=== PATIENT | female | born 1970 | race Caucasian/White ===

== ENCOUNTER 2023-01-15 10:07 | Day surgery (SDC) | payer OTHER, SELFPAY ==
--- NOTE | 2023-01-15 | COLBX_PTH ---
PATIENT: ISAIAH ACUÑA LOC: EN U#:[id number] AGE/SX: 52/F ROOM: RE01/15/[address]: Dr. Murtaza Kline DO : 1970 BED: DIS: 01/15/2023 SPEC #: [id number] RECD: 01/15/23 12:40 STATUS: PAULINO REBetzaida #: [id number] JOSE ENRIQUE: 01/15/23 00:[address]: Murtaza Kline DEPT: SURGICAL PATHOLOGY RECD BY: Yordy Arboleda ENTERED: 01/15/23 12:40 SP TYPE: COLON BX OTHR DR: ALEJANDRO BEATTY MD Tissues: A - COLON BIOPSY B - Transverse colon Procedures: Surgery Specimen Level IV HEADER OPERATION: Colonoscopy (MAC), biopsy PRE-OP DIAGNOSIS: Constipation/diarrhea, positive Cologuard test TISSUE SUBMITTED: A ? Hepatic flexure polyp biopsy, B ? Transverse polyp biopsy MICROSCOPIC DIAGNOSIS A. Colonic polyp at hepatic flexure, biopsy: Polypoid fragment of benign colonic mucosa. See comment. B. Transverse colon polyp, biopsy: Fragment of colonic mucosa with focal hyperplastic change. AM:ap 01/16/2023 COMMENT A. Neither hyperplastic nor adenomatous change is identified. Clinical correlation is suggested. MICROSCOPIC DESCRIPTION Slides are reviewed. GROSS DESCRIPTION A - Received in fixative is one container labeled with the patient's name and designated hepatic flexure polyp biopsy. The specimen consists of two irregular fragments of light barreto soft tissue that in aggregate measure 0.6 x 0.3 x 0.1 cm. The specimen is totally submitted in one cassette. B - Received in fixative is one container labeled with the patient's name and designated transverse polyp biopsy. The specimen consists of one irregular fragment of light barreto soft tissue that measures 0.4 x 0.3 x 0.1 cm. The specimen is totally submitted in one cassette. / SJ:ap 01/15/2023 TC:5 CPT: 36673 x2
[2023-01-15 10:35] VITALS: BP 96/71; PULSE 75; RESP 16; TEMP 36.8; O2SAT 98; BMI 23.6
[2023-01-15] MEDS: Lactated Ringers 1,000 ML 15 ML IV (10:54)
--- NOTE | 2023-01-15 11:06 | PCM.HP.BLA ---
History and Physical Date of Admission: 01/15/23 Chief Complaint: positive Cologuard Details: ISAIAH ACUÑA, is a 52 F who presents to the office today for positive Cologuard. She had a colonoscopy in her 30s, doesn't recall why. She has frequent bloating. She alternates constipation and diarrhea. Takes Gas-X frequently. Sometimes has tenesmus. Recently has had accidents because of urgent diarrhea. Other times she has hard stools, or soft stools. Takes OTC laxative prn. No relief with metamucil. No melena or hematochezia. No nausea, vomiting, dysphagia, heartburn. No abd pain but sometimes has cramps related to bowels. No unintentional weight loss. ROS Const Constitutional: Positive for fatigue and weight change ENT ENT: No difficulty swallowing Gastro GI: Positive for abdominal pain, bloating, change in bowel habits, constipation, diarrhea, heartburn, excessive flatus and nausea/dyspepsia; No belching, change in stool character, coffee ground emesis, cramping, difficulty swallowing, feeling full early, incontinent of stools, Vomiting blood/hematemesis, Blood in stool, loose stools, Black,tarry stools, pain with swallowing, vomiting or other Musc Musculoskeletal: Positive for joint pain, joint swelling and stiffness Skin Skin: No yellowing of the eye or itchy eyes Psych Psychiatric: Positive for anxiety, Positive for depression, Positive for Compulsive Behavior and Positive for obsessions/compulsions Endo Endocrine: Positive for fatigue and weight change Aller/Imm Allergy/Immunologic: No itchy eyes Sarabjit/Lymp Hematologic/Lymphatic: Positive for easy bruising; No easy bleeding Exam Const General: cooperative and comfortable Nutritional Appearance: average body habitus Orientation: alert, awake and oriented x3 Eyes Sclera: sclerae normal Resp Effort & Inspection: normal respiratory effort GI Inspection: normal to inspection Assessment and Plan Assessment and Plan (1) Alternating constipation and diarrhea: ?Status:?Chronic ?Plan: 52 yo female with positive cologuard test. Long hx alternating diarrhea and constipation. She declines eval/treatment for GI symptoms at this time, would like to proceed with colonoscopy. F/u 2 wks later in office. (2) Positive colorectal cancer screening using Cologuard test: ?Status:?Acute ?Plan: see above I have examined the patient and the H&P has been reviewed. There are no clinical changes since date of exam.
[2023-01-15 11:34] VITALS: BP 88/60; BP 96/71; PULSE 66; RESP 14; TEMP 36.5; O2SAT 100
--- NOTE | 2023-01-15 11:38 | OP.CCLET_ITS ---
01/15/2023 Elizabeth Lemos Md Re : Colonoscopy procedure for Cta Ayala Dear Aminta This procedure was performed on Sunday, January 15, 2023. My impressions and recommendations are as follows: Impressions : - Diverticulosis in the transverse colon and at the hepatic flexure. - Diverticulosis in the recto-sigmoid colon. Recommendations : - Discharge patient to home. - Resume previous diet. - Continue present medications. - Await pathology results. - Repeat colonoscopy in 5 years for surveillance. My findings are described in the full procedure note, which is enclosed. If I can be of further assistance, please feel free to contact me at . Sincerely, Murtaza Kline, 01/15/2023 11:37:49 AM This report has been signed electronically.
--- NOTE | 2023-01-15 11:38 | OP.COLON_ITS ---
Patient Name: Cat Ayala Procedure Date: 01/15/2023 11:06 AM Date of : 1970 Age: 52 Procedure: Colonoscopy Indications: Screening for colorectal malignant neoplasm Providers: Murtaza Kline DO Referring MD: Murtaza Kline DO Medicines: Monitored Anesthesia Care Patient Profile: This is a 52 year old female. Refer to note in patient chart for documentation of history and physical. Last Colonoscopy: more than 10 years ago. Complications: No immediate complications. Procedure: Pre-Anesthesia Assessment: - Prior to the procedure, a History and Physical was performed, and patient medications and allergies were reviewed. The patient is competent. The risks and benefits of the procedure and the sedation options and risks were discussed with the patient. All questions were answered and informed consent was obtained. Patient identification and proposed procedure were verified by the physician. Mental Status Examination: normal. Airway Examination: normal oropharyngeal airway and neck mobility. Respiratory Examination: clear to auscultation. CV Examination: normal. Prophylactic Antibiotics: The patient does not require prophylactic antibiotics. Prior Anticoagulants: The patient has taken no previous anticoagulant or antiplatelet agents. ASA Grade Assessment: II - A patient with mild systemic disease. After reviewing the risks and benefits, the patient was deemed in satisfactory condition to undergo the procedure. The anesthesia plan was to use monitored anesthesia care (MAC). Immediately prior to administration of medications, the patient was re-assessed for adequacy to receive sedatives. The heart rate, respiratory rate, oxygen saturations, blood pressure, adequacy of pulmonary ventilation, and response to care were monitored throughout the procedure. The physical status of the patient was re-assessed after the procedure. After I obtained informed consent, the scope was passed under direct vision. Throughout the procedure, the patient's blood pressure, pulse, and oxygen saturations were monitored continuously. The Colonoscope was introduced through the anus and advanced to the cecum, identified by appendiceal orifice and ileocecal valve. The colonoscopy was performed without difficulty. The patient tolerated the procedure well. The quality of the bowel preparation was adequate. Scope In: 11:15:03 AM Scope Withdrawal Time 0 hours 8 minutes 25 seconds Scope Out: 11:30:24 AM Total Procedure Duration Time 0 hours 15 minutes 21 seconds Findings: The perianal and digital rectal examinations were normal. Two small-mouthed diverticula were found in the transverse colon and hepatic flexure. The polyp was removed with a cold snare. Resection and retrieval were complete. Two small-mouthed diverticula were found in the recto-sigmoid colon. Impression: - Diverticulosis in the transverse colon and at the hepatic flexure. - Diverticulosis in the recto-sigmoid colon. Recommendation: - Discharge patient to home. - Resume previous diet. - Continue present medications. - Await pathology results. - Repeat colonoscopy in 5 years for surveillance. Procedure Code(s): --- Professional --- 08643, Colonoscopy, flexible; with removal of tumor(s), polyp(s), or other lesion(s) by snare technique CPT copyright 2017 [employer]. All rights reserved. The codes documented in this report are preliminary and upon brake operator heavy duty review may be revised to meet current compliance requirements. Murtaza Kline DO 01/15/2023 11:37:49 AM This report has been signed electronically. Number of Addenda: 0 Note Initiated On: 01/15/2023 11:06 AM
[2023-01-15 11:40] VITALS: BP 95/56; BP 96/71; PULSE 64; RESP 14; O2SAT 99
[2023-01-15 11:45] VITALS: BP 92/60; BP 96/71; PULSE 63; RESP 14; O2SAT 99
[2023-01-15 11:54] VITALS: BP 95/63; BP 96/71; PULSE 62; RESP 14; TEMP 36.1; O2SAT 100
[2023-01-15 12:08] VITALS: BP 96/71
== END 2023-01-15 12:29 | disposition home or self-care (01) ==
LOC: EN 10:08 → AC 10:10
PROVIDERS: PCP Family Medicine; Referring Provider Internal Medicine Gastroenterology; Visit Provider Internal Medicine Gastroenterology
PROC: 0DJD8ZZ Inspection of Lower Intestinal Tract, Via Natural or Artificial Opening Endoscopic (ICD-10-PCS; CPT 45378; principal; 2023-01-15 11:10)
DX: Z12.11 Encounter for screening for malignant neoplasm of colon (principal); K57.30 Diverticulosis of large intestine without perforation or abscess without bleeding; R14.0 Abdominal distension (gaseous); R19.7 Diarrhea, unspecified
CPT/HCPCS: 45385; 88305; 88342; J7120; J2405

== ENCOUNTER → 2024-02-25 | Outpatient (CLI) | payer BC, SELFPAY ==
--- NOTE | 2024-02-25 15:34 | NEURO ---
NCS and/or EMG Patient Report Ordering Doctor: Karine Muhammad DATE OF SERVICE: 02/25/24 Cat presents for electrodiagnostic testing of the lower limbs. She reports numbness and tingling primarily in the left leg. Electrodiagnostic findings: Left peroneal motor nerve demonstrates normal distal latency, amplitude and conduction velocity. Right peroneal motor nerve demonstrates normal distal latency, amplitude and conduction velocity. Tibial motor nerve demonstrates normal distal latency, amplitude and conduction velocity bilaterally. Normal tibial and peroneal F?waves. Sensory responses are within normal limits. Needle EMG testing was performed in the lower limbs. All muscles tested showed no evidence of denervation with normal motor unit action potentials. Electrodiagnostic impression: This is a normal electrodiagnostic study of the lower extremities. There is no electrodiagnostic evidence for peripheral neuropathy or lumbosacral radiculopathy. Multi Select Codes Neurology Neurology Interp Codes: 34117-21 Musc test done w/n test comp (interp) (2) and 22803-99 Nrv cndj test 11-12 studies (interp)
== END | disposition home or self-care (01) ==
LOC: PSN 11:48
PROVIDERS: PCP Family Medicine; Referring Provider Anesthesiology Pain Medicine; Visit Provider Anesthesiology Pain Medicine
DX: M54.16 Radiculopathy, lumbar region (principal)
CPT/HCPCS: 95886; 95912

== ENCOUNTER → 2024-05-06 | Outpatient (CLI) | payer BC, SELFPAY ==
[2024-05-06 18:29] LABS: Amphetamine Urine VISTA NEGATIVE (<1000 ng/mL); Barbiturate Urine VISTA NEGATIVE (< 200 ng/mL); Benzodiazepine Urine VISTA NEGATIVE (< 200 ng/mL); Cocaine Urine VISTA NEGATIVE (< 300 ng/mL); Ecstacy Urine VISTA NEGATIVE (< 500 ng/mL); Methadone Urine VISTA NEGATIVE (< 300 ng/mL); PCP Urine VISTA NEGATIVE (< 25 ng/mL); THC Urine VISTA NEGATIVE (< 50 ng/mL); Vista UDS pH Range 6
== END | disposition home or self-care (01) ==
PROVIDERS: PCP Family Medicine; Referring Provider Anesthesiology Pain Medicine; Visit Provider Anesthesiology Pain Medicine
DX: F11.20 Opioid dependence, uncomplicated (principal)
CPT/HCPCS: 80307

== ENCOUNTER → 2025-02-23 | Outpatient (CLI) | payer BC, SELFPAY ==
[2025-02-23 20:59] LABS: Barbiturate Urine NEGATIVE (< 200 ng/mL); Benzodiazepine Urine NEGATIVE (< 200 ng/mL); PCP Urine NEGATIVE (< 25 ng/mL); THC Urine NEGATIVE (< 50 ng/mL)
== END | disposition home or self-care (01) ==
LOC: LAB 17:09
PROVIDERS: PCP Family Medicine; Referring Provider Anesthesiology Pain Medicine; Visit Provider Anesthesiology Pain Medicine
DX: F11.20 Opioid dependence, uncomplicated (principal)
CPT/HCPCS: 80307

== ENCOUNTER → 2025-07-12 | Outpatient (CLI) | payer BC, SELFPAY ==
--- NOTE | 2025-07-12 14:10 | RAD_ITS ---
PROCEDURE: CERV SPINE 2 OR 3 VIEWS 07/12/2025 REASON FOR EXAM: SPONDYLOSIS. Pain. TECHNIQUE: Procedure Code: RADSPCL Modality: DX Procedure: CERV SPINE 2 OR 3 VIEWS COMPARISON: None. FINDINGS: BONES: No fracture or focal osseous lesion. Anatomic spinal alignment. DISC/DEGENERATIVE CHANGES: Mild narrowing of the C5-C6 and C6-C7 disc spaces. The remaining disc spaces are preserved. SOFT TISSUES: No acute abnormality seen. RAD/Cerv Spine 2 or 3 Views IMPRESSION: 1. No acute osseous abnormality. 2. Mild degenerative disc disease. Reading Location: [id number]
--- OUTSIDE RECORDS SUMMARY | 2025-07-12 18:25 | XMS RPT_ITS | CCD ---
Author Organization [facility] CliniSyil Care Team Providers Care Drug Safety Specialist Name Role Phone Tona Deal Unavailable Spring, Sandi Valencia Primary Care Provider Spring, Sandi M. Unavailable Spring, Sandi MKate Primary Care Provider Spring, Sandi MKate Unavailable Spring, Sandi MKate Unavailable Spring, Sandi M. Primary Care Provider Spring, Sandi Valencia Unavailable Spring, Sandi M. Primary Care Provider Spring, Sandi MKate Unavailable Spring BINDING PRINTER, Sandi MKate Primary Care Provider [place] BINDING PRINTER, Sandi MKate Unavailable [place] BINDING PRINTER, Sandi MKate Unavailable Alejandro Beatty MD Primary Care Pro vider Alejandro Beatty MD Primary Care Pro vider Alejandro Beatty MD Primary Care Pro vider Spring BINDING PRINTER, Sandi Valencia Primary Care Provider Spring YURI, Sandi M. Unavailable Tona Deal MD Unavailable [phone] Spring BINDING PRINTER, Sandi M. Unavailable SYSTEM, PROVIDER NOT IN Referring Unavaila ble JACI, ALEJANDRO ERICH MOUNIR Primary Care [place] vailable SYSTEM, PROVIDER NOT IN Attending Unavaila ble SYSTEM, PROVIDER NOT IN Referring Unavaila ble JACI, ALEJANDRO ERICH MOUNIR Primary Care [place] vailable SYSTEM, PROVIDER NOT IN Attending Unavaila ble SYSTEM, PROVIDER NOT IN Referring Unavaila ble JACI, ALEJANDRO ERICH MOUNIR Primary Care [place] vailable SYSTEM, PROVIDER NOT IN Attending Unavaila ble JACI, ALEJANDRO ERICH MOUNIR Primary Care [place] vailable JACI, ALEJANDRO ERICH MOUNIR Attending [place] vailable JACI, ALEJANDRO ERICH MOUNIR Referring [place] vailable Catherine FISH BONING MACHINE FEEDER, FISH BONING MACHINE FEEDER-C Nidhi Stovall Attending Provider MD ALEJANDRO BEATTY Primary Care Provider Friend, Dr. Hauser Attending Provider Friend, Dr. Hauser Referring Provider Friend, Dr. Hauser Other Provider Jaci STEWART, Alejandro Erich Mounir Unavailable JACI, ALEJANDRO ERICH MOUNIR Primary Care [place] vailable TONA HI Attending Unavailable GIORGI WRAY Attending Unavail able JACI, ALEJANDRO ERICH MOUNIR Primary Care [place] vailable Drake Spencer MD Unavailable Karine Muhammad MD Unavailable ALEJANDRO BEATTY MD Primary Care Provider ALEJANDRO BEATTY MD Referring Provider Janet Martines Attending Provider Brandie STEWART, Dr. Mari Attending Provider Dr. Karine Muhammad MD Attending Provider Dr. Karine Muhammad MD Referring Provider Karine Muhammad Attending Unavailable Karine Muhammad Referring Unavailable JACI, ALEJANDRO Primary Care Unavailable Karine Muhammad Attending Unavailable Karine Muhammad Referring Unavailable JACI, ALEJANDRO Primary Care Unavailable Janet Delatorre Attending Unavailable Janet Delatorre Referring Unavailable JACI, ALEJANDRO Primary Care Unavailable Janet Delatorre Attending Unavailable JACI, ALEJANDRO Primary Care Unavailable JACI, ALEJANDRO Referring Unavailable BrandieTan belll Attending Unavailable JACI, ALEJANDRO Primary Care Unavailable JACI, ALEJANDRO ERICH MOUNIR Referring [place] vailable JACI, ALEJANDRO ERICH MOUNIR Attending [place] vailable JACI, ALEJANDRO ERICH MOUNIR Primary Care [place] vailable JACI, ALEJANDRO ERICH MOUNIR Primary Care [place] vailable JACI, ALEJANDRO ERICH MOUNIR Attending [place] vailable JACI, ALEJANDRO ERICH MOUNIR Primary Care [place] vailable JACI, ALEJANDRO ERICH MOUNIR Attending [place] vailable JACI, ALEJANDRO ERICH MOUNIR Primary Care [place] vailable JACI, ALEJANDRO ERICH MOUNIR Attending [place] vailable JACI, ALEJANDRO ERICH MOUNIR Primary Care [place] vailable JACI, ALEJANDRO ERICH MOUNIR Attending [place] vailable JACI, ALEJANDRO ERICH MOUNIR Primary Care [place] vailable JACI, ALEJANDRO ERICH MOUNIR Attending [place] vailable JACI, ALEJANDRO ERICH MOUNIR Attending [place] vailable JACI, ALEJANDRO ERICH MOUNIR Primary Care [place] vailable Allergies Allergy Classification Reported Allergen(s) Allergy Type Date of Onset Reaction(s) Facility (20 sources) codeine; Translations: [CODEINE] Propensity to adverse reactions to drug 7 Hives, Shortness Of Breath [facility] Work Phone: (1 source) Codeine Drug Allergy 5 [facility] Repository Medications Current Medications Medication Drug Class(es) Dates Sig (Normalized) Sig (Original) alpha-tocopherol acetate 30 unt / ascorbic acid 100 mg / beta carotene 1000 unt / calcium carbonate 200 mg / calcium pantothenate 7 mg / cholecalciferol 400 unt / docusate sodium 25 mg / ferrous fumarate 29 mg / folic acid 1 mg / niacinamide 15 mg / pyridoxine hydrochloride 20 mg / riboflavin 3 mg / thiamine 3 mg / vitamin b12 0.012 mg / zinc oxide 20 mg oral tablet (1 source) Vitamin B12, Vitamin D, Vitamin C Start: 11-06-2022 Pnv 119-Iron Fum-Folic Acid 29 mg iron- 1 mg tablet Active 1 {tbl} PO DAILY November 06, 2022 12:00am aspirin 81 mg delayed release oral tablet (13 sources) Nonsteroidal Anti-inflammatory Drug Start: 11-06-2022 take 1 tablet by mouth once daily Aspirin 81 mg tablet,delayed release (DR/EC) Active 81 mg PO DAILY November 06, 2022 12:00am End: 10-22-2019 take 1 tablet by mouth once daily aspirin 81 MG EC tablet Take 81 mg by mouth daily. 0 10/22/2019 Discontinued (Stop Taking at Discharge) azithromycin 500 mg oral tablet (2 sources) Macrolide Antimicrobial Start: 05-20-2022 End: 05-23-2022 azithromycin (Zithromax) 500 MG tablet Take 1 (one) tablet (500 mg total) by mouth daily Take 1 tablet daily for 3 days. for 3 days . 3 tablet 0 05/20/2022 05/23/2022 Active 24 hr buPROPion hydrochloride 150 mg extended release oral tablet (11 sources) Aminoketone Start: 05-20-2025 End: 05-20-2026 take 1 tablet by mouth once daily buPROPion (Wellbutrin XL) 150 MG 24 hr tablet Indications: Moderate major depression (HCC) Take 1 (one) tablet (150 mg total) by mouth daily . 30 tablet 11 05/20/2025 05/20/2026 Active Start: 08-29-2023 End: 08-28-2024 take 1 tablet by mouth once daily buPROPion (Wellbutrin XL) 150 MG 24 hr tablet Indications: Mild major depression (HCC) Take 1 (one) tablet (150 mg total) by mouth daily . 30 tablet 2 08/29/2023 08/28/2024 Active busPIRone hydrochloride 5 mg oral tablet (4 sources) Start: 05-20-2025 End: 05-20-2026 take 1 tablet by mouth three times daily as needed busPIRone (BUSPAR) 5 MG tablet Indications: Anxiety Take 1 (one) tablet (5 mg total) by mouth 3 (three) times a day as needed . 90 tablet 11 05/20/2025 05/20/2026 Active CHANTIX CONTINUING MONTH BOX 1 mg tablet (1 source) Start: 03-31-2017 CHANTIX CONTIN UING MONTH BOX 1 mg tablet cholecalciferol 0.025 mg oral tablet (20 sources) Vitamin D Start: 12-26-2017 End: 12-26-2017 cholecalciferol, vitamin D3, 1,000 unit tablet Take 10 (ten) tablets (10,000 Units total) by mouth daily . 12/26/2017 Active Start: 12-26-2017 cholecalcifero l, vitamin D3, 1,000 unit tablet Take 10,000 Units by mouth daily . 0 12/26/2017 Active Start: 12-26-2017 take 3 tablets by mo ut once daily cholecalciferol, vitamin D3, 1,000 unit tablet Take 3 (three) tablets (3,000 Units total) by mouth daily. 12/26/2017 Active dicyclomine hydrochloride 20 mg oral tablet (1 source) Anticholinergic Start: 05-18-2024 take 1 tablet by mouth four times daily as needed for pain dicyclomine (BENTYL) 20 mg tablet Take 1 (one) tablet (20 mg total) by mouth 4 (four) times a day as needed (Abd pain) . 20 tablet 05/18/2024 Active diphenhydrAMINE hydrochloride 25 mg oral capsule (1 source) Histamine-1 Receptor Antagonist Start: 05-25-2020 End: 06-04-2020 take 2 capsules by mouth every six hours as needed diphenhydrAMINE (BENADRYL) 25 mg capsule Indications: Itching Take 2 (two) capsules (50 mg total) by mouth every 6 (six) hours as needed for itching . 30 capsule 0 05/25/2020 06/04/2020 Active doxycycline hyclate 100 mg oral tablet (1 source) Tetracycline-class Drug Start: 05-27-2023 End: 06-03-2023 take 1 tablet by mouth twice daily doxycycline hyclate (VIBRA-TABS) 100 MG tablet Indications: Conjunctivitis, unspecified conjunctivitis type, unspecified laterality Take 1 (one) tablet (100 mg total) by mouth 2 (two) times a day for 7 days . 14 tablet 0 05/27/2023 06/03/2023 Active DULoxetine 60 mg delayed release oral capsule (20 sources) Serotonin and Norepinephrine Reuptake Inhibitor Start: 11-06-2022 take 1 capsule by mouth twice daily Duloxetine (Cymbalta) 60 mg capsule,delayed release(DR/EC) Active 60 mg PO TWICE A DAY November 06, 2022 12:00am Start: 10-29-2022 End: 11-12-2024 take 2 capsules by mouth once daily DULoxetine (CYMBALTA) 60 MG capsule Indications: Mild major depression , Anxiety Take 2 (two) capsules (120 mg total) by mouth daily . 180 capsule 3 11/12/2024 Active Start: 05-18-2022 End: 05-20-2022 DULoxetine (CYMBALTA) DR nickolas nelson 90 mg Start: 04-28-2020 End: 12-21-2022 take 1 capsule by mouth once daily DULoxetine (CYMBALTA) 30 MG capsule Indications: 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 , Anxiety Take 1 (one) capsule (30 mg total) by mouth daily . 90 capsule 3 12/21/2021 10/29/2022 Discontinued Start: 12-16-2019 End: 10-29-2022 take 1 capsule by mouth once daily DULoxetine (CYMBALTA) 60 MG capsule Indications: 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 , Anxiety Take 1 (one) capsule (60 mg total) by mouth daily . 90 capsule 3 12/21/2021 10/29/2022 Discontinued (Reorder (Suppress CancelRx Message to Pharmacy)) Start: 12-26-2017 End: 06-13-2019 take 1 capsule by mouth once daily DULoxetine (CYMBALTA) 60 MG capsule Indications: Fatigue, unspecified type , Myalgia take 1 capsule by mouth once daily 30 capsule 5 06/14/2019 Active Start: 10-31-2017 End: 10-31-2018 take 1 capsule by mouth once daily DULoxetine (CYMBALTA) 30 MG capsule Indications: Fatigue, unspecified type , Myalgia Take 1 (one) capsule (30 mg total) by mouth daily. 30 capsule 11 10/31/2017 12/26/2017 Discontinued ferrous fumarate (20 sources) take 27 mg by mouth once daily F ERROUS FUMARATE (IRON ORAL) Take 27 mg by mouth daily. 0 take 27 mg by mouth once daily F ERROUS FUMARATE (IRON ORAL) Take 27 mg by mouth daily. 0 Active take 27 mg by mouth once daily F ERROUS FUMARATE (IRON ORAL) Take 27 mg by mouth daily. Active furosemide 20 mg oral tablet (15 sources) Loop Diuretic Start: 05-27-2024 End: 11-12-2025 take 1 tablet by mouth once daily furosemide (LASIX) 20 MG tablet Indications: Localized swelling of both lower legs Take 1 (one) tablet (20 mg total) by mouth daily . 30 tablet 11 11/12/2024 11/12/2025 Active gabapentin 300 mg oral capsule (7 sources) Anti-epileptic Agent Start: 11-07-2023 take 1 capsule by mouth three times daily gabapentin (NEURONTIN) 300 MG capsule Indications: Chronic radicular lumbar pain Take 1 (one) capsule (300 mg total) by mouth 3 (three) times a day . 90 capsule 2 11/07/2023 Active Start: 09-19-2023 End: 11-07-2023 take 1 capsule by mouth three times daily gabapentin (NEURONTIN) 100 MG capsule Indications: Cauda equina compression (HCC) , Chronic radicular lumbar pain Take 1 (one) capsule (100 mg total) by mouth 3 (three) times a day . 90 capsule 1 09/19/2023 11/07/2023 Discontinued hydrocortisone 10 mg/ml / neomycin 3.5 mg/ml / polymyxin b [id number] unt/ml otic solution (1 source) Aminoglycoside Antibacterial, Polymyxin-class Antibacterial, Corticosteroid Start: 06-15-2021 End: 06-22-2021 [id number] isone (CORTISPORIN) otic solution Indications: Acute swimmer's ear of right side Administer 3 (three) drops to the right ear 3 (three) times a day for 7 days . 10 mL 1 06/15/2021 06/22/2021 Active hydrOXYzine pamoate 25 mg oral capsule (20 sources) Antihistamine Start: 11-12-2024 End: 11-12-2025 take 1 capsule by mouth three times daily as needed for anxiety hydrOXYzine (VISTARIL) 25 MG capsule Indications: Anxiety Take 1 (one) capsule (25 mg total) by mouth 3 (three) times a day as needed for anxiety . 90 capsule 1 11/12/2024 11/12/2025 Active Start: 11-06-2022 take 1 tablet by liseth three times daily as needed for anxiety Hydroxyzine Hcl 25 mg tablet Active 25 mg PO THREE TIMES A DAY as needed for Anxiety November 06, 2022 12:00am Start: 10-29-2022 End: 10-06-2024 take 1 capsule by mouth three times daily as needed for anxiety hydrOXYzine (VISTARIL) 25 MG capsule Indications: Anxiety Take 1 (one) capsule (25 mg total) by mouth 3 (three) times a day as needed for anxiety . 90 capsule 10/07/2023 10/06/2024 Active ibuprofen 600 mg oral tablet (1 source) Nonsteroidal Anti-inflammatory Drug Start: 10-22-2019 End: 11-21-2019 take 1 tablet by mouth every six hours as needed ibuprofen (ADVIL,MOTRIN) 600 MG tablet Take 1 (one) tablet (600 mg total) by mouth every 6 (six) hours as needed for pain . 30 tablet 0 10/22/2019 11/21/2019 Active Vitamin With Calcium No.72-Iron 27 Mg-Folic Acid 1 Mg Tablet (3 sources) take 1 tablet by mouth once daily vitamin with Ca-Iron-FA 27-1 mg Tab Take 1 tablet by mouth daily. Active lidocaine 0.05 mg/mg medicated patch (2 sources) Antiarrhythmic, Amide Local Anesthetic Start: 09-03-2023 End: 10-03-2023 apply 1 dose transdermal route once daily, then apply 1 dose transdermal route every twelve hours lidocaine (LIDODERM) 5 % patch Place 1 (one) patch on the skin daily Remove & Discard patch within 12 hours or as directed by MD . 30 patch 0 09/03/2023 10/03/2023 Active magnesium (20 sources) magnesium 250 mg Tab Take by mouth daily as needed . Active magnesium 250 mg Tab Take by mouth daily as needed . 0 magnesium 250 mg Tab Take by mouth daily as needed . 0 Active magnesium 250 mg Tab Take by mouth daily . 0 Active magnesium 250 mg Tab Take by mouth. 0 Active magnesium 250 mg Tab Take by mouth. Active mecobalamin 1 mg chewable tablet (2 sources) Start: 11-06-2022 take 1 tablet by mouth once daily Mecobalamin (Vitamin B12) 1,000 mcg tablet,chewable Active 1000 ug PO DAILY November 06, 2022 12:00am meloxicam 15 mg oral tablet (7 sources) Nonsteroidal Anti-inflammatory Drug Start: 08-29-2023 End: 08-28-2024 take 1 tablet by mouth once daily meloxicam (MOBIC) 15 MG tablet Indications: Right-sided chest pain , Lipoma, unspecified site Take 1 (one) tablet (15 mg total) by mouth daily . 30 tablet 11 08/29/2023 08/28/2024 Active multivitamin with minerals tablet (20 sources) take 1 tablet by mouth once daily, then take 1 tablet by mouth once daily multivitamin with minerals tablet Take 1 (one) tablet by mouth daily One a day . Active take 1 tablet by liseth th once daily, then take 1 tablet by mouth once daily multivitamin with minerals tablet Take 1 (one) tablet by mouth daily One a day . 0 Active take 1 tablet by liseth th once daily, then take 1 tablet by mouth once daily multivitamin with minerals tablet Take 1 tablet by mouth daily One a day . 0 take 1 tablet by liseth th once daily, then take 1 tablet by mouth once daily multivitamin with minerals tablet Take 1 tablet by mouth daily One a day . 0 Active ondansetron 4 mg disintegrating oral tablet (2 sources) Serotonin-3 Receptor Antagonist Start: 05-18-2024 take 1 tablet by mouth every six hours as needed for nausea ondansetron (ZOFRAN-ODT) 4 MG disintegrating tablet Dissolve 1 (one) tablet (4 mg total) on top of tongue every 6 (six) hours as needed for nausea . 20 tablet 05/18/2024 Active Start: 05-18-2022 End: 05-20-2022 take 4 mg intravenously every six hours as needed for nausea and vomiting ondansetron (ZOFRAN) injection 4 mg Pnv 119-Iron Fum-Folic Acid (1 source) Start: 11-06-2022 take 1 tablet by mouth once daily Pnv 119-Iron Fum-Folic Acid Active 1 TABLET PO DAILY November 06, 2022 12:00am polymyxin b [id number] unt/ml / trimethoprim 1 mg/ml ophthalmic solution (1 source) Dihydrofolate Reductase Inhibitor Antibacterial, Polymyxin-class Antibacterial Start: 05-27-2023 End: 06-06-2023 take 1 drop(s) into the eye(s) every six hours trimethoprim-polymyx in b (POLYTRIM) 10,000 unit- 1 mg/mL Drop ophthalmic solution Indications: Conjunctivitis, unspecified conjunctivitis type, unspecified laterality Administer 1 (one) drop to both eyes every 6 (six) hours for 10 days . 10 mL 1 05/27/2023 06/06/2023 Active potassium gluconate 2.13 meq oral tablet (20 sources) take 1 tablet by mouth once daily potassium gluconate 500 mg (83 mg) Tab Take 1 tablet by mouth daily . Active End: 10-12-2019 take 1 tablet by mouth once daily potassium 99 mg Tab Take 99 mg by mouth daily. 0 10/12/2019 Discontinued (Discontinued by another clinician) predniSONE 20 mg oral tablet (1 source) Start: 09-19-2023 End: 09-24-2023 take 2 tablets by mouth once daily predniSONE (DELTASONE) 20 MG tablet Indications: Cauda equina compression (HCC) , Claudication of lower extremity (HCC) Take 2 (two) tablets (40 mg total) by mouth daily for 5 days . 10 tablet 0 09/19/2023 09/24/2023 Active pregabalin 50 mg oral capsule (10 sources) take 1 capsule by mouth twice daily pregabalin (LYRICA) 50 MG capsule Take 1 (one) capsule (50 mg total) by mouth 2 (two) times a day . Active vitamin with Ca-Iron-FA 27-1 mg Tab (19 sources) vitamin with Ca-Iron-FA 27-1 mg Tab Take by mouth . Active vitamin with Ca-Iron-FA 27-1 mg Tab Take by mouth . 0 Active End: 09-17-2019 take 1 tablet by mouth once daily vitamin with Ca-Iron-FA 27-1 mg Tab Take 1 tablet by mouth daily. 0 09/17/2019 Discontinued (Therapy completed) take 1 tablet by liseth th once daily vitamin with Ca-Iron-FA 27-1 mg Tab Take 1 tablet by mouth daily. 0 Active traZODone hydrochloride 50 mg oral tablet (20 sources) Serotonin Reuptake Inhibitor Start: 10-28-2024 End: 11-12-2024 take 1 tablet by mouth once daily as needed traZODone (DESYREL) 50 MG tablet Indications: Insomnia, unspecified type Take 1 (one) tablet (50 mg total) by mouth nightly as needed . 30 tablet 3 11/12/2024 Active Start: 09-28-2019 End: 12-21-2021 take 2 tablets by mouth once daily traZODone (DESYREL) 50 MG tablet Indications: Sleep disorder, shift work Take 2 (two) tablets (100 mg total) by mouth nightly . 180 tablet 3 10/12/2020 12/21/2021 Discontinued Start: 04-23-2018 End: 09-28-2019 traZODone (DESYREL) 50 MG ta blet Indications: Sleep disorder, shift work TAKE ONE TO TWO TABLETS ONE HOUR PRIOR TO SLEEP INTERVAL 180 tablet 1 03/21/2019 09/28/2019 Discontinued (Reorder (Suppress CancelRx Message to Pharmacy)) Start: 03-31-2017 traZODone (PAOLA YREL) 50 MG tablet Indications: Sleep disorder, shift work Take 1-2 1 hours prior to sleep interval. 180 tablet 3 03/31/2017 Active vitamin b12 1 mg oral tablet (20 sources) Vitamin B12 take 1 tablet by mouth once daily as needed cyanocobalamin (B-12) 1000 MCG tablet Take 1 (one) tablet (1,000 mcg total) by mouth daily as needed . Active Completed/Discontinued Medications Medication Drug Class(es) Dates Sig (Normalized) Sig (Original) 0.5 ml bordetella pertussis filamentous hemagglutinin vaccine, inactivated 0.01 mg/ml / bordetella pertussis fimbriae 2/3 vaccine, inactivated 0.01 mg/ml / bordetella pertussis pertactin vaccine, inactivated 0.006 mg/ml / bordetella pertussis toxoid vaccine, inactivated 0.005 mg/ml / diphtheria toxoid vaccine, inactivated 4 unt/ml / tetanus toxoid vaccine, inactivated 10 unt/ml injection (1 source) Inactivated Corynebacterium Diphtheriae Vaccine, Inactivated Clostridium Tetani Vaccine Start: 10-31-2017 End: 10-31-2017 diptheria, tetanus toxoid, acellular pertusssis (ADACEL) 2 Lf-(2.5-5-3-5 mcg)-5Lf/0.5 mL injection Indications: Need for Tdap vaccination Sign this order in conjunction with the immunization order to satisfy [place] Board of Pharmacy Positive ID requirements for immunization orders. 1 mL 0 10/31/2017 10/31/2017 azithromycin (ZITHROMAX) 500 mg in sodium chloride (NS) 0.9% 250 mL (vialmate) (1 source) Start: 05-18-2022 End: 05-20-2022 take 500 mg intravenously every twenty-four hours azithromycin (ZITHROMAX) 500 mg in sodium chloride (NS) 0.9% 250 mL (vialmate) calcium carbonate 1500 mg oral tablet (20 sources) End: 06-15-2021 take 1 tablet by mouth twice daily at mealtime calcium carbonate (OS-JOSE) 600 mg (1,500 mg) tablet Take 600 mg by mouth 2 (two) times a day with meals. 0 06/15/2021 Discontinued (Therapy completed) calcium chloride 0.0014 meq/ml / potassium chloride 0.004 meq/ml / sodium chloride 0.103 meq/ml / sodium lactate 0.028 meq/ml injectable solution (2 sources) Start: 05-17-2022 End: 05-19-2022 lactated Ringers infusion Start: 10-22-2019 End: 10-22-2019 lactated Ringers infusion estradiol 0.5 mg oral tablet (20 sources) Estrogen Start: 10-27-2020 End: 06-15-2021 take 1 tablet by mouth once daily estradioL (ESTRACE) 0.5 MG tablet Indications: 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 Take 1 (one) tablet (0.5 mg total) by mouth daily . 90 tablet 3 10/27/2020 06/15/2021 Discontinued (Therapy completed) Start: 04-28-2020 take 0.5 tablet by m outh once daily estradioL (ESTRACE) 2 MG tablet Indications: 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 Take 0.5 (one-half) tablet (1 mg total) by mouth daily . 90 tablet 3 04/28/2020 Active Start: 12-26-2016 End: 04-28-2020 take 1 tablet by mouth once daily estradiol (ESTRACE) 2 MG tablet Take 1 tablet (2 mg total) by mouth daily. 90 tablet 3 12/26/2016 04/28/2020 Discontinued (Reorder (Suppress CancelRx Message to Pharmacy)) famotidine 40 mg oral tablet (14 sources) Histamine-2 Receptor Antagonist Start: 12-04-2018 End: 04-28-2020 famotidine (PEPCID) 40 MG tablet Indications: Gastroesophageal reflux disease, esophagitis presence not specified take 1 tablet by mouth PRIOR TO SLEEP INTERVAL 90 tablet 3 12/04/2018 04/28/2020 Discontinued Start: 03-31-2017 famotidine (PE PCID) 40 MG tablet Indications: Gastroesophageal reflux disease, esophagitis presence not specified 1 tablet prior to sleep interval. 90 tablet 3 03/31/2017 Active fexofenadine hydrochloride 180 mg oral tablet (5 sources) Histamine-1 Receptor Antagonist Start: 05-25-2020 End: 06-15-2021 take 1 tablet by mouth once daily fexofenadine (LINA) 180 MG tablet Indications: Itching Take 1 (one) tablet (180 mg total) by mouth daily . 30 tablet 2 05/25/2020 06/15/2021 Discontinued (Therapy completed) gadoterate meglumine (DOTAREM) injection 10 mL (1 source) Start: 05-18-2022 End: 05-18-2022 gadoterate meglumine (DOTAREM) injection 10 mL 1 ml heparin sodium, porcine 5000 unt/ml injection (1 source) Unfractionated Heparin, Anti-coagulant Start: 05-17-2022 End: 05-20-2022 heparin (porcine) injection 5,000 Units hydrocortisone acetate 25 mg rectal suppository (4 sources) Corticosteroid Start: 02-12-2019 End: 04-09-2019 hydrocortisone (ANUSOL-HC) 25 mg suppository Indications: Hemorrhoids, unspecified hemorrhoid type Insert 1 (one) suppository (25 mg total) into the rectum 2 (two) times a day . 12 suppository 0 02/12/2019 04/09/2019 Start: 01-22-2019 End: 02-01-2019 hydrocortisone (ANUSOL-HC) 2 5 mg suppository Insert 1 (one) suppository (25 mg total) into the rectum 2 (two) times a day for 10 days . 20 suppository 0 01/22/2019 02/01/2019 Active linaclotide 0.145 mg oral capsule (20 sources) Guanylate Cyclase-C Agonist Start: 07-25-2023 End: 06-17-2025 take 1 capsule by mouth once daily before breakfast Linzess 145 mcg cap Indications: Constipation, unspecified constipation type Take 1 (one) capsule (145 mcg total) by mouth every morning before breakfast . 30 capsule 3 11/12/2024 06/17/2025 Discontinued 50 ml magnesium sulfate 40 mg/ml injection (1 source) Start: 05-18-2022 End: 05-18-2022 magnesium sulfate 2 g in sterile water (SW) 50 mL IVPB 1 ml morphine sulfate 2 mg/ml cartridge (1 source) Opioid Agonist Start: 05-17-2022 End: 05-20-2022 take 2 mg intravenously every four hours as needed morphine injection 2 mg naloxone (NARCAN) injection 0.1 mg (2 sources) Start: 05-17-2022 End: 05-20-2022 naloxone (NARCAN) injection 0.1 mg Start: 10-22-2019 End: 10-22-2019 naloxone (NARCAN) injection 0.1 mg 24 hr nicotine 0.875 mg/hr transdermal system (1 source) Cholinergic Nicotinic Agonist Start: 05-17-2022 End: 05-20-2022 nicotine (NICODERM CQ) 21 mg/24 hr 1 patch omeprazole 20 mg delayed release oral capsule (6 sources) Proton Pump Inhibitor Start: 07-27-2019 End: 04-28-2020 take 1 capsule by mouth once daily omeprazole (PRILOSEC) 20 MG capsule Indications: Gastroesophageal reflux disease, esophagitis presence not specified Take 1 (one) capsule (20 mg total) by mouth daily . 90 capsule 0 07/27/2019 04/28/2020 Discontinued plecanatide 3 mg oral tablet (5 sources) Start: 01-30-2023 End: 08-29-2023 take 1 tablet by mouth once daily Trulance 3 mg Tab Take 1 (one) tablet (3 mg total) by mouth daily . 0 02/03/2023 08/29/2023 Discontinued (Patient's Request) potassium 99 mg extended release oral tablet (9 sources) End: 10-12-2019 take 1 tablet by mouth once daily potassium 99 mg Tab Take 99 mg by mouth daily. 0 10/12/2019 Discontinued (Discontinued by another clinician) take 1 tablet by mouth once jean y potassium 99 mg Tab Take 99 mg by mouth daily. Active potassium phosphate 20 mmol in dextrose (D5W) 5% 250 mL IVPB (1 source) Start: 05-17-2022 End: 05-18-2022 potassium phosphate 20 mmol in dextrose (D5W) 5% 250 mL IVPB Sodium Chloride (1 source) Start: 05-17-2022 End: 05-20-2022 sodium chloride (PF) (NS) flush 5 mL sucralfate 1000 mg oral tablet (6 sources) Aluminum Complex Start: 10-31-2017 End: 02-05-2019 take 1 tablet by mouth four times daily before mealtime sucralfate (CARAFATE) 1 gram tablet Take 1 (one) tablet (1 g total) by mouth 4 (four) times a day before meals. 120 tablet 11 10/31/2017 02/05/2019 Discontinued (Therapy completed) Start: 07-18-2017 End: 10-31-2017 take 10 mL by mouth three times daily sucralfate (CARAFATE) 100 mg/mL suspension Take 10 mL (1 g total) by mouth 3 (three) times a day. 2700 mL 11 07/18/2017 10/31/2017 Discontinued Start: 03-31-2017 End: 03-31-2018 take 1 tablet by mouth three times daily sucralfate (CARAFATE) 1 gram tablet Indications: Gastroesophageal reflux disease, esophagitis presence not specified Take 1 (one) tablet (1 g total) by mouth 3 (three) times a day. 90 tablet 11 03/31/2017 03/31/2018 Active traMADol hydrochloride 50 mg oral tablet (8 sources) Opioid Agonist Start: 11-27-2023 End: 05-20-2025 take 1 tablet by mouth once daily as needed for pain traMADol (ULTRAM) 50 mg tablet Indications: Low back pain, unspecified back pain laterality, unspecified chronicity, unspecified whether sciatica present Take 1 (one) tablet (50 mg total) by mouth daily as needed for pain . 30 tablet 11/27/2023 05/20/2025 Discontinued varenicline 1 mg oral tablet (7 sources) Partial Cholinergic Nicotinic Agonist Start: 03-12-2019 End: 06-10-2019 take 1 tablet by mouth twice daily varenicline (CHANTIX CONTINUING MONTH BOX) 1 mg tablet Take 1 (one) tablet (1 mg total) by mouth 2 (two) times a day . 60 tablet 2 03/12/2019 06/10/2019 Start: 02-12-2019 End: 03-12-2019 take 1 tablet by mouth once daily, then take 1 tablet by mouth twice daily, then take 1 mg by mouth twice daily varenicline (CHANTIX STARTING MONTH BOX) 0.5 mg (11)- 1 mg (42) tablet Indications: Cigarette nicotine dependence with nicotine-induced disorder Take one 0.5mg tab by mouth once daily for 3 days, then increase to one 0.5mg tab twice daily for 4 days, then increase to 1mg twice daily. . 53 tablet 0 02/12/2019 03/12/2019 Discontinued Start: 02-12-2019 End: 05-13-2019 take 1 tablet by mouth once daily, then take 1 tablet by mouth twice daily, then take 1 mg by mouth twice daily varenicline (CHANTIX STARTING MONTH BOX) 0.5 mg (11)- 1 mg (42) tablet Indications: Cigarette nicotine dependence with nicotine-induced disorder Take one 0.5mg tab by mouth once daily for 3 days, then increase to one 0.5mg tab twice daily for 4 days, then increase to 1mg twice daily. . 53 tablet 0 02/12/2019 05/13/2019 Active Start: 06-13-2017 End: 10-31-2017 take 1 tablet by mouth twice daily CHANTIX CONTINUING MONTH BOX 1 mg tablet Indications: Cigarette nicotine dependence with nicotine-induced disorder Take 1 (one) tablet (1 mg total) by mouth 2 (two) times a day. 60 tablet 2 06/13/2017 10/31/2017 Discontinued Start: 03-31-2017 End: 11-07-2023 varenicline (Chantix Continu ing Month Box) 1 mg tablet CHANTIX CONTINUING MONTH BOX 1 mg tablet 0 03/31/2017 11/07/2023 Discontinued (Patient's Request) Problems Active Problems Problem Classification Problem Date Documented Da te Episodic/Chronic Anxiety disorders (20 sources) Anxiety; Translations: [Anxiety disorder, unspecified] Onset: 2 Chronic Complications of surgical procedures or medical care (20 sources) Postsurgical menopause; Translations: [Asymptomatic postprocedural ovarian failure] Onset: 0 04-28-2020 Chronic Diabetes mellitus without complication (3 sources) Hyperglycemia; Translations: [Hyperglycemia, unspecified] Onset: 5 05-20-2025 Episodic Esophageal disorders (20 sources) Gastroesophageal reflux disease; Translations: [Gastro-esophageal reflux disease without esophagitis] Onset: 7 10-01-2016 Chronic Fluid and electrolyte disorders (2 sources) Dehydration; Translations: [Dehydration] Onset: 4 Episodic Immunizations and screening for infectious disease (7 sources) Vaccination needed; Translations: [Encounter for immunization] Onset: 5 Episodic Mood disorders (20 sources) Mild major depression; Translations: [Major depressive disorder, single episode, mild] Onset: 2 Chronic Nonspecific chest pain (1 source) Right sided chest pain; Translations: [Chest pain, unspecified] 08-29-2023 Episodic Other acquired deformities (13 sources) Scoliosis deformity of spine; Translations: [Scoliosis, unspecified] Onset: 4 10-20-2023 Chronic Other aftercare (2 sources) Encounter for therapeutic drug level monitoring; Translations: [Encounter for therapeutic drug level monitoring] Onset: 5 Episodic Other and unspecified benign neoplasm (1 source) Lipoma (clinical); Translations: [Benign lipomatous neoplasm, unspecified] 08-29-2023 Episodic Other and unspecified benign neoplasm (11 sources) Lipoma of trunk; Translations: [Lipoma of torso] Onset: 0 10-12-2019 Other bone disease and musculoskeletal deformities (1 source) Adolescent idiopathic scoliosis; Translations: [Adolescent idiopathic scoliosis, site unspecified] 10-20-2023 Chronic Other ear and sense organ disorders (1 source) Acute otitis externa; Translations: [Swimmer's ear, right ear] Episodic Other gastrointestinal disorders (4 sources) Irritable bowel syndrome; Translations: [Irritable bowel syndrome without diarrhea] Onset: 5 06-17-2025 Chronic Other gastrointestinal disorders (2 sources) Irritable bowel syndrome without diarrhea; Translations: [Irritable bowel syndrome, unspecified] Onset: 5 Chronic Other gastrointestinal disorders (2 sources) Constipation alternates with diarrhea; Translations: [Other specified symptoms and signs involving the digestive system and abdomen] 11-06-2022 Episodic Other gastrointestinal disorders (2 sources) Stool DNA-based colorectal cancer screening positive; Translations: [Other fecal abnormalities] 11-06-2022 Episodic Other gastrointestinal disorders (1 source) Other fecal abnormalities; Translations: [Abnormal feces] 11-06-2022 Episodic Other gastrointestinal disorders (1 source) Other specified symptoms and signs involving the digestive system and abdomen; Translations: [Other symptoms involving digestive system] 11-06-2022 Episodic Other gastrointestinal disorders (4 sources) Constipation; Translations: [Constipation, unspecified] 11-12-2024 Episodic Other liver diseases (20 sources) Elevated liver enzymes level; Translations: [Abnormal levels of other serum enzymes] Onset: 2 Episodic Other liver diseases (4 sources) Abnormal levels of other serum enzymes; Translations: [Abnormal levels of other serum enzymes] Onset: 2 Episodic Other liver diseases (4 sources) Liver mass; Translations: [Hepatomegaly, not elsewhere classified] 06-17-2025 Episodic Other liver diseases (2 sources) Hepatomegaly, not elsewhere classified; Translations: [Hepatomegaly, not elsewhere classified] Onset: 5 Episodic Other lower respiratory disease (1 source) Snoring; Translations: [Snoring] Episodic Other nervous system disorders (5 sources) Tremor; Translations: [Tremor, unspecified] Onset: 5 05-20-2025 Episodic Other nervous system disorders (2 sources) Tremor, unspecified; Translations: [Tremor, unspecified] Onset: 5 Episodic Other screening for suspected conditions (not mental disorders or infectious disease) (10 sources) Patient encounter status; Translations: [Encounter for screening mammogram for malignant neoplasm of breast] Onset: 3 Episodic Other upper respiratory disease (4 sources) Bleeding from nose; Translations: [Epistaxis] Onset: 5 06-17-2025 Episodic Peripheral and visceral atherosclerosis (19 sources) Intermittent claudication; Translations: [Peripheral vascular disease, unspecified] Onset: 4 09-19-2023 Chronic Residual codes; unclassified (20 sources) Insomnia; Translations: [Insomnia, unspecified] Onset: 2 Episodic Residual codes; unclassified (2 sources) Insomnia, unspecified; Translations: [Insomnia, unspecified] Onset: 2 Episodic Residual codes; unclassified (14 sources) At risk of disease; Translations: [At risk for obstructive sleep apnea] Onset: 9 02-12-2019 Screening or history of mental health and substance abuse (20 sources) Nicotine dependence; Translations: [Nicotine dependence, unspecified, uncomplicated] Onset: 7 12-19-2016 Chronic Spondylosis; intervertebral disc disorders; other back problems (2 sources) Degeneration of lumbar intervertebral disc; Translations: [Degeneration of intervertebral disc of lumbar region] 11-19-2024 Chronic Substance-related disorders (8 sources) Tobacco dependence syndrome; Translations: [Nicotine dependence, cigarettes, with unspecified nicotine-induced disorders] Onset: 5 Chronic Unclassified (14 sources) History of bypass of stomach; Translations: [S/P gastric bypass] Onset: 7 10-01-2016 Unclassified (1 source) Screening status; Translations: [Screening for heart disease] Unclassified (14 sources) Patient encounter status; Translations: [Encounter for biometric screening] Onset: 9 Resolved: 9 02-21-2019 Unclassified (10 sources) Body mass index 20-24 - normal; Translations: [BMI 24.0-24.9, adult] Onset: 0 09-17-2019 Unclassified (2 sources) ERRONEOUS ENCOUNTER--DISREGARD Unclassified (1 source) Clinical history and observation findings; Translations: [Skin picking habit] Unclassified (1 source) Low back pain, unspecified; Translations: [Low back pain, unspecified] Onset: 5 Unclassified (2 sources) 06/01/25 CBC,CMP,TSH Onset: 5 Past or Other Problems Problem Classification Problem Date Documented Da te Episodic/Chronic Acquired foot deformities (17 sources) Left foot drop; Translations: [Foot drop, left foot] Onset: 09-19-2023 09-19-2023 Episodic Hemorrhoids (20 sources) Hemorrhoids; Translations: [External hemorrhoids] Onset: 01-22-2019 01-22-2019 Episodic Inflammation; infection of eye (except that caused by tuberculosis or sexually transmitteddisease) (19 sources) Conjunctivitis; Translations: [Unspecified conjunctivitis] Onset: 05-27-2023 05-27-2023 Episodic Malaise and fatigue (20 sources) Fatigue; Translations: [Other fatigue] Onset: 10-31-2017 Resolved: 04-28-2020 10-31-2017 Episodic Mood disorders (20 sources) Mood disorders Onset: 11-12-2024 Resolved: 05-20-2025 11-12-2024 Noninfectious gastroenteritis (20 sources) Enterocolitis; Translations: [Noninfective gastroenteritis and colitis, unspecified] Onset: 05-17-2022 Episodic Other and unspecified benign neoplasm (20 sources) Lipoma of trunk; Translations: [Benign lipomatous neoplasm of skin and subcutaneous tissue of trunk] Onset: 10-12-2019 10-12-2019 Episodic Other connective tissue disease (20 sources) Muscle pain; Translations: [Myalgia, unspecified site] Onset: 10-31-2017 Resolved: 04-28-2020 10-31-2017 Episodic Other connective tissue disease (20 sources) Pain in right hand; Translations: [Pain of bilateral hands] Onset: 07-01-2018 Resolved: 04-28-2020 07-01-2018 Episodic Other connective tissue disease (11 sources) Pain of bilateral hands; Translations: [Bilateral hand pain] Onset: 07-01-2018 Resolved: 04-28-2020 07-01-2018 Other gastrointestinal disorders (20 sources) History of bypass of stomach; Translations: [Bariatric surgery status] Onset: 10-01-2016 10-01-2016 Episodic Other gastrointestinal disorders (2 sources) Constipation, unspecified; Translations: [Constipation, unspecified] Onset: 11-15-2024 Episodic Other inflammatory condition of skin (20 sources) Itching ; Translations: [Pruritus, unspecified] Onset: 05-25-2020 05-25-2020 Episodic Other nervous system disorders (20 sources) Circadian rhythm sleep disorder, shift work type; 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] Onset: 10-01-2016 Resolved: 07-05-2022 10-01-2016 Chronic Other skin disorders (20 sources) Actinic keratosis; Translations: [Multiple actinic keratoses] Onset: 01-22-2019 01-22-2019 Episodic Other skin disorders (16 sources) Bilateral localized swelling of lower legs; Translations: [Localized swelling, mass and lump, lower limb, bilateral] Onset: 05-27-2024 05-27-2024 Episodic Other skin disorders (2 sources) Localized swelling, mass and lump, lower limb, bilateral; Translations: [Localized swelling, mass and lump, lower limb, bilateral] Onset: 05-27-2024 Episodic Paralysis (19 sources) Compression of cauda equina; Translations: [Cauda equina syndrome] Onset: 09-19-2023 Resolved: 10-20-2023 09-19-2023 Chronic Residual codes; unclassified (7 sources) At risk of disease; Translations: [Other specified personal risk factors, not elsewhere classified] Onset: 02-12-2019 02-12-2019 Episodic Residual codes; unclassified (20 sources) Body mass index 20-24 - normal; Translations: [Body mass index (BMI) 24.0-24.9, adult] Onset: 09-17-2019 09-17-2019 Episodic Residual codes; unclassified (20 sources) At risk of apnea; Translations: [Other specified personal risk factors, not elsewhere classified] Onset: 02-12-2019 02-12-2019 Episodic Spondylosis; intervertebral disc disorders; other back problems (20 sources) Radiculopathy, lumbar region; Translations: [Thoracic or lumbosacral neuritis or radiculitis, unspecified] Onset: 09-03-2023 09-19-2023 Episodic Unclassified (3 sources) Bariatric surgery status; Translations: [S/P gastric bypass] Onset: 10-01-2016 10-01-2016 Episodic Results Test Name Value Interpretation Reference Range Facility US ABDOMEN LIMITED STUDYon 1 US ABDOMEN LIMITED STUDY EXAMINATION: US ABDOMEN LIMITED STUDY HISTORY: ORDERING SYSTEM PROVIDED HISTORY: Elevated liver enzymes, TECHNOLOGIST PROVIDED HISTORY: Illness/Other Reason for exam: Elevated LFTs Cancer History: Unknown Surgery, Radiation History: Cholecystectomy Encounter Type: Initial Additional signs and symptoms: None ORDERING SYSTEM PROVIDED DIAGNOSIS CODES: R74.8 Elevated liver enzymes COMPARISON: CT abdomen 05/18/2024. TECHNIQUE: Right upper quadrant ultrasound. FINDINGS: The liver is enlarged at 20 cm. Liver is slightly hyperechoic. There is a vague heterogeneous area over the right lobe measuring 2.7 x 3.3 x 2.7 cm. This is nonspecific. A mass lesion needs to be excluded. MRI of the liver or CT would be helpful. Gallbladder has been removed. Common bile duct measures 12.6 mm. It was dilated on prior CT is well. Intrahepatic bile ducts appear somewhat prominent centrally as well, similar to prior CT. No ascites. 9.8 x 3.9 x 4.8 cm right kidney. Technologist felt the upper pole of the right kidney is somewhat prominent without definable mass. Attention at CT or MRI recommended to exclude an abnormality. IMPRESSION: Heterogeneous area in the right lobe of the liver. A mass lesion is a consideration. CT or MRI is recommended. Slightly enlarged echogenic liver, suggesting hepatic steatosis. Cholecystectomy with chronic dilatation of the biliary system. See comments regarding right upper kidney above. LodgeoW/vrs Workstation ID: [id number] Dictated by: CLINTON MARK on FriJun 10, 2025 7:15:43 PM EDT Transcribed by: DANYA CRAFT on FriJun 10, 2025 8:07:09 PM EDT Finalized by: CLINTON MARK on FriJun 10, 2025 8:08:28 PM EDT Normal [facility] Comment on above: Order Comment: Injur y/Trauma or Illness?:Illness/Other How long have you had these symptoms (acute/chronic)?:Acute Reason for exam?:elevated LFT's History of cancer?:unknown Surgeries, chemotherapy, or radiation?:cholecystectomy Type of Exam?:Initial Additional signs and symptoms?:none L3410.9992on 03-02-2025 [facility] Misc. COMMENT Normal . [facility] Comment on above: Order Comment: ADD O N- YESTERDAYS URINE-SWRIGHT [id number] [facility] Result Comment: Test Ordered: [id number] Amphetamines Screen, Urine Negative ng/mL UI Reference Range: Rvevqi=651 Amphetamine test includes Amphetamine and Methamphetamine. Barbiturates Negative ng/mL UI Reference Range: Ubehxu=579 Benzodiazepines Negative ng/mL UI Reference Range: Mzhram=348 Cocaine (Metab.), Urine Negative ng/mL UI Reference Range: Hsynrh=050 Opiates Negative ng/mL UI Reference Range: Vsomgq=019 Opiate test includes Codeine, Morphine, Hydromorphone, Hydrocodone. 6-Acetylmorphine, Urine Negative ng/mL UI Reference Range: Cutoff=10 Oxycodone/Oxymorphone, Urine Negative ng/mL UI Reference Range: Fvoxrf=744 Test includes Oxycodone and Oxymorphone PCP, Urine Negative ng/mL UI Reference Range: Cutoff=25 Methadone Screen, Urine Negative ng/mL UI Reference Range: Gszmqi=224 Propoxyphene, Urine Negative ng/mL UI Reference Range: Vsveyc=373 Fentanyl, Urine Negative ng/mL UI Reference Range: Cutoff=2.0 Test includes Fentanyl and Norfentanyl This test was developed and its performance characteristics determined by [facility]. It has not been cleared or approved by the Food and Drug Administration. Tramadol Note: ng/mL UI See Final Results Reference Range: Lzclnd=080 Tramadol Positive [A ] UI Reference Range: Iaviad=031 Tramadol Conf, MS, UR >[address]75 ng/mL UI Reference Range: Irtkqm=875 Buprenorphine, Urine Negative ng/mL UI Reference Range: Cutoff=10 Creatinine, Urine 64.2 mg/dL UI Reference Range: 20.0-300.0 pH, Urine 6.1 UI Reference Range: 4.5-8.9 Performed at: [facility] [address] [place], [place] [id number] Bindery Machine Setter/Set Up Operator: Shanon Taveras PhD, Phone: [phone] Performed at: [address] [id number] [employer]inder[employer] Machine Setter/Set Up Operator: Jeremiah Garcia PhD, Phone: [phone] Performed By: #### L 3410.9992, L505.5000 #### [facility] [address] [place], [address] Amphetamine detection with 1 000 ng/mL as cutoffOrdered By: Karine Muhammad on 02-23-2025 Amphetamines Screen method >1000 ng/mL Ql (U) Negative < 200 ng/mL [facility] No Panel InformationOrdered By: Karine Muhammad on 02-23-2025 Urine Buprenorphine Qualitative Negative < 200 ng/mL [facility] Urine Oxycodone Screen Negative < 100 ng/mL [facility] Quantitative urine opiates m easurementOrdered By: Karine Muhammad on 02-23-2025 Opiates Ql (U) Negative < 300 ng/mL [facility] Screening urine fentanyl joaquín surementOrdered By: Karine Muhammad on 02-23-2025 fentaNYL Screen Ql (U) Negative [facility] Urine Drug Screen (VISTA)on 02-23-2025 AMPHETAMINES Negative Normal <1000 ng/mL [facility] Comment on above: Order Comment: UNK Performed By: #### L 3410.9992, L505.5000 #### [facility] [address] [place], [address] BARBITIURATES Negative Normal < 200 ng/mL [facility] Comment on above: Order Comment: UNK Performed By: #### L 3410.9992, L505.5000 #### [facility] [address] [place], [address] BENZODIAZIPINE Negative Normal < 200 ng/mL [facility] Comment on above: Order Comment: UNK Performed By: #### L 3410.9992, L505.5000 #### [facility] [address] [place], [address] BUP Ur Drug Scr Negative Normal < 200 ng/mL [facility] Comment on above: Order Comment: UNK Performed By: #### L 3410.9992, L505.5000 #### [facility] [address] [place], [address] COCAINE Negative Normal < 300 ng/mL [facility] Comment on above: Order Comment: UNK Performed By: #### L 3410.9992, L505.5000 #### [facility] [address] [place], [address] Fentanyl Negative Normal [facility] Comment on above: Order Comment: UNK Performed By: #### L 3410.9992, L505.5000 #### [facility] [address] [place], [address] METHADONE Negative Normal < 300 ng/mL [facility] Comment on above: Order Comment: UNK Performed By: #### L 3410.9992, L505.5000 #### [facility] [address] [place], [address] OPIATES Negative Normal < 300 ng/mL [facility] Comment on above: Order Comment: UNK Performed By: #### L [id number], L505.5000 #### [facility] [address] [place], [address] OXYCODONE Negative Normal < 100 ng/mL [facility] Comment on above: Order Comment: UNK Performed By: #### L 3410.9992, L505.5000 #### [facility] [address] [place], [address] PCP Negative Normal < 25 ng/mL [facility] Comment on above: Order Comment: UNK Performed By: #### L 3410.9992, L505.5000 #### [facility] [address] [place], [address] THC Negative Normal < 50 ng/mL [facility] Comment on above: Order Comment: UNK Performed By: #### L [id number], L505.5000 #### [facility] [address] [place], [address] Urine benzodiazepine levelOr dered By: Karine Muhammad on 02-23-2025 Benzodiazepines Ql (U) Negative < 200 ng/mL [facility] Urine cocaine levelOrdered B y: Karine Muhammad on 02-23-2025 Cocaine Ql (U) Negative < 300 ng/mL [facility] Urine [id number]-[id number] abinol (THC) measurementOrdered By: Karine Muhammad on 02-23-2025 Cannabinoids Screen Ql (U) Negative < 50 ng/mL [facility] Urine phencyclidine (PCP) de tectionOrdered By: juan Muhammad on 02-23-2025 Phencyclidine Ql (U) Negative < 25 ng/mL [facility] L/S Spine Min 4 Viewson 04-0 L/S Spine Min 4 Views [facility] [address] [place] [address] L/S Spine Min 4 Views MR#: [id number] Acct: [id number] Name: CAT ACUÑA Rep #: [id number] : 1970 F 54 From: Ranulfo Sal i DO PCP: ALEJANDRO BEATTY MD Status: DEP AMB Study: L/S Spine Min 4 Views Date of Exam: 11/19/24 Exam# [id number] Ordering Dr: Janet Delatorre PROCEDURE: Lumbar spine radiographs, four views 11/19/2024 REASON FOR EXAM: CHRONIC BACK PAIN TECHNIQUE: Four views of the lumbar spine were obtained. COMPARISON: None available FINDINGS: The pelvis and proximal femurs are intact. A few scattered pelvic phleboliths are present. Surgical clips project over the right SI joint and mid medial right abdomen. Slight leftward curvature of the mid lumbar spine on the AP view. Lower lungs clear. No acute fracture or focal subluxation of the lumbar spine on the neutral lateral projection. Mild/moderate multilevel degenerative disc and facet disease in the lumbar spine. No evidence of instability on flexion and extension views. RAD/L/S Spine Min 4 Views IMPRESSION: No acute bony abnormality of the lumbar spine. Mild/moderate multilevel degenerative disc and facet disease in the lumbar spine. No evidence of instability on flexion and extension views. Reading Location: [facility] CC: CAL Vazquez; ALEJANDRO BEATTY MD [employer] Granite Polisher: Signed Normal [facility] Orthopedic Visit Reporton Orthopedic Visit Report [facility] [address] [place] [address] OFFICE VISIT Date of Service: 11/19/24 MR#: [id number] Acct: [id number] Name: CAT ACUÑA Rep #: [id number] : 1970 Provider: CAL Vazquez Age/Sex: 54/F Location: [facility] Status: Signed Intake Vital Signs 01/30/23 14:24 11/19/24 08:52 Height 5 ft 1 in 5 ft 1 in Weight: 120 lb 4 oz BMI 22.7 Intake Visit Reasons: LUMBAR SPINE Chief Complaint: Lumbar spine pain Accompanied by: Is patient in pain?: Yes Pain scale (1-10): 7 Allergies codeine Allergy (Intermediate, Verified 11/19/24 08:56) Nausea Medications ???Medication ???Instructions ???Recorded ???Confirmed ???Type aspirin 81 mg tablet,delayed 81 mg PO DAILY 11/06/22 11/19/24 H istory release duloxetine 60 mg capsule,delayed 60 mg PO BID 11/06/22 11/19/24 His tory release (Cymbalta) hydroxyzine HCl 25 mg tablet 25 mg PO TID PRN Anxiety 11/06/22 11/19/24 History mecobalamin (vitamin B12) 1,000 1,000 mcg PO DAILY 11/06/22 History mcg chewable tablet vitamins no.119-iron 1 tab PO DAILY 11/06/22 11/19/24 H istory fumarate 29 mg-folic acid 1 mg tablet linaclotide 145 mcg capsule 145 mcg PO DAILY #90 caps 08/27/23 11/19/24 Rx (Linzess) Have you fallen in the past year?: Yes PFSH Medical History Wears dentures Wears glasses Depression Anxiety Alcohol use Hypoglycemia Smoker History of stress test Positive colorectal cancer screening using Cologuard test Surgical History Hx of tubal ligation Hx of lumpectomy Hx of tonsillectomy Previous section H/O gastric bypass History of appendectomy History of cholecystectomy Family History Father Diverticulosis Mother Leukemia Social History Smoking Status: Current every day smoker tobacco type: cigarettes HPI LUMBAR SPINE Details: This documentation accurately reflects the service provided and the decisions made by me, CAL Vazquez 11/19/24 0852. Part of today???s visit was documented by Breann House MA, acting as scribe. CAT ACUÑA is a 54 year old F here today for lumbar spine pain. This has been going on for about 2 years now. As it has been worsening over the last 2 years. Patient states this is from arthritis, and degeneration. She came home one day and went to the ER, the pain was very bad. Patient was unable to walk because of the pain. The pain was in the lower hip. They did an xray in the ER. She got an MRI 2 months later, the MRI showed sclerosis and arthritis. Patient has been going to Dr. Muhammad for over a year now. She has gotten injections from him, but they don't last awhile. Says that initially the injections did give her about 3 months of relief however currently she is beatriz to get a month and a half. Even though she does get slight relief with the injections her pain is never fully resolved. Patient's last injection was 11/11/2024. Denies any back surgery. She states that she has been to PT, but that has not helped. The pain hurts worse when sitting too long, and going up and down the stairs. Patient states it depends on the day with her balance. She has tried ice, and heat, it relieves the pain a little bit for a short time period. She states that she does get numbness and tingling down the left side, that comes and goes. Pain is located in the back of the left leg down to the posterior calf. Occasionally will get numbness and tingling in her feet. Denies any right sided involvement. Back pain is the biggest concern compared to leg pain. Walking up an incline increases pain, but says walking on a flat surface does not seem to increase her pain too much. PT in the past did not work. Last PT was in 2022 she continues to do the stretching and exercises since then. Says that physical therapy did not give her any relief and only seem to exacerbate her pain. The patient reports that because of the pain she feels like she has been tripping more recently and that at times it is difficult for her to lift her legs which resulted in a fall a year ago. Does mention that she has had dexterity issues on a few occasions over the years but no consistent issues. No diabetes, no heart or lung issues, no blood thinners. She has a history of several abdominal surgeries which include 2 c sections, gastric bypass surgery, appendectomy. Ortho Exam General General: Yes no acute distress Neurologic: Yes alert and Yes oriented x3 Spine SPINE TESTING CERVICAL THORACIC LUMBAR Musculoske (more content not included)... Normal [facility] CRP [Mass/Vol]Ordered By: Joseluis Silveira on 05-27-2024 Interpretation and review of laboratory results Normal [facility] CRP, InflammationOrdered By: Brenda Silveira on 05-27-2024 CRP [Mass/Vol] mg/L 0.0 - 10.0 mg/L [facility] Comprehensive metabolic 2000 panelon 05-27-2024 Albumin [Mass/Vol] 3.6 g/dL 3.2 - 5.2 g/dL [facility] ALP [Catalytic activity/Vol] 96 U/L 40 - 150 U/L [facility] ALT [Catalytic activity/Vol] 69 U/L High 0-35 U/L [facility] Anion gap [Moles/Vol] 12 mmol/L 10 - 2 0 mmol/L [facility] AST [Catalytic activity/Vol] 40 U/L High 0-35 U/L [facility] Bilirubin [Mass/Vol] mg/dL 0.0 - 1 .3 mg/dL [facility] Calcium [Mass/Vol] 8.8 mg/dL 8.4 - 10. 2 mg/dL [facility] Chloride [Moles/Vol] 105 mmol/L 98 - 10 8 mmol/L [facility] Creatinine [Mass/Vol] 0.42 mg/dL 0.40 - 1.10 mg/dL [facility] GFR/1.73 sq M.predicted CKD-EPI (S/P/Bld) [Vol rate/Area] 118 - PINF [facility] Comment on above: Estimated GFR was ca lculated using the 2020 CKD-EPI creatinine equation. Glucose [Mass/Vol] 93 mg/dL 65 - 99 mg/dL [facility] HCO3 [Moles/Vol] 26 mmol/L 21 - 32 mmol/L [facility] Interpretation and review of laboratory results Abnormal [facility] Potassium [Moles/Vol] 4.7 mmol/L 3.5 - 5.1 mmol/L [facility] Protein [Mass/Vol] 5.5 g/dL Low 6.0 - 8.0 g/dL [facility] Sodium [Moles/Vol] 138 mmol/L 135 - 145 mmol/L [facility] Urea nitrogen [Mass/Vol] 13 mg/dL 8 - 25 mg/dL [facility] Urea nitrogen/Creatinine [Mass ratio] 31.0 mg/mg High 10.0 - 20.0 [facility] Services has implemented the eGFR calculation approach that does not have a coefficient for race that conforms to the NKF-ASN Task Force Recommendations. [facility] ESR Westergren method (Bld) [Velocity]on 05-27-2024 ESR (Bld) [Velocity] 3 mm/h [facility] [place] Interpretation and review of laboratory results Normal [facility] Outreach Urinalysis w/ Refle x CultureOrdered By: Janey Barrientos on 05-27-2024 Bacteria Auto Ql (U) None Seen None Se en /hpf [facility] Bilirubin Ql (U) Negative Negative [facility] Clarity Refractometry automated (U) Clear Clear [facility] Color (U) Yellow Colorless, Yellow [facility] Crystals.amorphous Computer assisted (U) [#/Area] Few Abnormal None Seen, Rare /hpf [facility] Epithelial cells.squamous Auto (Urine sed) [#/Area] [facility] Glucose Auto test strip (U) [Mass/Vol] Negative Negative mg/dL [facility] Hemoglobin Auto test strip Ql (U) Negative Negative [facility] Interpretation and review of laboratory results Abnormal [facility] Ketones (U) [Mass/Vol] Negative Negat trixie mg/dL [facility] Leukocyte esterase Auto test strip Ql (U) Negative Negative [facility] Mucus Auto (Urine sed) [#/Area] Rare None Seen, Rare /lpf [facility] Nitrite Auto test strip Ql (U) Negative Negative [facility] pH (U) 7.0 [pH] 5.0 - 7.0 [facility] Protein (U) [Mass/Vol] Negative Negat trixie mg/dL [facility] RBC Auto (Urine sed) [#/Area] [facility] Specific gravity (U) [Rel density] 1.015 1.005 - 1.025 [facility] Urobilinogen (U) [Mass/Vol] mg/dL NINF - 2.0 mg/dL [facility] WBC Auto (Urine sed) [#/Area] 1 [facility] Microscopic examinat ion is performed on all urinalysis samples and only positive findings are reported. The test for blood on the chemical analytic portion of urinalysis may also be positive due to hemoglobinuria and myoglobinuria and if red blood cells are present they are quantified by microscopic examination. [facility] CT ABDOMEN PELVIS WITH IV CO NTRAST ONLYon 05-18-2024 CT ABDOMEN PELVIS WITH IV CONTRAST ONLY EXAMINATION: ENHANCED CT SCAN OF THE ABDOMEN AND PELVIS: 05/18/2024. HISTORY: 07/05/22-40Min.Appt's w/Dr.Dalia Beatty Injury/Trauma or Illness?:Illness/Other abdominal pain, N/V/D, hx of lory en y gastric bypass COMPARISON FILMS: Enhanced CT scan of the abdomen and pelvis: 05/16/2022. TECHNIQUE: 3.75 mm axial images from lung bases through ischial tuberosities following administration of intravenous contrast were obtained. No oral contrast was utilized. Sagittal, coronal reconstructions were performed. Dose reduction techniques were achieved by using automated exposure control and/or adjustment of mA and/or kV according to patient size and/or use of iterative reconstruction technique. FINDINGS: The visualized lung bases seem normal. The heart size seems normal. CT ABDOMEN: There is mild dilatation of the intra-, extrahepatic bile ducts. There is significant dilatation of the common bile duct, common hepatic duct with the widest component measuring 1.5 cm. This has progressed since previous examination however, there are no definite radiopaque filling defects in these bile ducts. The patient is status post cholecystectomy as well as gastric bypass surgery. The liver, spleen, pancreas, adrenal glands, kidneys appear normal. The abdominal aorta has normal caliber. Most of the small bowel loops are of normal caliber however, there are some small bowel loops particularly in the pelvis which demonstrate some wall thickening, as well as there is mildly thickened wall of the cecum, ascending colon to the level of proximal transverse colon with some induration of surrounding fat. There is no pneumatosis. The appendix is not seen. CT PELVIS: The bladder seems normal. The uterus, ovaries are not seen. There is no pelvic adenopathy. There are no focal fluid collections. The visualized osseous structures are normal except for degenerative disc disease with vacuum phenomena at L4-5. IMPRESSION: 1. Findings concerning for enterocolitis involving the distal ileal loops as well as cecum, ascending colon and part of the transverse colon. There is similar finding noted part of the sigmoid colon as well. 2. Appendix is not seen but no secondary signs of acute appendicitis. 3. No nephro- or ureterolithiasis. 4. Dilated intra-, extrahepatic bile ducts, slightly progressed since previous examination however, no discrete radiopaque filling defects are seen in these bile ducts. Please correlate with liver enzymes. If these are abnormal, further evaluation with MRCP or ERCP might be of value. 5. Previous cholecystectomy, hysterectomy, gastric bypass surgery without associated complications. Interse/[employer] Workstation ID: [id number] Dictated by: KIRT STONE on FriMay 18, 2024 7:18:57 AM EDT Transcribed by: KASH ALVAREZ on FriMay 18, 2024 7:23:43 AM EDT Finalized by: KIRT STONE on FriMay 18, 2024 8:16:21 AM EDT [facility] Comment on above: Order Comment: Injur y/Trauma or Illness?:Illness/Other How long have you had these symptoms (acute/chronic)?:Acute Reason for exam?:vomiting and diarrhea with generalized discomfort Type of Exam?:Initial Additional signs and symptoms?:na ED Prov Noteon 05-18-2024 ED Prov Note PCP - Alejandro Beatty MD Chief Complaint Patient presents with Emesis Diarrhea HPI Cat is a 54-year-old female presenting here for evaluation of of nausea, vomiting, diarrhea, and diffuse abdominal cramping the same as prior episode of food poisoning. She notes symptoms came on yesterday morning and have persisted throughout the evening and overnight. She has subjective fever and chills. No bloody diarrhea or emesis. No recent antibiotic use, long-distance travel, sick contacts, or known bad food. No cough or cold, dyspnea, chest pain, urinary symptoms. She is status post remote Lory-en-Y gastric bypass, cholecystectomy, appendectomy, hysterectomy. She had tried [id number] Imodium and Tums without improvement in symptoms so she came in for evaluation. MDM/COURSE I did personally review Cat's past medical history, surgical history, social history, as well as family history (when relevant). In this case, I also oversaw the her drug management by reviewing her medication list, allergy list, as well as the medications that I prescribed during the ED course and/or recommended as an out-patient (including possible OTC medications such as acetaminophen, NSAIDs , etc). 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 04/28/2020 Itching 05/25/2020 Elevated liver enzymes 09/12/2021 Enterocolitis 05/17/2022 Mild major depression (HCC) 07/05/2022 Anxiety 07/05/2022 Insomnia 07/05/2022 Conjunctivitis 05/27/2023 Foot drop, left 09/19/2023 Claudication of lower extremity (HCC) 09/19/2023 Chronic radicular lumbar pain 09/19/2023 Scoliosis 10/20/2023 Lumbar foraminal stenosis 10/20/2023 Resolved Ambulatory Problems Diagnosis Date Noted Sleep disorder, shift work 10/01/2016 Fatigue 10/31/2017 Myalgia 10/31/2017 Bilateral hand pain 07/01/2018 Cauda equina compression (HCC) 09/19/2023 Past Medical History: Diagnosis Date History of palpitations 2015 Hormone replacement therapy (postmenopausal) Hypoglycemia ED MEDICATIONS GIVEN: Medications sodium chloride (PF) (NS) flush 5 mL (5 mL Intravenous Given 05/18/2457) And sodium chloride 0.9% (NS) (has no administration in time range) lactated ringers bolus 1,000 mL (1,000 mL Intravenous New Bag 05/18/24703) lactated ringers bolus 1,000 mL (0 mL Intravenous Stopped 05/18/24654) ondansetron (ZOFRAN) injection 4 mg (4 mg Intravenous Given 05/18/2455) morphine injection 2 mg (2 mg Intravenous Given 05/18/24621) dicyclomine (BENTYL) capsule 20 mg (20 mg Oral Given 05/18/24622) famotidine (PEPCID) Vial 20 mg (20 mg Intravenous Given 05/18/24704) sodium chloride (PF) (NS) 0.9 % contrast line flush 10 mL (10 mL Intravenous Given 05/18/24703) And sodium chloride (PF) (NS) 0.9 % contrast line flush 80 mL (80 mL Intravenous Given 05/18/24703) iopamidoL (ISOVUE-370) 370 mg iodine /mL (76 %) injection 75 mL (75 mL Intravenous Contrast Administered 05/18/24700) After reviewing the items above, I did look at previous medical documentation, such as recent hospitalizations, office visits, and/or recent consultations with PCP/specialist. SDOH: Another factor that I considered in Cat's care was her Social Determinants of Health (SDOH). During this ED encounter, she did NOT appear to have any significant issues identified. LAB TESTING: Labs were obtained during this encounter. Labs were compared to prior values patient has mild transaminitis. CBC and BMP are benign. RADIOLOGY: I did consider radiological studies for Cat's care today. Radiology testing was notable for no obstruction, free air or fluid on my review of CT abdomen pelvis. Radiologist review is notable for enterocolitis DIFFERENTIAL DIAGNOSES: Some general clinical impressions that I considered included food poisoning, viral illness, colitis, infection ED COURSE: Review of medical record shows the patient had history of Campylobacter back in 2021 when she had what she noted were similar symptoms. She does keep chickens and also has a dog in her home. She is feeling a little better after the Zofran and morphine. We will go ahead and try Pepcid and see if the Bentyl helps symptoms as well. With only limited symptom improvement I ordered CT of the abdomen and pelvis particularly given her history of gastric bypass. Patient's symptoms are much better on recheck after Bentyl and another liter of IV fluids. CT notable for enterocolitis. Patient is tolerating oral fluids in the emergency department. She had 1 tiny epis (more content not included)... Normal [facility] POC BASIC METABOLIC PANEL - Nelly 05-18-2024 Chloride [Moles/Vol] 107 mmol/L Normal 98-108 [facility] Comment on above: Order Comment: [facility] has implemented the eGFR calculation approach that does not have a coefficient for race that conforms to the NKF-ASN Task Force Recommendations. CO2 [Moles/Vol] 24 mmol/L Normal 21-32 [facility] Comment on above: Order Comment: [facility] has implemented the eGFR calculation approach that does not have a coefficient for race that conforms to the NKF-ASN Task Force Recommendations. Creatinine [Mass/Vol] 0.61 mg/dL Normal 0.40-1.10 [facility] Comment on above: Order Comment: [facility] has implemented the eGFR calculation approach that does not have a coefficient for race that conforms to the NKF-ASN Task Force Recommendations. Glucose [Mass/Vol] 131 mg/dL High 65-99 [facility] Comment on above: Order Comment: [facility] has implemented the eGFR calculation approach that does not have a coefficient for race that conforms to the NKF-ASN Task Force Recommendations. POC GFR 108 mL/min/1.73 m2 Normal >=60 [facility] Comment on above: Order Comment: [facility] has implemented the eGFR calculation approach that does not have a coefficient for race that conforms to the NKF-ASN Task Force Recommendations. Result Comment: Deonna mated GFR was calculated using the 2020 CKD-EPI creatinine equation. POC IONIZED CALCIUM 4.6 mg/dL Normal 4.5-5.3 [facility] Comment on above: Order Comment: [facility] has implemented the eGFR calculation approach that does not have a coefficient for race that conforms to the NKF-ASN Task Force Recommendations. Potassium [Moles/Vol] 4.0 mmol/L Normal 3.5-5.1 [facility] Comment on above: Order Comment: [facility] has implemented the eGFR calculation approach that does not have a coefficient for race that conforms to the NKF-ASN Task Force Recommendations. Sodium [Moles/Vol] 142 mmol/L Normal 135-145 [facility] Comment on above: Order Comment: [facility] has implemented the eGFR calculation approach that does not have a coefficient for race that conforms to the NKF-ASN Task Force Recommendations. Urea nitrogen [Mass/Vol] 16 mg/dL Normal 8-25 [facility] Comment on above: Order Comment: [facility] has implemented the eGFR calculation approach that does not have a coefficient for race that conforms to the NKF-ASN Task Force Recommendations. POC CBC AND DIFFERENTIALon 1 BASOPHILS ABSOLUTE COUNT 0.02 K/mcL Normal 0.00-0.30 [facility] Basophils/100 WBC (Bld) 0.3 % Normal [facility] Eosinophils (Bld) [#/Vol] 0.05 10*3/uL Normal 0.00-0.50 [facility] Eosinophils/100 WBC (Bld) 0.7 % Normal [facility] Erythrocyte distribution width (RBC) [Ratio] 13.2 % Normal 11.6-14.8 [facility] Hematocrit (Bld) [Volume fraction] 48.7 % High 36.0-46.0 [facility] Hemoglobin (Bld) [Mass/Vol] 16.0 g/dL Normal 12.0-16.0 [facility] IG ABSOLUTE 0.00 K/mcL Normal 0.00-0.30 [facility] IG PERCENT 0.00 % Normal [facility] Comment on above: Result Comment: The IG parameter is the percentage of metamyelocytes, myelocytes and promyelocytes. An immature granulocyte count (IG) of 1% or more suggests the possibility of infection, an IG count of 3% is very likely related to an infection. Lymphocytes (Bld) [#/Vol] 0.62 10*3/uL Low 0.90-4.00 [facility] Lymphocytes/100 WBC (Bld) 9.0 % Normal [facility] MCH (RBC) [Entitic mass] 32.2 pg Normal 26.0-34.0 [facility] MCV (RBC) [Entitic vol] 98.0 fL Normal 80.0-100.0 [facility] MEAN CORPUSCULAR HEMOGLOBIN CONC 32.9 g/dL Normal 31.0-37.0 [facility] Monocytes (Bld) [#/Vol] 0.81 10*3/uL Normal 0.30-0.90 [facility] Monocytes/100 WBC (Bld) 11.7 % Normal [facility] NEUTROPHILS ABSOLUTE COUNT 5.41 K/mcL Normal 1.70-7.00 [facility] Neutrophils/100 WBC (Bld) 78.3 % Normal [facility] Platelet mean volume (Bld) [Entitic vol] 9.8 fL Normal 9.4-12.4 [facility] Platelets (Bld) [#/Vol] 276 10*3/uL Normal 150-400 [facility] RBC (Bld) [#/Vol] 4.97 10*6/uL Normal 4.00-5.20 [facility] WBC (Bld) [#/Vol] 6.91 10*3/uL Normal 4.50-11.00 [facility] POC LIVER PANEL PLUS Nelly 05-18-2024 Albumin [Mass/Vol] 3.6 g/dL Normal 3.2-5.2 [facility] ALP [Catalytic activity/Vol] 101 U/L Normal 40-150 [facility] ALT [Catalytic activity/Vol] 95 U/L High 0-40 [facility] Amylase [Catalytic activity/Vol] 21 U/L Normal 7-33 [facility] AST [Catalytic activity/Vol] 57 U/L High 0-45 [facility] Bilirubin [Mass/Vol] 0.6 mg/dL Normal 0.0-1.3 [facility] POC AMYLASE < Low 25-115 [facility] Protein [Mass/Vol] 6.2 g/dL Normal 6.0-8.0 [facility] Miscellaneous Lab Procedureo n 05-13-2024 [facility] [place] LAB TEST Normal [facility] Comment on above: Order Comment: [id number] MEDTOX URINE Result Comment: [id number] 6+OXYCODONE-BUND (ng/mL) DRUG RESULT SCREEN CUTOFF ____ Amphetamines,Urine Negative ng/mL 1000 Amphetamine test includes Amphetamine and Methamphetamine. Barbiturates Negative ng/mL 200 Benzodiazepines Negative ng/mL 200 Cannabinoid Negative ng/mL 20 Cocaine (Metab) Negative ng/mL 300 Opiates Negative ng/mL 300 Opiates test includes Codeine, Morphine, Hydromorphone, Hydrocodone. Oxycodone/Oxymorphone,Urine Negative ng/mL 300 Test includes Oxycodone and Oxymorphone. TESTING PERFORMED AT [facility]. ORIGINAL REPORT ON FILE IN LAB CONTAINS ADDITIONAL TEST SITE INFORMATION. Performed By: #### L [id number], L801.1543, [id number] #### [facility] [address] [place], [address] Miscellaneous Lab Procedure 2on 05-13-2024 [facility] [place] LAB TEST 2 Normal [facility] Comment on above: Order Comment: [id number] TRAMADOL URINE Result Comment: TEST RESULTS LIMITS Tramadol, Urine Positive Gzyqub=[id number] Tramadol Conf, MS, UR 611 ng/mL [id number] Tramadol detected; this finding can be consistent with use of medications that include Ultram, Topalgic, Tradol, Zydol, or generic formulations. Drugs listed are real estate representative of common sources of the compound detected and are not intended to include all possible sources. TESTING PERFORMED AT [facility]. ORIGINAL REPORT ON FILE IN LAB CONTAINS ADDITIONAL TEST SITE INFORMATION. Performed By: #### L [id number], [id number], [id number] #### [facility] [address] [place], [address] Urine Drug Screen (VISTA)on 05-06-2024 AMPHETAMINES Negative Normal <1000 ng/mL [facility] Comment on above: Order Comment: UNK Performed By: #### L [id number], [id number], [id number] #### [facility] [address] [place], [address] BARBITIURATES Negative Normal < 200 ng/mL [facility] Comment on above: Order Comment: UNK Performed By: #### L [id number], [id number], [id number] #### [facility] [address] [place], [address] BENZODIAZIPINE Negative Normal < 200 ng/mL [facility] Comment on above: Order Comment: UNK Performed By: #### L [id number], [id number], [id number] #### [facility] [address] [place], [address] COCAINE Negative Normal < 300 ng/mL [facility] Comment on above: Order Comment: UNK Performed By: #### L [id number], [id number], [id number] #### [facility] [address] [place], [address] ECSTACY Negative Normal < 500 ng/mL [facility] Comment on above: Order Comment: UNK Performed By: #### L [id number], [id number], [id number] #### [facility] [address] [place], [address] METHADONE Negative Normal < 300 ng/mL [facility] Comment on above: Order Comment: UNK Performed By: #### L [id number], [id number], [id number] #### [facility] [address] [place], [address] OPIATES Negative Normal < 300 ng/mL [facility] Comment on above: Order Comment: UNK Performed By: #### L [id number], [id number], L505.5000 #### [facility] [address] [place], [address] PCP Negative Normal < 25 ng/mL [facility] Comment on above: Order Comment: UNK Performed By: #### L [id number], L801.1543, L505.5000 #### [facility] [address] [place], [address] THC Negative Normal < 50 ng/mL [facility] Comment on above: Order Comment: UNK Performed By: #### L [id number], [id number], L505.5000 #### [facility] [address] [place], [address] VISTA UDS PH 6 Normal [facility] Comment on above: Order Comment: UNK Performed By: #### L [id number], [id number], L505.5000 #### [facility] [place], [address] CT LUMBAR SPINE WITHOUT CONT Billie 09-03-2023 CT LUMBAR SPINE WITHOUT CONTRAST EXAMINATION: CT LUMBAR SPINE WITHOUT CONTRAST HISTORY: ORDERING SYSTEM PROVIDED HISTORY: sciatica, TECHNOLOGIST PROVIDED HISTORY: Illness/Other Reason for exam: sciatica Encounter Type: Initial Additional signs and symptoms: pain ORDERING SYSTEM PROVIDED DIAGNOSIS CODES: COMPARISON: 05/16/2022 TECHNIQUE: CT examination of the lumbar spine without IV contrast. Coronal and sagittal reformations were performed. Dose reduction techniques were achieved by using automated exposure control and/or adjustment of mA and/or kV according to patient size and/or use of iterative reconstruction technique. FINDINGS: No CT evidence of acute osseous abnormality. Scattered Schmorl's nodes again seen. Osteopenia. No prevertebral soft tissue swelling. No spondylolisthesis. Severe degenerative disc disease L4-L5 and milder degenerative disc disease at other levels. Spinal canal appears mildly narrowed from L3 through L5. Apparent narrowing of bilateral lateral recess at L4-L5 due to paracentral components of disc bulge. Left paracentral disc protrusion at L5-S1 narrowing the left lateral recess. Moderate-severe right foraminal narrowing L4-L5. Moderate-severe left foraminal narrowing L4-S1. No acute findings in the visualized lower chest, abdomen, pelvis. Prior cholecystectomy. Prior gastric bypass. IMPRESSION: Stable degenerative changes compared to prior from 05/16/2022 detailed above. No acute findings. Workstation ID: [id number] Dictated by: JULIAN HORNE on FriSep 03, 2023 7:16:34 PM EST Transcribed by: JULIAN HORNE on FriSep 03, 2023 7:16:34 PM EST Finalized by: JULIAN HORNE on FriSep 03, 2023 7:16:34 PM EST Normal [facility] Comment on above: Order Comment: Injur y/Trauma or Illness?:Illness/Other How long have you had these symptoms (acute/chronic)?:Acute Reason for exam?:sciatica Type of Exam?:Initial Additional signs and symptoms?:pain XR HIP LEFT 2-3 VIEWS (ROUTI NE)on 09-03-2023 XR HIP LEFT 2-3 VIEWS (ROUTINE) EXAMINATION: XR HIP LEFT 2-3 VIEWS (ROUTINE) ADDITIONAL CLINICAL INFORMATION: hip pain COMPARISON: None. FINDINGS: AP and frogleg lateral views of the left hip were obtained. There is no evidence of fracture or dislocation. The hip joint is preserved. IMPRESSION: Unremarkable left hip. Workstation ID: [id number] Dictated by: TC ROJAS on FriSep 03, 2023 6:48:46 PM EST Transcribed by: TC ROJAS on FriSep 03, 2023 6:48:46 PM EST Finalized by: TC ROJAS on FriSep 03, 2023 6:48:46 PM EST [facility] Comment on above: Order Comment: Injur y/Trauma or Illness?:Illness/Other How long have you had these symptoms (acute/chronic)?:Acute Reason for exam?:pain History of cancer?:unknown Surgeries, chemotherapy, or radiation?:cholecystectomy Type of Exam?:Initial Additional signs and symptoms?:no known injury MM SCREENING OREN BILATERALo n 11-08-2022 MM SCREENING OREN BILATERAL EXAMINATION: BILATERAL DIGITAL SCREENING MAMMOGRAM WITH TOMOSYNTHESIS INDICATION: Annual screening exam. COMPARISON: Mammograms 2020, 2018, 2017 TECHNIQUE: Standard mammographic views, 2D and 3D. Computer-aided detection was utilized in the interpretation of this exam. FINDINGS: The breast tissue is predominantly fatty. No suspicious masses, calcifications, or other findings. No significant interval change. IMPRESSION: No mammographic evidence of malignancy. BIRADS: BIRADS - CATEGORY 1 Negative, no evidence of malignancy. Normal interval follow-up is recommended in 12 months. OVERALL ASSESSMENT - NEGATIVE A letter of notification will be sent to the patient regarding the results. [facility], along with the National Comprehensive Cancer Network, the [employer], and [facility], recommend annual screening mammograms for women age 40 and older. Workstation ID: [id number] Dictated by: ULI GARCIA on FriNov 10, 2022 9:29:05 AM EDT Transcribed by: ULI GARCIA on FriNov 10, 2022 9:29:05 AM EDT Finalized by: ULI GARCIA on Cameron Nov 10, 2022 9:29:05 AM EDT Normal [facility] Comment on above: Order Comment: Pleas e arrange through [facility] Cologuardon 10-18-2022 Interpretation and review of laboratory results Abnormal [facility] Noninvasive colorectal cancer DNA and occult blood screening Ql (Stl) Positive Abnormal Negative [facility] Comment on above: POSITIVE TEST RESULT. A positive Cologuard result should be followed with a colonoscopy or visual examination of the colon. The normal value (reference range) for this assay is negative. TEST DESCRIPTION: Composite algorithmic analysis of stool DNA-biomarkers with hemoglobin immunoassay. Quantitative values of individual biomarkers are not reportable and are not associated with individual biomarker result reference ranges. Cologuard is intended for colorectal cancer screening of adults of either sex, 45 years or older, who are at average-risk for colorectal cancer (CRC). Cologuard has been approved for use by the U.S. FDA. The performance of Cologuard was established in a cross sectional study of average-risk adults aged 50-84. Cologuard performance in patients ages 45 to 49 years was estimated by sub-group analysis of near-age groups. Colonoscopies performed for a positive result may find as the most clinically significant lesion: colorectal cancer [4.0%], advanced adenoma (including sessile serrated polyps greater than or equal to 1cm diameter) [20%] or non- advanced adenoma [31%]; or no colorectal neoplasia [45%]. These estimates are derived from a prospective cross-sectional screening study of 10,000 individuals at average risk for colorectal cancer who were screened with both Cologuard and colonoscopy. (Trae Mccurdy al, N Engl J Med 2014;370(14):3053-8802.) Cologuard may produce a false negative or false positive result (no colorectal cancer or precancerous polyp present at colonoscopy follow up). A negative Cologuard test result does not guarantee the absence of CRC or advanced adenoma (pre-cancer). The current Cologuard screening interval is every 3 years. ([employer] and U.S. Multi-Society Task Force). Cologuard performance data in a 10,000 patient pivotal study using colonoscopy as the reference method can be accessed at the following location: www.[employer].com/results. Additional description of the Cologuard test process, warnings and precautions can be found at www.[email or web address].com. [facility] Magnesium Levelon 05-20-2022 Magnesium [Mass/Vol] 1.9 mg/dL 1.6 - 2 .4 mg/dL [facility] Magnesium [Mass/Vol]on 05-20 Interpretation and review of laboratory results Normal [facility] No Panel Informationon 05-20 [facility] Renal function 2000 panelon 05-20-2022 Albumin [Mass/Vol] 2.3 g/dL Low 3.2 - 5.2 g/dL [facility] Anion gap [Moles/Vol] 7 mmol/L Low 10 - 2 0 mmol/L [facility] Calcium [Mass/Vol] 8.1 mg/dL Low 8.4 - 10. 2 mg/dL [facility] Chloride [Moles/Vol] 110 mmol/L High 98 - 10 8 mmol/L [facility] Creatinine [Mass/Vol] 0.23 mg/dL Low 0.40 - 1.10 mg/dL [facility] GFR/1.73 sq M.predicted CKD-EPI (S/P/Bld) [Vol rate/Area] 138 - PINF [facility] Comment on above: Estimated GFR was ca lculated using the 2020 CKD-EPI creatinine equation. Glucose [Mass/Vol] 104 mg/dL High 65 - 99 mg/dL [facility] HCO3 [Moles/Vol] 29 mmol/L 21 - 32 mmol/L [facility] Interpretation and review of laboratory results Abnormal [facility] Phosphate [Mass/Vol] 3.5 mg/dL 2.7 - 4 .5 mg/dL [facility] Potassium [Moles/Vol] 3.9 mmol/L 3.5 - 5.1 mmol/L [facility] Sodium [Moles/Vol] 142 mmol/L 135 - 145 mmol/L [facility] Urea nitrogen [Mass/Vol] 7 mg/dL Low 8 - 25 mg/dL [facility] Urea nitrogen/Creatinine [Mass ratio] 30.4 mg/mg High 10 - 20 [facility] has implemented the eGFR calculation approach that does not have a coefficient for race that conforms to the NKF-ASN Task Force Recommendations. [facility] MR Liver With And Without Co ntraston 05-19-2022 1. Multiple hepatic nodules, as described above, compatible with cavernous hemangiomata. 2. Prior cholecystectomy, accounting for mild intrahepatic and extrahepatic biliary ectasia. No common duct stone. 3. No other acute findings. PRL/ads Workstation ID: [id number] [employer] EXAMINATION: MR LIVER WITH AND WITHOUT CONTRAST HISTORY: ORDERING SYSTEM PROVIDED HISTORY: incidental liver mass, TECHNOLOGIST PROVIDED HISTORY: Illness/Other Reason for exam: abdomen pain for 5 days: abnormal ct scan (1.8 cm hypodense mass in the medial segment of the left lobe which is indeterminate ). no hx of cancer: Encounter Type: Unknown Additional signs and symptoms: n ORDERING SYSTEM PROVIDED DIAGNOSIS CODES: COMPARISON: 05/16/2022. CONTRAST: GADOTERATE MEGLUMINE 0.5 MMOL/ML (376.9 MG/ML) INTRAVENOUS SOLUTION - 10 mL, FINDINGS: Peripheral segment 4A well-circumscribed mass measures 2.2 x 1.5 cm. There is a polylobulated, although well-circumscribed, mass in segment 4B, measuring 2.7 x 2.4 cm. Both masses are T2 hyperintense and display enhancement characteristics typical of cavernous hemangiomata. There is also a central segment 8 nodule displaying characteristics of a cavernous hemangioma, measuring 1.1 cm. A smaller nodule may also be present in segment 7, measuring up to 0.4 cm. No suspicious hepatic masses. Hepatic veins and portal venous system are patent. Abdominal aorta has normal caliber. No pancreatitis. No pancreatic ductal dilatation. There is intrahepatic and extrahepatic biliary ectasia, measures up to 8 mm. Prior cholecystectomy. No splenomegaly. No abnormal lymph nodes in the imaged volume. [facility] Cristi Yang MD - 05/19/2022 EXAMINATION: MR LIVER WITH AND WITHOUT CONTRAST HISTORY: ORDERING SYSTEM PROVIDED HISTORY: incidental liver mass, TECHNOLOGIST PROVIDED HISTORY: Illness/Other Reason for exam: abdomen pain for 5 days: abnormal ct scan (1.8 cm hypodense mass in the medial segment of the left lobe which is indeterminate ). no hx of cancer: Encounter Type: Unknown Additional signs and symptoms: n ORDERING SYSTEM PROVIDED DIAGNOSIS CODES: COMPARISON: 05/16/2022. CONTRAST: GADOTERATE MEGLUMINE 0.5 MMOL/ML (376.9 MG/ML) INTRAVENOUS SOLUTION - 10 mL, FINDINGS: Peripheral segment 4A well-circumscribed mass measures 2.2 x 1.5 cm. There is a polylobulated, although well-circumscribed, mass in segment 4B, measuring 2.7 x 2.4 cm. Both masses are T2 hyperintense and display enhancement characteristics typical of cavernous hemangiomata. There is also a central segment 8 nodule displaying characteristics of a cavernous hemangioma, measuring 1.1 cm. A smaller nodule may also be present in segment 7, measuring up to 0.4 cm. No suspicious hepatic masses. Hepatic veins and portal venous system are patent. Abdominal aorta has normal caliber. No pancreatitis. No pancreatic ductal dilatation. There is intrahepatic and extrahepatic biliary ectasia, measures up to 8 mm. Prior cholecystectomy. No splenomegaly. No abnormal lymph nodes in the imaged volume. IMPRESSION: 1. Multiple hepatic nodules, as described above, compatible with cavernous hemangiomata. 2. Prior cholecystectomy, accounting for mild intrahepatic and extrahepatic biliary ectasia. No common duct stone. 3. No other acute findings. PRL/ads Workstation ID: [id number] [facility] MR Liver With And Without Co ntrastOrdered By: Cristi Yang on 05-19-2022 [facility] Work Phone: Magnesium Levelon 05-19-2022 Magnesium [Mass/Vol] 1.9 mg/dL 1.6 - 2 .4 mg/dL [facility] Magnesium [Mass/Vol]on 05-19 Interpretation and review of laboratory results Normal [facility] Renal function 2000 panelon 05-19-2022 Albumin [Mass/Vol] 2.3 g/dL Low 3.2 - 5.2 g/dL [facility] Anion gap [Moles/Vol] 13 mmol/L 10 - 2 0 mmol/L [facility] Calcium [Mass/Vol] 7.6 mg/dL Low 8.4 - 10. 2 mg/dL [facility] Chloride [Moles/Vol] 110 mmol/L High 98 - 10 8 mmol/L [facility] Creatinine [Mass/Vol] 0.30 mg/dL Low 0.40 - 1.10 mg/dL [facility] GFR/1.73 sq M.predicted CKD-EPI (S/P/Bld) [Vol rate/Area] 129 - PINF [facility] Comment on above: Estimated GFR was ca lculated using the 2020 CKD-EPI creatinine equation. Glucose [Mass/Vol] 81 mg/dL 65 - 99 mg/dL [facility] HCO3 [Moles/Vol] 22 mmol/L 21 - 32 mmol/L [facility] Interpretation and review of laboratory results Abnormal [facility] Phosphate [Mass/Vol] 2.5 mg/dL Low 2.7 - 4 .5 mg/dL [facility] Potassium [Moles/Vol] 3.6 mmol/L 3.5 - 5.1 mmol/L [facility] Sodium [Moles/Vol] 141 mmol/L 135 - 145 mmol/L [facility] Urea nitrogen [Mass/Vol] 2 mg/dL Low 8 - 25 mg/dL [facility] Urea nitrogen/Creatinine [Mass ratio] 6.7 mg/mg Low 10 - 20 [facility] Comment on above: Unable to calculate; a result component is outside measurable limits. [facility] has implemented the eGFR calculation approach that does not have a coefficient for race that conforms to the NKF-ASN Task Force Recommendations. [facility] CBC Auto Differentialon 10-0 Basophils (Bld) [#/Vol] 0.04 10*3/uL [facility] Basophils/100 WBC (Bld) 0.7 % [facility] Eosinophils (Bld) [#/Vol] 0.15 10*3/uL [facility] Eosinophils/100 WBC (Bld) 2.8 % [facility] Erythrocyte distribution width (RBC) [Entitic vol] 13.2 % 11.6 - 14.8 % [facility] Hematocrit (Bld) [Volume fraction] 35.0 % Low 36 - 46 % [facility] Hemoglobin (Bld) [Mass/Vol] 11.3 g/dL Low 12 - 16 g/dL [facility] Immature granulocytes (Bld) [#/Vol] 0.11 10*3/uL [facility] Immature granulocytes/100 WBC (Bld) 2.00 % [facility] Comment on above: The IG parameter is the percentage of metamyelocytes, myelocytes and promyelocytes. An immature granulocyte count (IG) of 1% or more suggests the possibility of infection, an IG count of 3% is very likely related to an infection. Interpretation and review of laboratory results Abnormal [facility] Lymphocytes (Bld) [#/Vol] 1.53 10*3/uL [facility] Lymphocytes/100 WBC (Bld) 28.5 % [facility] MCH (RBC) [Entitic mass] 31.7 pg 26 - 34 pg [facility] MCHC (RBC) [Mass/Vol] 32.3 g/dL 31 - 3 7 g/dL [facility] MCV (RBC) [Entitic vol] 98.0 fL 80 - 100 fL [facility] Monocytes (Bld) [#/Vol] 0.94 10*3/uL High [facility] Monocytes/100 WBC (Bld) 17.5 % [facility] Neutrophils (Bld) [#/Vol] 2.60 10*3/uL [facility] Neutrophils/100 WBC (Bld) 48.5 % [facility] Nucleated RBC (Bld) [#/Vol] 0.00 10*3/uL [facility] Nucleated RBC/100 WBC (Bld) [Ratio] 0.0 % [facility] Platelet mean volume (Bld) [Entitic vol] 9.9 fL 9.4 - 12.4 fL [facility] Platelets (Bld) [#/Vol] 155 10*3/uL [facility] RBC (Bld) [#/Vol] 3.57 10*6/uL Low [facility] ealth WBC (Bld) [#/Vol] 5.37 10*3/uL [facility] pathogens D NA and RNA panel MILA+non-probe (Stl)Ordered By: Elodia Greene on 05-18-2022 Adenovirus 40+41 DNA MILA+non-probe Ql (Stl) Not detected Not Detected [facility] Astrovirus subtypes 1-8 RNA MILA+non-probe Ql (Stl) Not detected Not Detected [facility] C. cayetanensis DNA MILA+non-probe Ql (Stl) Not detected Not Detected [facility] C. coli+jejuni+upsaliensi s DNA MILA+non-probe Ql (Stl) Detected Abnormal Not Detected [facility] Comment on above: Campylobacter is a f ood-borne pathogen that has been associated with contaminated produce, water, poultry, and dairy products. It is a common cause of mild to severe bacterial enteritis which can lead to extraintestinal infection. Most patients recover without antimicrobial therapy. Antibiotics are recommended for severe illness. C. difficile toxin A+B tcdA+tcdB genes MILA+non-probe Ql (Stl) Not detected Not Detected [facility] Cryptosporidium sp DNA MILA+non-probe Ql (Stl) Not detected Not Detected [facility] E. coli enteroaggregative Sridevi plasmid aggR+aatA genes MILA+non-probe Ql (Stl) Not detected Not Detected [facility] E. coli enteropathogenic eae gene MILA+non-probe Ql (Stl) Not detected Not Detected [facility] E. coli enterotoxigenic ltA+st1a+st1b genes MILA+non-probe Ql (Stl) Not detected Not Detected [facility] E. coli stx1+stx2 genes MILA+non-probe Ql (Stl) Not detected Not Detected [facility] E. histolytica DNA MILA+non-probe Ql (Stl) Not detected Not Detected [facility] G. lamblia DNA MILA+non-probe Ql (Stl) Not detected Not Detected [facility] Interpretation and review of laboratory results Abnormal [facility] Norovirus genogroup I+II RNA MILA+non-probe Ql (Stl) Not detected Not Detected [facility] P. shigelloides DNA MILA+non-probe Ql (Stl) Not detected Not Detected [facility] Rotavirus A RNA MILA+non-probe Ql (Stl) Not detected Not Detected [facility] S. enterica+bongori DNA MILA+non-probe Ql (Stl) Not detected Not Detected [facility] Sapovirus genogroups I+II+IV+V RNA MILA+non-probe Ql (Stl) Not detected Not Detected [facility] Shigella species+EIEC invasion plasmid antigen H ipaH gene MILA+non-probe Ql (Stl) Not detected Not Detected [facility] V. cholerae DNA MILA+non-probe Ql (Stl) Not detected Not Detected [facility] V. cholerae+parahaemolyti cus+vulnificus DNA MILA+non-probe Ql (Stl) Not detected Not Detected [facility] Y. enterocolitica DNA MILA+non-probe Ql (Stl) Not detected Not Detected [facility] Results of PCR testi ng for stool pathogens must be taken into clinical context when making treatment decisions. Most gastrointestinal infections due to common bacterial and viral causes are self-limited in nature and do not require antimicrobial therapy. The use of antimicrobial therapy must be carefully weighed against unintended and potentially harmful consequences. The role of antimicrobial therapy depends on the implicated pathogen. In general, antimicrobial agents are only used to treat parasitic infections as well as select bacterial infections. [facility] MR Liver With And Without Co ntraston 05-18-2022 Radiology Study observation (narrative) [facility] Magnesium Levelon 05-18-2022 Magnesium [Mass/Vol] 1.6 mg/dL 1.6 - 2 .4 mg/dL [facility] Magnesium [Mass/Vol]on 05-18 Interpretation and review of laboratory results Normal [facility] No Panel Informationon 05-18 [facility] Renal function 2000 panelon 05-18-2022 Albumin [Mass/Vol] 2.3 g/dL Low 3.2 - 5.2 g/dL [facility] Anion gap [Moles/Vol] 14 mmol/L 10 - 2 0 mmol/L [facility] Calcium [Mass/Vol] 7.6 mg/dL Low 8.4 - 10. 2 mg/dL [facility] Chloride [Moles/Vol] 110 mmol/L High 98 - 10 8 mmol/L [facility] Creatinine [Mass/Vol] 0.37 mg/dL Low 0.40 - 1.10 mg/dL [facility] GFR/1.73 sq M.predicted CKD-EPI (S/P/Bld) [Vol rate/Area] 123 - PINF [facility] Comment on above: Estimated GFR was ca lculated using the 2020 CKD-EPI creatinine equation. Glucose [Mass/Vol] 69 mg/dL 65 - 99 mg/dL [facility] Comment on above: [id number] CALLED ATTENT ION RESULT ON 05/18/2022 @ 0621 TO AND READ BACK BY [id number] in MEDICAL [facility] HCO3 [Moles/Vol] 20 mmol/L Low 21 - 32 mmol/L [facility] Interpretation and review of laboratory results Abnormal [facility] Phosphate [Mass/Vol] 3.6 mg/dL 2.7 - 4 .5 mg/dL [facility] Potassium [Moles/Vol] 4.0 mmol/L 3.5 - 5.1 mmol/L [facility] Sodium [Moles/Vol] 140 mmol/L 135 - 145 mmol/L [facility] Urea nitrogen [Mass/Vol] 3 mg/dL Low 8 - 25 mg/dL [facility] Urea nitrogen/Creatinine [Mass ratio] 8.1 mg/mg Low 10 - 20 [facility] has implemented the eGFR calculation approach that does not have a coefficient for race that conforms to the NKF-ASN Task Force Recommendations. [facility] CBC Auto Differentialon 04-20 Basophils (Bld) [#/Vol] 0.05 10*3/uL [facility] Basophils/100 WBC (Bld) 0.7 % [facility] Eosinophils (Bld) [#/Vol] 0.13 10*3/uL [facility] Eosinophils/100 WBC (Bld) 1.9 % [facility] Erythrocyte distribution width (RBC) [Entitic vol] 13.2 % 11.6 - 14.8 % [facility] Hematocrit (Bld) [Volume fraction] 40.4 % 36 - 46 % [facility] Hemoglobin (Bld) [Mass/Vol] 12.9 g/dL 12 - 16 g/dL [facility] Immature granulocytes (Bld) [#/Vol] 0.07 10*3/uL [facility] Immature granulocytes/100 WBC (Bld) 1.00 % [facility] Comment on above: The IG parameter is the percentage of metamyelocytes, myelocytes and promyelocytes. An immature granulocyte count (IG) of 1% or more suggests the possibility of infection, an IG count of 3% is very likely related to an infection. Interpretation and review of laboratory results Abnormal [facility] Lymphocytes (Bld) [#/Vol] 1.35 10*3/uL [facility] Lymphocytes/100 WBC (Bld) 19.5 % [facility] MCH (RBC) [Entitic mass] 31.6 pg 26 - 34 pg [facility] MCHC (RBC) [Mass/Vol] 31.9 g/dL 31 - 3 7 g/dL [facility] MCV (RBC) [Entitic vol] 99.0 fL 80 - 100 fL [facility] Monocytes (Bld) [#/Vol] 1.13 10*3/uL High [facility] Monocytes/100 WBC (Bld) 16.4 % [facility] Neutrophils (Bld) [#/Vol] 4.18 10*3/uL [facility] Neutrophils/100 WBC (Bld) 60.5 % [facility] Nucleated RBC (Bld) [#/Vol] 0.00 10*3/uL [facility] Nucleated RBC/100 WBC (Bld) [Ratio] 0.0 % [facility] Platelet mean volume (Bld) [Entitic vol] 9.6 fL 9.4 - 12.4 fL [facility] Platelets (Bld) [#/Vol] 191 10*3/uL [facility] RBC (Bld) [#/Vol] 4.08 10*6/uL [facility] WBC (Bld) [#/Vol] 6.91 10*3/uL [facility] Hepatic function 2000 panelo n 05-17-2022 ALP [Catalytic activity/Vol] 72 U/L 40 - 150 U/L [facility] ALT [Catalytic activity/Vol] 40 U/L 14 - 65 U/L [facility] AST [Catalytic activity/Vol] 19 U/L 0 - 45 U/L [facility] [facility] Bilirubin [Mass/Vol] 0.3 mg/dL 0 - 1.3 mg/dL [facility] Bilirubin.conjugated [Mass/Vol] mg/dL 0 - 0.4 mg/dL [facility] Protein [Mass/Vol] 5.5 g/dL Low 6 - 8 g/dL [facility] alth Laboratory - Chemistry and C hemistry - challengeon 05-17-2022 Albumin [Mass/Vol] 2.7 g/dL Low 3.2 - 5.2 g/dL [facility] Lactate [Moles/Vol]on 2021 Interpretation and review of laboratory results Abnormal [facility] Lactic Acid, Plasmaon 2021 Lactate [Moles/Vol] 0.5 mmol/L Low 0.6 - 2 mmol/L [facility] Magnesium Levelon 05-17-2022 Magnesium [Mass/Vol] 1.8 mg/dL 1.6 - 2 .4 mg/dL [facility] Magnesium [Mass/Vol]on 05-17 Interpretation and review of laboratory results Normal [facility] No Panel Informationon 05-17 Interpretation and review of laboratory results Abnormal [facility] Renal function 2000 panelon 05-17-2022 Anion gap [Moles/Vol] 11 mmol/L 10 - 2 0 mmol/L [facility] Calcium [Mass/Vol] 8.5 mg/dL 8.4 - 10. 2 mg/dL [facility] Chloride [Moles/Vol] 108 mmol/L 98 - 10 8 mmol/L [facility] Creatinine [Mass/Vol] 0.41 mg/dL 0.40 - 1.10 mg/dL [facility] GFR/1.73 sq M.predicted CKD-EPI (S/P/Bld) [Vol rate/Area] 120 - PINF [facility] Comment on above: Estimated GFR was ca lculated using the 2020 CKD-EPI creatinine equation. Glucose [Mass/Vol] 66 mg/dL 65 - 99 mg/dL [facility] Comment on above: [id number] CALLED ATTENT ION RESULT ON 05/17/2022 @ 1936 TO AND READ BACK BY [id number] in MEDICAL OBS HCO3 [Moles/Vol] 23 mmol/L 21 - 32 mmol/L [facility] Phosphate [Mass/Vol] 2.1 mg/dL Low 2.7 - 4 .5 mg/dL [facility] Potassium [Moles/Vol] 3.7 mmol/L 3.5 - 5.1 mmol/L [facility] Sodium [Moles/Vol] 138 mmol/L 135 - 145 mmol/L [facility] Urea nitrogen [Mass/Vol] 6 mg/dL Low 8 - 25 mg/dL [facility] Urea nitrogen/Creatinine [Mass ratio] 14.6 mg/mg 10 - 20 [facility] Laborator y Services has implemented the eGFR calculation approach that does not have a coefficient for race that conforms to the NKF-ASN Task Force Recommendations. [facility] DIGITAL MAMM SCREENING W/ TO Velasquez 06-29-2021 DIGITAL MAMM SCREENING W/ OREN Patient Name: CAT ACUÑA STUDY: DIGITAL MAMM SCREENING W/ OREN; 06/29/2021 11:07 am ACCESSION NUMBER(S): [id number] ORDERING CLINICIAN: SANDI LONGO INDICATION: Screening. COMPARISON: 04/23/2019, 04/17/2018, 04/14/2017 FINDINGS: 2D and tomosynthesis images were reviewed at 1 mm slice thickness. The breast tissue is almost entirely fatty. No suspicious masses or calcifications are identified. CAD was utilized IMPRESSION: No mammographic evidence of malignancy. BI-RADS CATEGORY: Category: 1 - Negative. Recommendation: 1 Year Screening. For any future breast imaging appointments, please call [phone]). Electronically signed by: ABHAY GRUBBS MD [facility] CONTAINER WASHER - Office Visiton 03-19 CONTAINER WASHER - Office Visit Chief Complaint Patient is here for her yearly exam and pap test. Hysterectomy in 2004. Patient does not do regular self breast exams. Patient only c/o lack of sex drive. History of Present IllnessPresents for annual exam. She voices no complaints and is doing well. Denies any bowel or bladder problems. Denies any breast problems. She had previous hysterectomy and is currently on estrogen replacement therapy. She has noticed decreased sex drive. 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,Z90.710) Vaginal Papanicolaou smear (V76.47) (Z12.72) Women's annual routine gynecological examination (V72.31) (Z01.419) Past Medical History History of Delivery of by section (669.70) (O82) 1992 1993 History of mammogram (V15.89) (Z92.89) 04/23/2019 History of Menstruation Onset age 14 years History of Pap test, as part of routine gynecological examination (V76.2) (Z01.419) 02/26/2019: Negative Surgical History History of section 1992 1993 History of Cholecystectomy 1997 History of Dilation and curettage 1999 History of Gastric bypass surgery 12/2001 History of Hysterectomy total abdominal with removal of both ovaries 2005 History of Knee surgery 2008 History of Lipoma excision 10/2019: Left History of Tonsillectomy Family History Family history of leukemia (V16.6) (Z80.6) No pertinent family history Social History No illicit drug use Sexually active Tobacco use (305.1) (Z72.0) Allergies codeine Recorded By: Kady Francisco; 02/09/2020 9:57:14 AM Additional reactions - hives, difficulty breathing Current Meds Estradiol 2 MG Oral Tablet; TAKE 1 TABLET DAILY DIRECTED; Therapy: [id number] to (Evaluate:[id number]) Requested for: 07Feb2020; Last Rx:07Feb2020 Ordered Rx By: Bo Lofton; Dispense: 30 Days ; #:30 Tablet; Refill: 1;For: Post-hysterectomy menopause; MICHELLE = N; [facility]; Last Updated By: Pilo Choe; 04/14/2020 2:42:08 PM Vitals Vital Signs Recorded: 14Apr2020 02:39PM Nnqoiumchih96.3 F Jmzclair21 Vvjoialne61 Height5 ft 1 in Nywkpc71.7 kg BMI Djqbxmdlcd87.79 BSA Calculated1.52 LMPHyster Physical Exam PHYSICAL EXAMINATION: Well-developed, well nourished, in no acute distress, alert and oriented x three, is pleasant and cooperative. HEENT: Clear. Pupils equal, round and reactive to light and accommodation. Extraocular muscles are intact. Oral mucosa pink without exudate. NECK: No lymphadenopathy, no thyromegaly. BREASTS: Symmetric, no palpable masses. No nipple discharge or retraction. LUNGS: Clear bilaterally. HEART: Regular rate and rhythm without murmurs. ABDOMEN: Normoactive bowel sounds, soft and nontender, no guarding or rebound tenderness, no CVA tenderness. EXTREMITIES: No clubbing, cyanosis or edema. NEUROLOGIC: Cranial nerves II-XII grossly intact. : Normal external female genitalia. Normal vulva and vagina. Normal urethral meatus, urethra and bladder. Noted surgical absence of the cervix and uterus. Well-healed vaginal cuff. Pap smear performed today. Diagnoses/Problems Encounter for screening mammogram for breast cancer (V76.12) (Z12.31) Vaginal Papanicolaou smear (V76.47) (Z12.72) Women's annual routine gynecological examination (V72.31) (Z01.419) Orders Mamm - Screening Mammogram w/ Tomosynthesis; Status:Hold For - Scheduling,Retrospective Authorization; Requested for:14Apr2020; Perform:[facility] Imaging; Due:13Jul2020; Last Updated By:Kady Francisco; 04/14/2020 2:32:08 PM;Ordered; For:Encounter for screening mammogram for breast cancer; Ordered By:Zeeshan Rizo; Radiologist to Determine Optimal Study : Y What are the patient's signs and symptoms ? : Annual Screening Mammogram Changed: From Estradiol 2 MG Oral Tablet TAKE 1 TABLET DAILY DIRECTED To Estradiol 2 MG Oral Tablet TAKE 1 TABLET BY MOUTH EVERY DAY Rx By: Zeeshan Rzio; Dispense: 0 Days ; #:30 Tablet; Refill: 12;For: Post-hysterectomy menopause; MICHELLE = N; Sent To: ABILIO STARKS Giancarlo [facility]; Last Updated By: Kady Francisco; 04/14/2020 2:42:08 PM PAP UX ARCHITECT, Cytology; Status:In Progress - Specimen/Data Collected,Retrospective Authorization; Done: 14Apr2020 Perform:PAP UX ARCHITECT Cytology; Due:13Jul2020; Last Updated By:Kady Francisco; 04/14/2020 2:32:08 PM;Ordered; For:Vaginal Papanicolaou smear, Women's annual routine gynecological examination; Ordered By:Zeeshan Rizo; Last Menstrual Period (LMP): : Hyster PAP - Site : VAGINAL Cytology Order : ThinPrep PAP, Screening, HPV Reflex - Include Genotyping Provider Impressions 1. Annual exam 2. Screening mammogram Patient informed that at this time there is no specific treatment for decreased sex drive associated with menopause. Follow-up in 1 year or as needed. Signatures Electronically signed by : Zeeshan Rizo MD; Apr 14 2020 2:56PM EST (Author) Normal [employer] [facility] Cytologyon 04-14-2020 [facility] Cytology 38 Date of Procedure: 04/14/2020 Pathologist: [facility], Cytology Date Reported: 04/26/2020 Date Received: 04/15/2020 Submitting Physician: ZEESHAN RIZO MD FINAL CYTOLOGICAL INTERPRETATION A. THINPREP PAP VAGINAL: Specimen Adequacy: SATISFACTORY FOR EVALUATION. General Categorization: NEGATIVE FOR INTRAEPITHELIAL LESION OR MALIGNANCY. Ancillary Testing: Specimen does not meet the requisition-stated criteria for HPV testing. See Pap test interpretation above. Petroleum Production Engineer slide review performed at [facility], [address] [place] [address] Electronically Signed Out By [facility], Cytology//MJM By the signature on this report, the individual or group listed as making the Final Interpretation/Diagnosis certifies that they have reviewed this case. Educational Note: Cervical cytology is a screening procedure primarily for squamous cancers and precursors and has associated false-negative and false-positive results as evidenced by published data. Your patient?s test should be interpreted in this context, together with patient?s history and clinical findings. Regular sampling and follow-up of unexplained clinical signs and symptoms are recommended to minimize false negative results. Clinical History Date of Last Menstrual Period: Hyster Other Clinical Conditions: HPV Reflex for ASC-US only - Include HPV Genotype Annual Clinical Diagnosis History: Vaginal Papanicolaou smear - (Z12.72); Women's annual routine gynecological examination - (Z01.419) Z11.51 Source of Specimen A: THINPREP PAP VAGINAL Normal [facility] Comment on above: Performed By: #### C #### [facility] Cytology [id number] [facility] [address] [place] Mamm Screen w/CAD if perf ormed bilaton 04-26-2019 [place] Mamm Screen w/CAD if performed bilat Exam Date/Time: 04/23/2019 13:45 EDT Reason for Exam: SCREENING;Screening Report STUDY: Digital mammography screening; 04/23/2019 1:45 pm ACCESSION NUMBER(S): [id number] ORDERING CLINICIAN: Zeeshan Rizo INDICATION: Screening. COMPARISON: Comparison is made to prior digital mammograms dated 04/17/2018 and 04/14/2017 FINDINGS: CC and MLO 2D digital mammographic images of the bilateral breasts were obtained. There are areas of scattered fibroglandular tissue. No discrete mass or focal asymmetry is identified. No suspicious microcalcifications or foci of architectural distortion are seen. There has been no significant change. This study was interpreted with CAD. IMPRESSION: No mammographic evidence of malignancy. BI-RADS CATEGORY: Category: 1 - Negative. Recommendation: Normal Interval Follow-up, Over Age 40. Recall Interval: 12 Months. Breast Density: Scattered Fibroglandular Density. FINAL REPORT Dictated: 04/26/2019 9:48 am Daniel Macdonald MD Signed (Electronic Signature): 04/26/2019 9:48 am Signed by: Daniel Macdonald MD Technologist: AIDAN Assessment: BI-RADS Category 1-Negative Recommendation: Normal interval follow-up Normal [facility] IGP W/hpv Rfx [id number] 03-02 Diagnosis: See Ref Lab Report Normal [facility] Comment on above: Order Comment: Thin Prep. Hysterectomy Performed By: #### 1 [id number] #### [facility] Send Outs Subsection [address] [place] [id number] Pathology (EM)on 02-13-2018 Pathology ([facility]) FINAL GYNECOLOGIC CYTOLOGY [id number] ADEQUACYSatisfactory for EvaluationEndocervical component absent but acceptable due to patient age/historyGENERAL CATEGORIZATIONNegative for Intraepithelial Lesion or MalignancyCLINICAL HISTORYHysterectomySPECIM EN(A) SCREENING CERVICAL/ENDOCERVICAL THIN PREP VIALPerformed at [facility], [address] [place], [place] [address]Screened by: Signed Out by: NICOLE NICOLE Petroleum Production Engineer Reported: 02/17/[address] [facility] Healthcare Comment on above: Performed By: #### G YN ####[facility] [address] [place] [address] Vital Signs Date Time Vital Sign Value Performing Clinician Malik ramirez 06-17-2025 10:49-0400 Body height 154.9 cm Alejandro Beatty MD Work Phone: [facility] 06-17-2025 10:49-0400 Body mass index (BMI) [Ratio] 23.24 kg/m2 Alejandro Beatty MD Work Phone: [facility] 06-17-2025 10:49-0400 Body temperature 97.5 [degF] Alejandro Beatty MD Work Phone: [facility] 06-17-2025 10:49-0400 Body weight 55.79 kg Alejandro Beatty MD Work Phone: [facility] 06-17-2025 10:49-0400 Diastolic blood pressure 87 mm[Hg] Alejandro Beatty MD Work Phone: [facility] 06-17-2025 10:49-0400 Heart rate 73 /min Alejandro Beatty MD Work Phone: [facility] 06-17-2025 10:49-0400 Respiratory rate 16 /min Alejandro Beatty MD Work Phone: [facility] 06-17-2025 10:49-0400 SaO2% (BldA) [Mass fraction] 99 % Alejandro Beatty MD Work Phone: [facility] 06-17-2025 10:49-0400 Systolic blood pressure 128 mm[Hg] Alejandro Beatty MD Work Phone: [facility] 05-20-2025 09:51-0400 Body height 154.9 cm Alejandro Beatty MD Work Phone: [facility] 05-20-2025 09:51-0400 Body mass index (BMI) [Ratio] 22.67 kg/m2 Alejandro Beatty MD Work Phone: [facility] 05-20-2025 09:51-0400 Body temperature 97.9 [degF] Alejandro Beatty MD Work Phone: [facility] 05-20-2025 09:51-0400 Body weight 54.43 kg Alejandro Beatty MD Work Phone: [facility] 05-20-2025 09:51-0400 Diastolic blood pressure 77 mm[Hg] Alejandro Beatty MD Work Phone: [facility] 05-20-2025 09:51-0400 Heart rate 70 /min Alejandro Beatty MD Work Phone: [facility] 05-20-2025 09:51-0400 Respiratory rate 16 /min Alejandro Beatty MD Work Phone: [facility] 05-20-2025 09:51-0400 SaO2% (BldA) [Mass fraction] 99 % Alejandro Beatty MD Work Phone: [facility] 05-20-2025 09:51-0400 Systolic blood pressure 119 mm[Hg] Alejandro Beatty MD Work Phone: [facility] 11-19-2024 08:52-0400 Body height 154.94 cm ALEJANDRO BEATTY MD Work Phone: [facility] 11-19-2024 08:52-0400 Body mass index (BMI) [Ratio] 22.7 kg/m2 ALEJANDRO BEATTY MD Work Phone: [facility] 11-19-2024 08:52-0400 Body weight 54.54 kg ALEJANDRO BEATTY MD Work Phone: [facility] 11-12-2024 11:50-0400 Body height 154.9 cm Alejandro Beatty MD Work Phone: [facility] 11-12-2024 11:50-0400 Body mass index (BMI) [Ratio] 23.94 kg/m2 Alejandro Beatty MD Work Phone: [facility] 11-12-2024 11:50-0400 Body temperature 97 [degF] Alejandro Beatty MD Work Phone: [facility] 11-12-2024 11:50-0400 Body weight 57.47 kg Alejandro Beatty MD Work Phone: [facility] 11-12-2024 11:50-0400 Diastolic blood pressure 77 mm[Hg] Alejandro Beatty MD Work Phone: [facility] 11-12-2024 11:50-0400 Heart rate 56 /min Alejandro Beatty MD Work Phone: [facility] 11-12-2024 11:50-0400 Respiratory rate 16 /min Alejandro Beatty MD Work Phone: [facility] 11-12-2024 11:50-0400 SaO2% (BldA) [Mass fraction] 98 % Alejandro Beatty MD Work Phone: [facility] 11-12-2024 11:50-0400 Systolic blood pressure 117 mm[Hg] Alejandro Beatty MD Work Phone: [facility] 05-27-2024 12:49-0400 Body height 154.9 cm Alejandro Beatty MD Work Phone: [facility] 05-27-2024 12:49-0400 Body mass index (BMI) [Ratio] 23.05 kg/m2 Alejandro Beatty MD Work Phone: [facility] 05-27-2024 12:49-0400 Body temperature 98.91 [degF] Alejandro Beatty MD Work Phone: [facility] 05-27-2024 12:49-0400 Body weight 55.34 kg Alejandro Beatty MD Work Phone: [facility] 05-27-2024 12:49-0400 Diastolic blood pressure 77 mm[Hg] Alejandro Beatty MD Work Phone: [facility] 05-27-2024 12:49-0400 Heart rate 80 /min Alejandro Beatty MD Work Phone: [facility] 05-27-2024 12:49-0400 Respiratory rate 17 /min Alejandro Beatty MD Work Phone: [facility] 05-27-2024 12:49-0400 SaO2% (BldA) [Mass fraction] 93 % Alejandro Beatty MD Work Phone: [facility] 05-27-2024 12:49-0400 Systolic blood pressure 119 mm[Hg] Alejandro Beatty MD Work Phone: [facility] 11-07-2023 07:51-0400 Body height 154.9 cm Alejandro Beatty MD Work Phone: [facility] 11-07-2023 07:51-0400 Body mass index (BMI) [Ratio] 22.67 kg/m2 Alejandro Beatty MD Work Phone: [facility] 11-07-2023 07:51-0400 Body temperature 97.59 [degF] Alejandro Beatty MD Work Phone: [facility] 11-07-2023 07:51-0400 Body weight 54.43 kg Alejandro Beatty MD Work Phone: [facility] 11-07-2023 07:51-0400 Diastolic blood pressure 80 mm[Hg] Alejandro Beatty MD Work Phone: [facility] 11-07-2023 07:51-0400 Heart rate 80 /min Alejandro Beatty MD Work Phone: [facility] 11-07-2023 07:51-0400 Respiratory rate 16 /min Alejandro Beatty MD Work Phone: [facility] 11-07-2023 07:51-0400 SaO2% (BldA) [Mass fraction] 98 % Alejandro Beatty MD Work Phone: [facility] 11-07-2023 07:51-0400 Systolic blood pressure 122 mm[Hg] Alejandro Beatty MD Work Phone: [facility] 10-20-2023 13:38-0500 Body temperature 98.29 [degF] Jorge Casas MD Work Phone: [facility] 10-20-2023 13:38-0500 Diastolic blood pressure 60 mm[Hg] Jorge Casas MD Work Phone: [facility] 10-20-2023 13:38-0500 Heart rate 84 /min Jorge Casas MD Work Phone: [facility] 10-20-2023 13:38-0500 SaO2% (BldA) [Mass fraction] 97 % Jorge Casas MD Work Phone: [facility] 10-20-2023 13:38-0500 Systolic blood pressure 100 mm[Hg] Jorge Casas MD Work Phone: [facility] 09-29-2023 09:40-0500 Body temperature 98.2 [degF] Eran Henderson PA-C Work Phone: [facility] 09-29-2023 09:40-0500 Diastolic blood pressure 68 mm[Hg] Eran Henderson PA-C Work Phone: [facility] 09-29-2023 09:40-0500 Systolic blood pressure 102 mm[Hg] Eran Henderson PA-C Work Phone: [facility] 09-19-2023 13:49-0500 Body height 154.9 cm Alejandro Beatty MD Work Phone: [facility] 09-19-2023 13:49-0500 Body mass index (BMI) [Ratio] 23 kg/m2 Alejandro Beatty MD Work Phone: [facility] 09-19-2023 13:49-0500 Body temperature 97.59 [degF] Alejandro Beatty MD Work Phone: [facility] 09-19-2023 13:49-0500 Body weight 55.2 kg Alejandro Beatty MD Work Phone: [facility] 09-19-2023 13:49-0500 Diastolic blood pressure 68 mm[Hg] Alejandro Beatty MD Work Phone: [facility] 09-19-2023 13:49-0500 Heart rate 61 /min Alejandro Beatty MD Work Phone: [facility] 09-19-2023 13:49-0500 Respiratory rate 16 /min Alejandro Beatty MD Work Phone: [facility] 09-19-2023 13:49-0500 SaO2% (BldA) [Mass fraction] 94 % Alejandro Beatty MD Work Phone: [facility] 09-19-2023 13:49-0500 Systolic blood pressure 100 mm[Hg] Alejandro Beatty MD Work Phone: [facility] 08-29-2023 08:01-0500 Body height 154.9 cm Alejandro Beatty MD Work Phone: [facility] 08-29-2023 08:01-0500 Body mass index (BMI) [Ratio] 21.92 kg/m2 Alejandro Beatty MD Work Phone: [facility] 08-29-2023 08:01-0500 Body temperature 98.2 [degF] Alejandro Beatty MD Work Phone: [facility] 08-29-2023 08:01-0500 Body weight 52.62 kg Alejandro Beatty MD Work Phone: [facility] 08-29-2023 08:01-0500 Diastolic blood pressure 75 mm[Hg] Alejandro Beatty MD Work Phone: [facility] 08-29-2023 08:01-0500 Heart rate 88 /min Alejandro Beatty MD Work Phone: [facility] 08-29-2023 08:01-0500 Respiratory rate 16 /min Alejandro Beatty MD Work Phone: [facility] 08-29-2023 08:01-0500 SaO2% (BldA) [Mass fraction] 98 % Alejandro Beatty MD Work Phone: [facility] 08-29-2023 08:01-0500 Systolic blood pressure 104 mm[Hg] Alejadnro Beatty MD Work Phone: [facility] 05-27-2023 16:02-0400 Body height 154.9 cm Alejandro Beatty MD Work Phone: [facility] 05-27-2023 16:02-0400 Body mass index (BMI) [Ratio] 23.81 kg/m2 Alejandro Beatty MD Work Phone: [facility] 05-27-2023 16:02-0400 Body temperature 99.3 [degF] Alejandro Beatty MD Work Phone: [facility] 05-27-2023 16:02-0400 Body weight 57.15 kg Alejandro Beatty MD Work Phone: [facility] 05-27-2023 16:02-0400 Diastolic blood pressure 78 mm[Hg] Alejandro Beatty MD Work Phone: [facility] 05-27-2023 16:02-0400 Heart rate 86 /min Alejandro Beatty MD Work Phone: [facility] 05-27-2023 16:02-0400 Respiratory rate 16 /min Alejandro Beatty MD Work Phone: [facility] 05-27-2023 16:02-0400 SaO2% (BldA) [Mass fraction] 95 % Alejandro Beatty MD Work Phone: [facility] 05-27-2023 16:02-0400 Systolic blood pressure 119 mm[Hg] Alejandro Beatty MD Work Phone: [facility] 02-28-2023 08:04-0400 Body height 154.9 cm Alejandro Beatty MD Work Phone: [facility] 02-28-2023 08:04-0400 Body mass index (BMI) [Ratio] 23.62 kg/m2 Alejandro Beatty MD Work Phone: [facility] 02-28-2023 08:04-0400 Body temperature 98.2 [degF] Alejandro Beatty MD Work Phone: [facility] 02-28-2023 08:04-0400 Body weight 56.7 kg Alejandro Beatty MD Work Phone: [facility] 02-28-2023 08:04-0400 Diastolic blood pressure 83 mm[Hg] Alejandro Beatty MD Work Phone: [facility] 02-28-2023 08:04-0400 Heart rate 71 /min Alejandro Beatty MD Work Phone: [facility] 02-28-2023 08:04-0400 Respiratory rate 16 /min Alejandro Beatty MD Work Phone: [facility] 02-28-2023 08:04-0400 SaO2% (BldA) [Mass fraction] 97 % Alejandro Beatty MD Work Phone: [facility] 02-28-2023 08:04-0400 Systolic blood pressure 124 mm[Hg] Alejandro Beatty MD Work Phone: [facility] 01-15-2023 11:54-0400 Body temperature 97 [degF] MD ALEJANDRO BEATTY Work Phone: [facility] 01-15-2023 11:54-0400 Diastolic blood pressure 63 mm[Hg] MD ALEJANDRO BEATTY Work Phone: [facility] 01-15-2023 11:54-0400 Heart rate 62 /min MD ALEJANDRO BEATTY Work Phone: [facility] 01-15-2023 11:54-0400 Respiratory rate 14 /min MD ALEJANDRO BEATTY Work Phone: [facility] 01-15-2023 11:54-0400 SaO2% (BldA) [Mass fraction] 100 % MD ALEJANDRO BEATTY Work Phone: [facility] 01-15-2023 11:54-0400 Systolic blood pressure 95 mm[Hg] MD ALEJANDRO BEATTY Work Phone: [facility] 01-15-2023 10:35-0400 Body height 154.94 cm MD ALEJANDRO BEATTY Work Phone: [facility] 01-15-2023 10:35-0400 Body mass index (BMI) [Ratio] 23.6 kg/m2 MD ALEJANDRO BEATTY Work Phone: [facility] 01-15-2023 10:35-0400 Body weight 56.69 kg MD ALEJANDRO BEATTY Work Phone: [facility] 11-06-2022 14:51-0400 Body mass index (BMI) [Ratio] 23.4 kg/m2 MD ALEJANDRO BEATTY Work Phone: [facility] 11-06-2022 14:51-0400 Body weight 56.24 kg MD ALEJANDRO BEATTY Work Phone: [facility] 11-06-2022 14:51-0400 Diastolic blood pressure 78 mm[Hg] MD ALEJANDRO BEATTY Work Phone: [facility] 11-06-2022 14:51-0400 Heart rate 71 /min MD ALEJANDRO BEATTY Work Phone: [facility] 11-06-2022 14:51-0400 SaO2% (BldA) [Mass fraction] 95 % MD ALEJANDRO BEATTY Work Phone: [facility] 11-06-2022 14:51-0400 Systolic blood pressure 117 mm[Hg] MD ALEJANDRO BEATTY Work Phone: [facility] 07-05-2022 08:16-0500 Body height 154.9 cm Alejandro Beatty MD Work Phone: [facility] 07-05-2022 08:16-0500 Body mass index (BMI) [Ratio] 22.67 kg/m2 Alejandro Beatty MD Work Phone: [facility] 07-05-2022 08:16-0500 Body temperature 98.01 [degF] Alejandro Beatty MD Work Phone: [facility] 07-05-2022 08:16-0500 Body weight 54.43 kg Alejandro Beatty MD Work Phone: [facility] 07-05-2022 08:16-0500 Diastolic blood pressure 69 mm[Hg] Alejandro Beatty MD Work Phone: [facility] 07-05-2022 08:16-0500 Heart rate 80 /min Alejandro Beatty MD Work Phone: [facility] 07-05-2022 08:16-0500 Respiratory rate 16 /min Alejandro Beatty MD Work Phone: [facility] 07-05-2022 08:16-0500 SaO2% (BldA) [Mass fraction] 98 % Alejandro Beatty MD Work Phone: [facility] 07-05-2022 08:16-0500 Systolic blood pressure 106 mm[Hg] Alejandro Beatty MD Work Phone: [facility] 05-20-2022 10:29-0400 Respiratory rate 14 /min [facility] Work Phone: [facility] 05-20-2022 07:29-0400 Body temperature 97.81 [degF] [facility] Work Phone: [facility] 05-20-2022 07:29-0400 Diastolic blood pressure 71 mm[Hg] [facility] Work Phone: [facility] 05-20-2022 07:29-0400 Heart rate 59 /min [facility] Work Phone: [facility] 05-20-2022 07:29-0400 SaO2% (BldA) [Mass fraction] 95 % [facility] Work Phone: [facility] 05-20-2022 07:29-0400 Systolic blood pressure 108 mm[Hg] Generic [facility] Work Phone: [facility] 05-17-2022 17:29-0400 Body height 154.9 cm Generic [facility] Work Phone: [facility] 05-17-2022 17:29-0400 Body mass index (BMI) [Ratio] 22.67 kg/m2 [facility] Work Phone: [facility] 05-17-2022 17:29-0400 Body weight 54.43 kg Generic [facility] Work Phone: [facility] 12-21-2021 10:58-0400 Body height 154.9 cm Sandi [employer] Work Phone: [facility] 12-21-2021 10:58-0400 Body mass index (BMI) [Ratio] 21.35 kg/m2 Sandi [employer] Work Phone: [facility] 12-21-2021 10:58-0400 Body temperature 98.1 [degF] [employer]i [employer] Work Phone: [facility] 12-21-2021 10:58-0400 Body weight 51.26 kg Sandi [employer] Work Phone: [facility] 12-21-2021 10:58-0400 Diastolic blood pressure 72 mm[Hg] [place] [employer] Work Phone: [facility] 12-21-2021 10:58-0400 Heart rate 82 /min Sandi [employer] Work Phone: [facility] 12-21-2021 10:58-0400 Respiratory rate 16 /min [employer]i [employer] Work Phone: [facility] 12-21-2021 10:58-0400 SaO2% (BldA) [Mass fraction] 96 % [place] [employer] Work Phone: [facility] 12-21-2021 10:58-0400 Systolic blood pressure 109 mm[Hg] [employer]i [employer] Work Phone: [facility] 06-15-2021 10:41-0400 Body height 154.9 cm Sandi [place] [employer] Work Phone: [facility] 06-15-2021 10:41-0400 Body mass index (BMI) [Ratio] 21.09 kg/m2 [facility] [employer] Work Phone: [facility] 06-15-2021 10:41-0400 Body temperature 98.49 [degF] [facility] [employer] Work Phone: [facility] 06-15-2021 10:41-0400 Body weight 50.62 kg [facility] [employer] Work Phone: [facility] 06-15-2021 10:41-0400 Diastolic blood pressure 72 mm[Hg] [facility] [employer] Work Phone: [facility] 06-15-2021 10:41-0400 Heart rate 69 /min [facility] [employer] Work Phone: [facility] 06-15-2021 10:41-0400 Respiratory rate 16 /min [facility] [employer] Work Phone: [facility] 06-15-2021 10:41-0400 SaO2% (BldA) [Mass fraction] 96 % [facility] [employer] Work Phone: [facility] 06-15-2021 10:41-0400 Systolic blood pressure 108 mm[Hg] [facility] Work Phone: [facility] 05-25-2020 12:56-0400 BMI (Body Mass Index) 23.05 kg/m2 [facility] 05-25-2020 12:56-0400 Body Temperature 99.1 [degF] Alejandro [facility] 05-25-2020 12:56-0400 Body weight 55.[address] [facility] 05-25-2020 12:56-0400 BP Diastolic 70 mm[Hg] [facility] 05-25-2020 12:56-0400 BP Systolic 121 mm[Hg] [facility] 05-25-2020 12:56-[address] [facility] 05-25-2020 12:56-0400 Pulse (Heart Rate) 78 /min [facility] 12:56-0400 Pulse Oximetry 96 % [facility] 05-25-2020 12:56-0400 Respiratory Rate 12 /min [facility] 04-28-2020 10:33-0400 BMI (Body Mass Index) 22.54 kg/m2 [facility] 04-28-2020 10:33-0400 Body Temperature 99.1 [degF] [facility] 04-28-2020 10:33-0400 Body weight 54.11 kg [facility] 04-28-2020 10:33-0400 BP Diastolic 69 mm[Hg] [facility] 04-28-2020 10:33-0400 BP Systolic 102 mm[Hg] [facility] 04-28-2020 10:33-0400 Height 154.9 cm [facility] 04-28-2020 10:33-0400 Pulse (Heart Rate) 70 /min [facility] 04-28-2020 10:33-0400 Pulse Oximetry 98 % [facility] 04-28-2020 10:33-0400 Respiratory Rate 16 /min [facility] 10-22-2019 12:21-0500 Body Temperature 97.59 [degF] [facility] 10-22-2019 12:21-0500 BP Diastolic 67 mm[Hg] [facility] 10-22-2019 12:21-0500 BP Systolic 103 mm[Hg] [facility] 10-22-2019 12:21-0500 Pulse (Heart Rate) 58 /min [facility] 10-22-2019 12:21-0500 Respiratory Rate 16 /min [facility] 10-22-2019 12:01-0500 Pulse Oximetry 98 % [facility] 10-22-2019 10:06-0500 BMI (Body Mass Index) 23.23 kg/m2 [facility] 10-22-2019 10:06-0500 Body weight 57.61 kg [facility] 10-22-2019 10:06-0500 Height 157.5 cm [facility] 10-12-2019 10:28-0500 BMI (Body Mass Index) 23.4 kg/m2 [facility] 10-12-2019 10:28-0500 Body Temperature 97.9 [degF] [facility] 10-12-2019 10:28-0500 Body weight 58.97 kg [facility] 10-12-2019 10:28-0500 BP Diastolic 74 mm[Hg] [facility] 10-12-2019 10:28-0500 BP Systolic 118 mm[Hg] [facility] 10-12-2019 10:28-0500 Height 158.8 cm [facility] 10-12-2019 10:28-0500 Pulse (Heart Rate) 80 /min [facility] 10-12-2019 10:28-0500 Respiratory Rate 14 /min [facility] 09-17-2019 12:33-0500 BMI (Body Mass Index) 24.37 kg/m2 [facility] 09-17-2019 12:33-0500 Body Temperature 97.9 [degF] [facility] 09-17-2019 12:33-0500 Body weight 58.51 kg [facility] 09-17-2019 12:33-0500 BP Diastolic 74 mm[Hg] [facility] 09-17-2019 12:33-0500 BP Systolic 107 mm[Hg] [facility] 09-17-2019 12:33-0500 Height 154.9 cm [facility] 09-17-2019 12:33-0500 Pulse (Heart Rate) 78 /min [facility] 09-17-2019 12:33-0500 Pulse Oximetry 97 % [facility] 09-17-2019 12:33-0500 Respiratory Rate 18 /min [facility] 03-12-2019 13:41-0400 BMI (Body Mass Index) 25.32 kg/m2 [facility] 03-12-2019 13:41-0400 Body Temperature 98.4 [degF] [facility] 03-12-2019 13:41-0400 Body weight 60.78 kg [facility] 03-12-2019 13:41-0400 BP Diastolic 66 mm[Hg] [facility] 03-12-2019 13:41-0400 BP Systolic 99 mm[Hg] [facility] 03-12-2019 13:41-0400 Height 154.9 cm [facility] 03-12-2019 13:41-0400 Pulse (Heart Rate) 70 /min [facility] 03-12-2019 13:41-0400 Pulse Oximetry 98 % [facility] 03-12-2019 13:41-0400 Respiratory Rate 18 /min [facility] 02-12-2019 14:14-0400 BMI (Body Mass Index) 25.13 kg/m2 [facility] 02-12-2019 14:14-0400 Body Temperature 98.4 [degF] [facility] 02-12-2019 14:14-0400 Body weight 60.33 kg [facility] 02-12-2019 14:14-0400 BP Diastolic 69 mm[Hg] [facility] 02-12-2019 14:14-0400 BP Systolic 103 mm[Hg] [facility] 02-12-2019 14:14-0400 Height 154.9 cm [facility] 02-12-2019 14:14-0400 Pulse (Heart Rate) 82 /min [facility] 02-12-2019 14:14-0400 Pulse Oximetry 98 % [facility] 02-12-2019 14:14-0400 Respiratory Rate 18 /min [facility] 02-05-2019 13:17-0400 BMI (Body Mass Index) 25.19 kg/m2 [facility] 02-05-2019 13:17-0400 Body Temperature 97.81 [degF] [facility] 02-05-2019 13:17-0400 Height 154.9 cm [facility] 02-05-2019 13:17-0400 Pulse (Heart Rate) 69 /min [facility] 02-05-2019 13:17-0400 Pulse Oximetry 97 % [facility] 02-05-2019 13:17-0400 Weight 60.46 kg [facility] 01-22-2019 13:41-0400 BMI (Body Mass Index) 25.51 kg/m2 [facility] 01-22-2019 13:41-0400 Body Temperature 98.01 [degF] [facility] 01-22-2019 13:41-0400 BP Diastolic 71 mm[Hg] [facility] 01-22-2019 13:41-0400 BP Systolic 112 mm[Hg] [facility] 01-22-2019 13:41-0400 Height 154.9 cm [facility] 01-22-2019 13:41-0400 Pulse (Heart Rate) 79 /min [facility] 01-22-2019 13:41-0400 Pulse Oximetry 95 % [facility] 01-22-2019 13:41-0400 Respiratory Rate 16 /min [facility] 01-22-2019 13:41-0400 Weight 61.24 kg [facility] 12-26-2017 16:49-0400 BMI (Body Mass Index) 26.07 kg/m2 [facility] 12-26-2017 16:49-0400 Body Temperature 97.81 [degF] [facility] 12-26-2017 16:49-0400 BP Diastolic 70 mm[Hg] [facility] 12-26-2017 16:49-0400 BP Systolic 104 mm[Hg] [facility] 12-26-2017 16:49-0400 Height 154.9 cm [facility] 12-26-2017 16:49-0400 Pulse (Heart Rate) 70 /min [facility] 12-26-2017 16:49-0400 Pulse Oximetry 98 % [facility] 12-26-2017 16:49-0400 Respiratory Rate 16 /min [facility] 12-26-2017 16:49-0400 Weight 62.6 kg [facility] 10-31-2017 14:01-0400 BMI (Body Mass Index) 26.74 kg/m2 [facility] 10-31-2017 14:01-0400 Body Temperature 97.5 [degF] [facility] 10-31-2017 14:01-0400 BP Diastolic 65 mm[Hg] [facility] 10-31-2017 14:01-0400 BP Systolic 101 mm[Hg] Tona Deal [facility] 10-31-2017 14:01-0400 Height 154.9 cm Tona Deal [facility] 10-31-2017 14:01-0400 Pulse (Heart Rate) 70 /min Tona Deal [facility] 10-31-2017 14:01-0400 Pulse Oximetry 98 % Tona Deal [facility] 10-31-2017 14:01-0400 Respiratory Rate 16 /min Tona Deal [facility] 10-31-2017 14:01-0400 Weight 64.18 kg Tona Deal [facility] 05-02-2017 07:58-0400 BMI (Body Mass Index) 24.56 kg/m2 Tona Deal [facility] Work Phone: 05-02-2017 07:58-0400 Body Temperature 98.2 [degF] Tona Deal [facility] Work Phone: 05-02-2017 07:58-0400 BP Diastolic 71 mm[Hg] Tona Deal [facility] Work Phone: 05-02-2017 07:58-0400 BP Systolic 104 mm[Hg] Tona Deal [facility] Work Phone: 05-02-2017 07:58-0400 Height 154.9 cm Tona Deal [facility] Work Phone: 05-02-2017 07:58-0400 Pulse (Heart Rate) 66 /min Tona Deal [facility] Work Phone: 05-02-2017 07:58-0400 Pulse Oximetry 98 % Tona Deal [facility] Work Phone: 05-02-2017 07:58-0400 Respiratory Rate 16 /min Tona Deal [facility] Work Phone: 05-02-2017 07:58-0400 Weight 58.97 kg Tona Deal [facility] Work Phone: Encounters Encounter Date Encounter Type Care Provider Facility Start: 06-17-2025 End: 06-17-2025 Office outpatient visit 25 minutes Alejandro Beatty MD Work Phone: [facility] Comment on above: Encounter for immuni zation (Primary Dx); Liver mass; Elevated liver enzymes; Mild major depression; Insomnia, unspecified type; Irritable bowel syndrome, unspecified type; Epistaxis Start: 06-17-2025 End: 06-17-2025 ambulatory ALEJANDRO WADE [facility] Start: 06-13-2025 End: 06-15-2025 Follow-up encounter Alejandro Beatty MD Work Phone: [facility] Comment on above: US Abdomen Limited S tudy Start: 06-10-2025 End: 06-10-2025 ambulatory ALEJANDRO LOREDO [facility] Start: 06-01-2025 ambulatory ALEJANDRO TORRE [facility] Start: 06-01-2025 Encounter for genera l adult medical examination without abnormal findings [facility]DRO [facility] Start: 05-20-2025 End: 05-20-2025 Office outpatient visit 40 minutes Alejandro Beatty MD Work Phone: [facility] Comment on above: Mild major depressio n (Primary Dx); Tremors of nervous system; Anxiety; Elevated liver enzymes; Healthcare maintenance; Hyperglycemia; Admission for therapeutic drug monitoring; Moderate major depression (HCC) Start: 05-20-2025 End: 05-20-2025 Patient encounter status Alejandro Beatty MD Work Phone: [facility] Start: 05-20-2025 End: 05-20-2025 ambulatory ALEJANDRO WADE [facility] Start: 04-15-2025 End: 04-15-2025 Orders Only Alejandro Beatty MD Work Phone: [facility] Comment on above: Breast cancer screen ing by mammogram Start: 02-25-2025 ambulatory ALEJANDRO TORRE [facility] Start: 02-23-2025 End: 02-23-2025 ambulatory ALEJANDRO BEATTY MD Work Phone: -Laboratory Start: 02-23-2025 End: 02-23-[address] Karine Muhammad MD -Laboratory Work Phone: Start: 02-23-2025 End: 02-23-2025 ambulatory Karine Muhammad Facility:[facility] Start: 01-11-2025 ambulatory Janet Delatorre Facility:[facility] Start: 11-19-2024 End: 11-19-2024 Patient encounter procedure Janet MCCALL [facility] Work Phone: Start: 11-19-2024 End: 11-19-2024 ambulatory Janet Juan Ramon Facility:[facility] Start: 11-15-2024 End: 01-15-2025 Follow-up encounter Alejandro Beatty MD Work Phone: [facility] Comment on above: CBC and Differential , Comprehensive Metabolic Panel, Lipid Panel, TSH with Reflex Free T4 Start: 11-15-2024 ambulatory ALEJANDRO TORRE [facility] Start: 11-12-2024 End: 11-12-2024 Office outpatient visit 25 minutes Alejandro Beatty MD Work Phone: [facility] Comment on above: Constipation, unspec ified constipation type (Primary Dx); Localized swelling of both lower legs; Mild major depression; Anxiety; Insomnia, unspecified type; Elevated liver enzymes; Healthcare maintenance Start: 11-12-2024 End: 11-12-2024 Patient encounter status Alejandro Beatty MD Work Phone: [facility] Start: 11-12-2024 End: 11-12-[facility] Start: 05-27-2024 End: 05-27-2024 Office outpatient visit 25 minutes Alejandro Beatty MD Work Phone: [facility] Comment on above: Localized swelling o f both lower legs (Primary Dx); Costovertebral angle pain Start: 05-18-2024 End: 05-18-2024 Emergency department patient visit GIORGI WRAY [facility] Start: 05-06-2024 End: 05-06-2024 ambulatory [facility] Facility:[facility] Start: 11-07-2023 End: 11-07-2023 Office outpatient visit 25 minutes Alejandro Beatty MD Work Phone: [facility] Comment on above: Mild major depressio n (HCC) (Primary Dx); Cauda equina compression (HCC); Chronic radicular lumbar pain; Claudication of lower extremity (HCC); Lumbar foraminal stenosis; Cigarette nicotine dependence with nicotine-induced disorder Start: 10-20-2023 End: 10-20-2023 Office outpatient visit 15 minutes Jorge Casas MD Work Phone: [facility] Comment on above: Lumbar foraminal elbert nosis (Primary Dx); Adolescent idiopathic scoliosis, unspecified spinal region Start: 10-07-2023 Refill Alejandro Beatty MD Work Phone: [facility] Comment on above: Anxiety Start: 09-29-2023 End: 09-29-2023 Office outpatient new 30 minutes Alejandro Beatty MD Work Phone: [facility] Comment on above: Cauda equina nas kandace (HCC); Claudication of lower extremity (HCC) Start: 09-19-2023 End: 09-19-2023 Office outpatient visit 25 minutes Alejandro Beatty MD Work Phone: [facility] Comment on above: Cauda equina nas kandace (HCC) (Primary Dx); Foot drop, left; Claudication of lower extremity (HCC); Chronic radicular lumbar pain Start: 09-03-2023 End: 09-03-2023 Emergency department patient visit ALEJANDRO BEATTY [facility] Start: 08-29-2023 End: 08-29-2023 Office outpatient visit 25 minutes Alejandro Beatty MD Work Phone: [facility] Comment on above: Mild major depressio n (HCC) (Primary Dx); Anxiety; Right-sided chest pain; Lipoma, unspecified site; Lipoma of torso; Cigarette nicotine dependence with nicotine-induced disorder Start: 05-27-2023 End: 05-27-2023 Office outpatient visit 15 minutes Alejandro Beatty MD Work Phone: [facility] Comment on above: Conjunctivitis, unsp ecified conjunctivitis type, unspecified laterality Start: 02-28-2023 Encounter for genera l adult medical examination without abnormal findings ALEJANDRO BEATTY [facility] Start: 02-28-2023 End: 02-28-2023 Patient encounter status Alejandro Beatty MD Work Phone: [facility] Start: 02-28-2023 End: 02-28-2023 Periodic preventive med est patient 40-64yrs Alejandro Beatty MD Work Phone: [facility] Comment on above: Pap smear for cervic al cancer screening (Primary Dx); Anxiety; Encounter for immunization; Mild major depression (HCC); Healthcare maintenance Start: 01-15-2023 Non-patient / Non-visit MD DAI Work Phone: [facility] Start: 01-15-2023 End: 01-15-2023 Admission to same day surgery center MD ALEJANDRO BEATTY Work Phone: [facility] Start: 01-15-2023 End: 01-15-2023 ambulatory MD ALEJANDRO BEATTY Work Phone: [facility] Work Phone: Start: 11-08-2022 End: 11-09-2022 ambulatory ALEJANDRO BEATTY [facility] Start: 11-06-2022 End: 11-06-2022 Patient encounter procedure MD ALEJANDRO BEATTY Work Phone: [facility] Start: 11-01-2022 End: 11-02-2022 ambulatory PROVIDER NOT IN SYSTEM [facility] Start: 10-29-2022 End: 10-29-2022 Phys/qhp telephone evaluation 11-20 min Alejandro Beatty MD Work Phone: [facility] Comment on above: Mild major depressio n (HCC) (Primary Dx); Anxiety Start: 10-03-2022 Orders Only Alejandro Beatty MD Work Phone: [facility] Comment on above: Colon cancer screeni ng Start: 07-05-2022 End: 07-05-2022 Periodic preventive med est patient 40-64yrs Alejandro Beatty MD Work Phone: [facility] Comment on above: Encounter for screen ing for malignant neoplasm of breast, unspecified screening modality (Primary Dx); Cigarette nicotine dependence with nicotine-induced disorder; Colon cancer screening; Encounter for immunization; Elevated liver enzymes; Healthcare maintenance; Mild major depression (HCC); Anxiety; Insomnia, unspecified type Start: 05-17-2022 End: 05-20-2022 Evaluation and management of inpatient Generic [facility] Work Phone: [facility] Start: 12-21-2021 End: 12-21-2021 Office outpatient visit 25 minutes Sandi Longo CNP Work Phone: [facility] Comment on above: Premature surgical m enopause on HRT; Anxiety; Elevated liver enzymes; Cigarette nicotine dependence with nicotine-induced disorder Start: 09-12-2021 Orders Only Sandi andres CNP Work Phone: [facility] Comment on above: Elevated liver enzym es (Primary Dx) Start: 09-12-2021 End: 09-12-2021 Phys/qhp telephone evaluation 5-10 min Sandi Longo CNP Work Phone: [facility] Comment on above: Elevated liver enzym es (Primary Dx) Start: 08-23-2021 Orders Only Sandi andres [employer] Work Phone: [facility] Comment on above: Elevated liver enzym es (Primary Dx) Start: 08-16-2021 End: 08-16-2021 Phys/qhp telephone evaluation 5-10 min Sandi Longo CNP Work Phone: [facility] Comment on above: Elevated liver enzym es (Primary Dx) Start: 06-15-2021 End: 06-15-2021 Office outpatient visit 25 minutes Sandi Longo CNP Work Phone: [facility] Comment on above: Acute swimmer's ear of right side (Primary Dx); Encounter for screening mammogram for malignant neoplasm of breast; Need for vaccination; Wellness examination; Encounter for biometric screening; 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; Sleep disorder, shift work Start: 06-15-2021 End: 06-15-2021 Patient encounter status Sandi Longo CNP Work Phone: [facility] Start: 04-12-2021 Orders Only Zoila Del Cid MD Work Phone: [facility] Comment on above: Premature surgical m enopause on HRT; Anxiety; Skin picking habit Start: 11-06-2020 End: 11-06-2020 Orders Only Tata Garcia [facility] Start: 10-11-2020 End: 10-11-2020 Refill Kristina Carcamo [facility] Comment on above: Sleep disorder, shif t work Start: 05-25-2020 End: 05-25-2020 Office outpatient visit 15 minutes Alejandro Beatty Work Phone: [facility] Comment on above: Itching (Primary Dx) Start: 04-28-2020 End: 04-28-2020 Office outpatient visit 25 minutes Sandi Longo Work Phone: [facility] Comment on above: Anxiety (Primary Dx) ; 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; Skin picking habit Start: 04-07-2020 End: 04-07-2020 Erroneous Encounter Sandi Longo Work Phone: [facility] Comment on above: ERRONEOUS ENCOUNTER- -DISREGARD (Primary Dx) Start: 03-17-2020 End: 03-17-2020 Erroneous Encounter Sandi [employer] Phone: [facility] Comment on above: ERRONEOUS ENCOUNTER- -DISREGARD (Primary Dx) Start: 10-22-2019 End: 10-22-2019 Subsequent hospital visit by physician Danny Manning Work Phone: [facility] Comment on above: Lipoma of torso; Lipoma of torso Start: 10-12-2019 End: 10-12-2019 Office outpatient new 30 minutes [employer] Phone: [facility] Comment on above: Lipoma of torso (Carolyn jake Dx) Start: 09-17-2019 End: 09-17-2019 Office outpatient visit 25 minutes [employer] Phone: [facility] Comment on above: Lipoma of torso (Carolyn jake Dx); BMI 24.0-24.9, adult; At risk for obstructive sleep apnea; Cigarette nicotine dependence with nicotine-induced disorder; Encounter for biometric screening Start: 03-20-2019 Refill Tona bhatti MD Work Phone: [facility] Comment on above: Sleep disorder, shif t work Start: 03-12-2019 End: 03-12-2019 Office outpatient visit 15 minutes [employer] Phone: [facility] Comment on above: Fatigue, unspecified type (Primary Dx); Snoring; At risk for obstructive sleep apnea; Cigarette nicotine dependence with nicotine-induced disorder Start: 02-21-2019 End: 03-12-2019 Patient encounter status Zoila Del Cid MD Work Phone: [facility] Start: 02-12-2019 End: 02-21-2019 Periodic preventive med est patient 40-64yrs Sandi [place] [employer] Work Phone: [facility] Comment on above: Encounter for biomet michelle screening (Primary Dx); Cigarette nicotine dependence with nicotine-induced disorder; Hemorrhoids, unspecified hemorrhoid type; At risk for obstructive sleep apnea Start: 02-05-2019 End: 02-05-2019 Office outpatient new 45 minutes Sandi [employer] Work Phone: [facility] Comment on above: External hemorrhoid (Primary Dx); Hemorrhoids, unspecified hemorrhoid type Start: 01-22-2019 End: 01-22-2019 Office outpatient visit 25 minutes Sandi [employer] Work Phone: [facility] Comment on above: Hemorrhoids, unspeci fied hemorrhoid type (Primary Dx); Actinic keratoses; S/P gastric bypass; Screening for heart disease Start: 12-26-2017 End: 12-26-2017 Office/outpatient visit, est, level 4 Tona Deal Work Phone: [facility] Start: 10-31-2017 End: 10-31-2017 Office/outpatient visit, est, level 4 Tona Deal Work Phone: [facility] Start: 05-02-2017 Office/outpatient visit, est, level 3 Tona Deal Work Phone: [facility] Procedures Date Procedure Procedure Detail Performing Clinician Start: 02-23-2025 Methadone measuremen t, urine ALEJANDRO BEATTY MD Work Phone: Start: 11-19-2024 X-ray of lumbosacral spine ALEJANDRO BEATTY MD Work Phone: Start: 02-28-2023 Microscopic observat ion [Identifier] in Cervix by Cyto stain Alejandro Beatty MD Work Phone: Start: 01-15-2023 End: 01-15-2023 Colonoscopy MD ALEJANDRO BEATTY Work Phone: Start: 11-08-2022 Mammography Alejandro carrillo MD Work Phone: Start: 10-11-2022 COLOGUARD Alejandro Beatty MD Work Phone: Start: 05-20-2022 Renal function panel Jasmina Juan MD Work Phone: Start: 05-19-2022 Renal function panel Jasmina Juan MD Work Phone: Start: 05-18-2022 Mri abdomen w/o & w/contrast material Abigail Juan MD Work Phone: Start: 05-18-2022 Renal function panel Jasmina Juan MD Work Phone: Start: 05-17-2022 Assay of lactate Jennifer Vera [employer] Work Phone: Start: 05-17-2022 Iadna-dna/rna gi pth gn multiplex probe tq 6-11 Abigail Juan MD Work Phone: Start: 05-17-2022 Comprehensive metabo lic panel Abigail Juan MD Work Phone: Start: 05-17-2022 Hepatic function panel Abigail Juan MD Work Phone: Start: 06-29-2021 Mammography [facility] [employer] Work Phone: Start: 04-14-2020 Microscopic observat ion [Identifier] in Cervix by Cyto stain Kristina Dona Start: 10-22-2019 End: 10-22-2019 EXCISION MASS TRUNK Danny Riveroer Work Phone: Start: 09-17-2019 Adult depression scr eening assessment [facility] Start: 04-17-2018 Mammography Alejandro Yous sef Start: 02-13-2018 Microscopic observat ion [Identifier] in Cervix by Cyto stain Alejandro Jaci Start: 02-17-2017 Microscopic observat ion [Identifier] in Cervix by Cyto stain [facility] Plan of Treatment Date Care Activity Detail Author Start: 01-30-2047 RSV Vaccines (1 - 1-dose 75+ series) RSV Vaccines (1 - 1-dose 75+ series) [facility] Start: 02-29-2028 Screening for malignant neoplasm of cervix [facility] Start: 01-16-2028 Screening for malignant neoplasm of colon [facility] Start: 11-01-2027 Tetanus vaccination [facility] Start: 11-01-2027 Vaccination for diphtheria, pertussis, and tetanus Tetanus/Diphtheria/Pertus sis (2 - Td or Tdap) [facility] Start: 06-17-2026 Review Statin Not Indicated Exemption Review Statin Not Indicated Exemption [facility] Start: 02-28-2026 Screening for malignant neoplasm of cervix Pap Smear [facility] Start: 11-12-2025 History and physical examination, annual for health maintenance Wellness Visit [facility] Start: 11-12-2025 Screening for malignant neoplasm of breast Mammogram [facility] Comment on above: Postponed from 11/09/2023 (Patient Refus ed) Start: 11-12-2025 Screening for malignant neoplasm of lung Low-dose CT Lung Cancer Screen [facility] Comment on above: Postponed from 1972 (Patient Refus ed) Start: 10-11-2025 Screening for malignant neoplasm of colon [facility] Start: 09-23-2025 End: 09-23-2025 Patient encounter procedure 09/23/2025 11:20 AM EST Office Visit [facility] [address] [place] [address] [place] [address] [place] [id number] [facility] Start: 09-14-2025 Depression Remission Assessment (PHQ9) Depression Remission Assessment (PHQ9) [facility] Start: 06-17-2025 End: 06-17-2025 Patient encounter procedure 06/17/2025 11:20 AM EDT Office Visit [facility] [address] [place] [address] [place] [address] [place] [address] [facility] Start: 05-13-2025 End: 05-13-2025 Patient encounter procedure 05/13/2025 7:40 AM EDT Office Visit [facility] [address] [place] [address] Alejandro Beatty MD [address] [place] [address] [facility] Start: 04-18-2025 COVID-19 Vaccine ( season) COVID-19 Vaccine ( season) [facility] Start: 04-18-2025 Influenza vaccination Influenza Vaccine (#1) [facility] Start: 02-23-2025 Procedure [facility] Start: 07-16-2024 End: 07-16-2024 Patient encounter procedure 07/16/2024 8:20 AM EST Office Visit [facility] [address] [place] [address] Alejandro Beatty MD [address] [address] [facility] Start: 06-29-2024 Depression Remission Assessment (PHQ9) Depression Remission Assessment (PHQ9) [facility] Start: 06-10-2024 End: 06-10-2024 Patient encounter procedure 06/10/2024 4:[address] [facility] Emergency Department CT Scan [address] [place] [address] [facility] Emergency Department CT Scan Start: 04-18-2024 COVID-19 Vaccine ( season) COVID-19 Vaccine ( season) [facility] Start: 04-18-2024 COVID-19 Vaccine ( season) COVID-19 Vaccine ( season) [facility] Start: 04-18-2024 Influenza vaccination Influenza Vaccine (#1) [facility] Start: 03-05-2024 End: 03-05-2024 Patient encounter procedure 03/05/2024 7:00 AM EDT Office Visit [facility] [address] [place] [address] Alejandro Beatty MD [address] [address] [facility] Start: 02-29-2024 History and physical examination, annual for health maintenance Wellness Visit [facility] Start: 12-29-2023 End: 12-29-2023 Patient encounter procedure 12/29/2023 9:15 AM EDT Office Visit [facility] [address] [place] [address] He Harrington DO [address] [place] [address] [facility] Start: 11-09-2023 Screening for malignant neoplasm of breast Mammogram [facility] Start: 11-07-2023 End: 11-07-2023 Patient encounter procedure 11/07/2023 8:00 AM EDT Office Visit [facility] [address] [place] [phone] Alejandro Beatty MD [address] [place] [address] [facility] Start: 10-20-2023 End: 10-20-2023 Patient encounter procedure 10/20/2023 11:00 AM EST Office Visit [facility] [address] [facility] [place] [address] Jorge Casas MD [address] [place] [address] [facility] Start: 10-17-2023 End: 10-17-2023 Patient encounter procedure 10/17/2023 7:00 AM EST Appointment [facility] MRI [address] [place] [address] Alejandro Beatty MD [address] [place] [address] [facility] Start: 09-12-2023 End: 09-12-2023 Patient encounter procedure 09/12/2023 8:00 AM EST Appointment [facility] [address] [place] [phone] [facility] Start: 08-29-2023 End: 08-29-2023 Patient encounter procedure 08/29/2023 8:00 AM EST Office Visit [facility] [address] [place] [address] Alejandro Beatty MD [address] [address] [facility] Start: 07-05-2023 History and physical examination, annual for health maintenance Wellness Visit [facility] Start: 04-18-2023 COVID-19 Vaccine ( season) COVID-19 Vaccine () [facility] Start: 04-18-2023 Influenza vaccination Sequential Influenza Vaccine (#1) [facility] Start: 04-14-2023 Screening for malignant neoplasm of cervix Pap Smear [facility] Start: 01-15-2023 Patient discharge [facility] Start: 01-03-2023 End: 01-03-2023 Patient encounter procedure 01/03/2023 Office Visit Primary Care Alejandro Beatty MD [address] [address] [facility] Start: 12-20-2022 End: 12-20-2022 Patient encounter procedure 12/20/2022 Office Visit Primary Care Alejandro Beatty MD [address] [address] [facility] Start: 11-08-2022 End: 11-08-2022 Patient encounter procedure 11/08/2022 Appointment Radiology Alejandro Beatty MD [address] [address] [facility] Start: 08-30-2022 Administration of herpes zoster vaccine Zoster Vaccines (2 of 2) [facility] Start: 07-05-2022 End: 07-05-2022 Patient encounter procedure 07/05/2022 Office Visit Primary Care Alejandro Beatty MD [address] [address] [facility] Start: 06-29-2022 Screening for malignant neoplasm of breast Mammogram [facility] Start: 06-21-2022 End: 06-21-2022 Patient encounter procedure 06/21/2022 Office Visit Primary Care Alejandro Beatty MD [address] [address] [facility] Start: 06-15-2022 Pneumococcal Vaccine: Ped or At-Risk (2 - PPSV23 if available, else PCV20) Pneumococcal Vaccine: Ped or At-Risk (2 - PPSV23 if available, else PCV20) [facility] Start: 06-15-2022 Pneumococcal Vaccine: Ped or At-Risk (2 - PPSV23 or PCV20) Pneumococcal Vaccine: Ped or At-Risk (2 - PPSV23 or PCV20) [facility] Start: 01-30-2022 Screening for malignant neoplasm of colon Flexible sigmoidoscopy [facility] Start: 12-14-2021 End: 12-14-2021 Patient encounter procedure 12/14/2021 Office Visit Primary Care Sandi Longo CNP [address] [address] [facility] Start: 10-25-2021 COVID-19 Vaccine (4 - Booster for Moderna series) COVID-19 Vaccine (4 - Booster for Moderna series) [facility] Start: 10-25-2021 COVID-19 Vaccine (4 - Moderna series) COVID-19 Vaccine (4 - Moderna series) [facility] Start: 08-10-2021 Pneumococcal Vaccine: Ped or At-Risk (1 of 2 - PPSV23) Pneumococcal Vaccine: Ped or At-Risk (1 of 2 - PPSV23) [facility] Start: 06-15-2021 End: 06-15-2021 Patient encounter procedure 06/15/2021 Office Visit Primary Care Sandi Longo CNP [address] [address] [facility] Start: 05-04-2021 End: 05-04-2021 Office Visit 05/04/2021 Office Visit Primary Care Sandi Longo CNP [address] [address] [phone] [facility] Start: 04-18-2021 Influenza vaccination Sequential Influenza Vaccine (#1) [facility] Start: 04-14-2021 History and physical examination, annual for health maintenance Wellness Visit [facility] Start: 03-20-2021 COVID-19 Vaccine (3 - Booster for Moderna series) COVID-19 Vaccine (3 - Booster for Moderna series) [facility] Start: 02-13-2021 Screening for malignant neoplasm of cervix Pap Smear [facility] Start: 10-27-2020 End: 10-27-2020 Office Visit [facility] Start: 09-17-2020 Adolescent depression screening assessment Depression Screening (PHQ9) [facility] Start: 09-17-2020 Depression screening using PHQ-9 (Patient Health Questionnaire 9) score [facility] Start: 05-05-2020 End: 05-05-2020 Office Visit 05/05/2020 Office Visit Primary Care Alejandro Beatty MD [address] [place] [address] [phone] [facility] Start: 04-18-2020 Influenza vaccination given Sequential Influenza Vaccine (#1) [facility] Start: 04-06-2020 End: 04-06-2020 Office Visit 04/06/2020 Office Visit Primary Care Sandi Longo CNP [address] [place] [address] [phone] [facility] Start: 03-17-2020 End: 03-17-2020 Office Visit 03/17/2020 Office Visit Primary Care Sandi Longo [employer] [address] [place] [address] [phone] [facility] Start: 02-18-2020 Screening for malignant neoplasm of cervix PAP SMEAR [facility] Start: 02-14-2020 End: 09-17-2020 Complete blood count with white cell differential, manual CBC and Differential Lab Routine Encounter for biometric screening Expected: 02/14/2020 (Approximate), Expires: 09/17/2020 [facility] Comment on above: Expected: 02/14/2020 (Approximate), Expi res: 09/17/2020 Start: 02-14-2020 End: 09-17-2020 Comprehensive metabolic 2000 panel Comprehensive Metabolic Panel Lab Routine Encounter for biometric screening Expected: 02/14/2020 (Approximate), Expires: 09/17/2020 [facility] Comment on above: Expected: 02/14/2020 (Approximate), Expi res: 09/17/2020 Start: 02-14-2020 End: 09-17-2020 Lipid 1996 panel Lipid Panel Lab Routine Encounter for biometric screening Expected: 02/14/2020 (Approximate), Expires: 09/17/2020 [facility] Comment on above: Expected: 02/14/2020 (Approximate), Expi res: 09/17/2020 Start: 02-14-2020 End: 09-17-2020 TSH Qn TSH with Reflex Free T4 Lab Routine Encounter for biometric screening Expected: 02/14/2020 (Approximate), Expires: 09/17/2020 [facility] Comment on above: Expected: 02/14/2020 (Approximate), Expi res: 09/17/2020 Start: 02-13-2020 History and physical examination, annual for health maintenance Wellness Visit [facility] Start: 10-22-2019 End: 10-22-2019 Hospital Encounter [facility] Comment on above: Lipoma of torso EXCISION MASS TRUNK Start: 09-17-2019 End: 09-17-2019 Office Visit 09/17/2019 Office Visit Primary Care Sandi Longo [employer] [address] [place] [address] [phone] [facility] Start: 04-18-2019 Influenza vaccination given SEQUENTIAL INFLUENZA VACCINE (#1) [facility] Start: 04-17-2019 Screening for malignant neoplasm of breast Mammogram [facility] Start: 04-17-2019 Screening mammography Mammogram [facility] Start: 03-12-2019 End: 03-12-2019 Office Visit 03/12/2019 Office Visit Primary Care Sandi Longo CNP [address] [place] [address] [phone] [facility] Start: 02-12-2019 End: 02-12-2019 Office Visit 02/12/2019 Office Visit Primary Care Sandi Longo CNP [address] [place] [address] [phone] [facility] Start: 07-03-2018 End: 07-03-2018 Ambulatory 07/03/2018 Office Visit Primary Care Tona Deal MD [address] [place] [address] [phone] [facility] Start: 12-19-2017 End: 12-19-2017 Ambulatory 12/19/2017 Office Visit Primary Care Tona Deal MD [address] [place] [address] [phone] [facility] Start: 10-31-2017 Ambulatory 10/31/2017 Office Visit Primary Care Tona Deal MD [address] [place] [address] [phone] [facility] Start: 04-18-2017 Influenza vaccination SEQUENTIAL INFLUENZA VACCINE (#1) [facility] Work Phone: Start: 01-30-1991 Hepatitis B vaccination Hepatitis B Vaccines (1 of 3 - 19+ 3-dose series) [facility] Start: 01-30-1990 Hepatitis C antibody, confirmatory test Hepatitis C Screening [facility] Start: 01-30-1990 Hepatitis C screening Hepatitis C Screening [facility] Start: 1988 COVID-19 Vaccine (1 of 2) COVID-19 Vaccine (1 of 2) [facility] Start: 1988 COVID-19 Vaccine (1) COVID-19 Vaccine (1) [facility] Start: 01-30-1987 HIV screening HIV Screening [facility] Start: 1984 Adolescent depression screening assessment Depression Screening (PHQ9) [facility] Start: 1984 COVID-19 Vaccine (1) COVID-19 Vaccine (1) [facility] Start: 01-30-1978 Pneumococcal Vaccine: Ped or At-Risk (1 of 4 - PCV13) Pneumococcal Vaccine: Ped or At-Risk (1 of 4 - PCV13) [facility] Start: 01-30-1975 History and physical examination, annual for health maintenance Wellness Visit [facility] Start: 01-30-1973 Ticyenj-pjvie-zcleety vaccination MMR Vaccines (1 of 1 - Standard series) [facility] Start: 1972 Protein mass conc Mammogram [facility] Start: 1972 Screening for malignant neoplasm of cervix PAP SMEAR [facility] Work Phone: Start: 1972 Screening for malignant neoplasm of colon [facility] Start: 1972 Screening for malignant neoplasm of lung Low-dose CT Lung Cancer Screen [facility] Start: 1972 Screening mammography Mammogram [facility] Start: 1972 Tetanus vaccination TETANUS EVERY 10 YR [facility] Work Phone: End: 10-31-2018 SARAH SARAH Routine Myalgia 1 Occurrences starting 10/31/2017 until 10/31/2018 [facility] End: 05-20-2026 B12/Folate B12/Folate Lab Routine Tremors of nervous system Admission for therapeutic drug monitoring 1 Occurrences starting 05/20/2025 until 05/20/2026 [facility] Comment on above: 1 Occurrences starting 05/20/2025 until 05/20/2026 End: 10-31-2018 CBC and Differential CBC and Differential Routine Gastroesophageal reflux disease, esophagitis presence not specified 1 Occurrences starting 10/31/2017 until 10/31/2018 [facility] Cologuard Cologuard Lab Ro utine Colon cancer screening Ordered: 10/03/2022 [facility] Work Phone: Comment on above: Ordered: 10/03/2022 End: 01-22-2020 Complete blood count with white cell differential, manual CBC and Differential Lab Routine S/P gastric bypass 1 Occurrences starting 01/22/2019 until 01/22/2020 [facility] Comment on above: 1 Occurrences starting 01/22/2019 until 01/22/2020 End: 06-15-2022 Complete blood count with white cell differential, manual CBC and Differential Lab Routine Wellness examination Encounter for biometric screening 1 Occurrences starting 06/15/2021 until 06/15/2022 [facility] Comment on above: 1 Occurrences starting 06/15/2021 until 06/15/2022 End: 07-05-2023 Complete blood count with white cell differential, manual CBC and Differential Lab Routine Healthcare maintenance 1 Occurrences starting 07/05/2022 until 07/05/2023 [facility] Comment on above: 1 Occurrences starting 07/05/2022 until 07/05/2023 End: 11-12-2025 Complete blood count with white cell differential, manual CBC and Differential Lab Routine Elevated liver enzymes 1 Occurrences starting 11/12/2024 until 11/12/2025 [facility] Comment on above: 1 Occurrences starting 11/12/2024 until 11/12/2025 End: 05-20-2026 Complete blood count with white cell differential, manual CBC and Differential Lab Routine Tremors of nervous system 1 Occurrences starting 05/20/2025 until 05/20/2026 [facility] Comment on above: 1 Occurrences starting 05/20/2025 until 05/20/2026 End: 01-23-2020 Comprehensive metabolic 2000 panel Comprehensive Metabolic Panel Lab Routine S/P gastric bypass 1 Occurrences starting 01/22/2019 until 01/23/2020 [facility] Comment on above: 1 Occurrences starting 01/22/2019 until 01/23/2020 End: 06-15-2022 Comprehensive metabolic 2000 panel - Serum or Plasma Comprehensive Metabolic Panel Lab Routine Wellness examination Encounter for biometric screening 1 Occurrences starting 06/15/2021 until 06/15/2022 [facility] Comment on above: 1 Occurrences starting 06/15/2021 until 06/15/2022 End: 09-12-2022 Comprehensive metabolic 2000 panel - Serum or Plasma Comprehensive Metabolic Panel Lab Routine Elevated liver enzymes 1 Occurrences starting 09/12/2021 until 09/12/2022 [facility] Work Phone: Comment on above: 1 Occurrences starting 09/12/2021 until 09/12/2022 End: 07-05-2023 Comprehensive metabolic 2000 panel - Serum or Plasma Comprehensive Metabolic Panel Lab Routine Elevated liver enzymes 1 Occurrences starting 07/05/2022 until 07/05/2023 [facility] Comment on above: 1 Occurrences starting 07/05/2022 until 07/05/2023 End: 11-12-2025 Comprehensive metabolic 2000 panel - Serum or Plasma Comprehensive Metabolic Panel Lab Routine Localized swelling of both lower legs Elevated liver enzymes 1 Occurrences starting 11/12/2024 until 11/12/2025 [facility] Comment on above: 1 Occurrences starting 11/12/2024 until 11/12/2025 End: 05-20-2026 Comprehensive metabolic 2000 panel - Serum or Plasma Comprehensive Metabolic Panel Lab Routine Elevated liver enzymes 1 Occurrences starting 05/20/2025 until 05/20/2026 [facility] Comment on above: 1 Occurrences starting 05/20/2025 until 05/20/2026 End: 10-31-2018 Comprehensive metabolic panel [AGGREGATE] Comprehensive Metabolic Panel Routine Fatigue, unspecified type S/P gastric bypass 1 Occurrences starting 10/31/2017 until 10/31/2018 [facility] End: 05-27-2025 CT Abdomen and Pelvis WO contrast CT Abdomen Pelvis Without Contrast Imaging STAT Localized swelling of both lower legs Costovertebral angle pain 1 Occurrences starting 05/27/2024 until 05/27/2025 [facility] Work Phone: Comment on above: 1 Occurrences starting 05/27/2024 until 05/27/2025 End: 10-31-2018 Erythrocyte sedimentation rate Sedimentation Rate Routine Myalgia 1 Occurrences starting 10/31/2017 until 10/31/2018 [facility] End: 08-16-2022 Gamma glutamyl transferase [Enzymatic activity/volume] in Serum or Plasma GGT Lab Routine Elevated liver enzymes 1 Occurrences starting 08/16/2021 until 08/16/2022 [facility] Comment on above: 1 Occurrences starting 08/16/2021 until 08/16/2022 End: 07-05-2023 Hemoglobin A1c/Hemoglobin.total in Blood Hemoglobin A1c Lab Routine Healthcare maintenance 1 Occurrences starting 07/05/2022 until 07/05/2023 [facility] Comment on above: 1 Occurrences starting 07/05/2022 until 07/05/2023 End: 05-20-2026 Hemoglobin A1c/Hemoglobin.total in Blood Hemoglobin A1c Lab Routine Hyperglycemia 1 Occurrences starting 05/20/2025 until 05/20/2026 [facility] Comment on above: 1 Occurrences starting 05/20/2025 until 05/20/2026 End: 08-16-2022 Hepatic function 2000 panel - Serum or Plasma Hepatic Function Panel Lab Routine Elevated liver enzymes 1 Occurrences starting 08/16/2021 until 08/16/2022 [facility] Work Phone: Comment on above: 1 Occurrences starting 08/16/2021 until 08/16/2022 End: 08-16-2022 Hepatitis panel measurement Hepatitis Panel, Acute Lab Routine Elevated liver enzymes 1 Occurrences starting 08/16/2021 until 08/16/2022 [facility] Comment on above: 1 Occurrences starting 08/16/2021 until 08/16/2022 End: 08-16-2022 Lipase [Enzymatic activity/volume] in Serum or Plasma Lipase Lab Routine Elevated liver enzymes 1 Occurrences starting 08/16/2021 until 08/16/2022 [facility] Comment on above: 1 Occurrences starting 08/16/2021 until 08/16/2022 End: 01-23-2020 Lipid 1996 panel Lipid Panel Lab Routine Screening for heart disease 1 Occurrences starting 01/22/2019 until 01/23/2020 [facility] Comment on above: 1 Occurrences starting 01/22/2019 until 01/23/2020 End: 06-15-2022 Lipid 1996 panel - Serum or Plasma Lipid Panel Lab Routine Wellness examination Encounter for biometric screening 1 Occurrences starting 06/15/2021 until 06/15/2022 [facility] Comment on above: 1 Occurrences starting 06/15/2021 until 06/15/2022 End: 07-05-2023 Lipid 1996 panel - Serum or Plasma Lipid Panel Lab Routine Healthcare maintenance 1 Occurrences starting 07/05/2022 until 07/05/2023 [facility] Comment on above: 1 Occurrences starting 07/05/2022 until 07/05/2023 End: 11-12-2025 Lipid 1996 panel - Serum or Plasma Lipid Panel Lab Routine Healthcare maintenance 1 Occurrences starting 11/12/2024 until 11/12/2025 [facility] Comment on above: 1 Occurrences starting 11/12/2024 until 11/12/2025 End: 05-20-2026 Lipid 1996 panel - Serum or Plasma Lipid Panel Lab Routine Healthcare maintenance 1 Occurrences starting 05/20/2025 until 05/20/2026 [facility] Comment on above: 1 Occurrences starting 05/20/2025 until 05/20/2026 End: 10-31-2018 Lipid panel Lipid Panel Routine S/P gastric bypass 1 Occurrences starting 10/31/2017 until 10/31/2018 [facility] End: 11-12-2025 Liver function tests - general Liver Fibrosis, Fibro Test Lab Routine Elevated liver enzymes 1 Occurrences starting 11/12/2024 until 11/12/2025 [facility] Comment on above: 1 Occurrences starting 11/12/2024 until 11/12/2025 End: 08-15-2022 MG Breast - bilateral Screening Mammography Screening Oren Bilateral Imaging Routine Encounter for screening mammogram for malignant neoplasm of breast 1 Occurrences starting 06/15/2021 until 08/15/2022 [facility] Work Phone: Comment on above: 1 Occurrences starting 06/15/2021 until 08/15/2022 End: 09-04-2023 MG Breast - bilateral Screening Mammography Screening Oren Bilateral Imaging Routine Encounter for screening for malignant neoplasm of breast, unspecified screening modality 1 Occurrences starting 07/05/2022 until 09/04/2023 [facility] Work Phone: Comment on above: 1 Occurrences starting 07/05/2022 until 09/04/2023 End: 04-25-2025 MG Breast - bilateral Screening Mammography Screening Oren Bilateral Imaging Routine Breast cancer screening by mammogram 1 Occurrences starting 04/15/2025 until 04/25/2025 [email or web address] Phone: Comment on above: 1 Occurrences starting 04/15/2025 until 04/25/2025 Microscopic examinat ion of vaginal Papanicolaou smear Thinprep Pap Smear Pathology and Cytology Routine Pap smear for cervical cancer screening Ordered: 02/28/2023 [facility] Work Phone: Comment on above: Ordered: 02/28/2023 End: 06-17-2026 MR Liver WO and W contrast IV MR Liver With And Without Contrast Imaging Routine Liver mass 1 Occurrences starting 06/17/2025 until 06/17/2026 [email or web address] Phone: Comment on above: 1 Occurrences starting 06/17/2025 until 06/17/2026 MR Lumbar spine [facility] End: 09-19-2024 MR Lumbar spine WO contrast MR Lumbar Spine Without Contrast Imaging Routine Cauda equina compression (HCC) Claudication of lower extremity (HCC) 1 Occurrences starting 09/19/2023 until 09/19/2024 [facility] Work Phone: Comment on above: 1 Occurrences starting 09/19/2023 until 09/19/2024 Patient referral [facility] Work Phone: Procedure on tissue specimen [facility] Comment on above: Release Upon Ordering for 1 Occurrences starting 10/22/2019, 1 completed Protein [Mass/volume ] in Urine Protein, Urine, Random Lab Routine Localized swelling of both lower legs Ordered: 05/27/2024 [facility] Comment on above: Ordered: 05/27/2024 End: 06-15-2022 Thyrotropin [Units/volume] in Serum or Plasma TSH with Reflex Free T4 Lab Routine Wellness examination Encounter for biometric screening 1 Occurrences starting 06/15/2021 until 06/15/2022 [facility] Comment on above: 1 Occurrences starting 06/15/2021 until 06/15/2022 End: 07-05-2023 Thyrotropin [Units/volume] in Serum or Plasma TSH with Reflex Free T4 Lab Routine Healthcare maintenance 1 Occurrences starting 07/05/2022 until 07/05/2023 [facility] Comment on above: 1 Occurrences starting 07/05/2022 until 07/05/2023 End: 11-12-2025 Thyrotropin [Units/volume] in Serum or Plasma TSH with Reflex Free T4 Lab Routine Constipation, unspecified constipation type 1 Occurrences starting 11/12/2024 until 11/12/2025 [facility] Work Phone: Comment on above: 1 Occurrences starting 11/12/2024 until 11/12/2025 End: 05-20-2026 Thyrotropin [Units/volume] in Serum or Plasma TSH with Reflex Free T4 Lab Routine Mild major depression 1 Occurrences starting 05/20/2025 until 05/20/2026 [facility] Work Phone: Comment on above: 1 Occurrences starting 05/20/2025 until 05/20/2026 End: 01-22-2020 Thyrotropin Qn TSH with Reflex Free T4 Lab Routine Screening for heart disease 1 Occurrences starting 01/22/2019 until 01/22/2020 [facility] Comment on above: 1 Occurrences starting 01/22/2019 until 01/22/2020 End: 10-31-2018 TSH with Reflex Free T4 TSH with Reflex Free T4 Routine Fatigue, unspecified type 1 Occurrences starting 10/31/2017 until 10/31/2018 [facility] End: 08-29-2024 US Chest US Chest Imaging Routine Right-sided chest pain Lipoma, unspecified site 1 Occurrences starting 08/29/2023 until 08/29/2024 [facility] Work Phone: Comment on above: 1 Occurrences starting 08/29/2023 until 08/29/2024 End: 08-23-2022 US scan of upper abdomen US Abdomen Limited Study Imaging Routine Elevated liver enzymes 1 Occurrences starting 08/23/2021 until 08/23/2022 [facility] Work Phone: Comment on above: 1 Occurrences starting 08/23/2021 until 08/23/2022 End: 01-23-2020 Vitamin D, 25-hydroxy measurement Vitamin D, Total, 25-OH Lab Routine S/P gastric bypass 1 Occurrences starting 01/22/2019 until 01/23/2020 [facility] Comment on above: 1 Occurrences starting 01/22/2019 until 01/23/2020 End: 05-20-2026 Vitamin D, 25-hydroxy measurement Vitamin D, Total, 25-OH Lab Routine Admission for therapeutic drug monitoring 1 Occurrences starting 05/20/2025 until 05/20/2026 [facility] Comment on above: 1 Occurrences starting 05/20/2025 until 05/20/2026 End: 10-31-2018 Vitamin D, Total, 25-OH Vitamin D, Total, 25-OH Routine S/P gastric bypass 1 Occurrences starting 10/31/2017 until 10/31/2018 [facility] End: 09-29-2024 XR Thoracic and lumbar spine 2 Views for scoliosis XR Spine Scoliosis Series 2-3 Views Imaging Routine Cauda equina compression (HCC) Claudication of lower extremity (HCC) 1 Occurrences starting 09/29/2023 until 09/29/2024 [facility] Work Phone: Comment on above: 1 Occurrences starting 09/29/2023 until 09/29/2024 XR Thoracic and lumb ar spine 2 Views for scoliosis XR Spine Scoliosis Series 2-3 Views Imaging Routine Cauda equina compression (HCC) Claudication of lower extremity (HCC) 09/29/2023 11:05 AM EST [facility] Immunizations Immunization Date Immunization Notes Care Provider Fa abbe 06-17-2025 Seasonal, trivalent, recombinant, injectable influenza vaccine, preservative free Alejandro Beatty MD Work Phone: [facility] 05-13-2024 influenza virus vaccine, unspecified formulation Alejandro Beatty MD Work Phone: [facility] 05-06-2023 influenza virus vaccine, unspecified formulation Alejandro Beatty MD Work Phone: [facility] 02-28-2023 Pneumococcal Conjuga te 20-Valent (Prevnar 20) Alejandro Beatty MD Work Phone: [facility] 02-28-2023 zoster vaccine recombinant Alejandro Beatty MD Work Phone: [facility] 02-28-2023 varicella-zoster gE, diluent + powder, (SHINGRIX KIT) 50 mcg/0.5 mL injection Alejandro Beatty MD Work Phone: [facility] 02-28-2023 pneumococcal conj. 20-valent (PREVNAR 20) 0.5 mL vaccine Alejandro Beatty MD Work Phone: [facility] 07-05-2022 zoster vaccine recombinant Alejandro Beatty MD Work Phone: [facility] 07-05-2022 varicella-zoster gE, diluent + powder, (SHINGRIX KIT) 50 mcg/0.5 mL injection Alejandro Beatty MD Work Phone: [facility] Work Phone: 06-15-2021 pneumococcal conjuga te vaccine, 13 valent [place] [employer] Work Phone: [facility] 06-15-2021 pneumococcal vaccine , unspecified formulation [place] [employer] Work Phone: [facility] 05-07-2021 influenza, injectabl e, quadrivalent, preservative free [facility] [employer] Work Phone: [facility] 05-09-2020 influenza, injectabl e, quadrivalent, preservative free [facility] [employer] Work Phone: [facility] 05-11-2018 influenza, injectabl e, quadrivalent, preservative free [facility] 05-11-2018 influenza, seasonal, injectable [facility] 10-31-2017 tetanus toxoid, reduced diphtheria toxoid, and acellular pertussis vaccine, adsorbed; Translations: [TDAP] Tona Deal [facility] 06-22-2017 influenza, seasonal, injectable, preservative free [facility] 06-08-2015 influenza, seasonal, injectable, preservative free [facility] 06-01-2009 novel [id number], preservative-free, injectable [facility] 03-19-2000 hepatitis B vaccine, pediatric or pediatric/adolescent dosage [facility] 10-17-1999 hepatitis B vaccine, pediatric or pediatric/adolescent dosage [facility] 09-19-1999 hepatitis B vaccine, pediatric or pediatric/adolescent dosage [facility] Payers Date Payer Category Payer Self-pay 2023 Blue Cross Blue Shie ld (Indemnity or Managed Care) - Out of State BCBS OUT OF STATE [facility] [place] [id number] 2023 Unknown [id number] 2021 Private Health Insurance JULIA BUTLER HMO/NTWK/OACCESS/OA+/POS [id number] 2021-Present [phone] [facility] [id number] [place] [address] [id number]. [id number] 2021 Unknown [id number] 2020 Unknown [id number]. [id number] 2020 Unknown [id number] 2019 Unknown [id number]. [id number]. [id number] 2019 Unknown [id number] 2017 Unknown [id number] [id number]. [id number] 2016 Unknown [id number] 1972 Unknown [id number] 2.16.840.1.541078.3.579.2. 900 1972 Unknown [id number] 2.16.840.1.747803.3.579.2. 900 1972 Unknown [id number] 2.16.840.1.197368.3.579.2. 900 1972 Unknown [id number] 2.16.840.1.363747.3.579.2. 900 1972 Unknown [id number] 2.16.840.1.581520.3.579.2. 902 1972 Unknown [id number] 2.16.840.1.581196.3.579.2. 902 1972 Unknown [id number] 2.16.840.1.043558.3.579.2. 903 1972 Unknown [id number] 2.16.840.1.046303.3.579.2. 903 1972 Unknown [id number] 2.16.840.1.309054.3.579.2. 903 1972 Unknown [id number] 2.16.840.1.299432.3.579.2. 903 1972 Unknown [id number] 2.16.840.1.696244.3.579.2. 903 1972 Unknown [id number] 2.16.840.1.930035.3.579.2. 903 1972 Unknown [id number] 2.16.840.1.258882.3.579.2. 903 1972 Unknown [id number] 2.16.840.1.770935.3.579.2. 903 Private Health Insurance [id number] Unknown [id number] 2.16.840.1.140766.3.579.2. 462 Unknown [id number] 2.16840.1.200530.3.579.2. 462 Unknown [id number] 2.16.840.1.203387.3.579.2. 462 Unknown [id number] 2.16840.1.493697.3.579.2. 462 Unknown [id number] 2.16.840.1.797847.3.579.2. 462 Social History Date Type Detail Facility Start: 12-29-2017 End: 05-18-2024 Tobacco smoking status [facility] Current every day smoker [facility] Start: 12-29-2017 End: 05-20-2025 Cigarettes smoked current (pack per day) - Reported [facility] Start: 1970 Sex Assigned At Not on file [address] Work Phone: Start: 12-29-2017 Tobacco Comment Needs to quit [facility] Start: 10-01-2016 Alcohol Comment weekly/wine an d whiskey [facility] Start: 03-12-2019 End: 03-14-2019 Tobacco smoking status [facility] Former smoker [facility] End: 02-28-2019 History of tobacco use Current smoker [facility] Start: 03-12-2019 History SDOH Social Connections Get Together 2 [facility] Start: 03-12-2019 End: 04-25-2020 History SDOH Food Worry 1 [facility] Start: 09-17-2019 End: 11-07-2023 Alcohol intake Current drinker of alcohol (finding) [facility] End: 02-28-2019 History of tobacco use Cigarette Smoker [facility] Start: 03-31-2020 End: 05-18-2024 Tobacco use and exposure Never used [facility] Start: 12-11-2021 End: 07-05-2022 Exposure to SARS-CoV-2 (event) Not sure [facility] Start: 10-19-2022 End: 10-29-2022 Exposure to SARS-CoV-2 (event) Unable to assess [facility] Start: 01-08-2023 Tobacco smoking stat [facility] Unknown if ever smoked [facility] Start: 1970 Sex Assigned At Female [facility] Start: 03-12-2019 End: 05-20-2025 Social connection and isolation panel [facility] Frequency of Communication with Friends and Family Not on file [facility] (I/We) worried whechava er (my/our) food would run out before (I/we) got money to buy more. Never true [facility] Start: 07-01-2018 Gender identity Identifies as female gender (finding) [facility] Start: 07-01-2018 Sexual orientation Choose not to disclose [facility] Start: 09-29-2023 Alcohol Comment occ/wine and whiskey [facility] Start: 05-27-2024 End: 06-17-2025 Alcoholic beverage intake Ex-drinker (finding) [facility] How hard is it for y ou to pay for the very basics like food, housing, medical care, and heating Not very hard [facility] In the past 12 month s, was there a time when you were not able to pay the mortgage or rent on time? No [facility] How hard is it for y ou to pay for the very basics like food, housing, medical care, and heating Somewhat hard [facility] NEGATED: Highlighted row [facility] Goals Date Patient Goal Desired Activity /State Personal health goal Comment on above: Formatting of this n ote might be different from the original. High blood pressure makes your heart work too hard. It can cause heart attack, stroke and kidney disease. Formatting of this n ote might be different from the original. Blood sugar levels outside the normal range may be an indicator of diabetes. Formatting of this n ote might be different from the original. LDL or bad cholesterol can build up and clog your blood vessels. It can cause heart attack or stroke. Comment on above: High blood pressure makes your heart work too hard. It can cause heart attack, stroke and kidney disease. Formatting of this n ote might be different from the original. High blood pressure makes your heart work too hard. It can cause heart attack, stroke and kidney disease. Comment on above: Blood sugar levels o utside the normal range may be an indicator of diabetes. Formatting of this n ote might be different from the original. Blood sugar levels outside the normal range may be an indicator of diabetes. Comment on above: LDL or bad cholest duglas can build up and clog your blood vessels. It can cause heart attack or stroke. Formatting of this n ote might be different from the original. LDL or bad cholesterol can build up and clog your blood vessels. It can cause heart attack or stroke. Mental Status Date Assessment Result Facility 01-15-2023 Cognitive function Voice/Name [facility] Work Phone: Clinical Notes 04-12-2021 to 06-17-2025 Alejandro Beatty MD - 06/17/2025 10:58 AM EDTTelephone Encounter - Ashleigh Rios MA - 06/15/2025 2:30 PM EDTTelephone Encounter - Ashleigh Rios MA - 06/15/2025 2:30 PM EDT Note Date & Type Note Facility 06-17-2025 Note Subjective Patient I D: Cat Acuña is a 55 y.o. female here for Chief Complaint Patient presents with Follow-up 4 week f/u-Flu shot After discussing the use of ambient listening and audio recording in generating medical documentation, the patient verbally consented to use of this technology for today's visit. History of Present Illness History of Present Illness Cat Acuña is a 55 year old female who presents for evaluation of liver function abnormalities. She has a history of elevated liver enzymes, specifically ALT, which has been increasing over time. Her liver function tests were normal a couple of years ago, but recent tests have shown a rise in ALT levels. An ultrasound indicated an enlarged liver, and there is a spot on the liver. No recent viral infections or cold symptoms have been noted that could explain the liver enzyme elevation. Her hepatitis panel is negative, and she is immune to hepatitis B. She does not consume much alcohol. She is currently taking Wellbutrin, trazodone for sleep, Buspar, and Cymbalta. She also takes tramadol, usually twice a day. She reports tenderness in her abdominal area, particularly when pressure is applied during an ultrasound. Her bowel movements are irregular, with episodes of diarrhea following normal bowel movements. She no longer takes Linzess due to its side effects and manages her bowel movements with [id number] medications like Colace or Miralax when necessary. She experiences significant bloating, sometimes appearing 'nine months ', but does not report excessive gas. She has a history of a colonoscopy in 2022, which resulted in the removal of a polyp, and she was advised to return in five years. She has not received the pathology report for the polyp. She has been experiencing spontaneous epistaxis from the left side for the past two weeks, which have been increasing in frequency. She uses saline to manage nasal dryness. She mentions a history of a prominent upper pole of the right kidney noted on imaging, but no definable mass was identified. She has no urinary symptoms or kidney stones. She is concerned about the possibility of IBS but describes her abdominal pain as tenderness rather than cramping. Past Medical History: Diagnosis Date GERD (gastroesophageal reflux disease) History of palpitations 2016 Eval in ER negative for heart with only low potassium Hormone replacement therapy (postmenopausal) Hypoglycemia Nicotine dependence Sleep disorder, shift work Past Surgical History: Procedure Laterality Date ADENOIDECTOMY 08/18/1981 APPENDECTOMY SECTION, CLASSIC 1992 and 94 CHOLECYSTECTOMY 08/18/1997 DILATION AND CURETTAGE OF UTERUS 2 EXCISION LESION TRUNK Left 10/22/2019 Procedure: EXCISION MASS TRUNK; Surgeon: Danny Manning MD; Location: [facility] [place]; Service: General Surgery GASTRIC BYPASS 08/18/2001 Bariatric Clinic in [place] HYSTERECTOMY 08/18/2004 MOUTH SURGERY 08/18/2000 OOPHORECTOMY TONSILLECTOMY 08/18/1981 Family History Problem Relation Age of Onset Leukemia Mother COPD Father Hypertension Father Parkinsonism Father Parkinsonism Paternal Grandmother Breast cancer Neg Hx Social History Tobacco Use Smoking status: Every Day Current packs/day: 1.00 Average packs/day: 1 pack/day for 20.0 years (20.0 ttl pk-yrs) Types: Cigarettes Smokeless tobacco: Never Vaping Use Vaping status: Never Used Substance Use Topics Alcohol use: Not Currently Comment: occ/wine and whiskey Drug use: No Review of Systems Vitals: 06/17/25 1049 BP: 128/87 BP Location: Right arm Patient Position: Sitting BP Cuff Size: Adult Pulse: 73 Resp: 16 Temp: 97.5 degrees F (36.4 degrees C) TempSrc: Oral SpO2: 99% Weight: 55.8 kg (123 lb) Height: 5' 1 Estimated body mass index is 23.24 kg/m as calculated from the following: Height as of this encounter: 5' 1. Weight as of this encounter: 55.8 kg (123 lb). Physical Exam Constitutional: General: She is not in acute distress. Appearance: She is not ill-appearing. HENT: Head: Normocephalic and atraumatic. Nose: Nose normal. Mouth/Throat: Mouth: Mucous membranes are moist. Pharynx: Oropharynx is clear. No oropharyngeal exudate or posterior oropharyngeal erythema. Eyes: Extraocular Movements: Extraocular movements intact. Conjunctiva/sclera: Conjunctivae normal. Pupils: Pupils are equal, round, and reactive to light. Cardiovascular: Rate and Rhythm: Normal rate and regular rhythm. Pulses: Normal pulses. Heart sounds: Normal heart sounds. No murmur heard. No gallop. Pulmonary: Effort: Pulmonary effort is normal. Breath sounds: Normal breath sounds. No wheezing, rhonchi or rales. Chest: Chest wall: No tenderness. Abdominal: General: Abdomen is flat. Bowel sounds are normal. There is no distension. Palpations: Abdomen is soft. There is no mass. Tenderness: There (more content not included)... [facility] 06-17-2025 History of Presen t illness Narrative Subjective Patient ID: Cat Acuña is a 55 y.o. female here for Chief Complaint Patient presents with Follow-up 4 week f/u-Flu shot After discussing the use of ambient listening and audio recording in generating medical documentation, the patient verbally consented to use of this technology for today's visit. History of Present Illness History of Present Illness Cat Acuña is a 55 year old female who presents for evaluation of liver function abnormalities. She has a history of elevated liver enzymes, specifically ALT, which has been increasing over time. Her liver function tests were normal a couple of years ago, but recent tests have shown a rise in ALT levels. An ultrasound indicated an enlarged liver, and there is a spot on the liver. No recent viral infections or cold symptoms have been noted that could explain the liver enzyme elevation. Her hepatitis panel is negative, and she is immune to hepatitis B. She does not consume much alcohol. She is currently taking Wellbutrin, trazodone for sleep, Buspar, and Cymbalta. She also takes tramadol, usually twice a day. She reports tenderness in her abdominal area, particularly when pressure is applied during an ultrasound. Her bowel movements are irregular, with episodes of diarrhea following normal bowel movements. She no longer takes Linzess due to its side effects and manages her bowel movements with [id number] medications like Colace or Miralax when necessary. She experiences significant bloating, sometimes appearing 'nine months ', but does not report excessive gas. She has a history of a colonoscopy in 2022, which resulted in the removal of a polyp, and she was advised to return in five years. She has not received the pathology report for the polyp. She has been experiencing spontaneous epistaxis from the left side for the past two weeks, which have been increasing in frequency. She uses saline to manage nasal dryness. She mentions a history of a prominent upper pole of the right kidney noted on imaging, but no definable mass was identified. She has no urinary symptoms or kidney stones. She is concerned about the possibility of IBS but describes her abdominal pain as tenderness rather than cramping. Past Medical History: Diagnosis Date GERD (gastroesophageal reflux disease) History of palpitations 2016 Eval in ER negative for heart with only low potassium Hormone replacement therapy (postmenopausal) Hypoglycemia Nicotine dependence Sleep disorder, shift work Past Surgical History: Procedure Laterality Date ADENOIDECTOMY 08/18/1981 APPENDECTOMY SECTION, CLASSIC 1992 and 94 CHOLECYSTECTOMY 08/18/1997 DILATION AND CURETTAGE OF UTERUS 2 EXCISION LESION TRUNK Left 10/22/2019 Procedure: EXCISION MASS TRUNK; Surgeon: Danny Manning MD; [place] [facility] [place]: General Surgery GASTRIC BYPASS 08/18/2001 [facility] Clinic in [place] HYSTERECTOMY 08/18/2004 MOUTH SURGERY 08/18/2000 OOPHORECTOMY TONSILLECTOMY 08/18/1981 Family History Problem Relation Age of Onset Leukemia Mother COPD Father Hypertension Father Parkinsonism Father Parkinsonism Paternal Grandmother Breast cancer Neg Hx Social History Tobacco Use Smoking status: Every Day Current packs/day: 1.00 Average packs/day: 1 pack/day for 20.0 years (20.0 ttl pk-yrs) Types: Cigarettes Smokeless tobacco: Never Vaping Use Vaping status: Never Used Substance Use Topics Alcohol use: Not Currently Comment: occ/wine and whiskey Drug use: No Review of Systems Vitals: 06/17/25 1049 BP: 128/87 BP Location: Right arm Patient Position: Sitting BP Cuff Size: Adult Pulse: 73 Resp: 16 Temp: 97.5 F (36.4 C) TempSrc: Oral SpO2: 99% Weight: 55.8 kg (123 lb) Height: 5' 1 Estimated body mass index is 23.24 kg/m as calculated from the following: Height as of this encounter: 5' 1. Weight as of this encounter: 55.8 kg (123 lb). Physical Exam Constitutional: General: She is not in acute distress. Appearance: She is not ill-appearing. HENT: Head: Normocephalic and atraumatic. Nose: Nose normal. Mouth/Throat: Mouth: Mucous membranes are moist. Pharynx: Oropharynx is clear. No oropharyngeal exudate or posterior oropharyngeal erythema. Eyes: Extraocular Movements: Extraocular movements intact. Conjunctiva/sclera: Conjunctivae normal. Pupils: Pupils are equal, round, and reactive to light. Cardiovascular: Rate and Rhythm: Normal rate and regular rhythm. Pulses: Normal pulses. Heart sounds: Normal heart sounds. No murmur heard. No gallop. Pulmonary: Effort: Pulmonary effort is normal. Breath sounds: Normal breath sounds. No wheezing, rhonchi or rales. Chest: Chest wall: No tenderness. Abdominal: General: Abdomen is flat. Bowel sounds are normal. There is no distension. Palpations: Abdomen is soft. There is no mass. Tenderness: There is abdominal tenderness (RUQ and LLQ). There is no right CVA tenderness, left CVA tenderness, guarding or rebound. Musculoskeletal: General: No tenderness. Normal range of motion. Cervical back: Normal range of motion and neck supple. No rigidity. No muscular tenderness. Right lower leg: No edema. Left lower leg: No edema. Lymphadenopathy: Cervical: No cervical adenopathy. Skin: General: Skin is warm. Findings: No erythema or rash. Neurological: General: No focal deficit present. Mental Status: She is alert and oriented to person, place, and time. Sensory: No sensory deficit. Motor: No weakness. Gait: Gait normal. Psychiatric: Mood and Affect: Mood normal. Behavior: Behavior normal. Thought Content: Thought content normal. Judgment: Judgment normal. OARRS/NARxCHECK Report Received and Assessed: Alejandro Beatty MD on 06/17/2025 11:13 AM Date controlled substance agreement signed: No data found Date of last drug screen: PHQ9: JOSE RAMON-7 Tobacco Counseling: Ready to quit: Not Answered Counseling given: Not Answered Reviewed by Provider: Patient's Medications New Prescriptions No medications on file Previous Medications BUPROPION (WELLBUTRIN XL) 150 MG 24 HR TABLET Take 1 (one) tablet (150 mg total) by mouth daily . BUSPIRONE (BUSPAR) 5 MG TABLET Take 1 (one) tablet (5 mg total) by mouth 3 (three) times a day as needed . CHOLECALCIFEROL, VITAMIN D3, 1,000 UNIT TABLET Take 10 (ten) tablets (10,000 Units total) by mouth daily . CYANOCOBALAMIN (B-12) 1000 MCG TABLET Take 1 (one) tablet (1,000 mcg total) by mouth daily as needed . DULOXETINE (CYMBALTA) 60 MG CAPSULE Take 2 (two) capsules (120 mg total) by mouth daily . FERROUS FUMARATE (IRON ORAL) Take 27 mg by mouth daily. FUROSEMIDE (LASIX) 20 MG TABLET Take 1 (one) tablet (20 mg total) by mouth daily . HYDROXYZINE (VISTARIL) 25 MG CAPSULE Take 1 (one) capsule (25 mg total) by mouth 3 (three) times a day as needed for anxiety . MAGNESIUM 250 MG TAB Take by mouth daily as needed . MULTIVITAMIN WITH MINERALS TABLET Take 1 (one) tablet by mouth daily One a day . POTASSIUM GLUCONATE 500 MG (83 MG) TAB Take 1 tablet by mouth daily . PREGABALIN (LYRICA) 50 MG CAPSULE Take 1 (one) capsule (50 mg total) by mouth 2 (two) times a day . VITAMIN WITH CA-IRON-FA 27-1 MG TAB Take by mouth . TRAZODONE (DESYREL) 50 MG TABLET Take 1 (one) tablet (50 mg total) by mouth nightly as needed . Modified Medications No medications on file Discontinued Medications LINZESS 145 MCG CAP Take 1 (one) capsule (145 mcg total) by mouth every morning before breakfast . Health Maintenance Due Topic Date Due MMR Vaccines (1 of 1 - Standard series) Never done Hepatitis B Vaccines (1 of 3 - 19+ 3-dose series) 01/30/1991 COVID-19 Vaccine (2024- season) 2025 Assessment & Plan Problem List Items Addressed This Visit Digestive IBS (irritable bowel syndrome) Other Elevated liver enzymes Relevant Orders Ambulatory Referral to [facility]Patology Mild major depression Insomnia Other Visit Diagnoses Encounter for immunization - Primary Relevant Orders Influenza RIV3 (FLUBLOK) 9 years old or greater - syringe (CPT 23267) (Completed) Liver mass Relevant Orders MR Liver With And Without Contrast Assessment & Plan Assessment & Plan Assessment & Plan Hepatomegaly with elevated liver enzymes Likely due to fatty liver. ALT > AST suggests non-alcoholic fatty liver disease. Negative hepatitis panel rules out viral hepatitis. Liver spot likely benign hemangioma, further evaluation needed. - Order MRI of the liver to evaluate the spot and assess for fatty liver. - Refer to liver specialist in [place] for further evaluation and potential liver biopsy. - Limit acetaminophen to 2000 mg/day. - Consider ibuprofen or heat for pain management. Tremor Tremor may be related to liver issues, further evaluation needed. MRI for pelvic and hip pain may provide insights. - Coordinate MRI with pain doctor to include evaluation for tremor-related causes. Irritable bowel syndrome Symptoms suggest IBS. Recent colonoscopy showed a polyp, pathology results unknown. Symptoms include bloating, tenderness, irregular bowel movements, occasional diarrhea. - Remove Linzess from medication list. - Try fiber supplements like Metamucil or Benefiber. - Coordinate with pain doctor for MRI to assess pelvic and hip pain. - Request pathology report of the polyp from 2022 colonoscopy. Depression and anxiety Managed with Wellbutrin, Trazodone, Buspar, and Cymbalta. Prefers not to change regimen despite potential fatigue from Cymbalta. - Continue Wellbutrin, Trazodone, Buspar, and Cymbalta. - Reassess medication regimen in three months. Insomnia Managed with Trazodone, effective for sleep. - Continue Trazodone for sleep as needed. Epistaxis Reports spontaneous epistaxis from left side, more frequent over past two weeks. Uses saline for symptom management. Enlarged kidney: Ultrasound shows prominent upper pole of right kidney, likely benign cyst. No immediate concern, monitoring advised. - Consider dedicated kidney ultrasound in one year if needed. - Monitor kidney function and urinary symptoms. After discussing the use of ambient listening and audio recording in generating medical documentation, the patient verbally consented to use of this technology for today's visit. My ongoing relationship with Cat Acuña requires continued responsibility and cognitive effort of being the focal point for all services related to chronic condition(s). I spent 40 mins with patient reviewing HPI and coordinating plan of care. Return in about 3 months (around 09/17/2025) for Follow Up. ALEJANDRO BEATTY MD [facility] [address] [facility] [address] [facility] [id number] Dept: [phone] 05/20/2025 10:04 AM PHQ-9 Review Little interest or pleasure in doing things 3 Feeling down, depressed, or hopeless 3 PHQ-2 Total Score 6 Trouble falling or staying asleep, or sleeping too much 1 Feeling tired or having little energy 3 Poor appetite or overeating 3 Feeling bad about yourself - or that you are a failure or have let yourself or your family down 3 Trouble concentrating on things, such as reading the newspaper or watching television 3 Moving or speaking so slowly that other people could have noticed. Or the opposite - being so fidgety or restless that you have been moving around a lot more than usual 3 Thoughts that you would be better off , or of hurting yourself in some way 0 PHQ-9 Total Score 22 If you checked off any problems, how difficult have these problems made it for you to do your work, take care of things at home, or get along with other people? Extremely difficult Patient is currently being treated for depression, see assessment and plan for management details. Statin therapy is not clinically appropriate for Cat Acuña. Statin therapy is not clinically appropriate for Cat Acuña. documented in this encounter [facility] 06-15-2025 Telephone encount er Note Pt contacted the office and verbalized understanding to the spot on liver and the Mri. Pt is going to discuss this with provider on Friday at appointment. [facility] 06-15-2025 Miscellaneous Notes Formattin g of this note might be different from the original. Pt contacted the office and verbalized understanding to the spot on liver and the Mri. Pt is going to discuss this with provider on Friday at appointment. documented in this encounter [facility] 05-20-2025 Note Subjective Patient I D: Cat Acuña is a 55 y.o. female here for Chief Complaint Patient presents with Follow-up 6 month f/u-having difficulty focusing, Bilateral hand tremor. A lot of stress in life. After discussing the use of ambient listening and audio recording in generating medical documentation, the patient verbally consented to use of this technology for today's visit. History of Present Illness Cat Acuña is a 55 year old female who presents with difficulty focusing and tremors following job loss. She has been experiencing difficulty focusing and tremors since losing her job at the end of January. 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 She struggles to maintain focus during meetings and while writing reports, often getting distracted easily. She spends significant time in the mornings trying to build motivation to start her day. There is a family history of Parkinson's disease, with her father and grandmother having the condition. Her has noticed her hands trembling, and she has occasionally noticed tremors in her head. She is concerned about these symptoms; her has noticed her hands trembling, and she has not physically noticed tremors in her head. She has been on Cymbalta for several years, which initially helped her, but she feels it is not as effective now. She has previously tried Wellbutrin for smoking cessation, but it did not help with depression or anxiety. She uses hydroxyzine as needed for anxiety and trazodone for sleep. She reports sweating episodes since January, which occur while sitting and require her to change clothes due to excessive sweating. No night sweats, but she feels hot at night. She has a history of hypoglycemia, with recent blood sugar levels ranging from 65-75, and her noted a drop from 98 to 80 after eating. She experiences coldness while eating and sweating episodes post-job loss. Her has Crohn's disease, which affects his ability to work consistently, contributing to financial stress despite her new job. She notes that her current job pays only when she is actively consulting, unlike her previous job which provided a steady income. No thoughts of self-harm or suicidal ideation. She wants to return to her previous self, supporting her family and being upbeat. Past Medical History: Diagnosis Date GERD (gastroesophageal reflux disease) History of palpitations 2016 Eval in ER negative for heart with only low potassium Hormone replacement therapy (postmenopausal) Hypoglycemia Nicotine dependence Sleep disorder, shift work Past Surgical History: Procedure Laterality Date ADENOIDECTOMY 08/18/1981 APPENDECTOMY SECTION, CLASSIC 1992 and CHOLECYSTECTOMY 08/18/1997 DILATION AND CURETTAGE OF UTERUS 2 EXCISION LESION TRUNK Left 10/22/2019 Procedure: EXCISION MASS TRUNK; Surgeon: Danny Manning MD; Location: [facility] [place]; Service: General Surgery GASTRIC BYPASS 08/18/2001 Bariat[facility] Clinic in [place] HYSTERECTOMY 08/18/2004 MOUTH SURGERY 08/18/2000 OOPHORECTOMY TONSILLECTOMY 08/18/1981 Family History Problem Relation Age of Onset Leukemia Mother COPD Father Hypertension Father Parkinsonism Father Parkinsonism Paternal Grandmother Breast cancer Neg Hx Social History Tobacco Use Smoking status: Every Day Current packs/day: 1.00 Average packs/day: 1 pack/day for 20.0 years (20.0 ttl pk-yrs) Types: Cigarettes Smokeless tobacco: Never Vaping Use Vaping status: Never Used Substance Use Topics Alcohol use: Not Currently Comment: occ/wine and whiskey Drug use: No Review of Systems Vitals: 05/20/25 0951 BP: 119/77 BP Location: Right arm Patient Position: Sitting BP Cuff Size: Adult Pulse: 70 Resp: 16 Temp: 97.9 degrees F (36.6 degrees C) TempSrc: Oral SpO2: 99% Weight: 54.4 kg (120 lb) Height: 5' 1 Estimated body mass index is 22.67 kg/m as calculated from the following: Height as of this encounter: 5' 1. Weight as of this encounter: 54.4 kg (120 lb). Physical Exam Constitutional: General: She is not in acute distress. Appearance: She is not ill-appearing. HENT: Head: Normocephalic and atraumatic. Nose: Nose normal. Mouth/Throat: Mouth: Mucous membranes are moist. Pharynx: Oropharynx is clear. No oropharyngeal exudate or posterior oropharyngeal erythema. Eyes: Extraocular Movements: Extraocular movements intact. Conjunctiva/sclera: Conjunctivae normal. Pupils: Pupils are equal, round, and reactive to light. Cardiovascular: Rate and Rhythm: Normal rate and regular rhythm. Pulses: Normal pulses. Heart sounds: Normal heart sounds. No murmur heard. No gallop. Pulmonary: Effort: Pulmonary effort is normal. Breath sounds: Normal breath sounds. No wheezing, rhonchi o (more content not included)... [facility] 05-20-2025 History of Presen t illness Narrative Subjective Patient ID: Cat Acuña is a 55 y.o. female here for Chief Complaint Patient presents with Follow-up 6 month f/u-having difficulty focusing, Bilateral hand tremor. A lot of stress in life. After discussing the use of ambient listening and audio recording in generating medical documentation, the patient verbally consented to use of this technology for today's visit. History of Present Illness Cat Acuña is a 55 year old female who presents with difficulty focusing and tremors following job loss. She has been experiencing difficulty focusing and tremors since losing her job at the end of January. 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 She struggles to maintain focus during meetings and while writing reports, often getting distracted easily. She spends significant time in the mornings trying to build motivation to start her day. There is a family history of Parkinson's disease, with her father and grandmother having the condition. Her has noticed her hands trembling, and she has occasionally noticed tremors in her head. She is concerned about these symptoms; her has noticed her hands trembling, and she has not physically noticed tremors in her head. She has been on Cymbalta for several years, which initially helped her, but she feels it is not as effective now. She has previously tried Wellbutrin for smoking cessation, but it did not help with depression or anxiety. She uses hydroxyzine as needed for anxiety and trazodone for sleep. She reports sweating episodes since January, which occur while sitting and require her to change clothes due to excessive sweating. No night sweats, but she feels hot at night. She has a history of hypoglycemia, with recent blood sugar levels ranging from 65-75, and her noted a drop from 98 to 80 after eating. She experiences coldness while eating and sweating episodes post-job loss. Her has Crohn's disease, which affects his ability to work consistently, contributing to financial stress despite her new job. She notes that her current job pays only when she is actively consulting, unlike her previous job which provided a steady income. No thoughts of self-harm or suicidal ideation. She wants to return to her previous self, supporting her family and being upbeat. Past Medical History: Diagnosis Date GERD (gastroesophageal reflux disease) History of palpitations 2016 Eval in ER negative for heart with only low potassium Hormone replacement therapy (postmenopausal) Hypoglycemia Nicotine dependence Sleep disorder, shift work Past Surgical History: Procedure Laterality Date ADENOIDECTOMY 08/18/1981 APPENDECTOMY SECTION, CLASSIC 1992 and 94 CHOLECYSTECTOMY 08/18/1997 DILATION AND CURETTAGE OF UTERUS 2 EXCISION LESION TRUNK Left 10/22/2019 Procedure: EXCISION MASS TRUNK; Surgeon: Danny Manning MD; Location: [facility] [place]; Service: General Surgery GASTRIC BYPASS 08/18/2001 B[facility] Clinic in [place] HYSTERECTOMY 08/18/2004 MOUTH SURGERY 08/18/2000 OOPHORECTOMY TONSILLECTOMY 08/18/1981 Family History Problem Relation Age of Onset Leukemia Mother COPD Father Hypertension Father Parkinsonism Father Parkinsonism Paternal Grandmother Breast cancer Neg Hx Social History Tobacco Use Smoking status: Every Day Current packs/day: 1.00 Average packs/day: 1 pack/day for 20.0 years (20.0 ttl pk-yrs) Types: Cigarettes Smokeless tobacco: Never Vaping Use Vaping status: Never Used Substance Use Topics Alcohol use: Not Currently Comment: occ/wine and whiskey Drug use: No Review of Systems Vitals: 05/20/25 0951 BP: 119/77 BP Location: Right arm Patient Position: Sitting BP Cuff Size: Adult Pulse: 70 Resp: 16 Temp: 97.9 F (36.6 C) TempSrc: Oral SpO2: 99% Weight: 54.4 kg (120 lb) Height: 5' 1 Estimated body mass index is 22.67 kg/m as calculated from the following: Height as of this encounter: 5' 1. Weight as of this encounter: 54.4 kg (120 lb). Physical Exam Constitutional: General: She is not in acute distress. Appearance: She is not ill-appearing. HENT: Head: Normocephalic and atraumatic. Nose: Nose normal. Mouth/Throat: Mouth: Mucous membranes are moist. Pharynx: Oropharynx is clear. No oropharyngeal exudate or posterior oropharyngeal erythema. Eyes: Extraocular Movements: Extraocular movements intact. Conjunctiva/sclera: Conjunctivae normal. Pupils: Pupils are equal, round, and reactive to light. Cardiovascular: Rate and Rhythm: Normal rate and regular rhythm. Pulses: Normal pulses. Heart sounds: Normal heart sounds. No murmur heard. No gallop. Pulmonary: Effort: Pulmonary effort is normal. Breath sounds: Normal breath sounds. No wheezing, rhonchi or rales. Chest: Chest wall: No tenderness. Abdominal: General: Abdomen is flat. Bowel sounds are normal. There is no distension. Palpations: Abdomen is soft. There is no mass. Tenderness: There is no abdominal tenderness. There is no right CVA tenderness, left CVA tenderness, guarding or rebound. Musculoskeletal: General: No tenderness. Normal range of motion. Cervical back: Normal range of motion and neck supple. No rigidity. No muscular tenderness. Right lower leg: No edema. Left lower leg: No edema. Lymphadenopathy: Cervical: No cervical adenopathy. Skin: General: Skin is warm. Findings: No erythema or rash. Neurological: General: No focal deficit present. Mental Status: She is alert and oriented to person, place, and time. Sensory: No sensory deficit. Motor: No weakness. Gait: Gait normal. Psychiatric: Mood and Affect: Mood normal. Behavior: Behavior normal. Thought Content: Thought content normal. Judgment: Judgment normal. OARRS/NARxCHECK Report Received and Assessed: Alejandro Beatty MD on 11/12/2024 12:21 PM Date controlled substance agreement signed: No data found Date of last drug screen: PHQ9: Over the last 2 weeks, how often have you been bothered by any of the following problems? Little interest or pleasure in doing things: Nearly every day Feeling down, depressed, or hopeless: Nearly every day PHQ-2 Total Score: 6 Trouble falling or staying asleep, or sleeping too much: Several days Feeling tired or having little energy: Nearly every day Poor appetite or overeating: Nearly every day Feeling bad about yourself - or that you are a failure or have let yourself or your family down: Nearly every day Trouble concentrating on things, such as reading the newspaper or watching television: Nearly every day Moving or speaking so slowly that other people could have noticed. Or the opposite - being so fidgety or restless that you have been moving around a lot more than usual: Nearly every day Thoughts that you would be better off , or of hurting yourself in some way: Not at all PHQ-9 Total Score: 22 If you checked off any problems, how difficult have these problems made it for you to do your work, take care of things at home, or get along with other people?: Extremely difficult JOSE RAMON-7 Over the last 2 weeks, how often have you been bothered by the following problems? Feeling nervous, anxious or on edge: Nearly every day Not being able to stop or control worrying: Nearly every day Worrying too much about different things: Nearly every day Trouble relaxing: Nearly every day Being so restless that it is hard to sit still: Over half the days Becoming easily annoyed or irritable: Nearly every day Feeling afraid as if something awful might happen: Several days JOSE RAMON-7 Score: (!) 18 Tobacco Counseling: Ready to quit: Not Answered Counseling given: Not Answered Reviewed by Provider: Patient's Medications New Prescriptions BUPROPION (WELLBUTRIN XL) 150 MG 24 HR TABLET Take 1 (one) tablet (150 mg total) by mouth daily . BUSPIRONE (BUSPAR) 5 MG TABLET Take 1 (one) tablet (5 mg total) by mouth 3 (three) times a day as needed . Previous Medications CHOLECALCIFEROL, VITAMIN D3, 1,000 UNIT TABLET Take 10 (ten) tablets (10,000 Units total) by mouth daily . CYANOCOBALAMIN (B-12) 1000 MCG TABLET Take 1 (one) tablet (1,000 mcg total) by mouth daily as needed . DULOXETINE (CYMBALTA) 60 MG CAPSULE Take 2 (two) capsules (120 mg total) by mouth daily . FERROUS FUMARATE (IRON ORAL) Take 27 mg by mouth daily. FUROSEMIDE (LASIX) 20 MG TABLET Take 1 (one) tablet (20 mg total) by mouth daily . HYDROXYZINE (VISTARIL) 25 MG CAPSULE Take 1 (one) capsule (25 mg total) by mouth 3 (three) times a day as needed for anxiety . LINZESS 145 MCG CAP Take 1 (one) capsule (145 mcg total) by mouth every morning before breakfast . MAGNESIUM 250 MG TAB Take by mouth daily as needed . MULTIVITAMIN WITH MINERALS TABLET Take 1 (one) tablet by mouth daily One a day . POTASSIUM GLUCONATE 500 MG (83 MG) TAB Take 1 tablet by mouth daily . PREGABALIN (LYRICA) 50 MG CAPSULE Take 1 (one) capsule (50 mg total) by mouth 2 (two) times a day . VITAMIN WITH CA-IRON-FA 27-1 MG TAB Take by mouth . TRAZODONE (DESYREL) 50 MG TABLET Take 1 (one) tablet (50 mg total) by mouth nightly as needed . Modified Medications No medications on file Discontinued Medications TRAMADOL (ULTRAM) 50 MG TABLET Take 1 (one) tablet (50 mg total) by mouth daily as needed for pain . Health Maintenance Due Topic Date Due Influenza Vaccine (1) 04/18/2025 COVID-19 Vaccine (2024- season) 2025 Assessment & Plan Problem List Items Addressed This Visit Other Healthcare maintenance Relevant Orders Lipid Panel Elevated liver enzymes Relevant Orders Comprehensive Metabolic Panel Mild major depression - Primary Relevant Medications buPROPion (Wellbutrin XL) 150 MG 24 hr tablet busPIRone (BUSPAR) 5 MG tablet Other Relevant Orders TSH with Reflex Free T4 Anxiety Relevant Medications busPIRone (BUSPAR) 5 MG tablet Tremors of nervous system Relevant Orders CBC and Differential B12/Folate Other Visit Diagnoses Hyperglycemia Relevant Orders Hemoglobin A1c Admission for therapeutic drug monitoring Relevant Orders B12/Folate Vitamin D, Total, 25-OH Moderate major depression (HCC) Relevant Medications buPROPion (Wellbutrin XL) 150 MG 24 hr tablet busPIRone (BUSPAR) 5 MG tablet Assessment & Plan Assessment & Plan Sleep issues. She is currently on a low dose of trazodone, which provides her with approximately 6 to 7 hours of uninterrupted sleep. The potential long-term side effects of trazodone were discussed. She was advised to take trazodone as needed and not to use it on days when she feels naturally inclined to sleep well. A prescription for trazodone will be renewed. Anxiety and depression with attention and concentration deficit Anxiety and depression exacerbated by job stress, with symptoms of lack of focus, irritability, and fatigue. Current Cymbalta treatment may be insufficient. - Add Wellbutrin to Cymbalta regimen, monitor for one month. - Educated on Wellbutrin side effects, advised to report severe side effects immediately. - Consider Pristiq if ineffective after one month. - Check blood work for metabolic issues affecting mood or attention. Tremor Intermittent hand tremor with family history of Parkinson's. Differential includes anxiety-related or benign essential tremor. No Parkinson's signs observed. Excessive sweating Episodes of excessive sweating coinciding with stress. Differential includes anxiety or panic attacks. - Order blood work for thyroid function, electrolytes, liver and kidney function, and anemia. - Consider hormone evaluation if initial tests inconclusive. Hypoglycemia Perceived hypoglycemia with normal blood sugar levels. Stress and anxiety may contribute. - Monitor blood sugar levels and symptoms. After discussing the use of ambient listening and audio recording in generating medical documentation, the patient verbally consented to use of this technology for today's visit. My ongoing relationship with Cat Acuña requires continued responsibility and cognitive effort of being the focal point for all services related to chronic condition(s). I spent 40 mins with patient reviewing HPI and coordinating plan of care. Return in about 4 weeks (around 06/17/2025) for Follow Up depression and anxiety . ALEJANDRO BEATTY MD [facility] [address] [place] [id number] Dept: [phone] 05/20/2025 10:04 AM PHQ-9 Review Little interest or pleasure in doing things 3 Feeling down, depressed, or hopeless 3 PHQ-2 Total Score 6 Trouble falling or staying asleep, or sleeping too much 1 Feeling tired or having little energy 3 Poor appetite or overeating 3 Feeling bad about yourself - or that you are a failure or have let yourself or your family down 3 Trouble concentrating on things, such as reading the newspaper or watching television 3 Moving or speaking so slowly that other people could have noticed. Or the opposite - being so fidgety or restless that you have been moving around a lot more than usual 3 Thoughts that you would be better off , or of hurting yourself in some way 0 PHQ-9 Total Score 22 If you checked off any problems, how difficult have these problems made it for you to do your work, take care of things at home, or get along with other people? Extremely difficult Patient is currently being treated for depression, see assessment and plan for management details. documented in this encounter [facility] 11-19-2024 Evaluation note Diagnosis Onset Date Resolution Degenerative disc disease, lumbar acute November 19, 2024 8:46am Lumbar radiculopathy acute Apri 2024 8:46am [facility] Work Phone: [phone] History of Present illness Narrative* Lita Gomez MA - 11/12/2024 3:18 PM EDT I faxed for records. * Lita Gomez MA - 11/12/2024 3:09 PM EDT ----- Message ----- From: Alejandro Beatty MD Sent: 11/12/2024 12:44 PM EDT [place] [facility] [place] [facility] Clinical Staff Please get records from in [place] Lita Gomez Ma faxed for records * Alejandro Beatty MD - 11/12/2024 12:12 PM EDT Subjective Patient ID: Cat Acuña is a 54 y.o. female here for Chief Complaint Patient presents with Follow-up After discussing the use of ambient listening and audio recording in generating medical documentation, the patient verbally consented to use of this technology for today's visit. History of Present Illness Bilateral foot swelling She reports an improvement in her leg swelling, attributing this to the efficacy of Lasix. She is uncertain if the swelling is due to prolonged standing or walking at her workplace. She has observed that missing a dose of Lasix results in leg swelling. She is currently on a low dose of Lasix, whichshe takes daily. Insomnia: She expresses satisfaction with the effects of trazodone, noting that it provides her with approximately 6 to 7 hours of uninterrupted sleep. She also reports that [employer]s is working well for her. Chronic low back pain She is scheduled to see a spine surgeon, Dr. Barr, on 11/19/2024 to determine her eligibility for surgery. She reports that the effectiveness of her injections has diminished over time. She receivedan injection yesterday, which has provided her with temporary relief. The injections typically lastfor a couple of months, but she experiences difficulty during the third month. She is currently taking tramadol three times a day and Lyrica 50 mg twice a day, both of which are managing her pain effectively. Anxiety and depression : Stable on Cymbalta She has been experiencing increased irritability over the past six months, often feeling annoyed without any apparent reason. However, she reports that her mood has improved since starting trazodone.She does not feel the need to seek professional help for her mood issues. She takes hydroxyzine as needed for anxiety, which she finds helpful. She also takes it when driving in big cities to help her stay focused. She is requesting a refill of hydroxyzine. Constipation: Intermittently hard peanut butter-like consistency, which she believes is influenced by her diet worse with increased carbs. She admits to consuming a significant amount of carbohydrates. She has noticed changes in her urine color, ranging from yellow to brown, which she attributes to her hydrationlevels. Stable on Linzess and has been taking magnesium citrate regularly Healthcare maintenance: Mammogram: last was 2022 , declined Lung cancer screening: still smoking, declined SOCIAL HISTORY She drinks alcohol occasionally. MEDICATIONS Current: Lasix, trazodone, Cymbalta, Linzess, vitamin D, B12, iron, magnesium citrate, potassium, tramadol, Lyrica, hydroxyzine Past Medical History: Diagnosis Date GERD (gastroesophageal reflux disease) History of palpitations 2016 Eval in ER negative for heart with only low potassium Hormone replacement therapy (postmenopausal) Hypoglycemia Nicotine dependence Sleep disorder, shift work Past Surgical History: Procedure Laterality Date ADENOIDECTOMY 08/18/1981 APPENDECTOMY SECTION, CLASSIC 1992 and 94 CHOLECYSTECTOMY 08/18/1997 DILATION AND CURETTAGE OF UTERUS 2 EXCISION LESION TRUNK Left 10/22/2019 Procedure: EXCISION MASS TRUNK; Surgeon: Danny Manning MD; [place] [facility] [place]: GeneralSurgery GASTRIC BYPASS 08/18/2001 Bariatric Clinic in [place] HYSTERECTOMY 08/18/2004 MOUTH SURGERY 08/18/2000 OOPHORECTOMY TONSILLECTOMY 08/18/1981 Family History Problem Relation Age of Onset Leukemia Mother COPD Father Hypertension Father Breast cancer Neg Hx Social History Tobacco Use Smoking status: Every Day Current packs/day: 1.00 Average packs/day: 1 pack/day for 20.0 years (20.0 ttl pk-yrs) Types: Cigarettes Smokeless tobacco: Never Vaping Use Vaping status: Never Used Substance Use Topics Alcohol use: Not Currently Comment: occ/wine and whiskey Drug use: No Review of Systems Vitals: 11/12/24 1150 BP: 117/77 BP Location: Right arm Patient Position: Sitting BP Cuff Size: Adult Pulse: (!) 56 Resp: 16 Temp: 97 F (36.1 C) SpO2: 98% Weight: 57.5 kg (126 lb 11.2 oz) Height: 5' 1 Estimated body mass index is 23.94 kg/m as calculated from the following: Height as of this encounter: 5' 1. Weight as of this encounter: 57.5 kg (126 lb 11.2 oz). Physical Exam Constitutional: General: She is not in acute distress. Appearance: She is not ill-appearing. HENT: Head: Normocephalic and atraumatic. Nose: Nose normal. Mouth/Throat: Mouth: Mucous membranes are moist. Pharynx: Oropharynx is clear. No oropharyngeal exudate or posterior oropharyngeal erythema. Eyes: Extraocular Movements: Extraocular movements intact. Conjunctiva/sclera: Conjunctivae normal. Pupils: Pupils are equal, round, and reactive to light. Cardiovascular: Rate and Rhythm: Normal rate and regular rhythm. Pulses: Normal pulses. Heart sounds: Normal heart sounds. No murmur heard. No gallop. Pulmonary: Effort: Pulmonary effort is normal. Breath sounds: Normal breath sounds. No wheezing, rhonchi or rales. Chest: Chest wall: No tenderness. Abdominal: General: Abdomen is flat. Bowel sounds are normal. There is no distension. Palpations: Abdomen is soft. There is no mass. Tenderness: There is no abdominal tenderness. There is no right CVA tenderness, left CVA tenderness, guarding or rebound. Musculoskeletal: General: No tenderness. Normal range of motion. Cervical back: Normal range of motion and neck supple. No rigidity. No muscular tenderness. Right lower leg: No edema. Left lower leg: No edema. Lymphadenopathy: Cervical: No cervical adenopathy. Skin: General: Skin is warm. Findings: No erythema or rash. Neurological: General: No focal deficit present. Mental Status: She is alert and oriented to person, place, and time. Sensory: No sensory deficit. Motor: No weakness. Gait: Gait normal. Psychiatric: Mood and Affect: Mood normal. Behavior: Behavior normal. Thought Content: Thought content normal. Judgment: Judgment normal. OARRS/NARxCHECK Report Received and Assessed: Alejandro Beatty MD on 11/12/2024 12:21 PM Date controlled substance agreement signed: No data found Date of last drug screen: PHQ9: Over the last 2 weeks, how often have you been bothered by any of the following problems? Little interest or pleasure in doing things: Several days Feeling down, depressed, or hopeless: Several days PHQ-2 Total Score: 2 Trouble falling or staying asleep, or sleeping too much: Nearly every day Feeling tired or having little energy: More than half the days Poor appetite or overeating: More than half the days Feeling bad about yourself - or that you are a failure or have let yourself or your family down: Not at all Trouble concentrating on things, such as reading the newspaper or watching television: Several days Moving or speaking so slowly that other people could have noticed. Or the opposite - being so fidgety or restless that you have been moving around a lot more than usual: Not at all Thoughts that you would be better off , or of hurting yourself in some way: Not at all PHQ-9 Total Score: 10 If you checked off any problems, how difficult have these problems made it for you to do your work,take care of things at home, or get along with other people?: Somewhat difficult JOSE RAMON-7 Over the last 2 weeks, how often have you been bothered by the following problems? Feeling nervous, anxious or on edge: Not at all Not being able to stop or control worrying: Over half the days Worrying too much about different things: Several days Trouble relaxing: Over half the days Being so restless that it is hard to sit still: Not at all Becoming easily annoyed or irritable: Over half the days Feeling afraid as if something awful might happen: Not at all JOSE RAMON-7 Score: 7 Tobacco Counseling: Ready to quit: Not Answered Counseling given: Not Answered Reviewed by Provider: Patient's Medications New Prescriptions HYDROXYZINE (VISTARIL) 25 MG CAPSULE Take 1 (one) capsule (25 mg total) by mouth 3 (three) times a day as needed for anxiety . Previous Medications CHOLECALCIFEROL, VITAMIN D3, 1,000 UNIT TABLET Take 10 (ten) tablets (10,000 Units total) by mouth daily . CYANOCOBALAMIN (B-12) 1000 MCG TABLET Take 1 (one) tablet (1,000 mcg total) by mouth daily as needed . FERROUS FUMARATE (IRON ORAL) Take 27 mg by mouth daily. MAGNESIUM 250 MG TAB Take by mouth daily as needed . MULTIVITAMIN WITH MINERALS TABLET Take 1 (one) tablet by mouth daily One a day . POTASSIUM GLUCONATE 500 MG (83 MG) TAB Take 1 tablet by mouth daily . VITAMIN WITH CA-IRON-FA 27-1 MG TAB Take by mouth . TRAMADOL (ULTRAM) 50 MG TABLET Take 1 (one) tablet (50 mg total) by mouth daily as needed for pain . Modified Medications Modified Medication Previous Medication DULOXETINE (CYMBALTA) 60 MG CAPSULE DULoxetine (CYMBALTA) 60 MG capsule Take 2 (two) capsules (120 mg total) by mouth daily . Take 2 (two) capsules (120 mg total) by mouthdaily . FUROSEMIDE (LASIX) 20 MG TABLET furosemide (LASIX) 20 MG tablet Take 1 (one) tablet (20 mg total) by mouth daily . Take 1 (one) tablet (20 mg total) by mouth daily. LINZESS 145 MCG CAP Linzess 145 mcg cap Take 1 (one) capsule (145 mcg total) by mouth every morning before breakfast . Take 1 (one) capsule(145 mcg total) by mouth every morning before breakfast . TRAZODONE (DESYREL) 50 MG TABLET traZODone (DESYREL) 50 MG tablet Take 1 (one) tablet (50 mg total) by mouth nightly as needed . Take 1 (one) tablet (50 mg total) bymouth nightly as needed . Discontinued Medications No medications on file Health Maintenance Due Topic Date Due COVID-19 Vaccine ( season) 2024 Assessment & Plan Problem List Items Addressed This Visit Other Healthcare maintenance Relevant Orders Lipid Panel Elevated liver enzymes Relevant Orders Comprehensive Metabolic Panel CBC and Differential Liver Fibrosis, Fibro Test Mild major depression Relevant Medications traZODone (DESYREL) 50 MG tablet DULoxetine (CYMBALTA) 60 MG capsule Anxiety Relevant Medications DULoxetine (CYMBALTA) 60 MG capsule hydrOXYzine (VISTARIL) 25 MG capsule Insomnia Relevant Medications traZODone (DESYREL) 50 MG tablet Localized swelling of both lower legs Relevant Medications furosemide (LASIX) 20 MG tablet Other Relevant Orders Comprehensive Metabolic Panel Other Visit Diagnoses Constipation, unspecified constipation type - Primary Relevant Medications Linzess 145 mcg cap Other Relevant Orders TSH with Reflex Free T4 Assessment & Plan Assessment & Plan 1. Lower extremity edema. She is currently on a low dose of Lasix, which she takes daily. If she skips a day, her legs swell up. A prescription for Lasix will be renewed. 2. Sleep issues. She is currently on a low dose of trazodone, which provides her with approximately 6 to 7 hours of uninterrupted sleep. The potential long-term side effects of trazodone were discussed. She was advised to take trazodone as needed and not to use it on days when she feels naturally inclined to sleep well. A prescription for trazodone will be renewed. 3. Chronic back pain: She is currently taking tramadol three times a day and Lyrica 50 mg twice a day, both of which are managing her pain effectively. She is scheduled to see a spine surgeon, Dr. Barr, on 11/19/2024 to determine her eligibility for surgery. Records from Dr. Rousseau will be obtained. 4. Mood issues. She has been experiencing increased irritability over the past six months, often feeling annoyed without any apparent reason. However, she reports that her mood has improved since starting trazodone.She does not feel the need to seek professional help for her mood issues. She takes hydroxyzine as needed for anxiety, which she finds helpful. A prescription for hydroxyzine will be renewed. 5. Constipation: The different types of magnesium and their respective benefits were discussed. Magnesium citrate can be hard on the kidneys. Magnesium oxide is good for constipation or regulating bowel movements. Continue on Linzess Elevated liver enzymes: The potential benefits of vitamin E for liver health were discussed. She was advised to maintain a diet rich in healthy fats, such as olive oil, and to limit her intake of processed foods and red meat. The inclusion of raw nuts in her diet was also recommended. A comprehensive blood work panel willbe ordered to assess liver function, electrolytes, kidney function, and anemia. If the liver function tests return abnormal results or higher than previous readings, an ultrasound of the liver will be conducted. If the fibrosis marker is elevated, another ultrasound will be performed for confirmation. Follow-up The patient will follow up in 6 months. After discussing the use of ambient listening and audio recording in generating medical documentation, the patient verbally consented to use of this technology for today's visit. My ongoing relationship with Cat Acuña requires continued responsibility and cognitive effort ofbeing the focal point for all services related to chronic condition(s). Return in about 6 months (around 05/15/2025) for Follow Up. ALEJANDRO BEATTY MD [facility] [address] [facility] [address] [facility] [id number] Dept: [phone] documented in this [id number] History of Present illness Narrative* Lita Gomez MA - 11/12/2024 3:09 PM EDT ----- Message ----- From: Alejandro Beatty MD Sent: 11/12/2024 12:44 PM EDT To: [facility] P[facility] Clinical Staff Please get records from in [place] Lita Gomez Ma faxed for records * Alejandro Beatty MD - 11/12/2024 12:12 PM EDT Subjective Patient ID: Cat Acuña is a 54 y.o. female here for Chief Complaint Patient presents with Follow-up After discussing the use of ambient listening and audio recording in generating medical documentation, the patient verbally consented to use of this technology for today's visit. History of Present Illness Bilateral foot swelling She reports an improvement in her leg swelling, attributing this to the efficacy of Lasix. She is uncertain if the swelling is due to prolonged standing or walking at her workplace. She has observed that missing a dose of Lasix results in leg swelling. She is currently on a low dose of Lasix, whichshe takes daily. Insomnia: She expresses satisfaction with the effects of trazodone, noting that it provides her with approximately 6 to 7 hours of uninterrupted sleep. She also reports that Linzess is working well for her. Chronic low back pain She is scheduled to see a spine surgeon, Dr. Barr, on 11/19/2024 to determine her eligibility for surgery. She reports that the effectiveness of her injections has diminished over time. She receivedan injection yesterday, which has provided her with temporary relief. The injections typically lastfor a couple of months, but she experiences difficulty during the third month. She is currently taking tramadol three times a day and Lyrica 50 mg twice a day, both of which are managing her pain effectively. Anxiety and depression : Stable on Cymbalta She has been experiencing increased irritability over the past six months, often feeling annoyed without any apparent reason. However, she reports that her mood has improved since starting trazodone.She does not feel the need to seek professional help for her mood issues. She takes hydroxyzine as needed for anxiety, which she finds helpful. She also takes it when driving in big cities to help her stay focused. She is requesting a refill of hydroxyzine. Constipation: Intermittently hard peanut butter-like consistency, which she believes is influenced by her diet worse with increased carbs. She admits to consuming a significant amount of carbohydrates. She has noticed changes in her urine color, ranging from yellow to brown, which she attributes to her hydrationlevels. Stable on Linzess and has been taking magnesium citrate regularly Healthcare maintenance: Mammogram: last was 2022 , declined Lung cancer screening: still smoking, declined SOCIAL HISTORY She drinks alcohol occasionally. MEDICATIONS Current: Lasix, trazodone, Cymbalta, Linzess, vitamin D, B12, iron, magnesium citrate, potassium, tramadol, Lyrica, hydroxyzine Past Medical History: Diagnosis Date GERD (gastroesophageal reflux disease) History of palpitations 2016 Eval in ER negative for heart with only low potassium Hormone replacement therapy (postmenopausal) Hypoglycemia Nicotine dependence Sleep disorder, shift work Past Surgical History: Procedure Laterality Date ADENOIDECTOMY 08/18/1981 APPENDECTOMY SECTION, CLASSIC 1992 and 94 CHOLECYSTECTOMY 08/18/1997 DILATION AND CURETTAGE OF UTERUS 2 EXCISION LESION TRUNK Left 10/22/2019 Procedure: EXCISION MASS TRUNK; Surgeon: Danny Manning MD; [place] [facility] [place]: GeneralSurgery GASTRIC BYPASS 08/18/2001 Bariatric Clinic in [place] HYSTERECTOMY 08/18/2004 MOUTH SURGERY 08/18/2000 OOPHORECTOMY TONSILLECTOMY 08/18/1981 Family History Problem Relation Age of Onset Leukemia Mother COPD Father Hypertension Father Breast cancer Neg Hx Social History Tobacco Use Smoking status: Every Day Current packs/day: 1.00 Average packs/day: 1 pack/day for 20.0 years (20.0 ttl pk-yrs) Types: Cigarettes Smokeless tobacco: Never Vaping Use Vaping status: Never Used Substance Use Topics Alcohol use: Not Currently Comment: occ/wine and whiskey Drug use: No Review of Systems Vitals: 11/12/24 1150 BP: 117/77 BP Location: Right arm Patient Position: Sitting BP Cuff Size: Adult Pulse: (!) 56 Resp: 16 Temp: 97 F (36.1 C) SpO2: 98% Weight: 57.5 kg (126 lb 11.2 oz) Height: 5' 1 Estimated body mass index is 23.94 kg/m as calculated from the following: Height as of this encounter: 5' 1. Weight as of this encounter: 57.5 kg (126 lb 11.2 oz). Physical Exam Constitutional: General: She is not in acute distress. Appearance: She is not ill-appearing. HENT: Head: Normocephalic and atraumatic. Nose: Nose normal. Mouth/Throat: Mouth: Mucous membranes are moist. Pharynx: Oropharynx is clear. No oropharyngeal exudate or posterior oropharyngeal erythema. Eyes: Extraocular Movements: Extraocular movements intact. Conjunctiva/sclera: Conjunctivae normal. Pupils: Pupils are equal, round, and reactive to light. Cardiovascular: Rate and Rhythm: Normal rate and regular rhythm. Pulses: Normal pulses. Heart sounds: Normal heart sounds. No murmur heard. No gallop. Pulmonary: Effort: Pulmonary effort is normal. Breath sounds: Normal breath sounds. No wheezing, rhonchi or rales. Chest: Chest wall: No tenderness. Abdominal: General: Abdomen is flat. Bowel sounds are normal. There is no distension. Palpations: Abdomen is soft. There is no mass. Tenderness: There is no abdominal tenderness. There is no right CVA tenderness, left CVA tenderness, guarding or rebound. Musculoskeletal: General: No tenderness. Normal range of motion. Cervical back: Normal range of motion and neck supple. No rigidity. No muscular tenderness. Right lower leg: No edema. Left lower leg: No edema. Lymphadenopathy: Cervical: No cervical adenopathy. Skin: General: Skin is warm. Findings: No erythema or rash. Neurological: General: No focal deficit present. Mental Status: She is alert and oriented to person, place, and time. Sensory: No sensory deficit. Motor: No weakness. Gait: Gait normal. Psychiatric: Mood and Affect: Mood normal. Behavior: Behavior normal. Thought Content: Thought content normal. Judgment: Judgment normal. OARRS/NARxCHECK Report Received and Assessed: Alejandro Beatty MD on 11/12/2024 12:21 PM Date controlled substance agreement signed: No data found Date of last drug screen: PHQ9: Over the last 2 weeks, how often have you been bothered by any of the following problems? Little interest or pleasure in doing things: Several days Feeling down, depressed, or hopeless: Several days PHQ-2 Total Score: 2 Trouble falling or staying asleep, or sleeping too much: Nearly every day Feeling tired or having little energy: More than half the days Poor appetite or overeating: More than half the days Feeling bad about yourself - or that you are a failure or have let yourself or your family down: Not at all Trouble concentrating on things, such as reading the newspaper or watching television: Several days Moving or speaking so slowly that other people could have noticed. Or the opposite - being so fidgety or restless that you have been moving around a lot more than usual: Not at all Thoughts that you would be better off , or of hurting yourself in some way: Not at all PHQ-9 Total Score: 10 If you checked off any problems, how difficult have these problems made it for you to do your work,take care of things at home, or get along with other people?: Somewhat difficult JOSE RAMON-7 Over the last 2 weeks, how often have you been bothered by the following problems? Feeling nervous, anxious or on edge: Not at all Not being able to stop or control worrying: Over half the days Worrying too much about different things: Several days Trouble relaxing: Over half the days Being so restless that it is hard to sit still: Not at all Becoming easily annoyed or irritable: Over half the days Feeling afraid as if something awful might happen: Not at all JOSE RAMON-7 Score: 7 Tobacco Counseling: Ready to quit: Not Answered Counseling given: Not Answered Reviewed by Provider: Patient's Medications New Prescriptions HYDROXYZINE (VISTARIL) 25 MG CAPSULE Take 1 (one) capsule (25 mg total) by mouth 3 (three) times a day as needed for anxiety . Previous Medications CHOLECALCIFEROL, VITAMIN D3, 1,000 UNIT TABLET Take 10 (ten) tablets (10,000 Units total) by mouth daily . CYANOCOBALAMIN (B-12) 1000 MCG TABLET Take 1 (one) tablet (1,000 mcg total) by mouth daily as needed . FERROUS FUMARATE (IRON ORAL) Take 27 mg by mouth daily. MAGNESIUM 250 MG TAB Take by mouth daily as needed . MULTIVITAMIN WITH MINERALS TABLET Take 1 (one) tablet by mouth daily One a day . POTASSIUM GLUCONATE 500 MG (83 MG) TAB Take 1 tablet by mouth daily . VITAMIN WITH CA-IRON-FA 27-1 MG TAB Take by mouth . TRAMADOL (ULTRAM) 50 MG TABLET Take 1 (one) tablet (50 mg total) by mouth daily as needed for pain . Modified Medications Modified Medication Previous Medication DULOXETINE (CYMBALTA) 60 MG CAPSULE DULoxetine (CYMBALTA) 60 MG capsule Take 2 (two) capsules (120 mg total) by mouth daily . Take 2 (two) capsules (120 mg total) by mouthdaily . FUROSEMIDE (LASIX) 20 MG TABLET furosemide (LASIX) 20 MG tablet Take 1 (one) tablet (20 mg total) by mouth daily . Take 1 (one) tablet (20 mg total) by mouth daily. LINZESS 145 MCG CAP Linzess 145 mcg cap Take 1 (one) capsule (145 mcg total) by mouth every morning before breakfast . Take 1 (one) capsule(145 mcg total) by mouth every morning before breakfast . TRAZODONE (DESYREL) 50 MG TABLET traZODone (DESYREL) 50 MG tablet Take 1 (one) tablet (50 mg total) by mouth nightly as needed . Take 1 (one) tablet (50 mg total) bymouth nightly as needed . Discontinued Medications No medications on file Health Maintenance Due Topic Date Due COVID-19 Vaccine ( season) 2024 Assessment & Plan Problem List Items Addressed This Visit Other Healthcare maintenance Relevant Orders Lipid Panel Elevated liver enzymes Relevant Orders Comprehensive Metabolic Panel CBC and Differential Liver Fibrosis, Fibro Test Mild major depression Relevant Medications traZODone (DESYREL) 50 MG tablet DULoxetine (CYMBALTA) 60 MG capsule Anxiety Relevant Medications DULoxetine (CYMBALTA) 60 MG capsule hydrOXYzine (VISTARIL) 25 MG capsule Insomnia Relevant Medications traZODone (DESYREL) 50 MG tablet Localized swelling of both lower legs Relevant Medications furosemide (LASIX) 20 MG tablet Other Relevant Orders Comprehensive Metabolic Panel Other Visit Diagnoses Constipation, unspecified constipation type - Primary Relevant Medications Linzess 145 mcg cap Other Relevant Orders TSH with Reflex Free T4 Assessment & Plan Assessment & Plan 1. Lower extremity edema. She is currently on a low dose of Lasix, which she takes daily. If she skips a day, her legs swell up. A prescription for Lasix will be renewed. 2. Sleep issues. She is currently on a low dose of trazodone, which provides her with approximately 6 to 7 hours of uninterrupted sleep. The potential long-term side effects of trazodone were discussed. She was advised to take trazodone as needed and not to use it on days when she feels naturally inclined to sleep well. A prescription for trazodone will be renewed. 3. Chronic back pain: She is currently taking tramadol three times a day and Lyrica 50 mg twice a day, both of which are managing her pain effectively. She is scheduled to see a spine surgeon, Dr. Barr, on 11/19/2024 to determine her eligibility for surgery. Records from Dr. Rousseau will be obtained. 4. Mood issues. She has been experiencing increased irritability over the past six months, often feeling annoyed without any apparent reason. However, she reports that her mood has improved since starting trazodone.She does not feel the need to seek professional help for her mood issues. She takes hydroxyzine as needed for anxiety, which she finds helpful. A prescription for hydroxyzine will be renewed. 5. Constipation: The different types of magnesium and their respective benefits were discussed. Magnesium citrate can be hard on the kidneys. Magnesium oxide is good for constipation or regulating bowel movements. Continue on Linzess Elevated liver enzymes: The potential benefits of vitamin E for liver health were discussed. She was advised to maintain a diet rich in healthy fats, such as olive oil, and to limit her intake of processed foods and red meat. The inclusion of raw nuts in her diet was also recommended. A comprehensive blood work panel willbe ordered to assess liver function, electrolytes, kidney function, and anemia. If the liver function tests return abnormal results or higher than previous readings, an ultrasound of the liver will be conducted. If the fibrosis marker is elevated, another ultrasound will be performed for confirmation. Follow-up The patient will follow up in 6 months. After discussing the use of ambient listening and audio recording in generating medical documentation, the patient verbally consented to use of this technology for today's visit. My ongoing relationship with Cat Acuña requires continued responsibility and cognitive effort ofbeing the focal point for all services related to chronic condition(s). Return in about 6 months (around 05/15/2025) for Follow Up. ALEJANDRO BEATTY MD [facility] [address] [facility] [address] [facility] [id number] Dept: [phone] documented in this [id number] NoteSubjective Patient ID: Cat Acuña is a 54 y.o. female here for Chief Complaint Patient presents with Follow-up After discussing the use of ambient listening and audio recording in generating medical documentation, the patient verbally consented to use of this technology for today's visit. History of Present Illness Bilateral foot swelling She reports an improvement in her leg swelling, attributing this to the efficacy of Lasix. She is uncertain if the swelling is due to prolonged standing or walking at her workplace. She has observed that missing a dose of Lasix results in leg swelling. She is currently on a low dose of Lasix, which she takes daily. Insomnia: She expresses satisfaction with the effects of trazodone, noting that it provides her with approximately 6 to 7 hours of uninterrupted sleep. She also reports that Linzess is working well for her. Chronic low back pain She is scheduled to see a spine surgeon, Dr. Barr, on 11/19/2024 to determine her eligibility for surgery. She reports that the effectiveness of her injections has diminished over time. She received an injection yesterday, which has provided her with temporary relief. The injections typically last for a couple of months, but she experiences difficulty during the third month. She is currently taking tramadol three times a day and Lyrica 50 mg twice a day, both of which are managing her pain effectively. Anxiety and depression : Stable on Cymbalta She has been experiencing increased irritability over the past six months, often feeling annoyed without any apparent reason. However, she reports that her mood has improved since starting trazodone. She does not feel the need to seek professional help for her mood issues. She takes hydroxyzine as needed for anxiety, which she finds helpful. She also takes it when driving in big cities to help her stay focused. She is requesting a refill of hydroxyzine. Constipation: Intermittently hard peanut butter-like consistency, which she believes is influenced by her diet worse with increased carbs. She admits to consuming a significant amount of carbohydrates. She has noticed changes in her urine color, ranging from yellow to brown, which she attributes to her hydration levels. Stable on Linzess and has been taking magnesium citrate regularly Healthcare maintenance: Mammogram: last was 2022 , declined Lung cancer screening: still smoking, declined SOCIAL HISTORY She drinks alcohol occasionally. MEDICATIONS Current: Lasix, trazodone, Cymbalta, Linzess, vitamin D, B12, iron, magnesium citrate, potassium, tramadol, Lyrica, hydroxyzine Past Medical History: Diagnosis Date GERD (gastroesophageal reflux disease) History of palpitations 2016 Eval in ER negative for heart with only low potassium Hormone replacement therapy (postmenopausal) Hypoglycemia Nicotine dependence Sleep disorder, shift work Past Surgical History: Procedure Laterality Date ADENOIDECTOMY 08/18/1981 APPENDECTOMY SECTION, CLASSIC 1992 and 94 CHOLECYSTECTOMY 08/18/1997 DILATION AND CURETTAGE OF UTERUS 2 EXCISION LESION TRUNK Left 10/22/2019 Procedure: EXCISION MASS TRUNK; Surgeon: Danny Manning MD; Location: [facility] [place]; Service: General Surgery GASTRIC BYPASS 08/18/2001 B[facility] Clinic in [place] HYSTERECTOMY 08/18/2004 MOUTH SURGERY 08/18/2000 OOPHORECTOMY TONSILLECTOMY 08/18/1981 Family History Problem Relation Age of Onset Leukemia Mother COPD Father Hypertension Father Breast cancer Neg Hx Social History Tobacco Use Smoking status: Every Day Current packs/day: 1.00 Average packs/day: 1 pack/day for 20.0 years (20.0 ttl pk-yrs) Types: Cigarettes Smokeless tobacco: Never Vaping Use Vaping status: Never Used Substance Use Topics Alcohol use: Not Currently Comment: occ/wine and whiskey Drug use: No Review of Systems Vitals: 11/12/24 1150 BP: 117/77 BP Location: Right arm Patient Position: Sitting BP Cuff Size: Adult Pulse: (!) 56 Resp: 16 Temp: 97 degrees F (36.1 degrees C) SpO2: 98% Weight: 57.5 kg (126 lb 11.2 oz) Height: 5' 1 Estimated body mass index is 23.94 kg/m as calculated from the following: Height as of this encounter: 5' 1. Weight as of this encounter: 57.5 kg (126 lb 11.2 oz). Physical Exam Constitutional: General: She is not in acute distress. Appearance: She is not ill-appearing. HENT: Head: Normocephalic and atraumatic. Nose: Nose normal. Mouth/Throat: Mouth: Mucous membranes are moist. Pharynx: Oropharynx is clear. No oropharyngeal exudate or posterior oropharyngeal erythema. Eyes: Extraocular Movements: Extraocular movements intact. Conjunctiva/sclera: Conjunctivae normal. Pupils: Pupils are equal, round, and reactive to light. Cardiovascular: Rate and Rhythm: Normal rate and regular rhythm. Pulses: Normal pulses. Heart sounds: Normal heart sounds. No murm (more content not included)...[facility]03-28-2025 History of Present illness Narrative* Alejandro Beatty MD - 11/12/2024 12:12 PM EDT Subjective Patient ID: Cat Acuña is a 54 y.o. female here for Chief Complaint Patient presents with Follow-up After discussing the use of ambient listening and audio recording in generating medical documentation, the patient verbally consented to use of this technology for today's visit. History of Present Illness Bilateral foot swelling She reports an improvement in her leg swelling, attributing this to the efficacy of Lasix. She is uncertain if the swelling is due to prolonged standing or walking at her workplace. She has observed that missing a dose of Lasix results in leg swelling. She is currently on a low dose of Lasix, whichshe takes daily. Insomnia: She expresses satisfaction with the effects of trazodone, noting that it provides her with approximately 6 to 7 hours of uninterrupted sleep. She also reports that [employer] is working well for her. Chronic low back pain She is scheduled to see a spine surgeon, Dr. Barr, on 11/19/2024 to determine her eligibility for surgery. She reports that the effectiveness of her injections has diminished over time. She receivedan injection yesterday, which has provided her with temporary relief. The injections typically lastfor a couple of months, but she experiences difficulty during the third month. She is currently taking tramadol three times a day and Lyrica 50 mg twice a day, both of which are managing her pain effectively. Anxiety and depression : Stable on Cymbalta She has been experiencing increased irritability over the past six months, often feeling annoyed without any apparent reason. However, she reports that her mood has improved since starting trazodone.She does not feel the need to seek professional help for her mood issues. She takes hydroxyzine as needed for anxiety, which she finds helpful. She also takes it when driving in big cities to help her stay focused. She is requesting a refill of hydroxyzine. Constipation: Intermittently hard peanut butter-like consistency, which she believes is influenced by her diet worse with increased carbs. She admits to consuming a significant amount of carbohydrates. She has noticed changes in her urine color, ranging from yellow to brown, which she attributes to her hydrationlevels. Stable on Linzess and has been taking magnesium citrate regularly Healthcare maintenance: Mammogram: last was 2022 , declined Lung cancer screening: still smoking, declined SOCIAL HISTORY She drinks alcohol occasionally. MEDICATIONS Current: Lasix, trazodone, Cymbalta, Linzess, vitamin D, B12, iron, magnesium citrate, potassium, tramadol, Lyrica, hydroxyzine Past Medical History: Diagnosis Date GERD (gastroesophageal reflux disease) History of palpitations 2016 Eval in ER negative for heart with only low potassium Hormone replacement therapy (postmenopausal) Hypoglycemia Nicotine dependence Sleep disorder, shift work Past Surgical History: Procedure Laterality Date ADENOIDECTOMY 08/18/1981 APPENDECTOMY SECTION, CLASSIC 1993 and 94 CHOLECYSTECTOMY 08/18/1997 DILATION AND CURETTAGE OF UTERUS 2 EXCISION LESION TRUNK Left 10/22/2019 Procedure: EXCISION MASS TRUNK; Surgeon: Danny Manning MD; [place] [facility] [place]: GeneralSurgery GASTRIC BYPASS 08/18/2001 Bariat[facility] Clinic in [place] HYSTERECTOMY 08/18/2004 MOUTH SURGERY 08/18/2000 OOPHORECTOMY TONSILLECTOMY 08/18/1981 Family History Problem Relation Age of Onset Leukemia Mother COPD Father Hypertension Father Breast cancer Neg Hx Social History Tobacco Use Smoking status: Every Day Current packs/day: 1.00 Average packs/day: 1 pack/day for 20.0 years (20.0 ttl pk-yrs) Types: Cigarettes Smokeless tobacco: Never Vaping Use Vaping status: Never Used Substance Use Topics Alcohol use: Not Currently Comment: occ/wine and whiskey Drug use: No Review of Systems Vitals: 03/28/25 1150 BP: 117/77 BP Location: Right arm Patient Position: Sitting BP Cuff Size: Adult Pulse: (!) 56 Resp: 16 Temp: 97 F (36.1 C) SpO2: 98% Weight: 57.5 kg (126 lb 11.2 oz) Height: 5' 1 Estimated body mass index is 23.94 kg/m as calculated from the following: Height as of this encounter: 5' 1. Weight as of this encounter: 57.5 kg (126 lb 11.2 oz). Physical Exam Constitutional: General: She is not in acute distress. Appearance: She is not ill-appearing. HENT: Head: Normocephalic and atraumatic. Nose: Nose normal. Mouth/Throat: Mouth: Mucous membranes are moist. Pharynx: Oropharynx is clear. No oropharyngeal exudate or posterior oropharyngeal erythema. Eyes: Extraocular Movements: Extraocular movements intact. Conjunctiva/sclera: Conjunctivae normal. Pupils: Pupils are equal, round, and reactive to light. Cardiovascular: Rate and Rhythm: Normal rate and regular rhythm. Pulses: Normal pulses. Heart sounds: Normal heart sounds. No murmur heard. No gallop. Pulmonary: Effort: Pulmonary effort is normal. Breath sounds: Normal breath sounds. No wheezing, rhonchi or rales. Chest: Chest wall: No tenderness. Abdominal: General: Abdomen is flat. Bowel sounds are normal. There is no distension. Palpations: Abdomen is soft. There is no mass. Tenderness: There is no abdominal tenderness. There is no right CVA tenderness, left CVA tenderness, guarding or rebound. Musculoskeletal: General: No tenderness. Normal range of motion. Cervical back: Normal range of motion and neck supple. No rigidity. No muscular tenderness. Right lower leg: No edema. Left lower leg: No edema. Lymphadenopathy: Cervical: No cervical adenopathy. Skin: General: Skin is warm. Findings: No erythema or rash. Neurological: General: No focal deficit present. Mental Status: She is alert and oriented to person, place, and time. Sensory: No sensory deficit. Motor: No weakness. Gait: Gait normal. Psychiatric: Mood and Affect: Mood normal. Behavior: Behavior normal. Thought Content: Thought content normal. Judgment: Judgment normal. OARRS/NARxCHECK Report Received and Assessed: Alejandro Beatty MD on 11/12/2024 12:21 PM Date controlled substance agreement signed: No data found Date of last drug screen: PHQ9: Over the last 2 weeks, how often have you been bothered by any of the following problems? Little interest or pleasure in doing things: Several days Feeling down, depressed, or hopeless: Several days PHQ-2 Total Score: 2 Trouble falling or staying asleep, or sleeping too much: Nearly every day Feeling tired or having little energy: More than half the days Poor appetite or overeating: More than half the days Feeling bad about yourself - or that you are a failure or have let yourself or your family down: Not at all Trouble concentrating on things, such as reading the newspaper or watching television: Several days Moving or speaking so slowly that other people could have noticed. Or the opposite - being so fidgety or restless that you have been moving around a lot more than usual: Not at all Thoughts that you would be better off , or of hurting yourself in some way: Not at all PHQ-9 Total Score: 10 If you checked off any problems, how difficult have these problems made it for you to do your work,take care of things at home, or get along with other people?: Somewhat difficult JOSE RAMON-7 Over the last 2 weeks, how often have you been bothered by the following problems? Feeling nervous, anxious or on edge: Not at all Not being able to stop or control worrying: Over half the days Worrying too much about different things: Several days Trouble relaxing: Over half the days Being so restless that it is hard to sit still: Not at all Becoming easily annoyed or irritable: Over half the days Feeling afraid as if something awful might happen: Not at all JOSE RAMON-7 Score: 7 Tobacco Counseling: Ready to quit: Not Answered Counseling given: Not Answered Reviewed by Provider: Patient's Medications New Prescriptions HYDROXYZINE (VISTARIL) 25 MG CAPSULE Take 1 (one) capsule (25 mg total) by mouth 3 (three) times a day as needed for anxiety . Previous Medications CHOLECALCIFEROL, VITAMIN D3, 1,000 UNIT TABLET Take 10 (ten) tablets (10,000 Units total) by mouth daily . CYANOCOBALAMIN (B-12) 1000 MCG TABLET Take 1 (one) tablet (1,000 mcg total) by mouth daily as needed . FERROUS FUMARATE (IRON ORAL) Take 27 mg by mouth daily. MAGNESIUM 250 MG TAB Take by mouth daily as needed . MULTIVITAMIN WITH MINERALS TABLET Take 1 (one) tablet by mouth daily One a day . POTASSIUM GLUCONATE 500 MG (83 MG) TAB Take 1 tablet by mouth daily . VITAMIN WITH CA-IRON-FA 27-1 MG TAB Take by mouth . TRAMADOL (ULTRAM) 50 MG TABLET Take 1 (one) tablet (50 mg total) by mouth daily as needed for pain . Modified Medications Modified Medication Previous Medication DULOXETINE (CYMBALTA) 60 MG CAPSULE DULoxetine (CYMBALTA) 60 MG capsule Take 2 (two) capsules (120 mg total) by mouth daily . Take 2 (two) capsules (120 mg total) by mouthdaily . FUROSEMIDE (LASIX) 20 MG TABLET furosemide (LASIX) 20 MG tablet Take 1 (one) tablet (20 mg total) by mouth daily . Take 1 (one) tablet (20 mg total) by mouth daily. LINZESS 145 MCG CAP Linzess 145 mcg cap Take 1 (one) capsule (145 mcg total) by mouth every morning before breakfast . Take 1 (one) capsule(145 mcg total) by mouth every morning before breakfast . TRAZODONE (DESYREL) 50 MG TABLET traZODone (DESYREL) 50 MG tablet Take 1 (one) tablet (50 mg total) by mouth nightly as needed . Take 1 (one) tablet (50 mg total) bymouth nightly as needed . Discontinued Medications No medications on file Health Maintenance Due Topic Date Due COVID-19 Vaccine ( season) 2024 Assessment & Plan Problem List Items Addressed This Visit Other Healthcare maintenance Relevant Orders Lipid Panel Elevated liver enzymes Relevant Orders Comprehensive Metabolic Panel CBC and Differential Liver Fibrosis, Fibro Test Mild major depression Relevant Medications traZODone (DESYREL) 50 MG tablet DULoxetine (CYMBALTA) 60 MG capsule Anxiety Relevant Medications DULoxetine (CYMBALTA) 60 MG capsule hydrOXYzine (VISTARIL) 25 MG capsule Insomnia Relevant Medications traZODone (DESYREL) 50 MG tablet Localized swelling of both lower legs Relevant Medications furosemide (LASIX) 20 MG tablet Other Relevant Orders Comprehensive Metabolic Panel Other Visit Diagnoses Constipation, unspecified constipation type - Primary Relevant Medications Linzess 145 mcg cap Other Relevant Orders TSH with Reflex Free T4 Assessment & Plan Assessment & Plan 1. Lower extremity edema. She is currently on a low dose of Lasix, which she takes daily. If she skips a day, her legs swell up. A prescription for Lasix will be renewed. 2. Sleep issues. She is currently on a low dose of trazodone, which provides her with approximately 6 to 7 hours of uninterrupted sleep. The potential long-term side effects of trazodone were discussed. She was advised to take trazodone as needed and not to use it on days when she feels naturally inclined to sleep well. A prescription for trazodone will be renewed. 3. Chronic back pain: She is currently taking tramadol three times a day and Lyrica 50 mg twice a day, both of which are managing her pain effectively. She is scheduled to see a spine surgeon, Dr. Barr, on 11/19/2024 to determine her eligibility for surgery. Records from Dr. Rousseau will be obtained. 4. Mood issues. She has been experiencing increased irritability over the past six months, often feeling annoyed without any apparent reason. However, she reports that her mood has improved since starting trazodone.She does not feel the need to seek professional help for her mood issues. She takes hydroxyzine as needed for anxiety, which she finds helpful. A prescription for hydroxyzine will be renewed. 5. Constipation: The different types of magnesium and their respective benefits were discussed. Magnesium citrate can be hard on the kidneys. Magnesium oxide is good for constipation or regulating bowel movements. Continue on Linzess Elevated liver enzymes: The potential benefits of vitamin E for liver health were discussed. She was advised to maintain a diet rich in healthy fats, such as olive oil, and to limit her intake of processed foods and red meat. The inclusion of raw nuts in her diet was also recommended. A comprehensive blood work panel willbe ordered to assess liver function, electrolytes, kidney function, and anemia. If the liver function tests return abnormal results or higher than previous readings, an ultrasound of the liver will be conducted. If the fibrosis marker is elevated, another ultrasound will be performed for confirmation. Follow-up The patient will follow up in 6 months. After discussing the use of ambient listening and audio recording in generating medical documentation, the patient verbally consented to use of this technology for today's visit. My ongoing relationship with Cat Acuña requires continued responsibility and cognitive effort ofbeing the focal point for all services related to chronic condition(s). Return in about 6 months (around 05/15/2025) for Follow Up. ALEJANDRO BEATTY MD [facility] [address] [facility] [address] [facility] [id number] Dept: [phone] documented in this [id number] History of Present illness Narrative* Alejandro Beatty MD - 05/27/2024 12:57 PM EDT Subjective Patient ID: Cat Acuña is a 54 y.o. female here for Chief Complaint Patient presents with Establish Care Swelling in both legs hips to toes started Friday. Says it is painful After discussing the use of ambient listening and audio recording in generating medical documentation, the patient verbally consented to use of this technology for today's visit. History of Present Illness The patient presents for evaluation of bilateral lower extremity swelling. She reports that she was unwell and visited the ER on 05/18/2023, but began to feel better by Friday. Her initial symptoms included diarrhea and vomiting, which have since resolved. However, she experienced constipation followed by loose stools. On Friday, she noticed swelling in her legs from the knees to the ankles, which was hard to touch. Elevating her legs provided some relief. The swelling subsided slightly by Friday morning but returned by the afternoon. By Friday, her legs were completely swollen again, accompanied by abdominal distension and infrequent bowel movements. She felt the urge to defecate but was unable to do so. A stool softener provided some relief. The swelling worsened on Friday, with her calves becoming hard.She has been documenting the progression of the swelling through photographs. She reports pain associated with the swelling and had to purchase new shoes due to the size increase in her feet. She also reports dark, foul-smelling urine. Her bowel movements have varied from constipation to loose, mucous-filled stools. She is not experiencing any back pain related to the swelling, attributing her previous back pain to arthritis, which is being managed by a pain specialist. She reports feeling bloated and describes her abdomen as sounding hollow. Past Medical History: Diagnosis Date GERD (gastroesophageal reflux disease) History of palpitations 2016 Eval in ER negative for heart with only low potassium Hormone replacement therapy (postmenopausal) Hypoglycemia Nicotine dependence Sleep disorder, shift work Past Surgical History: Procedure Laterality Date ADENOIDECTOMY 08/18/1981 APPENDECTOMY SECTION, CLASSIC 1992 and 94 CHOLECYSTECTOMY 08/18/1997 DILATION AND CURETTAGE OF UTERUS 2 EXCISION LESION TRUNK Left 10/22/2019 Procedure: EXCISION MASS TRUNK; Surgeon: Danny Manning MD; Location: [facility] [place]; Service: GeneralSurgery GASTRIC BYPASS 08/18/2001 [facility]ariat[facility] Clinic in [place] HYSTERECTOMY 08/18/2004 MOUTH SURGERY 08/18/2000 OOPHORECTOMY TONSILLECTOMY 08/18/1981 Family History Problem Relation Age of Onset Leukemia Mother COPD Father Hypertension Father Breast cancer Neg Hx Social History Tobacco Use Smoking status: Every Day Current packs/day: 1.00 Average packs/day: 1 pack/day for 20.0 years (20.0 ttl pk-yrs) Types: Cigarettes Smokeless tobacco: Never Vaping Use Vaping status: Never Used Substance Use Topics Alcohol use: Not Currently Comment: occ/wine and whiskey Drug use: No Review of Systems Vitals: 05/27/24 1249 BP: 119/77 BP Location: Right arm Patient Position: Sitting BP Cuff Size: Adult Pulse: 80 Resp: 17 Temp: 98.9 F (37.2 C) TempSrc: Temporal SpO2: 93% Weight: 55.3 kg (122 lb) Height: 5' 1 Estimated body mass index is 23.05 kg/m as calculated from the following: Height as of this encounter: 5' 1. Weight as of this encounter: 55.3 kg (122 lb). Physical Exam Constitutional: General: She is not in acute distress. Appearance: She is not ill-appearing. HENT: Head: Normocephalic and atraumatic. Nose: Nose normal. Mouth/Throat: Mouth: Mucous membranes are moist. Pharynx: Oropharynx is clear. No oropharyngeal exudate or posterior oropharyngeal erythema. Eyes: Extraocular Movements: Extraocular movements intact. Conjunctiva/sclera: Conjunctivae normal. Pupils: Pupils are equal, round, and reactive to light. Cardiovascular: Rate and Rhythm: Normal rate and regular rhythm. Pulses: Normal pulses. Heart sounds: Normal heart sounds. No murmur heard. No gallop. Pulmonary: Effort: Pulmonary effort is normal. Breath sounds: Normal breath sounds. No wheezing, rhonchi or rales. Chest: Chest wall: No tenderness. Abdominal: General: Abdomen is flat. Bowel sounds are normal. There is no distension. Palpations: Abdomen is soft. There is no mass. Tenderness: There is abdominal tenderness (bilateral CVA and LLQ). There is no right CVA tenderness, left CVA tenderness, guarding or rebound. Musculoskeletal: General: No tenderness. Normal range of motion. Cervical back: Normal range of motion and neck supple. No rigidity. No muscular tenderness. Right lower leg: Edema present. Left lower leg: Edema present. Comments: +1-2 up to the knees bilaterally Lymphadenopathy: Cervical: No cervical adenopathy. Skin: General: Skin is warm. Findings: No erythema or rash. Neurological: General: No focal deficit present. Mental Status: She is alert and oriented to person, place, and time. Sensory: No sensory deficit. Motor: No weakness. Gait: Gait normal. Psychiatric: Mood and Affect: Mood normal. Behavior: Behavior normal. Thought Content: Thought content normal. Judgment: Judgment normal. OARRS/NARxCHECK Report Received and Assessed: Alejandro Beatty MD on 11/27/2023 12:48 PM Date controlled substance agreement signed: No data found Date of last drug screen: PHQ9: JOSE RAMON-7 Tobacco Counseling: Ready to quit: Not Answered Counseling given: Not Answered Reviewed by Provider: Patient's Medications New Prescriptions FUROSEMIDE (LASIX) 20 MG TABLET Take 1 (one) tablet (20 mg total) by mouth daily . Previous Medications BUPROPION (WELLBUTRIN XL) 150 MG 24 HR TABLET Take 1 (one) tablet (150 mg total) by mouth daily . CHOLECALCIFEROL, VITAMIN D3, 1,000 UNIT TABLET Take 10 (ten) tablets (10,000 Units total) by mouth daily . CYANOCOBALAMIN (B-12) 1000 MCG TABLET Take 1 (one) tablet (1,000 mcg total) by mouth daily as needed . DICYCLOMINE (BENTYL) 20 MG TABLET Take 1 (one) tablet (20 mg total) by mouth 4 (four) times a day as needed (Abd pain) . DULOXETINE (CYMBALTA) 60 MG CAPSULE Take 2 (two) capsules (120 mg total) by mouth daily . FERROUS FUMARATE (IRON ORAL) Take 27 mg by mouth daily. GABAPENTIN (NEURONTIN) 300 MG CAPSULE Take 1 (one) capsule (300 mg total) by mouth 3 (three) times a day . HYDROXYZINE (VISTARIL) 25 MG CAPSULE Take 1 (one) capsule (25 mg total) by mouth 3 (three) times a day as needed for anxiety . LINZESS 145 MCG CAP MAGNESIUM 250 MG TAB Take by mouth daily as needed . MELOXICAM (MOBIC) 15 MG TABLET Take 1 (one) tablet (15 mg total) by mouth daily . MULTIVITAMIN WITH MINERALS TABLET Take 1 (one) tablet by mouth daily One a day . ONDANSETRON (ZOFRAN-ODT) 4 MG DISINTEGRATING TABLET Dissolve 1 (one) tablet (4 mg total) on top of tongue every 6 (six) hours as needed for nausea . POTASSIUM GLUCONATE 500 MG (83 MG) TAB Take 1 tablet by mouth daily . VITAMIN WITH CA-IRON-FA 27-1 MG TAB Take by mouth . TRAMADOL (ULTRAM) 50 MG TABLET Take 1 (one) tablet (50 mg total) by mouth daily as needed for pain . Modified Medications No medications on file Discontinued Medications No medications on file Health Maintenance Due Topic Date Due Low-dose CT Lung Cancer Screen Never done Mammogram 11/09/2023 Wellness Visit 02/29/2024 Influenza Vaccine (1) 04/18/2024 COVID-19 Vaccine ( season) 2024 Assessment & Plan Problem List Items Addressed This Visit Other Localized swelling of both lower legs - Primary Relevant Medications furosemide (LASIX) 20 MG tablet Other Relevant Orders CT Abdomen Pelvis Without Contrast CBC and Differential (Completed) Comprehensive Metabolic Panel (Completed) Outreach Urinalysis w/ Reflex Culture (Completed) Protein, Urine, Random Other Visit Diagnoses Costovertebral angle pain Relevant Orders CT Abdomen Pelvis Without Contrast CBC and Differential (Completed) Comprehensive Metabolic Panel (Completed) Outreach Urinalysis w/ Reflex Culture (Completed) CRP, Inflammation (Completed) Sedimentation Rate (Completed) Assessment & Plan Assessment & Plan 1. Bilateral lower extremity edema. The edema could be attributed to cardiac, renal, or hepatic issues. A recent viral infection may have triggered a postinfection GN is one probability. The presence of Campylobacter in her stool analysis could also be a contributing factor. A CT scan of the abdomen will be ordered to assess the kidneys. Blood work and a urine test will be conducted to evaluate kidney function. A diuretic, Lasix 20mg once daily, will be prescribed for symptom management. Inflammation markers will be checked, andadditional blood work may be ordered if there are concerns specific to the kidneys. If the tests indicate a kidney issue, a referral to a family centered specialist will be made. If she experiences shortness of breath or chest pressure along with the swelling, she should seek immediate medical attention at the ER. Abdominal distension. The patient reports significant abdominal bloating and a hollow sound. This may be related to her recent gastrointestinal issues. A CT scan of the abdomen will be ordered to further investigate the cause of the distension. Dark, foul-smelling urine. The patient reports dark, foul-smelling urine. This could be related to her recent illness or a potential kidney issue. A urine test will be conducted to evaluate kidney function and check for any signs of infection or other abnormalities. After discussing the use of ambient listening and audio recording in generating medical documentation, the patient verbally consented to use of this technology for today's visit. My ongoing relationship with Cat Acuña requires continued responsibility and cognitive effort ofbeing the focal point for all services related to chronic condition(s). No follow-ups on file. ALEJANDRO BEATTY MD [facility] [address] [facility] [address] [facility] [id number] Dept: [phone] documented in this [id number] Evaluation + Plan note* Assessment & Plan Note - Alejandro Beatty MD - 11/07/2023 4:02 PM EDTAssociated Problem(s): Chronic radicular lumbar pain She has spondylosis at L4 and L5 and disc bulging at L5 and S1. She also has spinal stenosis at L4-L5 and L5-S1. Dr. Casas does not think she has cauda equina syndrome. We discussed options of switching completely off the gabapentin or trying Lyrica. The second option is to keep the gabapentin where it is and add amitriptyline or nortriptyline. I will refer her to physical therapy. I will increase her gabapentin to [address] an order for a back brace with TENS. She will let me know in 1 to 2 weeks how she is doing on the gabapentin. If it does not help, we will consider decreasingthe dose and try something different. Sooner referral to pain management sent today. [id number] Miscellaneous Notes* Assessment & Plan Note - Alejandro Beatty MD - 11/07/2023 4:02 PM EDTAssociated Problem(s): Chronic radicular lumbar pain She has spondylosis at L4 and L5 and disc bulging at L5 and S1. She also has spinal stenosis at L4-L5 and L5-S1. Dr. Casas does not think she has cauda equina syndrome. We discussed options of switching completely off the gabapentin or trying Lyrica. The second option is to keep the gabapentin where it is and add amitriptyline or nortriptyline. I will refer her to physical therapy. I will increase her gabapentin to [address] an order for a back brace with TENS. She will let me know in 1 to 2 weeks how she is doing on the gabapentin. If it does not help, we will consider decreasingthe dose and try something different. Sooner referral to pain management sent today. documented in this [id number] History of Present illness Narrative* Alejandro Beatty MD - 11/07/2023 7:54 AM EDT Chief Complaint Patient presents with Follow-up HPI: Cat Courtney is 53 years old female presenting today for follow up on depression. Patient recently had a positive Cologuard test, followed colonoscopy in 5 yrs , done 01/15/23 . Went to the ER on 09/03 had a low back and left hip pain worsening over 2 days , was worried that she might have a blood clot in the calf and was ruled out in the ER CT lumbar Moderate-severe right foraminal narrowing L4-L5. Moderate-severe left foraminal narrowingL4-S1. Was doing some stretches States that she had involuntary defecation twice with pain and stretching exercises. Left leg gives out every once in a while, tingling and numbness at least once a week, dropped toes.No falls, has been having calf claudications often. Scoliosis series demonstrates 12 degrees of lumbar levoscoliosis and 12 degrees of thoracic dextroscoliosis. There is significant sagittal imbalance with the sagittal plumbline being 8.1 cm of SVA. MRI of lumbar spine demonstrates no evidence of compression fracture tumor or dislocation. There is no evidence of high-grade central canal stenosis. There is bilateral moderate foraminal stenosis at L4-5 and moderate to severe left L5-S1 foraminal stenosis due to disc osteophyte. Visualized distal thoracic spinal canal demonstrates no evidence of abnormal T2 signal within the distal spinal cord Diffuse disc bulging was seen maximal at L4-5 and L5-S1. She has been placed on Neurontin. She has tried stretching exercise at home Gabapentin seems to give her the blurriness worst in the morning for the first few hours, but afterthat, she does not notice it. She starts work at 6:00 AM and by 8:30 AM or 9:00 AM, she is fine. She does not want to take long-term narcotics. She still does the stretches that were given to her in the ER. Even though it hurts, she does not stop doing her everyday things. Her foot drags when she walks or going down the steps. She has constant tingling and cramping in her calf. She is going to see a pain management doctor on 12/29/2023, but she would like to see someone sooner. She rates her pain as 7 to 10 depending on the day. Her sleep is okay. Her mood is okay. The smoking has slowed down. Wellbutrin is helping. She smokes just under a pack a day. Past Surgical History: Procedure Laterality Date ADENOIDECTOMY 08/18/1981 APPENDECTOMY SECTION, CLASSIC 1993 and 94 CHOLECYSTECTOMY 08/18/1997 DILATION AND CURETTAGE OF UTERUS 2 EXCISION LESION TRUNK Left 10/22/2019 Procedure: EXCISION MASS TRUNK; Surgeon: Danny Manning MD; [place] [facility] [place]: GeneralSurgery GASTRIC BYPASS 08/18/2001 [facility] Clinic in [place] HYSTERECTOMY 08/18/2004 MOUTH SURGERY 08/18/2000 OOPHORECTOMY TONSILLECTOMY 08/18/1981 Family History Problem Relation Age of Onset Leukemia Mother COPD Father Hypertension Father Breast cancer Neg Hx Social History Tobacco Use Smoking status: Every Day Packs/day: 1.00 Years: 20.00 Additional pack years: 0.00 Total pack years: 20.00 Types: Cigarettes Smokeless tobacco: Never Vaping Use Vaping Use: Never used Substance Use Topics Alcohol use: Yes Comment: occ/wine and whiskey Drug use: No Review of Systems Vitals: 11/07/23 0751 BP: 122/80 BP Location: Right arm Patient Position: Sitting BP Cuff Size: Adult Pulse: 80 Resp: 16 Temp: 97.6 F (36.4 C) TempSrc: Temporal SpO2: 98% Weight: 54.4 kg (120 lb) Height: 5' 1 Estimated body mass index is 22.67 kg/m as calculated from the following: Height as of this encounter: 5' 1. Weight as of this encounter: 54.4 kg (120 lb). Physical Exam Constitutional: General: She is not in acute distress. Appearance: She is not ill-appearing. HENT: Head: Normocephalic and atraumatic. Nose: Nose normal. No congestion. Mouth/Throat: Mouth: Mucous membranes are moist. Pharynx: Oropharynx is clear. No oropharyngeal exudate or posterior oropharyngeal erythema. Eyes: General: Right eye: No discharge. Left eye: No discharge. Extraocular Movements: Extraocular movements intact. Pupils: Pupils are equal, round, and reactive to light. Pulmonary: Effort: Pulmonary effort is normal. Abdominal: General: Abdomen is flat. Palpations: Abdomen is soft. Genitourinary: General: Normal vulva. Vagina: No vaginal discharge. Musculoskeletal: General: Tenderness (Lumbar recovery L4-L5 and adjacent left paraspinal muscles) present. Normal range of motion. Cervical back: Normal range of motion and neck supple. No rigidity. No muscular tenderness. Right lower leg: No edema. Left lower leg: No edema. Comments: Positive straight leg raising test left-sided Lymphadenopathy: Cervical: No cervical adenopathy. Skin: General: Skin is warm. Findings: No erythema or rash. Neurological: General: No focal deficit present. Mental Status: She is alert and oriented to person, place, and time. Sensory: No sensory deficit. Motor: No weakness. Gait: Gait normal. Deep Tendon Reflexes: Reflexes abnormal (Left knee). Psychiatric: Mood and Affect: Mood normal. Behavior: Behavior normal. Thought Content: Thought content normal. Judgment: Judgment normal. OARRS/NARxCHECK Report Received and Assessed: No data found Date controlled substance agreement signed: No data found Date of last drug screen: No data found Functional Assessment: No data found @Exam@ PHQ9: JOSE RAMON-7 Tobacco Counseling: Ready to quit: Not Answered Counseling given: Not Answered Patient's Medications New Prescriptions No medications on file Previous Medications BUPROPION (WELLBUTRIN XL) 150 MG 24 HR TABLET Take 1 (one) tablet (150 mg total) by mouth daily . CHOLECALCIFEROL, VITAMIN D3, 1,000 UNIT TABLET Take 10 (ten) tablets (10,000 Units total) by mouth daily . CYANOCOBALAMIN (B-12) 1000 MCG TABLET Take 1 (one) tablet (1,000 mcg total) by mouth daily as needed . DULOXETINE (CYMBALTA) 60 MG CAPSULE Take 2 (two) capsules (120 mg total) by mouth daily . FERROUS FUMARATE (IRON ORAL) Take 27 mg by mouth daily. HYDROXYZINE (VISTARIL) 25 MG CAPSULE Take 1 (one) capsule (25 mg total) by mouth 3 (three) times a day as needed for anxiety . LINZESS 145 MCG CAP MAGNESIUM 250 MG TAB Take by mouth daily as needed . MELOXICAM (MOBIC) 15 MG TABLET Take 1 (one) tablet (15 mg total) by mouth daily . MULTIVITAMIN WITH MINERALS TABLET Take 1 (one) tablet by mouth daily One a day . POTASSIUM GLUCONATE 500 MG (83 MG) TAB Take 1 tablet by mouth daily . VITAMIN WITH CA-IRON-FA 27-1 MG TAB Take by mouth . Modified Medications Modified Medication Previous Medication GABAPENTIN (NEURONTIN) 300 MG CAPSULE gabapentin (NEURONTIN) 100 MG capsule Take 1 (one) capsule (300 mg total) by mouth 3 (three) times a day . Take 1 (one) capsule (100 mg total) by mouth 3 (three) times a day . Discontinued Medications VARENICLINE (CHANTIX CONTINUING MONTH BOX) 1 MG TABLET CHANTIX CONTINUING MONTH BOX 1 mg tablet Health Maintenance Due Topic Date Due Low-dose CT Lung Cancer Screen Never done COVID-19 Vaccine ( season) 2023 Mammogram 11/09/2023 Assessment & Plan Problem List Items Addressed This Visit Musculoskeletal and Integument Lumbar foraminal stenosis Other Nicotine dependence Mild major depression (HCC) - Primary Claudication of lower extremity (HCC) Relevant Orders Ambulatory Ref to [facility] (PT/OT/ST) Chronic radicular lumbar pain She has spondylosis at L4 and L5 and disc bulging at L5 and S1. She also has spinal stenosis at L4-L5 and L5-S1. Dr. Casas does not think she has cauda equina syndrome. We discussed options of switching completely off the gabapentin or trying Lyrica. The second option is to keep the gabapentin where it is and add amitriptyline or nortriptyline. I will refer her to physical therapy. I will increase her gabapentin to [address] an order for a back brace with TENS. She will let me know in 1 to 2 weeks how she is doing on the gabapentin. If it does not help, we will consider decreasingthe dose and try something different. Sooner referral to pain management sent today. Relevant Medications gabapentin (NEURONTIN) 300 MG capsule Other Relevant Orders Ambulatory referral to Pain Medicine Ambulatory Ref to [facility] (PT/OT/ST) Other Visit Diagnoses Cauda equina compression (HCC) After discussing the use of ambient listening and audio recording in generating medical documentation, the patient verbally consented to use of this technology for today's visit. Return in about 4 months (around 03/08/2024) for Follow Up. My ongoing relationship with Cat Acuña requires continued responsibility and cognitive effort ofbeing the focal point for all services related to chronic condition(s). ALEJANDRO BEATTY MD [place] [id number] [facility] [address] [place] [id number] Dept: [phone] 09/17/2019 12:00 PM 05/17/2022 5:48 PM 08/29/2023 8:11 AM Depression Screening Little interest or pleasure in doing things 1 0 3 Feeling down, depressed, or hopeless 1 0 3 PHQ-2 Total Score 2 0 6 Trouble falling or staying asleep, or sleeping too much 0 2 Feeling tired or having little energy 1 2 Poor appetite or overeating 0 3 Feeling bad about yourself - or that you are a failure or have let yourself or your family down 0 2 Trouble concentrating on things, such as reading the newspaper or watching television 1 3 Moving or speaking so slowly that other people could have noticed. Or the opposite - being so fidgety or restless that you have been moving around a lot more than usual 0 2 Thoughts that you would be better off , or of hurting yourself in some way 0 0 PHQ-9 Total Score 4 20 If you checked off any problems, how difficult have these problems made it for you to do your work,take care of things at home, or get along with other people? Somewhat difficult Very difficult documented in this [id number] History of Present illness Narrative* Jorge Casas MD - 10/20/2023 2:14 PM EST Chief Complaint Patient presents with Follow-up Patient presents today to discuss surgery MRI 10/17/23 (concerns for cauda equina). Follow-up neuroimaging HPI Cat Courtney is a 53-year-old female with left sciatica. At some point she was told she might have cauda equina syndrome, but the ER physician who saw her in August 2023 categorically refuted anyform of cauda equina syndrome symptoms when he examined her. This led to multiple images including a scoliosis series on 09/29/2023 and an MRI of 10/17/2023. I have independently reviewed the studies sandy computerized workstation, and my interpretation follows. Scoliosis series demonstrates 12 degreesof lumbar levoscoliosis and 12 degrees of thoracic dextroscoliosis. There is significant sagittal imbalance with the sagittal plumbline being 8.1 cm of SVA. MRI of lumbar spine demonstrates no evidence of compression fracture tumor or dislocation. There is no evidence of high-grade central canal stenosis. There is bilateral moderate foraminal stenosis at L4-5 and moderate to severe left L5-S1 foraminal stenosis due to disc osteophyte. Visualized distal thoracic spinal canal demonstrates no evidence of abnormal T2 signal within the distal spinal cord. Her issues began in August 2023 when she had the sudden onset of of left calf pain viselike gripping discomfort that radiated into the left buttock and hip. She was seen in the emergency department with initial CT scan lumbar spine that did not demonstrate any evidence of fracture or tumor. Diffuse disc bulging was seen maximal at L4-5 andL5-S1. She has been placed on Neurontin. She has tried stretching exercise at home to no avail. Shestates she continues have significant pain while sitting and needs to lean towards the right in order to unload left buttock to get some form of relief. She also states that standing and walking is difficult as well as extending her lumbar spine. She also states the pain does awaken her from sleep. She has never had any form of spinal injections or interventions directed at treating this problem.She did not have this problem prior to her bariatric surgery which caused her to lose a significantamount of weight. Pain in the left lower extremity has never involved the limb distal to the ankle. Review of Systems No history of diabetes mellitus. Positive history of GE reflux disease. Status post resection of lipoma from left flank. Physical Exam Awake alert pleasant female in no obvious acute distress. However ambulating does cause her to havesome degree of back pain and she walks with a mild Trendelenburg gait, favoring left side. Straightleg raising is positive the left at 45 to also flexion especially with addition of left knee extension. Straight leg raising is negative on the right. She has some mildly decreased light touch sensation in the anterior lateral and posterior left calf. She has normal light touch sensation of the entire right lower extremity. She has no current calf tenderness. D10 reflexes at the patella and Achilles are 1+ and symmetric. Impression. Multifocal disc herniation maximal L4-5, L5-S1, with thoracic or lumbar mild scoliosis. Intractableleft sciatica. No central canal stenosis. Plan At this point time I discussed with the patient the relatively mild appearance of her foraminal stenoses at L4-5 and L5-S1 in proportion to her degree of pain. There is no evidence of central canal stenosis. There is no evidence of cauda equina syndrome. I believe it is in her best interest to maximize all conservative measures before even considering any form of direct reconstructive surgical approaches to her lumbar sacral spine. To that end I recommend follow- up consultation with interventional spine. She can always follow-up back with neurosurgery clinic if she fails to achieve any relief. She is also reluctant to enroll in a physical therapy program formally, as she does not believe this will help her. Follow-up on an as-needed basis. Jroge Casas MD documented in this [id number] Telephone encounter Note* Telephone Encounter - Mago Prieto LPN - 10/07/2023 11:13 AM EST Last OV 09/19/23. Next OV 11/07/23. [id number] Miscellaneous Notes* Telephone Encounter - Mago Prieto LPN - 10/07/2023 11:13 AM EST Last OV 09/19/23. Next OV 11/07/23. documented in this [id number] Instructions* Patient Instructions* Eran Henderson PA-C - 09/29/2023 11:34 AM EST Patients exam shows weakness to left lower extremity and pain and paraesthesias consistent with imaging findings reported above. I suspect her reported chronic hip pain may have been related to SI orlumbar disc disease given location she points to when describing her hip pain. She may have a component of left sacroiliitis given location of her back pain and exacerbating factors such as sitting prolonged periods, stairs, and shifting her weight to right side to relief left buttocks pain. She isnot interested in PT at the moment. She is scheduled for MRI lumbar spine 10/17/23 ordered by PCP. PCP is managing analgesic regimen which seems to be helping in the interim. She has normal reflexes today, a mild left foot drop when walking down borges, that dissipated mid walk. She had 2 episodes of bowel incontinence, but given history of cause and Linzess Rx she may be having bouts of loose stool.No acute HAL. No infectious symptoms. I reviewed patients left hip XR and CT lumbar spine with her 09/03/23. There is no acute findings of left hip XR. She has disc disease lower lumbar levels as descr ibed above. I utilized spinal model for patient education. Pt is interested in surgical discussion to correct her pain as she does not want this to effect her job duties. I recommend scoliosis XR today for surgical planning, provided handicap stephania, recommend pt purchase cane/rollator at drug store to help prevent falls given her history of stumbling over her left foot. I recommend she avoid chiropractic manipulation for now given imaging findings and subjective history. I explained to her tostop smoking or cut back as much as possible which will improve her surgical success should this avenue be taken. I explained to patient if her pain becomes intractable, she develops worsening weakness, incontinence, or saddle anesthesia or any other concerning symptom to report to emergency department. Follow up with Dr. Casas 10/20/23, after completion of imaging, to discuss next steps in plan of care. Call with any questions. documented in this [id number] History of Present illness Narrative* Eran Henderson PA-C - 09/29/2023 9:54 AM EST Images from the original note were not included. Neurosurgery Consult [facility] 09/29/23 ASSESSMENT/PLAN: 53 y/o female with acute exacerbation lumbar back pain, left lower extremity neurogenic claudication in setting of severe degenerative disc disease and disc bulge L4-L5, L5-S1, left foraminal narrowing L4-S1 on recent CT. Possible Left sacroiliitis component. Hx of tobaccoism. Hx of left foot drop. Patients exam shows weakness to left lower extremity and pain and paraesthesias consistent with imaging findings reported above. I suspect her reported chronic hip pain may have been related to SI orlumbar disc disease given location she points to when describing her hip pain. She may have a component of left sacroiliitis given location of her back pain and exacerbating factors such as sitting prolonged periods, stairs, and shifting her weight to right side to relief left buttocks pain. She isnot interested in PT at the moment. She is scheduled for MRI lumbar spine 10/17/23 ordered by PCP. PCP is managing analgesic regimen which seems to be helping in the interim. She has normal reflexes today, a mild left foot drop when walking down borges, that dissipated mid walk. She had 2 episodes of bowel incontinence, but given history of cause and Linzess Rx she may be having bouts of loose stool.No acute HAL. No infectious symptoms. I reviewed patients left hip XR and CT lumbar spine with her 09/03/23. There is no acute findings of left hip XR. She has disc disease lower lumbar levels as descr ibed above. I utilized spinal model for patient education. Pt is interested in surgical discussion to correct her pain as she does not want this to effect her job duties. I recommend scoliosis XR today for surgical planning, provided handicap stephania, recommend pt purchase cane/rollator at drug store to help prevent falls given her history of stumbling over her left foot. I recommend she avoid chiropractic manipulation for now given imaging findings and subjective history. I explained to her tostop smoking or cut back as much as possible which will improve her surgical success should this avenue be taken. I explained to patient if her pain becomes intractable, she develops worsening weakness, incontinence, or saddle anesthesia or any other concerning symptom to report to emergency department. Follow up with Dr. Casas 10/20/23, after completion of imaging, to discuss next steps in plan of care. Call with any questions. [facility] Neurosurgery Eran Henderson PA-C [phone] Physicians: Alejandro Beatty MD (Family); Alejandro Beatty* (Referring) Chief Complaint/Reason for Visit: Back Pain (Ref by PASCALE, jayden G83.4 (ICD-10-CM) - Cauda equina compression (HCC) I73.9 (ICD-10-CM) - Claudication of lower extremity) HPI: Cat Acuña is a 53 y.o. who presents for neurosurgical evaluation at the request of PCP Dr. Beatty for Hx of low back pain and left sided neurogenic claudication x 09/03/23. 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 She states at work she develop sudden sharp cramping with no known inciting factor, stating it felt like a vice on my calf. This gradually crept up her leg and by the afternoon she went to the ER because the pain had gotten to the point where she couldn't walk or sit. In addition to this she developed left gluteal and left lower lumbar back pain that is sharp in quality. She tells me she neverhas had problems with her back, but does state she has a chronic history of left hip pain. When asking her where her hip pain occurs she points to her left lower lumbar back/flank. She tells me she goes to chiropractor for her hip which has helped in the past, last session was 2 weeks before this incident occurred. She denies any recent or remote injury to her back. She denies any prior neurosurgi jose intervention to her back. No prior surgical Hx of her hip. ER sent patient home with analgesic medication, she subsequently seen her provider whom gave her prednisone and gabapentin, both of which have been very helpful in reducing her pain and making it so she can still work. She says when thepain first occurred it was 12/10 in intensity, it is now a 6/10 in intensity. Her pain is exacerba bisi by sitting long time, lumbar extension, sitting on left buttocks, laying supine, getting in-outof car, walking, walking up stairs. It is improved with prednisone, gabapentin, lumbar flexion, andself stretching exercises. She has painful paraesthesias to her left buttocks extending down posterior thigh and ending at knee. She has numbness in similar fashion, and states right now her whole left leg feels numb. When asking her where her foot is most numb she says left lateral foot affecting toes 3,4,5. She says she has had intermittent episodes of dragging her left foot since 09/03/23, causing her to stumble over herself but has not had a fall. She says no urinary incontinence or saddle an esthesia. She says since 09/03/23 it has hurt to bear down and have a BM, she says since 09/03/23 stone had 2 episodes of accidental BM's, one episode was in ER when she got up to stretch. The other episode happened last week when she stumbled over herself from her left foot dragging and had an accidentally BM, no other episodes of bowel incontinence reported. She denies a history of crohn's or IBS, she takes Linzess for constipation. She denies any significant neck pain. She denies upper extremity numbness, weakness, pain, or paraesthesias. No thoracic back pain. No right leg symptoms. No headaches or change to vision. No nausea or vomiting or abdominal pain. No SOB or chest pain. No constitutional symptoms reported- no fever, chills, change to weight, unexplained fatigue. PAST MEDICAL HISTORY: Past Medical History: Diagnosis Date GERD (gastroesophageal reflux disease) History of palpitations 2015 Eval in ER negative for heart with only low potassium Hormone replacement therapy (postmenopausal) Hypoglycemia Nicotine dependence Sleep disorder, shift work She denies history of the following: cancer, diabetes, renal disease, liver disease, Hx of blood clot or bleeding disorder, cardiopulmonary disease, Rheumatological disease. She no longer takes hormone replacement therapy. She took aspirin self directed 81mg for personal concerns of blood clot when on this hormone therapy. Although not on hormonal therapy any more she still takes 81mg aspirin daily. No other blood thinner reported. No recent palpitations. SURGICAL HISTORY: Past Surgical History: Procedure Laterality Date ADENOIDECTOMY 08/18/1981 APPENDECTOMY SECTION, CLASSIC 1992 and 94 CHOLECYSTECTOMY 08/18/1997 DILATION AND CURETTAGE OF UTERUS 2 EXCISION LESION TRUNK Left 10/22/2019 Procedure: EXCISION MASS TRUNK; Surgeon: Danny Manning MD; Location: [facility] [place] OR; Service: GeneralSurgery GASTRIC BYPASS 08/18/2001 Bariatric Clinic in [place] HYSTERECTOMY 08/18/2004 MOUTH SURGERY 08/18/2000 OOPHORECTOMY TONSILLECTOMY 08/18/1981 Denies prior adverse reaction to anesthesia. SOCIAL HISTORY : Social Determinants of Health Tobacco Use: High Risk (09/29/2023) Patient History Smoking Tobacco Use: Every Day Smokeless Tobacco Use: Never Passive Exposure: Not on file Alcohol Use: Not on file Financial Resource Strain: Not on file Food Insecurity: No Food Insecurity (04/25/2020) Hunger Vital Sign Worried About Running Out of Food in the Last Year: Never true Ran Out of Food in the Last Year: Never true Transportation Needs: Not on file Physical Activity: Not on file Stress: Not on file Social Connections: Unknown (03/12/2019) Social Connection and Isolation Panel [NHANES] Frequency of Communication with Friends and Family: Not on file Frequency of Social Gatherings with Friends and Family: Once a week Attends [employer] Services: Not on file Active Member of Clubs or Organizations: Not on file Attends Club or Organization Meetings: Not on file Marital Status: Not on file Intimate Partner Violence: Not on file Depression: At risk (08/29/2023) PHQ-2 PHQ-2 Score: 20 Housing Stability: Not on file Utilities: Not on file She smokes 1 pack a day for 31 years= 31 pack-years. FAMILY HISTORY: family history includes COPD in her father; Hypertension in her father; Leukemia inher mother. Father has lung cancer HOME MEDICATIONS: Prior to Admission medications Medication Sig Start Date End Date Taking? Authorizing Provider buPROPion (Wellbutrin XL) 150 MG 24 hr tablet Take 1 (one) tablet (150 mg total) by mouth daily . 08/29/23 08/28/24 Yes Alejandro Beatty MD cholecalciferol, vitamin D3, 1,000 unit tablet Take 10 (ten) tablets (10,000 Units total) by mouth daily . 12/26/17 Yes Tona Deal MD cyanocobalamin (B-12) 1000 MCG tablet Take 1 (one) tablet (1,000 mcg total) by mouth daily as needed . Yes Jai Bobo MD DULoxetine (CYMBALTA) 60 MG capsule Take 2 (two) capsules (120 mg total) by mouth daily . 08/29/23 Yes Alejandro Beatty MD FERROUS FUMARATE (IRON ORAL) Take 27 mg by mouth daily. Yes Jai Bobo MD gabapentin (NEURONTIN) 100 MG capsule Take 1 (one) capsule (100 mg total) by mouth 3 (three) times a day . 09/19/23 Yes Alejandro Beatty MD hydrOXYzine (VISTARIL) 25 MG capsule Take 1 (one) capsule (25 mg total) by mouth 3 (three) times a day as needed for anxiety . 02/28/23 02/28/24 Yes Alejandro Beatty MD lidocaine (LIDODERM) 5 % patch Place 1 (one) patch on the skin daily Remove & Discard patch within 12 hours or as directed by MD . 09/03/23 10/03/23 Yes Tona Hi MD Linzess 145 mcg cap 07/25/23 Yes Jai Bobo MD magnesium 250 mg Tab Take by mouth daily as needed . Yes Jai Bobo MD meloxicam (MOBIC) 15 MG tablet Take 1 (one) tablet (15 mg total) by mouth daily . 08/29/23 08/28/24 Yes Alejandro Beatty MD multivitamin with minerals tablet Take 1 (one) tablet by mouth daily One a day . Yes Jai Bobo MD potassium gluconate 500 mg (83 mg) Tab Take 1 tablet by mouth daily . Yes Jai Bobo MD Allergies: Codeine REVIEW OF SYSTEMS: All systems reviewed and negative except pertinent positives and negatives documented in the History of Present Illness (HPI). PHYSICAL EXAM: BP 102/68 Temp 98.2 F (36.8 C) Objective: General: Healthy, well-appearing 53 y.o. female, in NAD HENT: NC/AT. Nares patent with minimal clear drainage, hearing grossly intact Eyes: PERRLA, 4mm bilaterally Neuro: Awake, alert, and oriented x 3; face symmetric, speech fluent Neck: Supple, full lateral rotation, No crepitus. No step off. No rash. No pain. Chest: Chest rise symmetric, respirations non-labored Cardiac:No swelling or erythema of lower extremities. Abdomen: soft, non-tender, non-distended Back: Point tenderness to left lower lumbar midline and 1-2 inches left lateral to lower lumbar midline. No rash. No step off. No crepitus. No swelling. Left SI joint tenderness. Skin: Warm and dry and intact MSK: Normal bulk and tone without spasticity or rigidity. Manual Muscle Testing Muscle Group Right Left Biceps 5 5 Triceps 5 5 Deltoid 5 5 [employer] 5 5 Hip Flexion 5 5 Knee Extension 5 4 Knee Flexion 5 4+ Dorsiflexion 5 4 Plantar Flexion 5 4 EHL 5 4 Faint foot drop on left with walking, dissipates mid walk. No antalgic gait Leans on right when sitting Straight leg raise causes pain to posterior aspect of left thigh to mid calf at 40 degrees HF, it is made worse when lowering leg. Negative straight leg raise on the right MALA testing causes left buttocks pain when testing right leg, negative MALA on left when testingleft leg. Negative thigh thrust and pelvic compressing testing No fran No babinski 2/4 and symmetric patella and achilles DTR's No ankle clonus Sensation is reduced left posterior thigh and lateral aspect of left foot, digit 3,4,5, otherwise normal sensation. DATA REVIEWED Imaging: US Chest Result Date: 09/12/2023 EXAMINATION: US CHEST HISTORY: ORDERING SYSTEM PROVIDED HISTORY: right sided lateral and posterior bulge and pain , suspect lipoma, TECHNOLOGIST PROVIDED HISTORY: Illness/Other Reason for exam: pain right upper flank; palp area right lower flank Cancer History: unknown Surgery, RadiationHistory: cholecystectomy Encounter Type: Initial Additional signs and symptoms: none ORDERING SYSTEM PROVIDED DIAGNOSIS CODES: R07.9 Right-sided chest pain D17.9 Lipoma, unspecified site COMPARISON: None TECHNIQUE: Grayscale and color imaging was performed FINDINGS: Scanning of the soft tissues the right flankregion demonstrates no discrete solid or cystic mass. No architectural distortion is noted. No discrete mass noted ultrasonographically in the right flank soft tissues regional to the patient's area of concern. Workstation ID: [id number] CT Lumbar Spine Without Contrast Result Date: 09/03/2023 EXAMINATION: CT LUMBAR SPINE WITHOUT CONTRAST HISTORY: ORDERING SYSTEM PROVIDED HISTORY: sciatica, TECHNOLOGIST PROVIDED HISTORY: Illness/Other Reason for exam: sciatica Encounter Type: Initial Additional signs and symptoms: pain ORDERING SYSTEM PROVIDED DIAGNOSIS CODES: COMPARISON: 05/16/2022 TECHNIQUE: CT examination of the lumbar spine without IV contrast. Coronal and sagittal reformations were performed. Dose reduction techniques were achieved by using automated exposure control and/or adjustment of mA and/or kV according to patient size and/or use of iterative reconstruction technique. FINDINGS: No CT evidence of acute osseous abnormality. Scattered Schmorl's nodes again seen. Osteopenia. No prevertebral soft tissue swelling. No spondylolisthesis. Severe degenerative disc disease L4-L5 and milder degenerative disc disease at other levels. Spinal canal appears mildly narrowed from L3 through L5. Apparent narrowing of bilateral lateral recess at L4-L5 due to paracentral components of disc bulge. Left paracentral disc protrusion at L5-S1 narrowing the left lateral recess. Moderate-severe right foraminal narrowing L4-L5. Moderate-severe left foraminal narrowing L4-S1. No acute findings in the visualized lower chest, abdomen, pelvis. Prior cholecystectomy. Prior gastric bypass. Stable degenerative changes compared to prior from 05/16/2022 detailed above. No acute findings. Workstation ID: [id number] XR Hip Left 2-3 Views (Routine) Result Date: 09/03/2023 EXAMINATION: XR HIP LEFT 2-3 VIEWS (ROUTINE) ADDITIONAL CLINICAL INFORMATION: hip pain COMPARISON: None. FINDINGS: AP and frogleg lateral views of the left hip were obtained. There is no evidence of fracture or dislocation. The hip joint is preserved. Unremarkable left hip. Workstation ID: [id number] documented in this [id number] Evaluation + Plan note* Assessment & Plan Note - Alejandro Beatty MD - 09/19/2023 4:13 PM ESTAssociated Problem(s): Chronic radicular lumbar pain Starting on gabapentin today 100 mg 3 times daily, along with Tylenol and meloxicam. Prednisone also given today to see if it helps with some of the inflammation and edema Referral to neurosurgery made today. If pain is persistent despite above medication regimen will consider tramadol prescription. [id number] Miscellaneous Notes* Assessment & Plan Note - Alejandro Beatty MD - 09/19/2023 4:13 PM ESTAssociated Problem(s): Chronic radicular lumbar pain Starting on gabapentin today 100 mg 3 times daily, along with Tylenol and meloxicam. Prednisone also given today to see if it helps with some of the inflammation and edema Referral to neurosurgery made today. If pain is persistent despite above medication regimen will consider tramadol prescription. * Assessment & Plan Note - Alejandro Beatty MD - 09/19/2023 4:12 PM ESTAssociated Problem(s): Cauda equina compression (HCC) Positive straight leg raising test on left side today, decreased deep tendon reflexes on exam and concern for cauda equina syndrome given loss of bowel control and symptoms of intermittent foot drop Referral on urgent basis to neurosurgery made today as well as an MRI documented in this [id number] Evaluation + Plan note* Assessment & Plan Note - Alejandro Beatty MD - 09/19/2023 4:12 PM ESTAssociated Problem(s): Cauda equina compression (HCC) Positive straight leg raising test on left side today, decreased deep tendon reflexes on exam and concern for cauda equina syndrome given loss of bowel control and symptoms of intermittent foot drop Referral on urgent basis to neurosurgery made today as well as an MRI [id number] Instructions* Patient Instructions* Alejandro Beatty MD - 09/19/2023 2:49 PM EST Problem List Items Addressed This Visit Nervous and Auditory Cauda equina compression (HCC) - Primary Relevant Medications predniSONE (DELTASONE) 20 MG tablet gabapentin (NEURONTIN) 100 MG capsule Other Relevant Orders MR Lumbar Spine Without Contrast Ambulatory referral to Neurosurgery Other Foot drop, left Claudication of lower extremity (HCC) Relevant Medications predniSONE (DELTASONE) 20 MG tablet Other Relevant Orders MR Lumbar Spine Without Contrast Ambulatory referral to Neurosurgery Chronic radicular lumbar pain Relevant Medications gabapentin (NEURONTIN) 100 MG capsule If any referrals were placed at the time of your visit please allow 2 weeks for processing. If you haven't heard from anyone within 2 weeks please contact my office so we can look into the status of your referral. If you were given any labs today please ensure they are completed according to the directions given. Once labs are completed please allow 1-2 weeks for us to receive the results, review them, and letyou know what steps, if any, are needed next. If you haven't heard from us after that please call to inquire. If labs were ordered to be done PRIOR to your next visit we will discuss the results at the time ofyour office visit. If any procedures or imaging studies were ordered that must be prior authorized please give us 2 weeks to get them approved. Once approved someone should call you to schedule them or give you a date and time that they were scheduled for. If you haven't heard anything within 2 weeks of the office visit please call the office so we can look into their status. Customer Service/Billing Questions: [phone] [facility] Assistance: [phone] or [phone] Financial Assistance: [phone] or [phone] Friday 7 am to 5 pm Friday 7 am to 5 pm Friday closed 7 am to 5 pm Friday 8 am to 2 pm documented in this [id number] History of Present illness Narrative* Alejandro Beatty MD - 09/19/2023 2:13 PM EST Chief Complaint Patient presents with Back Pain Nerve pain and arthritis went to ed on on 09/13 still not feeling better HPI: Cat Courtney is 53 years old female presenting today for follow up on depression. Patient recently had a positive Cologuard test, followed colonoscopy in 5 yrs , done 01/15/23 . Depression: Chronic currently managed on Cymbalta seemed to help with her mood , stressed with her job and her 's health. [place] anxious after knowing on the positive Cologard in September, easily aggravated and irritated since she heard about that, picking up fights with her and becoming very tearful and apologetic afterwards, symptoms happening daily and she does not like herself this way. Was stable on Cymbalta and hydroxyzine, before it got worse. No SI or HI at this time. For the past 3 month worsening mood and more anxious dealing with her father's health. Has been on Wellbutrin for the past month, unable to say if it is helping or not, mood is stable but with the pain she is having in her back unable to tell the difference. Right upper flank pain: Has been noticing for few months a bulge in the back and in certain positions a lump is noticed andpainful across the lower ribs. Sometimes hurts with jerky twisting or hugging or even sneezing. 1-2times took one of her husbands Tramadol. Ultrasound came back normal. Went to the ER on 09/03 had a low back and left hip pain worsening over 2 days , was worried that she might have a blood clot in the calf and was ruled out in the ER CT lumbar Moderate-severe right foraminal narrowing L4-L5. Moderate-severe left foraminal narrowingL4-S1. Was doing some stretches States that she had involuntary defecation twice with pain and stretching exercises. Left leg gives out every once in a while, tingling and numbness at least once a week, dropped toes.No falls, has been having calf claudications often. Past Medical History: Diagnosis Date GERD (gastroesophageal reflux disease) History of palpitations 2016 Eval in ER negative for heart with only low potassium Hormone replacement therapy (postmenopausal) Hypoglycemia Nicotine dependence Sleep disorder, shift work Past Surgical History: Procedure Laterality Date ADENOIDECTOMY 08/18/1981 APPENDECTOMY SECTION, CLASSIC 1992 and CHOLECYSTECTOMY 08/18/1997 DILATION AND CURETTAGE OF UTERUS 2 EXCISION LESION TRUNK Left 10/22/2019 Procedure: EXCISION MASS TRUNK; Surgeon: Danny Manning MD; Location: [facility] [place] OR; Service: GeneralSurgery GASTRIC BYPASS 08/18/2001 Bariatric Clinic in [place] HYSTERECTOMY 08/18/2004 MOUTH SURGERY 08/18/2000 OOPHORECTOMY TONSILLECTOMY 08/18/1981 Family History Problem Relation Age of Onset Leukemia Mother COPD Father Hypertension Father Breast cancer Neg Hx Social History Tobacco Use Smoking status: Every Day Packs/day: 1.00 Years: 20.00 Additional pack years: 0.00 Total pack years: 20.00 Types: Cigarettes Smokeless tobacco: Never Vaping Use Vaping Use: Never used Substance Use Topics Alcohol use: Yes Comment: weekly/wine and whiskey Drug use: No Review of Systems Vitals: 09/19/23 1349 BP: 100/68 BP Location: Right arm Patient Position: Sitting BP Cuff Size: Adult Pulse: 61 Resp: 16 Temp: 97.6 F (36.4 C) TempSrc: Temporal SpO2: 94% Weight: 55.2 kg (121 lb 11.2 oz) Height: 5' 1 Estimated body mass index is 23 kg/m as calculated from the following: Height as of this encounter: 5' 1. Weight as of this encounter: 55.2 kg (121 lb 11.2 oz). Physical Exam Constitutional: General: She is not in acute distress. Appearance: She is not ill-appearing. HENT: Head: Normocephalic and atraumatic. Nose: Nose normal. No congestion. Mouth/Throat: Mouth: Mucous membranes are moist. Pharynx: Oropharynx is clear. No oropharyngeal exudate or posterior oropharyngeal erythema. Eyes: General: Right eye: No discharge. Left eye: No discharge. Extraocular Movements: Extraocular movements intact. Pupils: Pupils are equal, round, and reactive to light. Pulmonary: Effort: Pulmonary effort is normal. Abdominal: General: Abdomen is flat. Palpations: Abdomen is soft. Genitourinary: General: Normal vulva. Vagina: No vaginal discharge. Musculoskeletal: General: Tenderness (Lumbar recovery L4-L5 and adjacent left paraspinal muscles) present. Normal range of motion. Cervical back: Normal range of motion and neck supple. No rigidity. No muscular tenderness. Right lower leg: No edema. Left lower leg: No edema. Comments: Positive straight leg raising test left-sided Lymphadenopathy: Cervical: No cervical adenopathy. Skin: General: Skin is warm. Findings: No erythema or rash. Neurological: General: No focal deficit present. Mental Status: She is alert and oriented to person, place, and time. Sensory: No sensory deficit. Motor: No weakness. Gait: Gait normal. Deep Tendon Reflexes: Reflexes abnormal (Left knee). Psychiatric: Mood and Affect: Mood normal. Behavior: Behavior normal. Thought Content: Thought content normal. Judgment: Judgment normal. OARRS/NARxCHECK Report Received and Assessed: No data found Date controlled substance agreement signed: No data found Date of last drug screen: No data found Functional Assessment: No data found @Exam@ PHQ9: JOSE RAMON-7 Tobacco Counseling: Ready to quit: Not Answered Counseling given: Not Answered Patient's Medications New Prescriptions GABAPENTIN (NEURONTIN) 100 MG CAPSULE Take 1 (one) capsule (100 mg total) by mouth 3 (three) times a day . PREDNISONE (DELTASONE) 20 MG TABLET Take 2 (two) tablets (40 mg total) by mouth daily for 5 days . Previous Medications BUPROPION (WELLBUTRIN XL) 150 MG 24 HR TABLET Take 1 (one) tablet (150 mg total) by mouth daily . CHOLECALCIFEROL, VITAMIN D3, 1,000 UNIT TABLET Take 10 (ten) tablets (10,000 Units total) by mouth daily . CYANOCOBALAMIN (B-12) 1000 MCG TABLET Take 1 (one) tablet (1,000 mcg total) by mouth daily as needed . DULOXETINE (CYMBALTA) 60 MG CAPSULE Take 2 (two) capsules (120 mg total) by mouth daily . FERROUS FUMARATE (IRON ORAL) Take 27 mg by mouth daily. HYDROXYZINE (VISTARIL) 25 MG CAPSULE Take 1 (one) capsule (25 mg total) by mouth 3 (three) times a day as needed for anxiety . LIDOCAINE (LIDODERM) 5 % PATCH Place 1 (one) patch on the skin daily Remove & Discard patch within 12 hours or as directed by MD . MAGNESIUM 250 MG TAB Take by mouth daily as needed . MELOXICAM (MOBIC) 15 MG TABLET Take 1 (one) tablet (15 mg total) by mouth daily . MULTIVITAMIN WITH MINERALS TABLET Take 1 (one) tablet by mouth daily One a day . POTASSIUM GLUCONATE 500 MG (83 MG) TAB Take 1 tablet by mouth daily . Modified Medications No medications on file Discontinued Medications No medications on file Health Maintenance Due Topic Date Due Low-dose CT Lung Cancer Screen Never done COVID-19 Vaccine ( season) 2023 Assessment & Plan Problem List Items Addressed This Visit Nervous and Auditory Cauda equina compression (HCC) - Primary Positive straight leg raising test on left side today, decreased deep tendon reflexes on exam and concern for cauda equina syndrome given loss of bowel control and symptoms of intermittent foot drop Referral on urgent basis to neurosurgery made today as well as an MRI Relevant Medications predniSONE (DELTASONE) 20 MG tablet gabapentin (NEURONTIN) 100 MG capsule Other Relevant Orders MR Lumbar Spine Without Contrast Ambulatory referral to Neurosurgery Other Foot drop, left Claudication of lower extremity (HCC) Relevant Medications predniSONE (DELTASONE) 20 MG tablet Other Relevant Orders MR Lumbar Spine Without Contrast Ambulatory referral to Neurosurgery Chronic radicular lumbar pain Starting on gabapentin today 100 mg 3 times daily, along with Tylenol and meloxicam. Prednisone also given today to see if it helps with some of the inflammation and edema Referral to neurosurgery made today. If pain is persistent despite above medication regimen will consider tramadol prescription. Relevant Medications gabapentin (NEURONTIN) 100 MG capsule No follow-ups on file. My ongoing relationship with Cat Acuña requires continued responsibility and cognitive effort ofbeing the focal point for all services related to chronic condition(s). ALEJANDRO BEATTY MD [facility] [address] [facility] [id number] Dept: [phone] 09/17/2019 12:00 PM 05/17/2022 5:48 PM 08/29/2023 8:11 AM Depression Screening Little interest or pleasure in doing things 1 0 3 Feeling down, depressed, or hopeless 1 0 3 PHQ-2 Total Score 2 0 6 Trouble falling or staying asleep, or sleeping too much 0 2 Feeling tired or having little energy 1 2 Poor appetite or overeating 0 3 Feeling bad about yourself - or that you are a failure or have let yourself or your family down 0 2 Trouble concentrating on things, such as reading the newspaper or watching television 1 3 Moving or speaking so slowly that other people could have noticed. Or the opposite - being so fidgety or restless that you have been moving around a lot more than usual 0 2 Thoughts that you would be better off , or of hurting yourself in some way 0 0 PHQ-9 Total Score 4 20 If you checked off any problems, how difficult have these problems made it for you to do your work,take care of things at home, or get along with other people? Somewhat difficult Very difficult documented in this [id number] Evaluation + Plan note* Assessment & Plan Note - Alejandro Beatty MD - 08/29/2023 9:21 PM ESTAssociated Problem(s): Nicotine dependence Still smoking , adding wellbutrin as it might help with decreased cravings [id number] Miscellaneous Notes* Assessment & Plan Note - Alejandro Beatty MD - 08/29/2023 9:21 PM ESTAssociated Problem(s): Nicotine dependence Still smoking , adding wellbutrin as it might help with decreased cravings * Assessment & Plan Note - Alejandro Beatty MD - 08/29/2023 9:19 PM ESTAssociated Problem(s): Lipoma of torso Suspecting lipoma , will proceed with US to determine its extention and evaluate with surgery giventhat it is painful * Assessment & Plan Note - Alejandro Beatty MD - 08/29/2023 8:36 AM ESTAssociated Problem(s): Mild major depression (HCC) Continue on Cymbalta 120 mg adding Wellbutrin 150 mg in AM Hydroxyzine as needed for anxiety Considering counseling Behavioral Health counseling: [facility] [place] [email or web address] [facility]– [email or web address] [email or web address]/ [place] [address] [facility] [email or web address]/ [place] Location: [address] [place] [address] [facility] [email or web address] hospital for the chronically [email or web address]/ [place] Location: [address] [facility] [[email or web address]] [address] , [place] [address] [place] Location: [address] , [place] [address] 24 Hour Crisis: Crisis Text Line: Text 4HOPE to 088449 Rape Crisis/Domestic Violence: documented in this [id number] Evaluation + Plan note* Assessment & Plan Note - Alejandro Beatty MD - 08/29/2023 9:19 PM ESTAssociated Problem(s): Lipoma of torso Suspecting lipoma , will proceed with US to determine its extention and evaluate with surgery giventhat it is painful [id number] Instructions* Patient Instructions* Alejandro Beatty MD - 08/29/2023 8:50 AM EST Problem List Items Addressed This Visit Other Mild major depression (HCC) - Primary Continue on Cymbalta 120 mg adding Wellbutrin 150 mg in AM Hydroxyzine as needed for anxiety Considering counseling Behavioral Health counseling: [facility] [place] https://www.columbiaEagle Hill Explorationacutecare health systemOrbital Insight, Inc..com/ [address], [place], [place] [address] [facility] [email or web address]/ [place] Location: [address] [place], [facility] [email or web address]/ [place] Location: [address] [facility] [[email or web address]] [address] , [facility] [place] Location: [address] , [place] [address] 24 Hour Crisis: Crisis Text Line: Text 8JYWK zg [id number] Rape Crisis/Domestic Violence: Relevant Medications buPROPion (Wellbutrin XL) 150 MG 24 hr tablet DULoxetine (CYMBALTA) 60 MG capsule Anxiety Relevant Medications DULoxetine (CYMBALTA) 60 MG capsule Other Visit Diagnoses Right-sided chest pain Relevant Medications meloxicam (MOBIC) 15 MG tablet Other Relevant Orders US Chest Ambulatory referral to General Surgery Lipoma, unspecified site Relevant Medications meloxicam (MOBIC) 15 MG tablet Other Relevant Orders US Chest Ambulatory referral to General Surgery If any referrals were placed at the time of your visit please allow 2 weeks for processing. If you haven't heard from anyone within 2 weeks please contact my office so we can look into the status of your referral. If you were given any labs today please ensure they are completed according to the directions given. Once labs are completed please allow 1-2 weeks for us to receive the results, review them, and letyou know what steps, if any, are needed next. If you haven't heard from us after that please call to inquire. If labs were ordered to be done PRIOR to your next visit we will discuss the results at the time ofyour office visit. If any procedures or imaging studies were ordered that must be prior authorized please give us 2 weeks to get them approved. Once approved someone should call you to schedule them or give you a date and time that they were scheduled for. If you haven't heard anything within 2 weeks of the office visit please call the office so we can look into their status. Customer Service/Billing Questions: [phone] [facility] Assistance: [phone] or [phone] Financial Assistance: [phone] or [phone] Friday 7 am to 5 pm Friday 7 am to 5 pm Friday 7 am to 5 pm Friday 8 am to 2 pm documented in this [id number] Evaluation + Plan note* Assessment & Plan Note - Alejandro Beatty MD - 08/29/2023 8:36 AM ESTAssociated Problem(s): Mild major depression (HCC) Continue on Cymbalta 120 mg adding Wellbutrin 150 mg in AM Hydroxyzine as needed for anxiety Considering counseling Behavioral Health counseling: [facility] [place] https://www.columbiaQuest Resource Holding CorporationrBaker Oil & Gasacutecare health systemOrbital Insight, Inc..com/ [address] [place] [address] [facility] [email or web address]/ [place] Location: [address] [place] [id number] [facility] https://www.Mapbarmiddletown emergency departmentFlocksistersville general hospitalFuGen Solutions/ [place] Location: [address], [facility] [[email or web address]] [address] [place] [id number] [place] Location: [address] [place] [address] 24 Hour Crisis: Crisis Text Line: Text 4HOPE to 864955 Rape Crisis/Domestic Violence: [id number] History of Present illness Narrative* Alejandro Beatty MD - 08/29/2023 8:06 AM EST Chief Complaint Patient presents with Follow-up 6 month f/u-withdrawing from life- lump on right side of chest HPI: Cat Courtney is 53 years old female presenting today for follow up on depression. Patient recently had a positive Cologuard test, followed colonoscopy in 5 yrs , done 01/15/23. Depression: Chronic currently managed on Cymbalta seemed to help with her mood , stressed with her job and her 's health. [place] anxious after knowing on the positive Cologard in September, easily aggravated and irritated since she heard about that, picking up fights with her and becoming very tearful and apologetic afterwards, symptoms happening daily and she does not like herself this way. Was stable on Cymbalta and hydroxyzine, before it got worse. No SI or HI at this time. For the past 3 month worsening mood and more anxious dealing with her father's health. Right upper flank pain: Has been noticing for few months a bulge in the back and in certain positions a lump is noticed andpainful across the lower ribs. Sometimes hurts with jerky twisting or hugging or even sneezing. 1-2times took one of her husbands Tramadol. Past Medical History: Diagnosis Date GERD (gastroesophageal reflux disease) History of palpitations 2016 Eval in ER negative for heart with only low potassium Hormone replacement therapy (postmenopausal) Hypoglycemia Nicotine dependence Sleep disorder, shift work Past Surgical History: Procedure Laterality Date ADENOIDECTOMY 08/18/1981 APPENDECTOMY SECTION, CLASSIC 1992 and 94 CHOLECYSTECTOMY 08/18/1997 DILATION AND CURETTAGE OF UTERUS 2 EXCISION LESION TRUNK Left 10/22/2019 Procedure: EXCISION MASS TRUNK; Surgeon: Danny Manning MD; Location: [facility] [place]; Service: GeneralSurgery GASTRIC BYPASS 08/18/2001 Bariatric Clinic in [place] HYSTERECTOMY 08/18/2004 MOUTH SURGERY 08/18/2000 OOPHORECTOMY TONSILLECTOMY 08/18/1981 Family History Problem Relation Age of Onset Leukemia Mother COPD Father Hypertension Father Breast cancer Neg Hx Social History Tobacco Use Smoking status: Every Day Packs/day: 0.50 Years: 20.00 Additional pack years: 0.00 Total pack years: 10.00 Types: Cigarettes Smokeless tobacco: Never Vaping Use Vaping Use: Never used Substance Use Topics Alcohol use: Yes Comment: weekly/wine and whiskey Drug use: No Review of Systems Vitals: 08/29/23 0801 BP: 104/75 BP Location: Right arm Patient Position: Sitting BP Cuff Size: Adult Pulse: 88 Resp: 16 Temp: 98.2 F (36.8 C) TempSrc: Temporal SpO2: 98% Weight: 52.6 kg (116 lb) Height: 5' 1 Estimated body mass index is 21.92 kg/m as calculated from the following: Height as of this encounter: 5' 1. Weight as of this encounter: 52.6 kg (116 lb). Physical Exam Constitutional: General: She is not in acute distress. Appearance: She is not ill-appearing. HENT: Head: Normocephalic and atraumatic. Nose: Nose normal. No congestion. Mouth/Throat: Mouth: Mucous membranes are moist. Pharynx: Oropharynx is clear. No oropharyngeal exudate or posterior oropharyngeal erythema. Eyes: General: Right eye: No discharge. Left eye: No discharge. Extraocular Movements: Extraocular movements intact. Pupils: Pupils are equal, round, and reactive to light. Pulmonary: Effort: Pulmonary effort is normal. Abdominal: General: Abdomen is flat. Palpations: Abdomen is soft. Genitourinary: General: Normal vulva. Vagina: No vaginal discharge. Musculoskeletal: General: No tenderness. Normal range of motion. Cervical back: Normal range of motion and neck supple. No rigidity. No muscular tenderness. Right lower leg: No edema. Left lower leg: No edema. Lymphadenopathy: Cervical: No cervical adenopathy. Skin: General: Skin is warm. Findings: No erythema or rash. Neurological: General: No focal deficit present. Mental Status: She is alert and oriented to person, place, and time. Sensory: No sensory deficit. Motor: No weakness. Gait: Gait normal. Psychiatric: Mood and Affect: Mood normal. Behavior: Behavior normal. Thought Content: Thought content normal. Judgment: Judgment normal. OARRS/NARxCHECK Report Received and Assessed: No data found Date controlled substance agreement signed: No data found Date of last drug screen: No data found Functional Assessment: No data found @Exam@ PHQ9: Over the last 2 weeks, how often have you been bothered by any of the following problems? Little interest or pleasure in doing things: Nearly every day Feeling down, depressed, or hopeless: Nearly every day PHQ-2 Total Score: 6 Trouble falling or staying asleep, or sleeping too much: More than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 Medications varicella-zoster gE, diluent + powder, (SHINGRIX KIT) 50 mcg/0.5 mL injection pneumococcal conj. 20-valent (PREVNAR 20) 0.5 mL vaccine Other Relevant Orders Varicella-zoster vaccine (Shingrix) IM vaccine Pneumococcal conjugate vaccine 20-valent Return in about 6 months (around 08/31/2023) for Follow Up. ALEJANDRO BEATTY MD [facility] [address] [facility] [id number] Dept: [phone] documented in this [id number] Procedure [facility]05-31-2023 Procedure [facility]03-14-2023 Evaluation + Plan note* Assessment & Plan Note - Alejandro Beatty MD - 10/29/2022 5:18 PM EDTAssociated Problem(s): Anxiety Worsening recently with increased stressors as mentioned in HPI. Discussed possibility of starting on hydroxyzine which she was agreeable to on as-needed basis. If it is not helping she is willing to try BuSpar. Continue to monitor [id number] Miscellaneous Notes* Assessment & Plan Note - Alejandro Beatty MD - 10/29/2022 5:18 PM EDTAssociated Problem(s): Anxiety Worsening recently with increased stressors as mentioned in HPI. Discussed possibility of starting on hydroxyzine which she was agreeable to on as-needed basis. If it is not helping she is willing to try BuSpar. Continue to monitor * Assessment & Plan Note - Alejandro Beatty MD - 10/29/2022 5:17 PM EDTAssociated Problem(s): Mild major depression (HCC) Worsening along with increased anxiety, most likely situational with increased stress and fear fromserious results on colon cancer screening. Cymbalta is increased today to 120 mg to see if it helps with her symptoms. Treating anxiety as needed and discussed in that section. I offered patient support, no concern for SI or HI at this time. documented in this [id number] Evaluation + Plan note* Assessment & Plan Note - Alejandro Beatty MD - 10/29/2022 5:17 PM EDTAssociated Problem(s): Mild major depression (HCC) Worsening along with increased anxiety, most likely situational with increased stress and fear fromserious results on colon cancer screening. Cymbalta is increased today to 120 mg to see if it helps with her symptoms. Treating anxiety as needed and discussed in that section. I offered patient support, no concern for SI or HI at this time. [id number] History of Present illness Narrative* Alejandro Beatty MD - 10/29/2022 3:43 PM EDT Telephone Visit Via Phone Call [facility] [address] [facility] [address] [facility] [id number] Telephone Visit [facility] 10/29/2022 Alejandro Beatty MD Provider Location: [facility] [place], [place] Patient Location Quotation Clerk: None Patient Location: Patient's Home Patient: Cat Acuña Date of : 1970 (52 y.o. female) PCP: Alejandro Beatty MD I discussed risks, benefits and alternatives of a telephone visit telemedicine consultation with the patient (and any accompanying persons) including the risks that the patient's personal health details and medical records will be discussed over real-time, synchronous, interactive audio technology,the visit will not be recorded without the express consent of both the provider and the patient, and that there are inherent diagnostic limitations compared to [id number] evaluations. We elected toproceed with the telephone visit telemedicine consultation. HPI Cat Courtney is 52 years old female presenting today for concerns of increased anxiety Patient recently had a positive Cologuard test for which she needs to go to GI for further evaluation and colonoscopy to rule out colon cancer. Depression: Chronic currently managed on Cymbalta 90 mg seemed to help with her mood , stressed with her job and her 's health. [place] anxious after knowing on the positive Cologard in September, easily aggravated and irritated since she heard about that, picking up fights with her and becoming very tearful and apologetic afterwards, symptoms happening daily and she does not like herself this way. No counseling and doesn't believe she needs it at that time. Has low energy in general but otherwise feels ok. No SI or HI at this time. The following portions of the patient's history were reviewed and updated as appropriate: allergies, current medications, past family history, past medical history, past social history, past surgicalhistory, and problem list. Review of Systems Patient's Medications New Prescriptions HYDROXYZINE (VISTARIL) 25 MG CAPSULE Take 1 (one) capsule (25 mg total) by mouth 3 (three) times a day as needed for anxiety . Previous Medications CHOLECALCIFEROL, VITAMIN D3, 1,000 UNIT TABLET Take 10 (ten) tablets (10,000 Units total) by mouth daily . CYANOCOBALAMIN (B-12) 1000 MCG TABLET Take 1 (one) tablet (1,000 mcg total) by mouth daily as needed . FERROUS FUMARATE (IRON ORAL) Take 27 mg by mouth daily. MAGNESIUM 250 MG TAB Take by mouth daily as needed . MULTIVITAMIN WITH MINERALS TABLET Take 1 (one) tablet by mouth daily One a day . POTASSIUM GLUCONATE 500 MG (83 MG) TAB Take 1 tablet by mouth daily . Modified Medications Modified Medication Previous Medication DULOXETINE (CYMBALTA) 60 MG CAPSULE DULoxetine (CYMBALTA) 60 MG capsule Take 2 (two) capsules (120 mg total) by mouth daily . Take 1 (one) capsule (60 mg total) by mouth daily . Discontinued Medications DULOXETINE (CYMBALTA) 30 MG CAPSULE Take 1 (one) capsule (30 mg total) by mouth daily . Assessment/Plan: Problem List Items Addressed This Visit Other Mild major depression (HCC) - Primary Worsening along with increased anxiety, most likely situational with increased stress and fear fromserious results on colon cancer screening. Cymbalta is increased today to 120 mg to see if it helps with her symptoms. Treating anxiety as needed and discussed in that section. I offered patient support, no concern for SI or HI at this time. Relevant Medications DULoxetine (CYMBALTA) 60 MG capsule Anxiety Worsening recently with increased stressors as mentioned in HPI. Discussed possibility of starting on hydroxyzine which she was agreeable to on as-needed basis. If it is not helping she is willing to try BuSpar. Continue to monitor Relevant Medications DULoxetine (CYMBALTA) 60 MG capsule hydrOXYzine (VISTARIL) 25 MG capsule I have spent 15 minutes with the patient reviewing the HPI and Plan of Care. ALEJANDRO BEATTY MD Family Medicine Physician [place] [phone] documented in this [id number] Note* Addendum Note - Alejandro Beatty MD - 10/18/2022 11:14 PM ESTAddended by: ALEJANDRO BEATTY on: 10/18/2022 11:14 PM Modules accepted: Orders [id number] Miscellaneous Notes* Addendum Note - Alejandro Beatty MD - 10/18/2022 11:14 PM ESTAddended by: ALEJANDRO BEATTY on: 10/18/2022 11:14 PM Modules accepted: Orders documented in this [id number] Evaluation + Plan note* Assessment & Plan Note - Alejandro Beatty MD - 07/05/2022 9:42 AM ESTAssociated Problem(s): Insomnia Better sleep hygiene, no third shift working, has good bedtime regimen. Using trazodone 50 to 12.5 mg as needed. [id number] Miscellaneous Notes* Assessment & Plan Note - Alejandro Beatty MD - 07/05/2022 9:42 AM ESTAssociated Problem(s): Insomnia Better sleep hygiene, no third shift working, has good bedtime regimen. Using trazodone 50 to 12.5 mg as needed. * Assessment & Plan Note - Alejandro Beatty MD - 07/05/2022 9:40 AM ESTAssociated Problem(s): Mild major depression (HCC) Currently feels fairly stable on Cymbalta 90 mg. Would benefit from possibly adding Wellbutrin in the future to help with her energy level and uplifting of her mood with depression, could also benefit her smoking cessation. Follow-up and 3 to 6 months * Assessment & Plan Note - Alejandro Beatty MD - 07/05/2022 8:46 AM ESTAssociated Problem(s): Nicotine dependence [id number] Quit-go online inhaler Considering lozenges with wellbutrin documented in this [id number] Evaluation + Plan note* Assessment & Plan Note - Alejandro Beatty MD - 07/05/2022 9:40 AM ESTAssociated Problem(s): Mild major depression (HCC) Currently feels fairly stable on Cymbalta 90 mg. Would benefit from possibly adding Wellbutrin in the future to help with her energy level and uplifting of her mood with depression, could also benefit her smoking cessation. Follow-up and 3 to 6 months [id number] Evaluation + Plan note* Assessment & Plan Note - Alejandro Beatty MD - 07/05/2022 8:46 AM ESTAssociated Problem(s): Nicotine dependence [id number] Quit-go online inhaler Considering lozenges with wellbutrin [id number] History of Present illness Narrative* Alejandro Beatty MD - 07/05/2022 8:20 AM EST Chief Complaint Patient presents with Follow-up HPI: Cat Acuña is a 52 y.[facility]. [facility] of Sandi Renetta. gastric bypass 20 years ago, GERD, tobacco use presented from outside hospital with enterocolitis Hepatic mass on CT Ultrasound of RUQ done and it was completely normal. elevated liver enzymes is increase in Cymbalta. She tried to take a lower dose of the Cymbalta and felt it really affected her mental health so she went back to the [address] abdomen on admission: Left renal vein compression between aorta and superior mesenteric artery with left abdominal varices; left hepatic mass and hepatomegaly Hepatic MRI Multiple hepatic nodules, as described above, compatible with cavernous hemangiomata No need for liver biopsy Nicotine dependence: Use to smoke 2 ppd of cigarettes currently around 1 PPD. She tried nicotine patches in the past and it caused skin issues and make her feel horrible so she stopped. She states the Chantix caused vivid dreams so she stopped that medication. Insomnia: previously on Trazodone 100 mg daily to help her sleep. Currently weaning off of the Trazodone at 25 mg to 12.5 mg. She will call if she is having any issues and taking a Mg supplement. Depression: Chronic currently managed on cymbalta 90 mg seemed to help with her mood , stressed with her job and her 's health. No counseling and doesn't believe she needs it at that time. Has low energy in general but otherwise feels ok. No SI or HI at this time. Past Medical History: Diagnosis Date GERD (gastroesophageal reflux disease) History of palpitations 2016 Eval in ER negative for heart with only low potassium Hypoglycemia Nicotine dependence Sleep disorder, shift work Past Surgical History: Procedure Laterality Date ADENOIDECTOMY 08/18/1981 APPENDECTOMY SECTION, CLASSIC 1992 and CHOLECYSTECTOMY 08/18/1997 DILATION AND CURETTAGE OF UTERUS 2 EXCISION LESION TRUNK Left 10/22/2019 Procedure: EXCISION MASS TRUNK; Surgeon: Danny Manning MD; Location: [facility] [place] OR; Service: GeneralSurgery GASTRIC BYPASS 08/18/2001 Bariatric Clinic in [place] HYSTERECTOMY 08/18/2004 MOUTH SURGERY 08/18/2000 TONSILLECTOMY 08/18/1981 Family History Problem Relation Age of Onset Leukemia Mother COPD Father Hypertension Father Social History Tobacco Use Smoking status: Every Day Packs/day: 0.50 Years: 20.00 Pack years: 10.00 Types: Cigarettes Smokeless tobacco: Never Vaping Use Vaping Use: Never used Substance Use Topics Alcohol use: Yes Comment: weekly/wine and whiskey Drug use: No Review of Systems Vitals: 07/05/22 0816 BP: 106/69 BP Location: Right arm Patient Position: Sitting BP Cuff Size: Adult Pulse: 80 Resp: 16 Temp: 98 F (36.7 C) TempSrc: Temporal SpO2: 98% Weight: 54.4 kg (120 lb) Height: 5' 1 Estimated body mass index is 22.67 kg/m as calculated from the following: Height as of this encounter: 5' 1. Weight as of this encounter: 54.4 kg (120 lb). Physical Exam Constitutional: General: She is not in acute distress. Appearance: She is not ill-appearing. HENT: Head: Normocephalic and atraumatic. Right Ear: Tympanic membrane, ear canal and external ear normal. Left Ear: Tympanic membrane, ear canal and external ear normal. Nose: Nose normal. Mouth/Throat: Mouth: Mucous membranes are moist. Pharynx: Oropharynx is clear. No oropharyngeal exudate or posterior oropharyngeal erythema. Eyes: Extraocular Movements: Extraocular movements intact. Conjunctiva/sclera: Conjunctivae normal. Pupils: Pupils are equal, round, and reactive to light. Cardiovascular: Rate and Rhythm: Normal rate and regular rhythm. Pulses: Normal pulses. Heart sounds: Normal heart sounds. No murmur heard. No gallop. Pulmonary: Effort: Pulmonary effort is normal. Breath sounds: Normal breath sounds. No wheezing, rhonchi or rales. Chest: Chest wall: No tenderness. Abdominal: General: Abdomen is flat. Bowel sounds are normal. There is no distension. Palpations: Abdomen is soft. There is no mass. Tenderness: There is no abdominal tenderness. There is no right CVA tenderness, left CVA tenderness, guarding or rebound. Musculoskeletal: General: No tenderness. Normal range of motion. Cervical back: Normal range of motion and neck supple. No rigidity. No muscular tenderness. Right lower leg: No edema. Left lower leg: No edema. Lymphadenopathy: Cervical: No cervical adenopathy. Skin: General: Skin is warm. Findings: No erythema or rash. Neurological: General: No focal deficit present. Mental Status: She is alert and oriented to person, place, and time. Sensory: No sensory deficit. Motor: No weakness. Gait: Gait normal. Psychiatric: Mood and Affect: Mood normal. Behavior: Behavior normal. Thought Content: Thought content normal. Judgment: Judgment normal. OARRS/NARxCHECK Report Received and Assessed: No data found Date controlled substance agreement signed: No data found Date of last drug screen: No data found Functional Assessment: No data found @Exam@ PHQ9: JOSE RAMON-7 Tobacco Counseling: Ready to quit: Not Answered Counseling given: Not Answered Patient's Medications New Prescriptions No medications on file Previous Medications CHOLECALCIFEROL, VITAMIN D3, 1,000 UNIT TABLET Take 10 (ten) tablets (10,000 Units total) by mouth daily . CYANOCOBALAMIN (B-12) 1000 MCG TABLET Take 1 (one) tablet (1,000 mcg total) by mouth daily as needed . DULOXETINE (CYMBALTA) 30 MG CAPSULE Take 1 (one) capsule (30 mg total) by mouth daily . DULOXETINE (CYMBALTA) 60 MG CAPSULE Take 1 (one) capsule (60 mg total) by mouth daily . FERROUS FUMARATE (IRON ORAL) Take 27 mg by mouth daily. MAGNESIUM 250 MG TAB Take by mouth daily as needed . MULTIVITAMIN WITH MINERALS TABLET Take 1 (one) tablet by mouth daily One a day . POTASSIUM GLUCONATE 500 MG (83 MG) TAB Take 1 tablet by mouth daily . VARICELLA-ZOSTER GE, DILUENT + POWDER, (SHINGRIX KIT) 50 MCG/0.5 ML INJECTION Sign this order in conjunction with immunization order to satisfy ID Board of Pharmacy Positive ID requirements for immunization orders . Modified Medications No medications on file Discontinued Medications No medications on file Health Maintenance Due Topic Date Due Colorectal Cancer Screening/Monitoring Never done Pap Smear 02/18/2020 COVID-19 Vaccine (4 - Booster for Moderna series) 10/25/2021 Mammogram 06/29/2022 Pneumococcal Vaccine: Ped or At-Risk (2 - PPSV23 if available, else PCV20) 06/15/2022 Assessment & Plan Problem List Items Addressed This Visit Other Nicotine dependence 1- [id number] Quit-go online inhaler Considering lozenges with wellbutrin Elevated liver enzymes Relevant Orders Comprehensive Metabolic Panel Mild major depression (HCC) Currently feels fairly stable on Cymbalta 90 mg. Would benefit from possibly adding Wellbutrin in the future to help with her energy level and uplifting of her mood with depression, could also benefit her smoking cessation. Follow-up and 3 to 6 months Anxiety Insomnia Better sleep hygiene, no third shift working, has good bedtime regimen. Using trazodone 50 to 12.5 mg as needed. Other Visit Diagnoses Encounter for screening for malignant neoplasm of breast, unspecified screening modality - Primary Relevant Orders Mammography Screening Oren Bilateral Colon cancer screening Relevant Orders Ambulatory referral to Gastroenterology Encounter for immunization Relevant Medications varicella-zoster gE, diluent + powder, (SHINGRIX KIT) 50 mcg/0.5 mL injection Healthcare maintenance Relevant Orders TSH with Reflex Free T4 Hemoglobin A1c Lipid Panel CBC and Differential Return in about 6 months (around 01/02/2023) for follow up with pap , 40 mins for that visit . ALEJANDRO BEATTY MD [facility] [address] [facility] [address] [facility] [id number] Dept: [phone] documented in this [id number] Note* Plan of Care - Janice Howard RN - 05/20/2022 2:37 PM EDT Problem: Actual or potential alteration in health Goal: Absence of healthcare acquired conditions Outcome: Completed Goal: Knowledge of Interdisciplinary Plan of Care Outcome: Completed Goal: Knowledge of Enviroment Outcome: Completed Problem: Pain Goal: Manage acute pain Outcome: Completed Goal: Manage chronic pain Outcome: Completed Goal: Reduced pain sensation Outcome: Completed Goal: Achievement of comfort function goal Outcome: Completed [id number] Miscellaneous Notes* Plan of Care - Janice Howard RN - 05/20/2022 2:37 PM EDT Problem: Actual or potential alteration in health Goal: Absence of healthcare acquired conditions Outcome: Completed Goal: Knowledge of Interdisciplinary Plan of Care Outcome: Completed Goal: Knowledge of Enviroment Outcome: Completed Problem: Pain Goal: Manage acute pain Outcome: Completed Goal: Manage chronic pain Outcome: Completed Goal: Reduced pain sensation Outcome: Completed Goal: Achievement of comfort function goal Outcome: Completed * Utilization Review - Juana Rodrgiez RN - 05/18/2022 6:48 PM EDT [facility] Utilization Review Notes DIRECT ADMISSION TEMPLATE HISTORY OF PRESENT ILLNESS: Pt is a 52 y.o. female w/ PMH of gastric bypass 20 years ago, GERD, tobacco use presented from outside hospital with enterocolitis. Pt reports having watery diarrhea sinceFriday (05/14/22) evening. She reports abdominal pain and some nausea but no vomiting. She has not been able to have po intake since Friday (05/14/22) She does have chickens and rabbits but reports she washes her hands regularly. She felt she was becoming dehydrated which prompted her to present [facility] ED. VITAL SIGNS: 05/18/22 08:25:21 98.1 (36.7) 66 -- 94/54 Abnormal 97% RA 05/18/22 0709 -- -- 16 05/17/22 17:27:04 97.9 (36.6) 65 16 111/70 97% EKG: n/a WEIGHT: 54.43 kg LABS: (Abnormal / Relevant): 05/17/22 18:41 Sodium: 138 Potassium: 3.7 Chloride: 108 Bicarbonate: 23 Anion Gap: 11 Glucose: 66 BUN: 6 (L) Creatinine: 0.41 eGFR: 120 BUN/Creatinine Ratio: 14.6 Total Protein: 5.5 (L) Albumin: 2.7 (L) 2.7 (L) Calcium: 8.5 Bilirubin, Direct: <0.1 ALK PHOS: 72 AST: 19 ALT: 40 Total Bilirubin: 0.3 Magnesium: 1.8 Phosphorus: 2.1 (L) WBC: 6.91 RBCs: 4.08 Hemoglobin: 12.9 Hematocrit: 40.4 IMAGING: (Abnormal / Relevant): CT Abd/Pelvis- 1. Findings suggestive of a diffuse infectious or inflammatory enterocolitis. 2. Status post gastric bypass with a short segment intussusception at the jejunojejunostomy. There is no associated small-bowel obstruction. This may be transient in nature, but consider follow-up small-bowel series or CT enterography if clinically indicated. 3. Compression of the left renal vein between the aorta and superior mesenteric artery with left abdominal varices. This appearance can be seen with nutcracker syndrome in the appropriate clinical setting, such as flank pain and hematuria or proteinuria. This can be associated with recent substantial weight loss. 4. Left hepatic mass, which is indeterminate. Recommend followup hepatic MRI. Hepatomegaly is also noted. Patient is status post cholecystectomy with associated biliary ductal dilatation. 5. Subcutaneous edema in the body wall. DX / ASSESSMENT / PLAN: 05/17/22- Hospitalist H&P- Enterocolitis Short segment intussusception at the jejunojejunostomy with out SBO IV hydration with LR at 100 mL/h N.p.o. with sips of water and ice chips Consult general surgery Pain management with as needed morphine As needed Zofran Stool PCR sent for infectious causes Will hold on antibiotics pending stool PCR given stability of patient and possibility of HUS with infection with E. 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 intake Tobacco use NRT ordered 05/18/22- Surgery Brief Note- Diarrhea persists Stool study positive for Campylobacter Blood pressure (!) 94/54, pulse 66, temperature 98.1 F (36.7 C), temperature source Oral, resp. rate 16, height 5' 1, weight 54.4 kg (120 lb), SpO2 97 %, not currently . Abdomen softly distended, nontender to palpation all 4 quadrants no specific guarding or rigidity Plan Awaiting MRI abdomen Okay for diet from surgical standpoint May need biopsy pending MRI results Antibiotics per primary service for Campylobacter enteritis MEDS / ORDERS: VS q8hrs, NPO-> clear liquid diet (none documented yet), consult General Surgery. IV Mg Sulfate 2g X1, IV K Phosphate 20mmol X1, IV Morphine 2mg q4hrs prn X5, IV Zofran 4mg q6hrs prn X3. azithromycin (ZITHROMAX) 500 mg in sodium chloride (NS) 0.9% 250 mL (vialmate) 500 mg, Intravenous,250 mL/hr, Every 24 hours lactated Ringers infusion 100 mL/hr, Intravenous, Continuous DISPO: TBD. * Assessment & Plan Note - Belle Vera, YURI - 05/17/2022 8:35 PM EDT Associated Problem(s): Enterocolitis . * Plan of Care - Jorge Vera RN - 05/17/2022 5:45 PM EDT Problem: Actual or potential alteration in health Goal: Absence of healthcare acquired conditions Outcome: Partially Met Goal: Knowledge of Interdisciplinary Plan of Care Outcome: Partially Met Goal: Knowledge of Enviroment Outcome: Partially Met Problem: Pain Goal: Manage acute pain Outcome: Not Met Goal: Manage chronic pain Outcome: Partially Met Goal: Reduced pain sensation Outcome: Partially Met Goal: Achievement of comfort function goal Outcome: Partially Met documented in this [id number] Hospital course Narrative* Dian Swenson CNP - 05/20/2022 12:52 PM EDT Images from the original note were not included. [facility] [place] Cat Acuña Admitted: 05/17/2022 Discharge Date: 05/20/22 PCP Handoff Recommended Outpatient Testing None Results Pending At Discharge None Clinical Summary Cat Acuña is a 52 y.o. female patient of Alejandro Beatty MD with history of gastricbypass 20 years ago, GERD, tobacco use presented from outside hospital with enterocolitis. Patient reports having watery diarrhea since Friday evening. She denies any fevers or chills. She reports abdominal pain and some nausea but no vomiting. She has not been able to have p.o. intake since Friday. She denies any recent travel or swimming in bodies of water. She does have chickens andrabbits but reports she washes her hands regularly. She denies any blood in her stool. Her only medications are vitamins, duloxetine, trazodone. She has never had an episode like this before. She felt she was becoming dehydrated which prompted her to present to the ED. Campylobacter enterocolitis CT abdomen 05/16: Findings suggestive of a diffuse infectious or inflammatory enterocolitis; short segment intussusception at the jejunojejunostomy without SBO Stool PCR +Campylobacter Started azithromycin 05/18 given stool + Campylobacter Advancing diet to regular 05/19 Will DC IV fluids PRN anti-emetics PRN morphine for pain Appreciate surgery following Finish azithromax outpt She is feeling well and taking food well Hepatic mass on CT Per CT abdomen on admission: Left renal vein compression between aorta and superior mesenteric artery with left abdominal varices; left hepatic mass and hepatomegaly Await results of dedicated hepatic MRI No need for liver biopsy Tobacco use NRT ordered Discharge Medications Discharge Medications New Medications Details azithromycin 500 MG tablet Commonly known as: Zithromax Take 1 (one) tablet (500 mg total) by mouth daily Take 1 tablet daily for 3 days. for 3 days . Quantity: 3 tablet Medications To Continue Details cholecalciferol (vitamin D3) 1,000 unit tablet Take 10,000 Units by mouth daily . * DULoxetine 60 MG capsule Commonly known as: CYMBALTA Take 1 (one) capsule (60 mg total) by mouth daily . Quantity: 90 capsule * DULoxetine 30 MG capsule Commonly known as: CYMBALTA Take 1 (one) capsule (30 mg total) by mouth daily . Quantity: 90 capsule IRON ORAL Take 27 mg by mouth daily. magnesium 250 mg Tab Take by mouth daily as needed . multivitamin with minerals tablet Take 1 tablet by mouth daily One a day . potassium gluconate 500 mg (83 mg) Tab Take 1 tablet by mouth daily . vitamin B-12 1000 MCG tablet Generic drug: cyanocobalamin Take 1,000 mcg by mouth daily as needed . * There are duplicate medications prescribed to the patient Physician(s) Follow Up: No follow-up provider specified. Condition at Discharge: Good Disposition: Home On day of discharge, I performed a final bedside evaluation including a physical exam. I reviewed discharge recommendations with the patient in person. Patient instructions, including activity, were given to the patient/family at discharge. Time spent on discharge: > 30 minutes Completed by: Dian Swenson on 05/20/22, 12:52 PM Associated attestation - Colin Kwok MD - 05/20/2022 1:45 PM EDT Patient seen, evaluated and managed by BINDING PRINTER independently. I was not involved in the care of this patient, but was readily available for consultation if needed by BINDING PRINTER. documented in this [id number] History of Present illness Narrative* Raisa Alvair, YURI - 05/20/2022 9:52 AM EDT [place] [facility] DAILY PROGRESS NOTE DIAGNOSIS / REASON FOR CONSULT: * Enterocolitis Assessment & Plan Abdominal pain improved Stool study with campylobacter Tolerating reg diet without nausea or vomiting Afebrile MR with liver without acute findings, discussed with Dr. Manning no need for biopsy - continue diet, continue antibiotics for campylobacter - surgery will sign off INCIDENTAL FINDINGS: RESOLVED PROBLEMS: SURGERIES/PROCEDURES: Date Operation/Procedure Provider Name TODAY' S ASSESSMENT AND PLAN OF CARE: As above DISPOSITION - CHIEF COMPLAINT/ HPI / PFSHx / EVENTS OVER LAST 24HRS: No acute issues overnight. Patient reports that she is overall feeling much better. REVIEW OF SYSTEMS: Other than the above items the remainder of the complete ROS is otherwise unchanged from admission. PHYSICAL EXAM: Temp: [97.7 F (36.5 C)-98.3 F (36.8 C)] 97.8 F (36.6 C) Heart Rate: [56-60] 59 Resp: [12-18] 16 BP: (99-133)/(67-79) 108/71 GENERAL: Appears age appropriate. No acute distress. NEUROLOGICAL: Alert and oriented X 3. Follows commands with extremities x4, equal strength. Head Eyes Ear Nose Throat: Head: Atraumatic, normocephalic. Eyes: Conjunctivae/sclerae/corneas clear. Ears: External ear normal. Hearing within normal limits for patient. No drainage. Nose: nares normal Throat: phonation normal Neck: Supple, trachea midline CARDIOVASCULAR: Regular rate and rhythm. No clicks, rubs, murmurs or gallops noted. No peripheral edema noted. 2+ pulses radial/DP/PT bilaterally. RESPIRATORY: Lungs, clear to auscultation bilaterally. No rhonchi, wheezes or crackles. Respiratoryeffort unlabored without use of accessory muscles. ABDOMINAL: Rounded, soft, tender to palpation RLQ, nondistended, normal bowel sounds. No guarding or peritoneal signs. GENITOURINARY: Normal genitalia for age without lesion or trauma. MUSCULOSKELETAL: Extremities atraumatic without gross deformity x4. No clubbing, cyanosis or joint edema. SKIN: Skin warm and dry. No rashes or lesions. Intake/Output Summary (Last 24 hours) at 05/20/2022 0952 Last data filed at 05/19/2022 1348 Gross per 24 hour Intake 1724.32 ml Output -- Net 1724.32 ml IMAGING [briefly note any results pertinent to today's evaluation]: MR reviewed LABS Lab Results Component Value Date WBC 5.37 05/18/2022 HGB 11.3 (L) 05/18/2022 HCT 35.0 (L) 05/18/2022 MCV 98.0 05/18/2022 EXTMCV 94 08/04/2021 PLT 155 05/18/2022 RBC 3.57 (L) 05/18/2022 Lab Results Component Value Date GLUCOSE 104 (H) 05/20/2022 CALCIUM 8.1 (L) 05/20/2022 NA 142 05/20/2022 K 3.9 05/20/2022 CL 110 (H) 05/20/2022 BUN 7 (L) 05/20/2022 CREATININE 0.23 (L) 05/20/2022 Lab Results Component Value Date ALT 40 05/17/2022 AST 19 05/17/2022 ALKPHOS 72 05/17/2022 BILITOT 0.3 05/17/2022 * Alyssa Bhagat PA-C - 05/19/2022 10:16 AM EDT [facility] [place] Assessment and Plan Cat Acuña is a 52 y.o. female patient of Alejandro Beatty MD with history of gastricbypass 20 years ago, GERD, tobacco use presented from outside hospital with enterocolitis. Patient reports having watery diarrhea since Friday evening. She denies any fevers or chills. She reports abdominal pain and some nausea but no vomiting. She has not been able to have p.o. intake since Friday. She denies any recent travel or swimming in bodies of water. She does have chickens andrabbits but reports she washes her hands regularly. She denies any blood in her stool. Her only medications are vitamins, duloxetine, trazodone. She has never had an episode like this before. She felt she was becoming dehydrated which prompted her to present to the ED. Campylobacter enterocolitis CT abdomen 05/16: Findings suggestive of a diffuse infectious or inflammatory enterocolitis; short segment intussusception at the jejunojejunostomy without SBO Stool PCR +Campylobacter Started azithromycin 05/18 given stool + Campylobacter Advancing diet to regular 05/19 Will DC IV fluids PRN anti-emetics PRN morphine for pain Appreciate surgery following Hepatic mass on CT Per CT abdomen on admission: Left renal vein compression between aorta and superior mesenteric artery with left abdominal varices; left hepatic mass and hepatomegaly Await results of dedicated hepatic MRI May need biopsy pending results Tobacco use NRT ordered Code Status: Full Code - Unverified Quality Measures DVT Prophylaxis: - heparin (porcine) injection 5,000 Units Lopez Catheter: No Disposition Discharge Location: Home Estimated Discharge Date: 05/20 Outpatient Testing: TBD Subjective No acute events noted overnight. Afebrile. Saturating well on RA. Still with some RLQ discomfort, but pain has lessened overall. Nausea is lessened. Diarrhea has slowed dramatically. Overall, doing better. Tolerated clears, so will try regular diet for lunch. Review of Systems All systems have been reviewed and are negative except as noted in HPI or below Objective BP (!) 137/92 Pulse (!) 59 Temp 97.6 F (36.4 C) (Oral) Resp 12 Ht 5' 1 Wt 54.4 kg (120 lb) SpO2 97% BMI 22.67 kg/m Physical Examination General Appearance: alert; well appearing; in no acute distress HEENT: Head- normocephalic; Eyes- EOMI, sclera anicteric; Ears- hearing intact; Nose- no nasal discharge; Throat- mucous membranes moist Cardiovascular: regular rate and rhythm Respiratory: respirations are unlabored; on room air Abdomen: soft, non-tender, non-distended Neurological: oriented x 3; normal speech; no focal findings or movement disorder noted Musculoskeletal: no significant deformity or tenderness to palpation Skin: normal coloration; no obvious rashes, lesions or skin breakdown Psych: normal mood and affect Results/Medications Reviewed 05/19/2022 10:16 AM Laboratory, Microbiology, Radiology, Cardiology, Medications, and Transcriptions * Danny Manning MD - 05/19/2022 9:49 AM EDT Brief surgical progress note No acute events overnight Diarrhea improved and more solid per the patient Tolerated clears without nausea or vomit Stool study positive for Campylobacter Blood pressure (!) 137/92, pulse (!) 59, temperature 97.6 F (36.4 C), temperature source Oral, resp. rate 12, height 5' 1, weight 54.4 kg (120 lb), SpO2 97 %, not currently . General awake alert no acute distress Respiratory nonlabored CV nontachycardic Abdomen softly distended, nontender to palpation all 4 quadrants no specific guarding or rigidity Plan Awaiting MRI abdomen, final read pending Okay for regular diet from surgical standpoint May need biopsy pending MRI results Antibiotics per primary service for Campylobacter enteritis * Danny Manning MD - 05/18/2022 10:29 AM EDT Brief surgical progress note No acute events overnight Diarrhea persists Stool study positive for Campylobacter Blood pressure (!) 94/54, pulse 66, temperature 98.1 F (36.7 C), temperature source Oral, resp. rate 16, height 5' 1, weight 54.4 kg (120 lb), SpO2 97 %, not currently . General awake alert no acute distress Respiratory nonlabored CV nontachycardic Abdomen softly distended, nontender to palpation all 4 quadrants no specific guarding or rigidity Plan Awaiting MRI abdomen Okay for diet from surgical standpoint May need biopsy pending MRI results Antibiotics per primary service for Campylobacter enteritis * Alyssa Bhagat PA-C - 05/18/2022 10:28 AM EDT [facility] [place] Assessment and Plan Cat Acuña is a 52 y.o. female patient of Alejandro Beatty MD with history of gastricbypass 20 years ago, GERD, tobacco use presented from outside hospital with enterocolitis. Patient reports having watery diarrhea since Friday evening. She denies any fevers or chills. She reports abdominal pain and some nausea but no vomiting. She has not been able to have p.o. intake since Friday. She denies any recent travel or swimming in bodies of water. She does have chickens andrabbits but reports she washes her hands regularly. She denies any blood in her stool. Her only medications are vitamins, duloxetine, trazodone. She has never had an episode like this before. She felt she was becoming dehydrated which prompted her to present to the ED. Campylobacter enterocolitis CT abdomen 05/16: Findings suggestive of a diffuse infectious or inflammatory enterocolitis; short segment intussusception at the jejunojejunostomy without SBO Stool PCR +Campylobacter Start azithromycin given stool + Campylobacter Continue IV hydration with LR at 100 mL/hr Advancing diet to clear liquids 05/18 PRN anti-emetics PRN morphine for pain Appreciate surgery following Hepatic mass on CT Per CT abdomen on admission: Left renal vein compression between aorta and superior mesenteric artery with left abdominal varices; left hepatic mass and hepatomegaly Await results of dedicated hepatic MRI Tobacco use NRT ordered Code Status: Full Code - Unverified Quality Measures DVT Prophylaxis: - heparin (porcine) injection 5,000 Units Lopez Catheter: No Disposition Discharge Location: Home Estimated Discharge Date: TBD Outpatient Testing: TBD Subjective No acute events noted overnight. Afebrile. Saturating well on RA. Still reproting nausea without emesis and diarrhea. Morphine is controlling pain. Trying clear liquids. Review of Systems All systems have been reviewed and are negative except as noted in HPI or below Objective BP (!) 94/54 Pulse 66 Temp 98.1 F (36.7 C) (Oral) Resp 16 Ht 5' 1 Wt 54.4 kg (120 lb) SpO2 97% BMI 22.67 kg/m Physical Examination General Appearance: alert; well appearing; in no acute distress HEENT: Head- normocephalic; Eyes- EOMI, sclera anicteric; Ears- hearing intact; Nose- no nasal discharge; Throat- mucous membranes moist Cardiovascular: regular rate and rhythm Respiratory: respirations are unlabored; on room air Abdomen: soft, non-tender, mildly distended Neurological: oriented x 3; normal speech; no focal findings or movement disorder noted Musculoskeletal: no significant deformity or tenderness to palpation Skin: normal coloration; no obvious rashes, lesions or skin breakdown Psych: normal mood and affect Results/Medications Reviewed 05/18/2022 10:28 AM Laboratory, Microbiology, Radiology, Cardiology, Medications, and Transcriptions * Uli Rider RD - 05/18/2022 10:04 AM EDT Nutrition Chart Review Reason for visit: Nursing Referral for unplanned wt loss, poor PO. Current diet order: NPO. Progress to Regular when medically able. Current oral nutrition supplement: n/a - as needed Recent intake: n/a - pt is currently NPO. Dx/Pertinent clinical information: pt presented with OSH with enterocolitis. Electrolyte abnormalities initially noted - now corrected. Pt with hx of gastric bypass surgery 20 years ago per chart review. Past Medical History: Diagnosis Date GERD (gastroesophageal reflux disease) History of palpitations 2016 Eval in ER negative for heart with only low potassium Hypoglycemia Nicotine dependence Sleep disorder, shift work Height: 5' 1 Current weight: 54.4 kg (120 lb) BMI Body mass index is 22.67 kg/m . Weight hx: stable Wt Readings from Last 5 Encounters: 05/17/22 54.4 kg (120 lb) 05/18/22 49.9 kg (110 lb) 05/16/22 54.4 kg (120 lb) 12/21/21 51.3 kg (113 lb) 06/15/21 50.6 kg (111 lb 9.6 oz) Labs: Recent Labs 05/18/22 0544 NA 140 K 4.0 BICARB 20* CL 110* GLUCOSE 69 BUN 3* CREATININE 0.37* MG 1.6 PHOS 3.6 Pt is at moderate nutritional risk at this time. An assessment will be completed within 6 days, or sooner as warranted. Uli Rider RDN, LD, [facility] Dietitian Office: [phone] Cell documented in this [id number] Note* Utilization Review - Juana Rodrigez RN - 05/18/2022 6:48 PM EDT [facility] Utilization Review Notes DIRECT ADMISSION TEMPLATE HISTORY OF PRESENT ILLNESS: Pt is a 52 y.o. female w/ PMH of gastric bypass 20 years ago, GERD, tobacco use presented from outside hospital with enterocolitis. Pt reports having watery diarrhea sinceT (05/14/22) evening. She reports abdominal pain and some nausea but no vomiting. She has not been able to have po intake since Friday (05/14/22) She does have chickens and rabbits but reports sh e washes her hands regularly. She felt she was becoming dehydrated which prompted her to present [facility] ED. VITAL SIGNS: 05/18/22 08:25:21 98.1 (36.7) 66 -- 94/54 Abnormal 97% RA 05/18/22 0709 -- -- 16 05/17/22 17:27:04 97.9 (36.6) 65 16 111/70 97% EKG: n/a WEIGHT: 54.43 kg LABS: (Abnormal / Relevant): 05/17/22 18:41 Sodium: 138 Potassium: 3.7 Chloride: 108 Bicarbonate: 23 Anion Gap: 11 Glucose: 66 BUN: 6 (L) Creatinine: 0.41 eGFR: 120 BUN/Creatinine Ratio: 14.6 Total Protein: 5.5 (L) Albumin: 2.7 (L) 2.7 (L) Calcium: 8.5 Bilirubin, Direct: <0.1 ALK PHOS: 72 AST: 19 ALT: 40 Total Bilirubin: 0.3 Magnesium: 1.8 Phosphorus: 2.1 (L) WBC: 6.91 RBCs: 4.08 Hemoglobin: 12.9 Hematocrit: 40.4 IMAGING: (Abnormal / Relevant): CT Abd/Pelvis- 1. Findings suggestive of a diffuse infectious or inflammatory enterocolitis. 2. Status post gastric bypass with a short segment intussusception at the jejunojejunostomy. There is no associated small-bowel obstruction. This may be transient in nature, but consider follow-up small-bowel series or CT enterography if clinically indicated. 3. Compression of the left renal vein between the aorta and superior mesenteric artery with left abdominal varices. This appearance can be seen with nutcracker syndrome in the appropriate clinical setting, such as flank pain and hematuria or proteinuria. This can be associated with recent substantial weight loss. 4. Left hepatic mass, which is indeterminate. Recommend followup hepatic MRI. Hepatomegaly is also noted. Patient is status post cholecystectomy with associated biliary ductal dilatation. 5. Subcutaneous edema in the body wall. DX / ASSESSMENT / PLAN: 05/17/22- Hospitalist H&P- Enterocolitis Short segment intussusception at the jejunojejunostomy with out SBO IV hydration with LR at 100 mL/h N.p.o. with sips of water and ice chips Consult general surgery Pain management with as needed morphine As needed Zofran Stool PCR sent for infectious causes Will hold on antibiotics pending stool PCR given stability of patient and possibility of HUS with infection with E. 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 intake Tobacco use NRT ordered 05/18/22- Surgery Brief Note- Diarrhea persists Stool study positive for Campylobacter Blood pressure (!) 94/54, pulse 66, temperature 98.1 F (36.7 C), temperature source Oral, resp. rate 16, height 5' 1, weight 54.4 kg (120 lb), SpO2 97 %, not currently . Abdomen softly distended, nontender to palpation all 4 quadrants no specific guarding or rigidity Plan Awaiting MRI abdomen Okay for diet from surgical standpoint May need biopsy pending MRI results Antibiotics per primary service for Campylobacter enteritis MEDS / ORDERS: VS q8hrs, NPO-> clear liquid diet (none documented yet), consult General Surgery. IV Mg Sulfate 2g X1, IV K Phosphate 20mmol X1, IV Morphine 2mg q4hrs prn X5, IV Zofran 4mg q6hrs prn X3. azithromycin (ZITHROMAX) 500 mg in sodium chloride (NS) 0.9% 250 mL (vialmate) 500 mg, Intravenous,250 mL/hr, Every 24 hours lactated Ringers infusion 100 mL/hr, Intravenous, Continuous DISPO: TBD. [id number] Consult note* Belle Vera, YURI - 05/17/2022 8:35 PM EDT [facility] SURGICAL HISTORY & PHYSICAL/CONSULTATION NOTE * Enterocolitis Assessment & Plan CT reviewed. Afebrile. WBC normal. - ok for sips of clears. - stool panel. Check lactic. The following Vizient risk variables were noted and present on admission: No Vizient risk variables were present on admission Please see assessment and plan for further details. CHIEF COMPLAINT: Abdominal pain Notification Time: 1929 Arrival at Bedside: 2019 HISTORY OF PRESENT ILLNESS / INJURY (HPI): Ms. Acuña is a 52-year-old with a past medical history of GERD and gastric bypass who presented forabdominal pain with nausea and diarrhea. She reports on Friday she developed abdominal pain with one episode of emesis followed by diarrhea. She has had little intake over the last few days and was starting to feel dehydrated therefore she presented for evaluation. CT with enterocolitis and intussusception of SB. General surgery was consulted. PAST MEDICAL HISTORY (PMH): Past Medical History: Diagnosis Date GERD (gastroesophageal reflux disease) History of palpitations 2016 Eval in ER negative for heart with only low potassium Hypoglycemia Nicotine dependence Sleep disorder, shift work Past Surgical History: Procedure Laterality Date ADENOIDECTOMY 08/18/1981 APPENDECTOMY SECTION, CLASSIC 1992 and 94 CHOLECYSTECTOMY 08/18/1997 DILATION AND CURETTAGE OF UTERUS 2 EXCISION LESION TRUNK Left 10/22/2019 Procedure: EXCISION MASS TRUNK; Surgeon: Danny Manning MD; Location: [facility] [place]; Service: GeneralSurgery GASTRIC BYPASS 08/18/2001 Bariatric Clinic in [place] HYSTERECTOMY 08/18/2004 MOUTH SURGERY 08/18/2000 TONSILLECTOMY 08/18/1981 Social History Tobacco Use Smoking status: Every Day Packs/day: 0.50 Years: 20.00 Pack years: 10.00 Types: Cigarettes Smokeless tobacco: Never Vaping Use Vaping Use: Never used Substance Use Topics Alcohol use: Yes Comment: weekly/wine and whiskey Drug use: No Family History Problem Relation Age of Onset Leukemia Mother COPD Father Hypertension Father MEDICATIONS: Current Facility-Administered Medications on File Prior to Encounter Medication Dose Route Frequency Provider Last Rate Last Admin [COMPLETED] fentaNYL (SUBLIMAZE) injection 50 mcg 50 mcg Intravenous Once Silva Paz MD50 mcg at 05/16/22 2240 [COMPLETED] ondansetron (ZOFRAN) injection 4 mg 4 mg Intravenous Once Silva Paz MD 4 mg at 05/17/22 0407 [COMPLETED] ondansetron (ZOFRAN-ODT) disintegrating tablet 4 mg 4 mg Oral Once Giorgi Wray DO 4 mg at 05/17/22 1447 [COMPLETED] piperacillin-tazobactam (ZOSYN) 4.5 g in sodium chloride (NS) 0.9% 100 mL IVPB (vialmate) (FSED) 4.5 g Intravenous Once Silva Paz MD Stopped at 05/17/22 0205 [COMPLETED] sodium chloride 0.9% (NS) bolus 1,000 mL 1,000 mL Intravenous Once Silva Paz MD Stopped at 05/16/224 [DISCONTINUED] fentaNYL (SUBLIMAZE) injection 50 mcg 50 mcg Intravenous Q2H PRN Silva Paz MD 50 mcg at 05/17/22 0855 [DISCONTINUED] piperacillin-tazobactam (ZOSYN) 4.5 g in sodium chloride (NS) 0.9% 100 mL IVPB (vialmate) (FSED) 4.5 g Intravenous Once Giorgi Wray DO [DISCONTINUED] piperacillin-tazobactam (ZOSYN) 4.5 g in sodium chloride (NS) 0.9% 100 mL IVPB (vialmate) (FSED) 4.5 g Intravenous Once Giorgi Wray DO [DISCONTINUED] sodium chloride 0.9% (NS) 75 mL/hr Intravenous Continuous Silva Paz MD Stopped at 05/17/22 1445 Current Outpatient Medications on File Prior to Encounter Medication Sig Dispense Refill cholecalciferol, vitamin D3, 1,000 unit tablet Take 10,000 Units by mouth daily . cyanocobalamin (vitamin B-12) 1000 MCG tablet Take 1,000 mcg by mouth daily as needed . DULoxetine (CYMBALTA) 30 MG capsule Take 1 (one) capsule (30 mg total) by mouth daily . 90 capsule 3 DULoxetine (CYMBALTA) 60 MG capsule Take 1 (one) capsule (60 mg total) by mouth daily . 90 capsule 3 FERROUS FUMARATE (IRON ORAL) Take 27 mg by mouth daily. magnesium 250 mg Tab Take by mouth daily as needed . multivitamin with minerals tablet Take 1 tablet by mouth daily One a day . potassium gluconate 500 mg (83 mg) Tab Take 1 tablet by mouth daily . ALLERGIES: Allergies Allergen Reactions Codeine Hives and Shortness Of Breath REVIEW OF SYSTEMS: COVID19 Screen: Negative for fever, cough, SOB, exposure. Constitutional Symptoms: Negative for unexplained falls, weight loss Eyes: Negative for eye pain or vision changes Ears, Nose, Mouth, Throat: Negative for rhinorrhea, nasal pain, dysphagia, hoarseness Cardiovascular: Negative for chest pain, orthopnea, edema Respiratory: Negative for cough, shortness of breath Gastrointestinal: +abdominal pain, diarrhea. Genitourinary: Negative for dysuria, hematuria Musculoskeletal: Negative for pain, joint edema Skin/Breast: Negative for rash, itching, lesions Neurological: Negative for paresthesia, paralysis, loss of bowel or bladder control, loss of consciousness Psychiatric: Negative for depression, anxiety, or suicidal ideations Endocrine: Negative for heat/cold intolerance, polydipsia, polyphagia, polyuria Hematologic/Lymphatic: Negative for anticoagulant use, antiplatelet use, family hx of clotting or bleeding disorders Allergic/Immunologic: Allergies reviewed, no use of immunosuppressants or active chemotherapy Other than the above items, the remainder of a complete review of systems is otherwise negative. PHYSICAL EXAM: BP 97/61 Pulse 62 Temp 98.2 F (36.8 C) (Oral) Resp 14 Ht 5' 1 Wt 54.4 kg (120 lb) IgB004% BMI 22.67 kg/m Body mass index is 22.67 kg/m . GENERAL: Appears age appropriate. No acute distress. NEUROLOGICAL: Alert and oriented X 3. Follows commands with extremities x4, equal strength. GCS = 15 Head Eyes Ear Nose Throat: Head: Atraumatic, normocephalic. CARDIOVASCULAR: Regular rate and rhythm. 2+ pulses radial/DP/PT bilaterally. RESPIRATORY:Respiratory effort unlabored without use of accessory muscles. ABDOMINAL: Rounded, soft, nontender, nondistended, normal bowel sounds. No guarding or peritoneal signs. GENITOURINARY: Normal genitalia for age without lesion or trauma. MUSCULOSKELETAL: Extremities atraumatic without gross deformity x4. SKIN: Skin warm and dry. IMAGING STUDIES: I have reviewed the following: CT reviewed. LABORATORY STUDIES: Lab Results Component Value Date WBC 6.91 05/17/2022 HGB 12.9 05/17/2022 HCT 40.4 05/17/2022 MCV 99.0 05/17/2022 EXTMCV 94 08/04/2021 PLT 191 05/17/2022 RBC 4.08 05/17/2022 Lab Results Component Value Date GLUCOSE 66 05/17/2022 CALCIUM 8.5 05/17/2022 NA 138 05/17/2022 K 3.7 05/17/2022 CL 108 05/17/2022 BUN 6 (L) 05/17/2022 CREATININE 0.41 05/17/2022 Lab Results Component Value Date ALT 40 05/17/2022 AST 19 05/17/2022 ALKPHOS 72 05/17/2022 BILITOT 0.3 05/17/2022 Associated attestation - Danny Manning MD - 05/18/2022 10:28 AM EDT I agree with the Advanced Practice Provider note with the same day of service. The patient was seenand examined by me, the attending surgeon, on rounds on the date of service listed above. I have reviewed the Advanced Practice Provider note with the relevant labs, studies, and service delivery management consultant notes. I have reviewed and agree with the documented history, exam, and plan of care, with the following additions and corrections: 52-year-old female history of GERD, gastric bypass presenting with abdominal pain, nausea and diarrhea. Reports multiple greater than 6-7 bowel movements per day. Denies any blood in the stool. Denies any recent travel outside the country or other sick contacts. General surgery consulted due to CT findings of enterocolitis, liver lesion and question of small bowel intussusception Blood pressure (!) 94/54, pulse 66, temperature 98.1 F (36.7 C), temperature source Oral, resp. rate 16, height 5' 1, weight 54.4 kg (120 lb), SpO2 97 %, not currently . General awake alert no acute distress Respiratory nonlabored CV nontachycardic Abdomen is soft mildly distended no specific guarding or rigidity and no real tenderness to palpation Lab work reviewed Stool study positive for Campylobacter Plan Stool studies positive for Campylobacter, hospitalist service has started patient on a Zithromax MRI liver protocol ordered to assess these lesions may need biopsy pending findings on MRI Okay for diet from surgical standpoint Intussusception is commonly seen transiently on CT imaging. Patient is not appearing obstructed. This is likely self-limited and resolves on any further imaging Will await MRI results [facility] Work Phone: [phone]) 772-238709-30-2022 Evaluation + Plan note* Assessment & Plan Note - Belle Vera CNP - 05/17/2022 8:35 PM EDTAssociated Problem(s): Enterocolitis . [id number] Consult note* Belle Vera CNP - 05/17/2022 8:35 PM EDT [facility] SURGICAL HISTORY & PHYSICAL/CONSULTATION NOTE * Enterocolitis Assessment & Plan CT reviewed. Afebrile. WBC normal. - ok for sips of clears. - stool panel. Check lactic. The following Vizient risk variables were noted and present on admission: No Vizient risk variables were present on admission Please see assessment and plan for further details. CHIEF COMPLAINT: Abdominal pain Notification Time: 1929 Arrival at Bedside: 2019 HISTORY OF PRESENT ILLNESS / INJURY (HPI): Ms. Acuña is a 52-year-old with a past medical history of GERD and gastric bypass who presented forabdominal pain with nausea and diarrhea. She reports on Friday she developed abdominal pain with one episode of emesis followed by diarrhea. She has had little intake over the last few days and was starting to feel dehydrated therefore she presented for evaluation. CT with enterocolitis and intussusception of SB. General surgery was consulted. PAST MEDICAL HISTORY (PMH): Past Medical History: Diagnosis Date GERD (gastroesophageal reflux disease) History of palpitations 2016 Eval in ER negative for heart with only low potassium Hypoglycemia Nicotine dependence Sleep disorder, shift work Past Surgical History: Procedure Laterality Date ADENOIDECTOMY 08/18/1981 APPENDECTOMY SECTION, CLASSIC 1992 and 94 CHOLECYSTECTOMY 08/18/1997 DILATION AND CURETTAGE OF UTERUS 2 EXCISION LESION TRUNK Left 10/22/2019 Procedure: EXCISION MASS TRUNK; Surgeon: Danny Manning MD; Location: [facility] [place]; Service: GeneralSurgery GASTRIC BYPASS 08/18/2001 Bariat[facility] Clinic in [place] HYSTERECTOMY 08/18/2004 MOUTH SURGERY 08/18/2000 TONSILLECTOMY 08/18/1981 Social History Tobacco Use Smoking status: Every Day Packs/day: 0.50 Years: 20.00 Pack years: 10.00 Types: Cigarettes Smokeless tobacco: Never Vaping Use Vaping Use: Never used Substance Use Topics Alcohol use: Yes Comment: weekly/wine and whiskey Drug use: No Family History Problem Relation Age of Onset Leukemia Mother COPD Father Hypertension Father MEDICATIONS: Current Facility-Administered Medications on File Prior to Encounter Medication Dose Route Frequency Provider Last Rate Last Admin [COMPLETED] fentaNYL (SUBLIMAZE) injection 50 mcg 50 mcg Intravenous Once Silva Paz MD50 mcg at 05/16/22 2240 [COMPLETED] ondansetron (ZOFRAN) injection 4 mg 4 mg Intravenous Once Silva Paz MD 4 mg at 05/17/22 0407 [COMPLETED] ondansetron (ZOFRAN-ODT) disintegrating tablet 4 mg 4 mg Oral Once Giorgi Wray DO 4 mg at 05/17/22 1447 [COMPLETED] piperacillin-tazobactam (ZOSYN) 4.5 g in sodium chloride (NS) 0.9% 100 mL IVPB (vialmate) (FSED) 4.5 g Intravenous Once Silva Paz MD Stopped at 05/17/22 0205 [COMPLETED] sodium chloride 0.9% (NS) bolus 1,000 mL 1,000 mL Intravenous Once Silva Paz MD Stopped at 05/16/22 2124 [DISCONTINUED] fentaNYL (SUBLIMAZE) injection 50 mcg 50 mcg Intravenous Q2H PRN Silva Paz MD 50 mcg at 05/17/22 0855 [DISCONTINUED] piperacillin-tazobactam (ZOSYN) 4.5 g in sodium chloride (NS) 0.9% 100 mL IVPB (vialmate) (FSED) 4.5 g Intravenous Once Giorgi Wray DO [DISCONTINUED] piperacillin-tazobactam (ZOSYN) 4.5 g in sodium chloride (NS) 0.9% 100 mL IVPB (vialmate) (FSED) 4.5 g Intravenous Once Giorgi Wray DO [DISCONTINUED] sodium chloride 0.9% (NS) 75 mL/hr Intravenous Continuous Jagprit Fermin Paz MD Stopped at 05/17/22 6001 Current Outpatient Medications on File Prior to Encounter Medication Sig Dispense Refill cholecalciferol, vitamin D3, 1,000 unit tablet Take 10,000 Units by mouth daily . cyanocobalamin (vitamin B-12) 1000 MCG tablet Take 1,000 mcg by mouth daily as needed . DULoxetine (CYMBALTA) 30 MG capsule Take 1 (one) capsule (30 mg total) by mouth daily . 90 capsule 3 DULoxetine (CYMBALTA) 60 MG capsule Take 1 (one) capsule (60 mg total) by mouth daily . 90 capsule 3 FERROUS FUMARATE (IRON ORAL) Take 27 mg by mouth daily. magnesium 250 mg Tab Take by mouth daily as needed . multivitamin with minerals tablet Take 1 tablet by mouth daily One a day . potassium gluconate 500 mg (83 mg) Tab Take 1 tablet by mouth daily . ALLERGIES: Allergies Allergen Reactions Codeine Hives and Shortness Of Breath REVIEW OF SYSTEMS: COVID19 Screen: Negative for fever, cough, SOB, exposure. Constitutional Symptoms: Negative for unexplained falls, weight loss Eyes: Negative for eye pain or vision changes Ears, Nose, Mouth, Throat: Negative for rhinorrhea, nasal pain, dysphagia, hoarseness Cardiovascular: Negative for chest pain, orthopnea, edema Respiratory: Negative for cough, shortness of breath Gastrointestinal: +abdominal pain, diarrhea. Genitourinary: Negative for dysuria, hematuria Musculoskeletal: Negative for pain, joint edema Skin/Breast: Negative for rash, itching, lesions Neurological: Negative for paresthesia, paralysis, loss of bowel or bladder control, loss of consciousness Psychiatric: Negative for depression, anxiety, or suicidal ideations Endocrine: Negative for heat/cold intolerance, polydipsia, polyphagia, polyuria Hematologic/Lymphatic: Negative for anticoagulant use, antiplatelet use, family hx of clotting or bleeding disorders Allergic/Immunologic: Allergies reviewed, no use of immunosuppressants or active chemotherapy Other than the above items, the remainder of a complete review of systems is otherwise negative. PHYSICAL EXAM: BP 97/61 Pulse 62 Temp 98.2 F (36.8 C) (Oral) Resp 14 Ht 5' 1 Wt 54.4 kg (120 lb) AlB856% BMI 22.67 kg/m Body mass index is 22.67 kg/m . GENERAL: Appears age appropriate. No acute distress. NEUROLOGICAL: Alert and oriented X 3. Follows commands with extremities x4, equal strength. GCS = 15 Head Eyes Ear Nose Throat: Head: Atraumatic, normocephalic. CARDIOVASCULAR: Regular rate and rhythm. 2+ pulses radial/DP/PT bilaterally. RESPIRATORY:Respiratory effort unlabored without use of accessory muscles. ABDOMINAL: Rounded, soft, nontender, nondistended, normal bowel sounds. No guarding or peritoneal signs. GENITOURINARY: Normal genitalia for age without lesion or trauma. MUSCULOSKELETAL: Extremities atraumatic without gross deformity x4. SKIN: Skin warm and dry. IMAGING STUDIES: I have reviewed the following: CT reviewed. LABORATORY STUDIES: Lab Results Component Value Date WBC 6.91 05/17/2022 HGB 12.9 05/17/2022 HCT 40.4 05/17/2022 MCV 99.0 05/17/2022 EXTMCV 94 08/04/2021 PLT 191 05/17/2022 RBC 4.08 05/17/2022 Lab Results Component Value Date GLUCOSE 66 05/17/2022 CALCIUM 8.5 05/17/2022 NA 138 05/17/2022 K 3.7 05/17/2022 CL 108 05/17/2022 BUN 6 (L) 05/17/2022 CREATININE 0.41 05/17/2022 Lab Results Component Value Date ALT 40 05/17/2022 AST 19 05/17/2022 ALKPHOS 72 05/17/2022 BILITOT 0.3 05/17/2022 Associated attestation - Danny Manning MD - 05/18/2022 10:28 AM EDT I agree with the Advanced Practice Provider note with the same day of service. The patient was seenand examined by me, the attending surgeon, on rounds on the date of service listed above. I have reviewed the Advanced Practice Provider note with the relevant labs, studies, and service delivery management consultant notes. I have reviewed and agree with the documented history, exam, and plan of care, with the following additions and corrections: 52-year-old female history of GERD, gastric bypass presenting with abdominal pain, nausea and diarrhea. Reports multiple greater than 6-7 bowel movements per day. Denies any blood in the stool. Denies any recent travel outside the country or other sick contacts. General surgery consulted due to CT findings of enterocolitis, liver lesion and question of small bowel intussusception Blood pressure (!) 94/54, pulse 66, temperature 98.1 F (36.7 C), temperature source Oral, resp. rate 16, height 5' 1, weight 54.4 kg (120 lb), SpO2 97 %, not currently . General awake alert no acute distress Respiratory nonlabored CV nontachycardic Abdomen is soft mildly distended no specific guarding or rigidity and no real tenderness to palpation Lab work reviewed Stool study positive for Campylobacter Plan Stool studies positive for Campylobacter, hospitalist service has started patient on a Zithromax MRI liver protocol ordered to assess these lesions may need biopsy pending findings on MRI Okay for diet from surgical standpoint Intussusception is commonly seen transiently on CT imaging. Patient is not appearing obstructed. This is likely self-limited and resolves on any further imaging Will await MRI results documented in this [id number] History and physical note* Abigail Juan MD - 05/17/2022 7:40 PM EDT [facility] [place] Patient Name: Cat Acuña : 1970 MR #: [id number] Admit Date: 05/17/2022 Physicians: Alejandro eBatty MD (Family); iSlva Paz,* (Referring) Cat Acuña is a 52 y.o. female patient of Alejandro Beatty MD with history of gastricbypass 20 years ago, GERD, tobacco use presented from outside hospital with enterocolitis. Patient reports having watery diarrhea since Friday evening. She denies any fevers or chills. She reports abdominal pain and some nausea but no vomiting. She has not been able to have p.o. intake since Friday. She denies any recent travel or swimming in bodies of water. She does have chickens andrabbits but reports she washes her hands regularly. She denies any blood in her stool. Her only medications are vitamins, duloxetine, trazodone. She has never had an episode like this before. She felt she was becoming dehydrated which prompted her to present to the ED. Enterocolitis Short segment intussusception at the jejunojejunostomy with out SBO IV hydration with LR at 100 mL/h N.p.o. with sips of water and ice chips Consult general surgery Pain management with as needed morphine As needed Zofran Stool PCR sent for infectious causes Will hold on antibiotics pending stool PCR given stability of patient and possibility of HUS with infection with E. 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 intake Tobacco use NRT ordered Admitted From: outside hospital Medication Reconciliation: Verified Code Status: Full Code - Unverified Quality Measures DVT Prophylaxis: heparin subcutaneous Lopez Catheter: absent Risk variables present on admission:None. Please see assessment and plan for further details. Chief Complaint diarrhea History of Present Illness Cat Acuña is a 52 y.o. female patient of Alejandro Beatty MD with history of gastric bypass 20 years ago, GERD, tobacco use presented from outside hospital with enterocolitis. Patient reports having watery diarrhea since Friday evening. She denies any fevers or chills. She reports abdominal pain and some nausea but no vomiting. She has not been able to have p.o. intake since Friday. She denies any recent travel or swimming in bodies of water. She does have chickens andrabbits but reports she washes her hands regularly. She denies any blood in her stool. Her only medications are vitamins, duloxetine, trazodone. She has never had an episode like this before. She felt she was becoming dehydrated which prompted her to present to the ED. Past Medical History Past Medical History: Diagnosis Date GERD (gastroesophageal reflux disease) History of palpitations 2016 Eval in ER negative for heart with only low potassium Hypoglycemia Nicotine dependence Sleep disorder, shift work Past Surgical History Past Surgical History: Procedure Laterality Date ADENOIDECTOMY 08/18/1981 APPENDECTOMY SECTION, CLASSIC 1992 and 94 CHOLECYSTECTOMY 08/18/1997 DILATION AND CURETTAGE OF UTERUS 2 EXCISION LESION TRUNK Left 10/22/2019 Procedure: EXCISION MASS TRUNK; Surgeon: Danny Manning MD; [place] [facility] [place]: GeneralSurgery GASTRIC BYPASS 08/18/2001 Bariat[facility] Clinic in [place] HYSTERECTOMY 08/18/2004 MOUTH SURGERY 08/18/2000 TONSILLECTOMY 08/18/1981 Family History Family History Problem Relation Age of Onset Leukemia Mother COPD Father Hypertension Father Social History Social History Tobacco Use Smoking Status Every Day Packs/day: 0.50 Years: 20.00 Pack years: 10.00 Types: Cigarettes Smokeless Tobacco Never Social History Substance and Sexual Activity Alcohol Use Yes Comment: weekly/wine and whiskey Social History Substance and Sexual Activity Drug Use No Allergy Information I have reviewed the patient's allergies. Codeine Home Medications Home medications were reviewed. Review Of Systems All systems have been reviewed and are negative except as noted in HPI or below Physical Examination BP 111/70 Pulse 65 Temp 97.9 F (36.6 C) (Oral) Resp 16 Ht 5' 1 Wt 54.4 kg (120 lb) SpO2 97% BMI 22.67 kg/m General Appearance: alert; acutely ill appearing; in mild acute distress HEENT: Head- normocephalic; Eyes- EOMI, sclera anicteric; Ears- hearing intact; Nose- no nasal discharge; Throat- mucous membranes moist Cardiovascular: regular rate and rhythm; normal S1, S2; no murmurs, rubs, clicks or gallops; no peripheral edema Respiratory: lungs clear to auscultation; without wheezes, rales or rhonchi; on room air Abdomen: soft, diffusely tender, very mild distention positive bowel sounds Neurological: oriented x 3; normal speech; no focal findings or movement disorder noted Musculoskeletal: no significant deformity or tenderness to palpation Skin: normal coloration; no obvious rashes, lesions or skin breakdown Psych: anxious mood and affect Laboratory and Additional Data Reviewed Laboratory 05/17/22 7:52 PM Radiology 05/17/22 7:52 PM Medications 05/17/22 7:52 PM Transcriptions 05/17/22 7:52 PM [id number] History and physical note* Abigail Juan MD - 05/17/2022 7:40 PM EDT [facility] [place] Patient Name: Cat Acuña : 1970 MR #: [id number] Admit Date: 05/17/2022 Physicians: Alejandro Beatty MD (Family); Silva Paz,* (Referring) Cat Acuña is a 52 y.o. female patient of Alejandro Beatty MD with history of gastricbypass 20 years ago, GERD, tobacco use presented from outside hospital with enterocolitis. Patient reports having watery diarrhea since Friday evening. She denies any fevers or chills. She reports abdominal pain and some nausea but no vomiting. She has not been able to have p.o. intake since Friday. She denies any recent travel or swimming in bodies of water. She does have chickens andrabbits but reports she washes her hands regularly. She denies any blood in her stool. Her only medications are vitamins, duloxetine, trazodone. She has never had an episode like this before. She felt she was becoming dehydrated which prompted her to present to the ED. Enterocolitis Short segment intussusception at the jejunojejunostomy with out SBO IV hydration with LR at 100 mL/h N.p.o. with sips of water and ice chips Consult general surgery Pain management with as needed morphine As needed Zofran Stool PCR sent for infectious causes Will hold on antibiotics pending stool PCR given stability of patient and possibility of HUS with infection with E. 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 intake Tobacco use NRT ordered Admitted From: outside hospital Medication Reconciliation: Verified Code Status: Full Code - Unverified Quality Measures DVT Prophylaxis: heparin subcutaneous Lopez Catheter: absent Risk variables present on admission:None. Please see assessment and plan for further details. Chief Complaint diarrhea History of Present Illness Cat Acuña is a 52 y.o. female patient of Alejandro Beatty MD with history of gastric bypass 20 years ago, GERD, tobacco use presented from outside hospital with enterocolitis. Patient reports having watery diarrhea since Friday evening. She denies any fevers or chills. She reports abdominal pain and some nausea but no vomiting. She has not been able to have p.o. intake since Friday. She denies any recent travel or swimming in bodies of water. She does have chickens andrabbits but reports she washes her hands regularly. She denies any blood in her stool. Her only medications are vitamins, duloxetine, trazodone. She has never had an episode like this before. She felt she was becoming dehydrated which prompted her to present to the ED. Past Medical History Past Medical History: Diagnosis Date GERD (gastroesophageal reflux disease) History of palpitations 2016 Eval in ER negative for heart with only low potassium Hypoglycemia Nicotine dependence Sleep disorder, shift work Past Surgical History Past Surgical History: Procedure Laterality Date ADENOIDECTOMY 08/18/1981 APPENDECTOMY SECTION, CLASSIC 1992 and 94 CHOLECYSTECTOMY 08/18/1997 DILATION AND CURETTAGE OF UTERUS 2 EXCISION LESION TRUNK Left 10/22/2019 Procedure: EXCISION MASS TRUNK; Surgeon: Danny Manning MD; Location: [facility] [place]; Service: GeneralSurgery GASTRIC BYPASS 08/18/2001 Bariatric Clinic in [place] HYSTERECTOMY 08/18/2004 MOUTH SURGERY 08/18/2000 TONSILLECTOMY 08/18/1981 Family History Family History Problem Relation Age of Onset Leukemia Mother COPD Father Hypertension Father Social History Social History Tobacco Use Smoking Status Every Day Packs/day: 0.50 Years: 20.00 Pack years: 10.00 Types: Cigarettes Smokeless Tobacco Never Social History Substance and Sexual Activity Alcohol Use Yes Comment: weekly/wine and whiskey Social History Substance and Sexual Activity Drug Use No Allergy Information I have reviewed the patient's allergies. Codeine Home Medications Home medications were reviewed. Review Of Systems All systems have been reviewed and are negative except as noted in HPI or below Physical Examination BP 111/70 Pulse 65 Temp 97.9 F (36.6 C) (Oral) Resp 16 Ht 5' 1 Wt 54.4 kg (120 lb) SpO2 97% BMI 22.67 kg/m General Appearance: alert; acutely ill appearing; in mild acute distress HEENT: Head- normocephalic; Eyes- EOMI, sclera anicteric; Ears- hearing intact; Nose- no nasal discharge; Throat- mucous membranes moist Cardiovascular: regular rate and rhythm; normal S1, S2; no murmurs, rubs, clicks or gallops; no peripheral edema Respiratory: lungs clear to auscultation; without wheezes, rales or rhonchi; on room air Abdomen: soft, diffusely tender, very mild distention positive bowel sounds Neurological: oriented x 3; normal speech; no focal findings or movement disorder noted Musculoskeletal: no significant deformity or tenderness to palpation Skin: normal coloration; no obvious rashes, lesions or skin breakdown Psych: anxious mood and affect Laboratory and Additional Data Reviewed Laboratory 05/17/22 7:52 PM Radiology 05/17/22 7:52 PM Medications 05/17/22 7:52 PM Transcriptions 05/17/22 7:52 PM documented in this [id number] Note* Plan of Care - Jorge Vera RN - 05/17/2022 5:45 PM EDT Problem: Actual or potential alteration in health Goal: Absence of healthcare acquired conditions Outcome: Partially Met Goal: Knowledge of Interdisciplinary Plan of Care Outcome: Partially Met Goal: Knowledge of Enviroment Outcome: Partially Met Problem: Pain Goal: Manage acute pain Outcome: Not Met Goal: Manage chronic pain Outcome: Partially Met Goal: Reduced pain sensation Outcome: Partially Met Goal: Achievement of comfort function goal Outcome: Partially Met [id number] History of Present illness Narrative* Sandi Longo CNP - 12/21/2021 11:21 AM EDT Images from the original note were not included. Subjective Patient ID: Cat Acuña is a 51 y.o. female. Patient is here today for a routine interval visit. Elevated liver enzymes: Talked with patient about elevated liver enzymes. All of her labs includinghepatitis panel, GGT, Alk phos, bilirubin, were normal except elevated liver enzymes. Labs have been elevated about one year. She states she does not ever take Tylenol or Acetaminophen. She states she drinks alcohol rarely, typically one shot of alcohol per week or less. Patient has had her gallbladder removed. Ultrasound of RUQ done and it was completely normal. Talked with patient and noted theonly change between normal enzymes and elevated liver enzymes is increase in Cymbalta. She tried totake a lower dose of the Cymbalta and felt it really affected her mental health so she went back tothe 90 mg daily[address] with DR. Goff who believes this may be her normal. Will continue to monitor. Nicotine dependence: Patient states she was smoking up to 2 ppd of cigarettes. She states she has weaned herself down to about one pack per day. She tried nicotine patches in the past and it caused skin issues and make her feel horrible so she stopped. She states the Chantix caused major mood swings so she stopped that medication. Insomnia: Patient was previously prescribed Trazodone 100 mg daily to help her sleep. 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 She is currently on 50 mg daily and states she will wean herself off of the medication completely. She will call if she is having any issues. The following were reviewed and updated as appropriate for today's visit: allergies, current medications, past family history, past medical history, past social history, past surgical history and problem list. Patient's Medications New Prescriptions No medications on file Previous Medications CHOLECALCIFEROL, VITAMIN D3, 1,000 UNIT TABLET Take 10,000 Units by mouth daily . CYANOCOBALAMIN (VITAMIN B-12) 1000 MCG TABLET Take 1,000 mcg by mouth daily as needed . FERROUS FUMARATE (IRON ORAL) Take 27 mg by mouth daily. MAGNESIUM 250 MG TAB Take by mouth daily as needed . MULTIVITAMIN WITH MINERALS TABLET Take 1 tablet by mouth daily One a day . POTASSIUM GLUCONATE 500 MG (83 MG) TAB Take 1 tablet by mouth daily . Modified Medications Modified Medication Previous Medication DULOXETINE (CYMBALTA) 30 MG CAPSULE DULoxetine (CYMBALTA) 30 MG capsule Take 1 (one) capsule (30 mg total) by mouth daily . Take 1 (one) capsule (30 mg total) by mouth daily . DULOXETINE (CYMBALTA) 60 MG CAPSULE DULoxetine (CYMBALTA) 60 MG capsule Take 1 (one) capsule (60 mg total) by mouth daily . Take 1 (one) capsule (60 mg total) by mouth daily . Discontinued Medications TRAZODONE (DESYREL) 50 MG TABLET Take 2 (two) tablets (100 mg total) by mouth nightly . Review of Systems Review of Systems Constitutional: Positive for fatigue. Negative for activity change. HENT: Negative for hearing loss. Eyes: Negative for visual disturbance. Respiratory: Negative for cough, chest tightness and shortness of breath. Cardiovascular: Negative for chest pain and palpitations. Musculoskeletal: Negative for gait problem. Skin: Negative. Psychiatric/Behavioral: Positive for sleep disturbance. Negative for agitation. Vitals: 12/21/21 1058 BP: 109/72 BP Location: Left arm Patient Position: Sitting BP Cuff Size: Adult Pulse: 82 Resp: 16 Temp: 98.1 F (36.7 C) TempSrc: Temporal SpO2: 96% Weight: 51.3 kg (113 lb) Height: 5' 1 Body mass index is 21.35 kg/m . Physical Exam Physical Exam Constitutional: Appearance: She is well-developed. HENT: Right Ear: External ear normal. Left Ear: External ear normal. Nose: Nose normal. Eyes: General: Lids are normal. Conjunctiva/sclera: Conjunctivae normal. Cardiovascular: Rate and Rhythm: Normal rate and regular rhythm. Heart sounds: Normal heart sounds. No murmur heard. Pulmonary: Effort: Pulmonary effort is normal. Breath sounds: Normal breath sounds. Musculoskeletal: Cervical back: Normal range of motion. Comments: Normal gait Skin: General: Skin is warm and dry. Neurological: Mental Status: She is alert and oriented to person, place, and time. GCS: GCS eye subscore is 4. GCS verbal subscore is 5. GCS motor subscore is 6. Psychiatric: Speech: Speech normal. Behavior: Behavior normal. OARRS/NARxCHECK Report Received and Assessed: No data found Date controlled substance agreement signed: No data found Date of last drug screen: No data found Functional Assessment: No data found Assessment/Plan Problem List Items Addressed This Visit Other Elevated liver enzymes All of your other tests have been completely normal. Will just watch your liver enzymes every 6-12 months. Call if you develop any new symptoms. Nicotine dependence Keep working at quitting smoking. You do not tolerate nicotine replacers or Chantix. Try weaning down one cigarette per week. 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 It can cause heart attack, stroke and kidney disease. HDL-C > 50 HEMOGLOBIN A1C < 7.0 Blood sugar levels outside the normal range may be an indicator of diabetes. LDL CALC < 100 LDL or bad cholesterol can build up and clog your blood vessels. It can cause heart attack or stroke. For any new medications prescribed today, patient was educated about indications for the medication, how to take the medication and potential side effects of the medications. Sandi Longo CNP documented in this [id number] Instructions* Patient Instructions* Sandi Longo CNP - 12/21/2021 11:20 AM EDT Problem List Items Addressed This Visit Other Elevated liver enzymes All of your other tests have been completely normal. Will just watch your liver enzymes every 6-12 months. Call if you develop any new symptoms. Nicotine dependence Keep working at quitting smoking. You do not tolerate nicotine replacers or Chantix. Try weaning down one cigarette per week. 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 Relevant Medications DULoxetine (CYMBALTA) 60 MG capsule DULoxetine (CYMBALTA) 30 MG capsule Other Visit Diagnoses Anxiety Relevant Medications DULoxetine (CYMBALTA) 60 MG capsule DULoxetine (CYMBALTA) 30 MG capsule If any referrals were placed at the time of your visit please allow 2 weeks for processing. If you haven't heard from anyone within 2 weeks please contact my office so we can look into the status of your referral. If you were given any labs today please ensure they are completed according to the directions given. Once labs are completed please allow 1-2 weeks for us to receive the results, review them, and letyou know what steps, if any, are needed next. If you haven't heard from us after that please call to inquire. If labs were ordered to be done PRIOR to your next visit we will discuss the results at the time ofyour office visit. If any procedures or imaging studies were ordered that must be prior authorized please give us 2 weeks to get them approved. Once approved someone should call you to schedule them or give you a date and time that they were scheduled for. If you haven't heard anything within 2 weeks of the office visit please call the office so we can look into their status. Customer Service/Billing Questions: [phone] MyChart Assistance: [phone] or [phone] Financial Assistance: [phone] or [phone] documented in this [id number] Evaluation + Plan note* Assessment & Plan Note - Sandi Longo CNP - 12/21/2021 11:18 AM EDT Associated Problem(s): Nicotine dependence Keep working at quitting smoking. You do not tolerate nicotine replacers or Chantix. Try weaning down one cigarette per week. [id number] Evaluation + Plan note* Assessment & Plan Note - Sandi Longo CNP - 12/21/2021 11:18 AM EDTAssociated Problem(s): Elevated liver enzymes All of your other tests have been completely normal. Will just watch your liver enzymes every 6-12 months. Call if you develop any new symptoms. [id number] Miscellaneous Notes* Assessment & Plan Note - Sandi Longo CNP - 12/21/2021 11:18 AM EDTAssociated Problem(s): Nicotine dependence Keep working at quitting smoking. You do not tolerate nicotine replacers or Chantix. Try weaning down one cigarette per week. * Assessment & Plan Note - Sandi Longo CNP - 12/21/2021 11:18 AM EDT Associated Problem(s): Elevated liver enzymes All of your other tests have been completely normal. Will just watch your liver enzymes every 6-12 months. Call if you develop any new symptoms. documented in this [id number] Instructions* Patient Instructions* Sandi Longo CNP - 09/12/2021 3:52 PM EST Problem List Items Addressed This Visit Other Elevated liver enzymes - Primary Will continue to monitor liver enzymes. Printed off CMP order for you to get done in about 8 weeks.Go back to 60 mg of Cymbalta daily and if you notice any withdrawal symptoms please let me know. Ifyou liver enzymes improve we can deduce it is from the medication and we will wean completely off of the Cymbalta. If they continue to rise despite a decrease in the medication will have you see by GI specialist. If any referrals were placed at the time of your visit please allow 2 weeks for processing. If you haven't heard from anyone within 2 weeks please contact my office so we can look into the status of your referral. If you were given any labs today please ensure they are completed according to the directions given. Once labs are completed please allow 1-2 weeks for us to receive the results, review them, and letyou know what steps, if any, are needed next. If you haven't heard from us after that please call to inquire. If labs were ordered to be done PRIOR to your next visit we will discuss the results at the time ofyour office visit. If any procedures or imaging studies were ordered that must be prior authorized please give us 2 weeks to get them approved. Once approved someone should call you to schedule them or give you a date and time that they were scheduled for. If you haven't heard anything within 2 weeks of the office visit please call the office so we can look into their status. Customer Service/Billing Questions: [phone] MyChart Assistance: [phone] or [phone] Financial Assistance: [phone] or [phone] documented in this [id number] Miscellaneous Notes* Assessment & Plan Note - Sandi Longo CNP - 09/12/2021 3:51 PM EST Associated Problem(s): Elevated liver enzymes Will continue to monitor liver enzymes. Printed off CMP order for you to get done in about 8 weeks.Go back to 60 mg of Cymbalta daily and if you notice any withdrawal symptoms please let me know. Ifyou liver enzymes improve we can deduce it is from the medication and we will wean completely off of the Cymbalta. If they continue to rise despite a decrease in the medication will have you see by GI specialist. documented in this [id number] History of Present illness Narrative* Sandi Longo CNP - 09/12/2021 3:47 PM EST Telephone Visit Via Phone Call [facility] [address] [place] [phone] Telephone Visit [facility] 09/12/2021 Sandi Longo CNP Provider Location: [address] [place] [address] Patient Location Quotation Clerk: None Patient Location: Patient's Home Patient: Cat Acuña Date of : 1970 (51 y.o. female) PCP: Sandi Longo CNP I discussed risks, benefits and alternatives of a telephone visit telemedicine consultation with the patient (and any accompanying persons) including the risks that the patient's personal health details and medical records will be discussed over real-time, synchronous, interactive audio technology,the visit will not be recorded without the express consent of both the provider and the patient, and that there are inherent diagnostic limitations compared to qjna-ql-wwuz evaluations. We elected toproceed with the telephone visit telemedicine consultation. Talked with patient about elevated liver enzymes. All of her labs including hepatitis panel, GGT, Alk phos, bilirubin, were normal except elevated liver enzymes. Noted AST of 90 and ALT of 137. Labs done one year ago were normal AST 35/ALT 61. She states she does not ever take Tylenol or Acetaminophen. She states she drinks alcohol rarely, typically one shot of alcohol per week or less. Patient has had her gallbladder removed. Ultrasound of RUQ done and it was completely normal. Talked with patient and noted the only change between normal enzymes and elevated liver enzymes is increase in Cymbalta. Talked about weaning off of this drug to see if liver enzymes improve with decrease in this medication. She is agreeable to this, if liver enzymes continue to rise will send to GI for further workup. The following portions of the patient's history were reviewed and updated as appropriate: allergies, current medications, past family history, past medical history, past social history, past surgicalhistory, and problem list. Review of Systems Constitutional: Positive for fatigue. Negative for activity change. HENT: Negative for hearing loss. Eyes: Negative for visual disturbance. Respiratory: Negative for cough, chest tightness and shortness of breath. Cardiovascular: Negative for chest pain and palpitations. Musculoskeletal: Negative for gait problem. Skin: Negative. Psychiatric/Behavioral: Positive for sleep disturbance. Negative for agitation. Patient's Medications New Prescriptions No medications on file Previous Medications CHOLECALCIFEROL, VITAMIN D3, 1,000 UNIT TABLET Take 10,000 Units by mouth daily . CYANOCOBALAMIN (VITAMIN B-12) 1000 MCG TABLET Take 1,000 mcg by mouth daily as needed . DULOXETINE (CYMBALTA) 30 MG CAPSULE Take 1 (one) capsule (30 mg total) by mouth daily . DULOXETINE (CYMBALTA) 60 MG CAPSULE Take 1 (one) capsule (60 mg total) by mouth daily . FERROUS FUMARATE (IRON ORAL) Take 27 mg by mouth daily. MAGNESIUM 250 MG TAB Take by mouth daily as needed . MULTIVITAMIN WITH MINERALS TABLET Take 1 tablet by mouth daily One a day . POTASSIUM GLUCONATE 500 MG (83 MG) TAB Take 1 tablet by mouth daily . TRAZODONE (DESYREL) 50 MG TABLET Take 2 (two) tablets (100 mg total) by mouth nightly . Modified Medications No medications on file Discontinued Medications No medications on file Assessment/Plan: Problem List Items Addressed This Visit Other Elevated liver enzymes - Primary Will continue to monitor liver enzymes. Printed off CMP order for you to get done in about 8 weeks.Go back to 60 mg of Cymbalta daily and if you notice any withdrawal symptoms please let me know. Ifyou liver enzymes improve we can deduce it is from the medication and we will wean completely off of the Cymbalta. If they continue to rise despite a decrease in the medication will have you see by GI specialist. I have spent 5 minutes with the patient reviewing the HPI and Plan of Care. documented in this [id number] Instructions* Patient Instructions* Sandi Longo CNP - 08/16/2021 1:02 PM EST Problem List Items Addressed This Visit None Visit Diagnoses Elevated liver enzymes - Primary Relevant Orders Hepatic Function Panel GGT Lipase Hepatitis Panel, Acute If any referrals were placed at the time of your visit please allow 2 weeks for processing. If you haven't heard from anyone within 2 weeks please contact my office so we can look into the status of your referral. If you were given any labs today please ensure they are completed according to the directions given. Once labs are completed please allow 1-2 weeks for us to receive the results, review them, and letyou know what steps, if any, are needed next. If you haven't heard from us after that please call to inquire. If labs were ordered to be done PRIOR to your next visit we will discuss the results at the time ofyour office visit. If any procedures or imaging studies were ordered that must be prior authorized please give us 2 weeks to get them approved. Once approved someone should call you to schedule them or give you a date and time that they were scheduled for. If you haven't heard anything within 2 weeks of the office visit please call the office so we can look into their status. Customer Service/Billing Questions: [phone] [employer] Assistance: [phone] or [phone] Financial Assistance: [phone] or [phone] documented in this [id number] History of Present illness Narrative* Sandi Longo CNP - 08/16/2021 12:51 PM EST Telephone Visit Via Phone Call [facility] [address] [facility] [address] [facility] [phone] Telephone Visit [facility] 08/16/2021 Sandi Longo CNP Provider Location: [address] [place] [address] Patient Location Quotation Clerk: None Patient Location: Patient's Home Patient: Cat Acuña Date of : 1970 (51 y.o. female) PCP: Sandi Longo CNP I discussed risks, benefits and alternatives of a telephone visit telemedicine consultation with the patient (and any accompanying persons) including the risks that the patient's personal health details and medical records will be discussed over real-time, synchronous, interactive audio technology,the visit will not be recorded without the express consent of both the provider and the patient, and that there are inherent diagnostic limitations compared to gdgl-oe-puyi evaluations. We elected toproceed with the telephone visit telemedicine consultation. Telephone visit today to discuss recent labwork done on 08/04/2021. All of her labs were normal except elevated liver enzymes. Noted AST of 90 and ALT of 137. Labs done one year ago were normal AST 35/ALT 61. She states she does not ever take Tylenol or Acetaminophen. She states she drinks alcohol rarely, typically one shot of alcohol per week or less. Patient has had her gallbladder removed. Patient did send note via [employer] with concerns: I thought I would go ahead and send you a few things I've notice over the last 4 months. Bouts with fatigue and insomnia (even after take Rx, wake up 3 am rip rearing to go and then crash).Acute itching bottom if my right foot, and radial wrist/thumb. Edema in right leg from knee to ties. Severe bloating/gas look very (lol). Gas has becomefrequent and smells ratchet, when I change to keto diet in 2019 gas was a rare. Bladder and fecal incongruous (walking up the stairs, etc.) this is without urges. Brain fog/confusion this is getting worse, I was blaming old age. Thank you I hope this will help with our video and give you a chance before hand The following portions of the patient's history were reviewed and updated as appropriate: allergies, current medications, past family history, past medical history, past social history, past surgicalhistory, and problem list. Review of Systems Constitutional: Positive for fatigue. Negative for activity change. HENT: Negative for hearing loss. Eyes: Negative for visual disturbance. Respiratory: Negative for cough, chest tightness and shortness of breath. Cardiovascular: Negative for chest pain and palpitations. Musculoskeletal: Negative for gait problem. Skin: Negative. Psychiatric/Behavioral: Positive for sleep disturbance. Negative for agitation. Patient's Medications New Prescriptions No medications on file Previous Medications CHOLECALCIFEROL, VITAMIN D3, 1,000 UNIT TABLET Take 10,000 Units by mouth daily . CYANOCOBALAMIN (VITAMIN B-12) 1000 MCG TABLET Take 1,000 mcg by mouth daily as needed . DULOXETINE (CYMBALTA) 30 MG CAPSULE Take 1 (one) capsule (30 mg total) by mouth daily . DULOXETINE (CYMBALTA) 60 MG CAPSULE Take 1 (one) capsule (60 mg total) by mouth daily . FERROUS FUMARATE (IRON ORAL) Take 27 mg by mouth daily. MAGNESIUM 250 MG TAB Take by mouth daily as needed . MULTIVITAMIN WITH MINERALS TABLET Take 1 tablet by mouth daily One a day . POTASSIUM GLUCONATE 500 MG (83 MG) TAB Take 1 tablet by mouth daily . TRAZODONE (DESYREL) 50 MG TABLET Take 2 (two) tablets (100 mg total) by mouth nightly . Modified Medications No medications on file Discontinued Medications No medications on file Assessment/Plan: Problem List Items Addressed This Visit None Visit Diagnoses Elevated liver enzymes - Primary Relevant Orders Hepatic Function Panel GGT Lipase Hepatitis Panel, Acute I have spent 8 minutes with the patient reviewing the HPI and Plan of Care. documented in this [id number] Miscellaneous Notes* Assessment & Plan Note - Sandi Longo CNP - 06/17/2021 8:26 PM EDT Associated Problem(s): Sleep disorder, shift work Stable, no change to medication. * Assessment & Plan Note - Sandi Longo CNP - 06/17/2021 8:25 PM EDT Associated Problem(s): 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 Great job coming off of the HRT's! Will continue yearly mammograms documented in this [id number] Instructions* Patient Instructions* Sandi Longo CNP - 06/15/2021 11:12 AM EDT Problem List Items Addressed This Visit Other 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 Great job coming off of the HRT's! Will continue yearly mammograms Sleep disorder, shift work Stable, no change to medication. Other Visit Diagnoses Acute swimmer's ear of right side - Primary Relevant Medications rbenynlr-qwdbrdjxq-fpaggvmftveaep (CORTISPORIN) otic solution Encounter for screening mammogram for malignant neoplasm of breast Relevant Orders Mammography Screening Oren Bilateral Need for vaccination Relevant Orders Pneumococcal conjugate vaccine 13-valent (PCV-13) (Completed) Wellness examination Relevant Orders CBC and Differential Comprehensive Metabolic Panel Lipid Panel TSH with Reflex Free T4 Encounter for biometric screening Relevant Orders CBC and Differential Comprehensive Metabolic Panel Lipid Panel TSH with Reflex Free T4 If any referrals were placed at the time of your visit please allow 2 weeks for processing. If you haven't heard from anyone within 2 weeks please contact my office so we can look into the status of your referral. If you were given any labs today please ensure they are completed according to the directions given. Once labs are completed please allow 1-2 weeks for us to receive the results, review them, and letyou know what steps, if any, are needed next. If you haven't heard from us after that please call to inquire. If labs were ordered to be done PRIOR to your next visit we will discuss the results at the time ofyour office visit. If any procedures or imaging studies were ordered that must be prior authorized please give us 2 weeks to get them approved. Once approved someone should call you to schedule them or give you a date and time that they were scheduled for. If you haven't heard anything within 2 weeks of the office visit please call the office so we can look into their status. Customer Service/Billing Questions: [phone] MyChart Assistance: [phone] or [phone] Financial Assistance: [phone] or [phone] documented in this [id number] History of Present illness Narrative* Sandi Longo CNP - 06/15/2021 10:58 AM EDT Images from the original note were not included. Subjective Patient ID: Cat Acuña is a 51 y.o. female. Patient is here today for a routine interval visit. Ear pain: Patient states the past 2 months off and on she has had right ear pain. She states she has had drainage off and on the past few months. It is painful to chew and blow her nose, hurts to puther finger in her ear and move her ear. Anxiety/skin picking: Patient is currently on 90 mg of Cymbalta daily, she states this has helped considerably with her symptoms. She denies any side effects or issues with this medication. HRT: Patient states that she has been on Estrogen of some form since her hysterectomy in 2004. Talked at length at last visit about the risks of snf HRT. Patient does get mammograms yearly. Shestates she went home from her visit in October2020 and within the month was completley off of all HRT's. Insomnia: Patient is currently on Trazodone 50 mg nightly and has been on this for about 5 years with no side effects or issues. The following were reviewed and updated as appropriate for today's visit: allergies, current medications, past family history, past medical history, past social history, past surgical history and problem list. Patient's Medications New Prescriptions [id number]-[id number]-[id number] (CORTISPORIN) OTIC SOLUTION Administer 3 (three) drops to the right ear 3 (three) times a day for 7 days . Previous Medications CHOLECALCIFEROL, VITAMIN D3, 1,000 UNIT TABLET Take 10,000 Units by mouth daily . CYANOCOBALAMIN (VITAMIN B-12) 1000 MCG TABLET Take 1,000 mcg by mouth daily as needed . DULOXETINE (CYMBALTA) 30 MG CAPSULE Take 1 (one) capsule (30 mg total) by mouth daily . DULOXETINE (CYMBALTA) 60 MG CAPSULE Take 1 (one) capsule (60 mg total) by mouth daily . FERROUS FUMARATE (IRON ORAL) Take 27 mg by mouth daily. MAGNESIUM 250 MG TAB Take by mouth daily as needed . MULTIVITAMIN WITH MINERALS TABLET Take 1 tablet by mouth daily One a day . POTASSIUM GLUCONATE 500 MG (83 MG) TAB Take 1 tablet by mouth daily . TRAZODONE (DESYREL) 50 MG TABLET Take 2 (two) tablets (100 mg total) by mouth nightly . Modified Medications No medications on file Discontinued Medications CALCIUM CARBONATE (OS-JOSE) 600 MG (1,500 MG) TABLET Take 600 mg by mouth 2 (two) times a day with meals. ESTRADIOL (ESTRACE) 0.5 MG TABLET Take 1 (one) tablet (0.5 mg total) by mouth daily . FEXOFENADINE (LINA) 180 MG TABLET Take 1 (one) tablet (180 mg total) by mouth daily . Review of Systems Review of Systems Constitutional: Negative for activity change and fatigue. HENT: Negative for hearing loss. Eyes: Negative for visual disturbance. Respiratory: Negative for cough, chest tightness and shortness of breath. Cardiovascular: Negative for chest pain and palpitations. Musculoskeletal: Negative for gait problem. Skin: Negative. Psychiatric/Behavioral: Positive for sleep disturbance. Negative for agitation. The patient is nervous/anxious. Skin picking Vitals: 06/15/21 1041 BP: 108/72 BP Location: Right arm Patient Position: Sitting BP Cuff Size: Adult Pulse: 69 Resp: 16 Temp: 98.5 F (36.9 C) TempSrc: Infrared SpO2: 96% Weight: 50.6 kg (111 lb 9.6 oz) Height: 5' 1 Body mass index is 21.09 kg/m . Physical Exam Physical Exam Constitutional: Appearance: She is well-developed. HENT: Right Ear: External ear normal. Left Ear: External ear normal. Nose: Nose normal. Eyes: General: Lids are normal. Conjunctiva/sclera: Conjunctivae normal. Cardiovascular: Rate and Rhythm: Normal rate and regular rhythm. Heart sounds: Normal heart sounds. No murmur heard. Pulmonary: Effort: Pulmonary effort is normal. Breath sounds: Normal breath sounds. Musculoskeletal: Cervical back: Normal range of motion. Comments: Normal gait Skin: General: Skin is warm and dry. Neurological: Mental Status: She is alert and oriented to person, place, and time. GCS: GCS eye subscore is 4. GCS verbal subscore is 5. GCS motor subscore is 6. Psychiatric: Speech: Speech normal. Behavior: Behavior normal. 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 Will continue yearly mammograms Sleep disorder, shift work Stable, no change to medication. Other Visit Diagnoses Acute swimmer's ear of right side - Primary Relevant Medications csdnccfi-nkhkeplyk-btqhrdumbgwrhn (CORTISPORIN) otic solution Encounter for screening mammogram for malignant neoplasm of breast Relevant Orders Mammography Screening Oren Bilateral Need for vaccination Relevant Orders Pneumococcal conjugate vaccine 13-valent (PCV-13) (Completed) Wellness examination Relevant Orders CBC and Differential Comprehensive Metabolic Panel Lipid Panel TSH with Reflex Free T4 Encounter for biometric screening Relevant Orders CBC and Differential Comprehensive Metabolic Panel Lipid Panel TSH with Reflex Free T4 Preventative Goals Goals Blood Pressure < 130/80 High blood pressure makes your heart work too hard. It can cause heart attack, stroke and kidney disease. HDL-C > 50 HEMOGLOBIN A1C < 7.0 Blood sugar levels outside the normal range may be an indicator of diabetes. LDL CALC < 100 LDL or bad cholesterol can build up and clog your blood vessels. It can cause heart attack or stroke. For any new medications prescribed today, patient was educated about indications for the medication, how to take the medication and potential side effects of the medications. Sandi Longo CNP documented in this [id number] Miscellaneous Notes* Telephone Encounter - Raisa Astorga RN - 04/12/2021 9:43 AM EDT RECEIVED FAX REQUEST FROM PHARMACY REQUESTING REFILL ON [facility]. LAST OV 10/27/20. NEXT OV 05/04/21. [facility] Diagnosis 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 Anxiety Anxiety state, unspecified Skin picking habit [facility] Diagnosis 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 Anxiety Anxiety state, unspecified Skin picking habit [facility] Diagnosis Acute swimmer's ear of right side- Primary Encounter for screening mammogram for malignant neoplasm of breast Need for vaccination Need for prophylactic vaccination and inoculation against unspecified single disease Wellness examination Encounter for biometric screening 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 Sleep disorder, shift work Circadian rhythm sleep disorder, shift work type [facility] Diagnosis Elevated liver enzymes- Primary Other nonspecific abnormal serum enzyme levels [facility] Diagnosis Elevated liver enzymes- Primary Other nonspecific abnormal serum enzyme levels [facility] Diagnosis Elevated liver enzymes- Primary Other nonspecific abnormal serum enzyme levels [facility] Diagnosis Elevated liver enzymes- Primary Other nonspecific abnormal serum enzyme levels [facility]* Diagnosis 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 Anxiety Anxiety state, unspecified Elevated liver enzymes Other nonspecific abnormal serum enzyme levels Cigarette nicotine dependence with nicotine-induced disorder [facility]* Diagnosis Enterocolitis- Primary Other and unspecified noninfectious gastroenteritis and colitis [facility]* Diagnosis Encounter for screening for malignant neoplasm of breast, unspecified screening modality- Primary Cigarette nicotine dependence with nicotine-induced disorder Elevated liver enzymes Other nonspecific abnormal serum enzyme levels Mild major depression (HCC) Major depressive disorder, single episode, mild Anxiety Anxiety state, unspecified Insomnia, unspecified type [facility] Diagnosis Sleep disorder, shift work Circadian rhythm sleep disorder, shift work type [facility]* Diagnosis Colon cancer screening Special screening for malignant neoplasms, colon [facility]* Diagnosis Colon cancer screening Special screening for malignant neoplasms, colon [facility]* Diagnosis Mild major depression (HCC)- Primary Major depressive disorder, single episode, mild Anxiety Anxiety state, unspecified [facility]* Diagnosis Onset Date Resolution Status Positive colorectal cancer s creening using Cologuard test acute Alternating constipation and diarrhea chronic [facility] Work Phone: Evaluation note* Diagnosis Pap smear for cervical cancer screening- Primary Screening for malignant neoplasm of the cervix Anxiety Anxiety state, unspecified Encounter for immunization Mild major depression (HCC) Major depressive disorder, single episode, mild Healthcare maintenance [facility] Diagnosis Conjunctivitis, unspecified conjunctivitis type, unspecified laterality [facility]* Diagnosis Mild major depression (HCC)- Primary Major depressive disorder, single episode, mild Anxiety Anxiety state, unspecified Right-sided chest pain Lipoma, unspecified site Lipoma of torso Cigarette nicotine dependence with nicotine-induced disorder [facility]* Diagnosis Cauda equina compression (HCC)- Primary Foot drop, left Other acquired deformity of ankle and foot Claudication of lower extremity (HCC) Chronic radicular lumbar pain [facility]* Diagnosis Cauda equina compression (HCC) Claudication of lower extremity (HCC) [facility]* Diagnosis Anxiety Anxiety state, unspecified [facility]* Diagnosis Lumbar foraminal stenosis- Primary Adolescent idiopathic scoliosis, unspecified spinal region [facility]* Diagnosis Mild major depression (HCC)- Primary Major depressive disorder, single episode, mild Cauda equina compression (HCC) Chronic radicular lumbar pain Claudication of lower extremity (HCC) Lumbar foraminal stenosis Cigarette nicotine dependence with nicotine-induced disorder [facility]* Diagnosis Localized swelling of both lower legs- Primary Costovertebral angle pain [facility]* Diagnosis Gastroesophageal reflux disease, esophagitis presence not specified Sleep disorder, shift work Circadian rhythm sleep disorder, shift work type S/P gastric bypass Bariatric surgery status Gastroesophageal reflux disease, esophagitis presence not specified Sleep disorder, shift work Circadian rhythm sleep disorder, shift work type S/P gastric bypass Bariatric surgery status Cigarette nicotine dependence with nicotine-induced disorder Cigarette nicotine dependence with nicotine-induced disorder Gastroesophageal reflux disease, esophagitis presence not specified Need for Tdap vaccination- Primary Need for prophylactic vaccination with combined [id number] (DTP) vaccine Fatigue, unspecified type S/P gastric bypass Bariatric surgery status Gastroesophageal reflux disease, esophagitis presence not specified Myalgia Unspecified myalgia and myositis Fatigue, unspecified type- Primary Gastroesophageal reflux disease, esophagitis presence not specified Myalgia Unspecified myalgia and myositis Bilateral hand pain Gastroesophageal reflux disease, esophagitis presence not specified Hemorrhoids, unspecified hemorrhoid type- Primary Actinic keratoses Actinic keratosis S/P gastric bypass Bariatric surgery status Screening for heart disease Screening for other and unspecified cardiovascular conditions Encounter for biometric screening- Primary Cigarette nicotine dependence with nicotine-induced disorder Hemorrhoids, unspecified hemorrhoid type At risk for obstructive sleep apnea Fatigue, unspecified type- Primary Snoring Other dyspnea and respiratory abnormality At risk for obstructive sleep apnea Cigarette nicotine dependence with nicotine-induced disorder Lipoma of torso- Primary BMI 24.0-24.9, adult At risk for obstructive sleep apnea Cigarette nicotine dependence with nicotine-induced disorder Encounter for biometric screening Anxiety- Primary Anxiety state, unspecified 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 Skin picking habit Itching- Primary Unspecified pruritic disorder Encounter for biometric screening- Primary 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 Acute swimmer's ear of right side- Primary Encounter for screening mammogram for malignant neoplasm of breast Need for vaccination Need for prophylactic vaccination and inoculation against unspecified single disease Wellness examination Encounter for biometric screening 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 Sleep disorder, shift work Circadian rhythm sleep disorder, shift work type Elevated liver enzymes- Primary Other nonspecific abnormal serum enzyme levels 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 Anxiety Anxiety state, unspecified Elevated liver enzymes Other nonspecific abnormal serum enzyme levels Cigarette nicotine dependence with nicotine-induced disorder Enterocolitis- Primary Other and unspecified noninfectious gastroenteritis and colitis Encounter for screening for malignant neoplasm of breast, unspecified screening modality- Primary Cigarette nicotine dependence with nicotine-induced disorder Elevated liver enzymes Other nonspecific abnormal serum enzyme levels Mild major depression Major depressive disorder, single episode, mild Anxiety Anxiety state, unspecified Insomnia, unspecified type Mild major depression- Primary Major depressive disorder, single episode, mild Anxiety Anxiety state, unspecified Pap smear for cervical cancer screening- Primary Screening for malignant neoplasm of the cervix Anxiety Anxiety state, unspecified Encounter for immunization Mild major depression Major depressive disorder, single episode, mild Healthcare maintenance Conjunctivitis, unspecified conjunctivitis type, unspecified laterality Mild major depression- Primary Major depressive disorder, single episode, mild Anxiety Anxiety state, unspecified Right-sided chest pain Lipoma, unspecified site Lipoma of torso Cigarette nicotine dependence with nicotine-induced disorder Cauda equina compression (HCC)- Primary Foot drop, left Other acquired deformity of ankle and foot Claudication of lower extremity (HCC) Chronic radicular lumbar pain Mild major depression- Primary Major depressive disorder, single episode, mild Cauda equina compression (HCC) Chronic radicular lumbar pain Claudication of lower extremity (HCC) Lumbar foraminal stenosis Cigarette nicotine dependence with nicotine-induced disorder Constipation, unspecified constipation type- Primary Localized swelling of both lower legs Mild major depression Major depressive disorder, single episode, mild Anxiety Anxiety state, unspecified Insomnia, unspecified type Elevated liver enzymes Other nonspecific abnormal serum enzyme levels Healthcare maintenance [facility] Diagnosis Gastroesophageal reflux disease, esophagitis presence not specified Sleep disorder, shift work Circadian rhythm sleep disorder, shift work type S/P gastric bypass Bariatric surgery status Gastroesophageal reflux disease, esophagitis presence not specified Sleep disorder, shift work Circadian rhythm sleep disorder, shift work type S/P gastric bypass Bariatric surgery status Cigarette nicotine dependence with nicotine-induced disorder Cigarette nicotine dependence with nicotine-induced disorder Gastroesophageal reflux disease, esophagitis presence not specified Need for Tdap vaccination- Primary Need for prophylactic vaccination with combined [id number] (DTP) vaccine Fatigue, unspecified type S/P gastric bypass Bariatric surgery status Gastroesophageal reflux disease, esophagitis presence not specified Myalgia Unspecified myalgia and myositis Fatigue, unspecified type- Primary Gastroesophageal reflux disease, esophagitis presence not specified Myalgia Unspecified myalgia and myositis Bilateral hand pain Gastroesophageal reflux disease, esophagitis presence not specified Hemorrhoids, unspecified hemorrhoid type- Primary Actinic keratoses Actinic keratosis S/P gastric bypass Bariatric surgery status Screening for heart disease Screening for other and unspecified cardiovascular conditions Encounter for biometric screening- Primary Cigarette nicotine dependence with nicotine-induced disorder Hemorrhoids, unspecified hemorrhoid type At risk for obstructive sleep apnea Fatigue, unspecified type- Primary Snoring Other dyspnea and respiratory abnormality At risk for obstructive sleep apnea Cigarette nicotine dependence with nicotine-induced disorder Lipoma of torso- Primary BMI 24.0-24.9, adult At risk for obstructive sleep apnea Cigarette nicotine dependence with nicotine-induced disorder Encounter for biometric screening Anxiety- Primary Anxiety state, unspecified 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 Skin picking habit Itching- Primary Unspecified pruritic disorder Encounter for biometric screening- Primary 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 Acute swimmer's ear of right side- Primary Encounter for screening mammogram for malignant neoplasm of breast Need for vaccination Need for prophylactic vaccination and inoculation against unspecified single disease Wellness examination Encounter for biometric screening 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 Sleep disorder, shift work Circadian rhythm sleep disorder, shift work type Elevated liver enzymes- Primary Other nonspecific abnormal serum enzyme levels 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 Anxiety Anxiety state, unspecified Elevated liver enzymes Other nonspecific abnormal serum enzyme levels Cigarette nicotine dependence with nicotine-induced disorder Enterocolitis- Primary Other and unspecified noninfectious gastroenteritis and colitis Encounter for screening for malignant neoplasm of breast, unspecified screening modality- Primary Cigarette nicotine dependence with nicotine-induced disorder Elevated liver enzymes Other nonspecific abnormal serum enzyme levels Mild major depression Major depressive disorder, single episode, mild Anxiety Anxiety state, unspecified Insomnia, unspecified type Mild major depression- Primary Major depressive disorder, single episode, mild Anxiety Anxiety state, unspecified Pap smear for cervical cancer screening- Primary Screening for malignant neoplasm of the cervix Anxiety Anxiety state, unspecified Encounter for immunization Mild major depression Major depressive disorder, single episode, mild Healthcare maintenance Conjunctivitis, unspecified conjunctivitis type, unspecified laterality Mild major depression- Primary Major depressive disorder, single episode, mild Anxiety Anxiety state, unspecified Right-sided chest pain Lipoma, unspecified site Lipoma of torso Cigarette nicotine dependence with nicotine-induced disorder Cauda equina compression (HCC)- Primary Foot drop, left Other acquired deformity of ankle and foot Claudication of lower extremity (HCC) Chronic radicular lumbar pain Mild major depression- Primary Major depressive disorder, single episode, mild Cauda equina compression (HCC) Chronic radicular lumbar pain Claudication of lower extremity (HCC) Lumbar foraminal stenosis Cigarette nicotine dependence with nicotine-induced disorder Constipation, unspecified constipation type- Primary Localized swelling of both lower legs Mild major depression Major depressive disorder, single episode, mild Anxiety Anxiety state, unspecified Insomnia, unspecified type Elevated liver enzymes Other nonspecific abnormal serum enzyme levels Healthcare [facility] Diagnosis Gastroesophageal reflux disease, esophagitis presence not specified Sleep disorder, shift work Circadian rhythm sleep disorder, shift work type S/P gastric bypass Bariatric surgery status Gastroesophageal reflux disease, esophagitis presence not specified Sleep disorder, shift work Circadian rhythm sleep disorder, shift work type S/P gastric bypass Bariatric surgery status Cigarette nicotine dependence with nicotine-induced disorder Cigarette nicotine dependence with nicotine-induced disorder Gastroesophageal reflux disease, esophagitis presence not specified Need for Tdap vaccination- Primary Need for prophylactic vaccination with combined [id number] (DTP) vaccine Fatigue, unspecified type S/P gastric bypass Bariatric surgery status Gastroesophageal reflux disease, esophagitis presence not specified Myalgia Unspecified myalgia and myositis Fatigue, unspecified type- Primary Gastroesophageal reflux disease, esophagitis presence not specified Myalgia Unspecified myalgia and myositis Bilateral hand pain Gastroesophageal reflux disease, esophagitis presence not specified Hemorrhoids, unspecified hemorrhoid type- Primary Actinic keratoses Actinic keratosis S/P gastric bypass Bariatric surgery status Screening for heart disease Screening for other and unspecified cardiovascular conditions Encounter for biometric screening- Primary Cigarette nicotine dependence with nicotine-induced disorder Hemorrhoids, unspecified hemorrhoid type At risk for obstructive sleep apnea Fatigue, unspecified type- Primary Snoring Other dyspnea and respiratory abnormality At risk for obstructive sleep apnea Cigarette nicotine dependence with nicotine-induced disorder Lipoma of torso- Primary BMI 24.0-24.9, adult At risk for obstructive sleep apnea Cigarette nicotine dependence with nicotine-induced disorder Encounter for biometric screening Anxiety- Primary Anxiety state, unspecified 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 Skin picking habit Itching- Primary Unspecified pruritic disorder Encounter for biometric screening- Primary 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 Acute swimmer's ear of right side- Primary Encounter for screening mammogram for malignant neoplasm of breast Need for vaccination Need for prophylactic vaccination and inoculation against unspecified single disease Wellness examination Encounter for biometric screening 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 Sleep disorder, shift work Circadian rhythm sleep disorder, shift work type Elevated liver enzymes- Primary Other nonspecific abnormal serum enzyme levels 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 Anxiety Anxiety state, unspecified Elevated liver enzymes Other nonspecific abnormal serum enzyme levels Cigarette nicotine dependence with nicotine-induced disorder Enterocolitis- Primary Other and unspecified noninfectious gastroenteritis and colitis Encounter for screening for malignant neoplasm of breast, unspecified screening modality- Primary Cigarette nicotine dependence with nicotine-induced disorder Elevated liver enzymes Other nonspecific abnormal serum enzyme levels Mild major depression Major depressive disorder, single episode, mild Anxiety Anxiety state, unspecified Insomnia, unspecified type Mild major depression- Primary Major depressive disorder, single episode, mild Anxiety Anxiety state, unspecified Pap smear for cervical cancer screening- Primary Screening for malignant neoplasm of the cervix Anxiety Anxiety state, unspecified Encounter for immunization Mild major depression Major depressive disorder, single episode, mild Healthcare maintenance Conjunctivitis, unspecified conjunctivitis type, unspecified laterality Mild major depression- Primary Major depressive disorder, single episode, mild Anxiety Anxiety state, unspecified Right-sided chest pain Lipoma, unspecified site Lipoma of torso Cigarette nicotine dependence with nicotine-induced disorder Cauda equina compression (HCC)- Primary Foot drop, left Other acquired deformity of ankle and foot Claudication of lower extremity (HCC) Chronic radicular lumbar pain Mild major depression- Primary Major depressive disorder, single episode, mild Cauda equina compression (HCC) Chronic radicular lumbar pain Claudication of lower extremity (HCC) Lumbar foraminal stenosis Cigarette nicotine dependence with nicotine-induced disorder Constipation, unspecified constipation type- Primary Localized swelling of both lower legs Mild major depression Major depressive disorder, single episode, mild Anxiety Anxiety state, unspecified Insomnia, unspecified type Elevated liver enzymes Other nonspecific abnormal serum enzyme levels Healthcare maintenance [facility] Diagnosis Gastroesophageal reflux disease, esophagitis presence not specified Sleep disorder, shift work Circadian rhythm sleep disorder, shift work type S/P gastric bypass Bariatric surgery status Gastroesophageal reflux disease, esophagitis presence not specified Sleep disorder, shift work Circadian rhythm sleep disorder, shift work type S/P gastric bypass Bariatric surgery status Cigarette nicotine dependence with nicotine-induced disorder Cigarette nicotine dependence with nicotine-induced disorder Gastroesophageal reflux disease, esophagitis presence not specified Need for Tdap vaccination- Primary Need for prophylactic vaccination with combined [id number] (DTP) vaccine Fatigue, unspecified type S/P gastric bypass Bariatric surgery status Gastroesophageal reflux disease, esophagitis presence not specified Myalgia Unspecified myalgia and myositis Fatigue, unspecified type- Primary Gastroesophageal reflux disease, esophagitis presence not specified Myalgia Unspecified myalgia and myositis Bilateral hand pain Gastroesophageal reflux disease, esophagitis presence not specified Hemorrhoids, unspecified hemorrhoid type- Primary Actinic keratoses Actinic keratosis S/P gastric bypass Bariatric surgery status Screening for heart disease Screening for other and unspecified cardiovascular conditions Encounter for biometric screening- Primary Cigarette nicotine dependence with nicotine-induced disorder Hemorrhoids, unspecified hemorrhoid type At risk for obstructive sleep apnea Fatigue, unspecified type- Primary Snoring Other dyspnea and respiratory abnormality At risk for obstructive sleep apnea Cigarette nicotine dependence with nicotine-induced disorder Lipoma of torso- Primary BMI 24.0-24.9, adult At risk for obstructive sleep apnea Cigarette nicotine dependence with nicotine-induced disorder Encounter for biometric screening Anxiety- Primary Anxiety state, unspecified 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 Skin picking habit Itching- Primary Unspecified pruritic disorder Encounter for biometric screening- Primary 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 Acute swimmer's ear of right side- Primary Encounter for screening mammogram for malignant neoplasm of breast Need for vaccination Need for prophylactic vaccination and inoculation against unspecified single disease Wellness examination Encounter for biometric screening 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 Sleep disorder, shift work Circadian rhythm sleep disorder, shift work type Elevated liver enzymes- Primary Other nonspecific abnormal serum enzyme levels 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 Anxiety Anxiety state, unspecified Elevated liver enzymes Other nonspecific abnormal serum enzyme levels Cigarette nicotine dependence with nicotine-induced disorder Enterocolitis- Primary Other and unspecified noninfectious gastroenteritis and colitis Encounter for screening for malignant neoplasm of breast, unspecified screening modality- Primary Cigarette nicotine dependence with nicotine-induced disorder Elevated liver enzymes Other nonspecific abnormal serum enzyme levels Mild major depression Major depressive disorder, single episode, mild Anxiety Anxiety state, unspecified Insomnia, unspecified type Mild major depression- Primary Major depressive disorder, single episode, mild Anxiety Anxiety state, unspecified Pap smear for cervical cancer screening- Primary Screening for malignant neoplasm of the cervix Anxiety Anxiety state, unspecified Encounter for immunization Mild major depression Major depressive disorder, single episode, mild Healthcare maintenance Conjunctivitis, unspecified conjunctivitis type, unspecified laterality Mild major depression- Primary Major depressive disorder, single episode, mild Anxiety Anxiety state, unspecified Right-sided chest pain Lipoma, unspecified site Lipoma of torso Cigarette nicotine dependence with nicotine-induced disorder Cauda equina compression (HCC)- Primary Foot drop, left Other acquired deformity of ankle and foot Claudication of lower extremity (HCC) Chronic radicular lumbar pain Mild major depression- Primary Major depressive disorder, single episode, mild Cauda equina compression (HCC) Chronic radicular lumbar pain Claudication of lower extremity (HCC) Lumbar foraminal stenosis Cigarette nicotine dependence with nicotine-induced disorder Breast cancer screening by mammogram documented in this encounter [facility] note* Diagnosis Gastroesophageal reflux disease, esophagitis presence not specified Sleep disorder, shift work Circadian rhythm sleep disorder, shift work type S/P gastric bypass Bariatric surgery status Gastroesophageal reflux disease, esophagitis presence not specified Sleep disorder, shift work Circadian rhythm sleep disorder, shift work type S/P gastric bypass Bariatric surgery status Cigarette nicotine dependence with nicotine-induced disorder Cigarette nicotine dependence with nicotine-induced disorder Gastroesophageal reflux disease, esophagitis presence not specified Need for Tdap vaccination- Primary Need for prophylactic vaccination with combined gtasratfmc-occbpdq-pibruvyav (DTP) vaccine Fatigue, unspecified type S/P gastric bypass Bariatric surgery status Gastroesophageal reflux disease, esophagitis presence not specified Myalgia Unspecified myalgia and myositis Fatigue, unspecified type- Primary Gastroesophageal reflux disease, esophagitis presence not specified Myalgia Unspecified myalgia and myositis Bilateral hand pain Gastroesophageal reflux disease, esophagitis presence not specified Hemorrhoids, unspecified hemorrhoid type- Primary Actinic keratoses Actinic keratosis S/P gastric bypass Bariatric surgery status Screening for heart disease Screening for other and unspecified cardiovascular conditions Encounter for biometric screening- Primary Cigarette nicotine dependence with nicotine-induced disorder Hemorrhoids, unspecified hemorrhoid type At risk for obstructive sleep apnea Fatigue, unspecified type- Primary Snoring Other dyspnea and respiratory abnormality At risk for obstructive sleep apnea Cigarette nicotine dependence with nicotine-induced disorder Lipoma of torso- Primary BMI 24.0-24.9, adult At risk for obstructive sleep apnea Cigarette nicotine dependence with nicotine-induced disorder Encounter for biometric screening Anxiety- Primary Anxiety state, unspecified 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 Skin picking habit Itching- Primary Unspecified pruritic disorder Encounter for biometric screening- Primary 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 Acute swimmer's ear of right side- Primary Encounter for screening mammogram for malignant neoplasm of breast Need for vaccination Need for prophylactic vaccination and inoculation against unspecified single disease Wellness examination Encounter for biometric screening 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 Sleep disorder, shift work Circadian rhythm sleep disorder, shift work type Elevated liver enzymes- Primary Other nonspecific abnormal serum enzyme levels 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 Anxiety Anxiety state, unspecified Elevated liver enzymes Other nonspecific abnormal serum enzyme levels Cigarette nicotine dependence with nicotine-induced disorder Enterocolitis- Primary Other and unspecified noninfectious gastroenteritis and colitis Encounter for screening for malignant neoplasm of breast, unspecified screening modality- Primary Cigarette nicotine dependence with nicotine-induced disorder Elevated liver enzymes Other nonspecific abnormal serum enzyme levels Mild major depression Major depressive disorder, single episode, mild Anxiety Anxiety state, unspecified Insomnia, unspecified type Mild major depression- Primary Major depressive disorder, single episode, mild Anxiety Anxiety state, unspecified Pap smear for cervical cancer screening- Primary Screening for malignant neoplasm of the cervix Anxiety Anxiety state, unspecified Encounter for immunization Mild major depression Major depressive disorder, single episode, mild Healthcare maintenance Conjunctivitis, unspecified conjunctivitis type, unspecified laterality Mild major depression- Primary Major depressive disorder, single episode, mild Anxiety Anxiety state, unspecified Right-sided chest pain Lipoma, unspecified site Lipoma of torso Cigarette nicotine dependence with nicotine-induced disorder Cauda equina compression (HCC)- Primary Foot drop, left Other acquired deformity of ankle and foot Claudication of lower extremity (HCC) Chronic radicular lumbar pain Mild major depression- Primary Major depressive disorder, single episode, mild Cauda equina compression (HCC) Chronic radicular lumbar pain Claudication of lower extremity (HCC) Lumbar foraminal stenosis Cigarette nicotine dependence with nicotine-induced disorder Mild major depression- Primary Major depressive disorder, single episode, mild Tremors of nervous system Anxiety Anxiety state, unspecified Elevated liver enzymes Other nonspecific abnormal serum enzyme levels Healthcare maintenance Hyperglycemia Other abnormal glucose Admission for therapeutic drug monitoring Encounter for therapeutic drug monitoring Moderate major depression (HCC) Major depressive disorder, single episode, moderate documented in this encounter [facility] note* Diagnosis Gastroesophageal reflux disease, esophagitis presence not specified Sleep disorder, shift work Circadian rhythm sleep disorder, shift work type S/P gastric bypass Bariatric surgery status Gastroesophageal reflux disease, esophagitis presence not specified Sleep disorder, shift work Circadian rhythm sleep disorder, shift work type S/P gastric bypass Bariatric surgery status Cigarette nicotine dependence with nicotine-induced disorder Cigarette nicotine dependence with nicotine-induced disorder Gastroesophageal reflux disease, esophagitis presence not specified Need for Tdap vaccination- Primary Need for prophylactic vaccination with combined kmrgpydrmo-qqneuoq-ssoallmzw (DTP) vaccine Fatigue, unspecified type S/P gastric bypass Bariatric surgery status Gastroesophageal reflux disease, esophagitis presence not specified Myalgia Unspecified myalgia and myositis Fatigue, unspecified type- Primary Gastroesophageal reflux disease, esophagitis presence not specified Myalgia Unspecified myalgia and myositis Bilateral hand pain Gastroesophageal reflux disease, esophagitis presence not specified Hemorrhoids, unspecified hemorrhoid type- Primary Actinic keratoses Actinic keratosis S/P gastric bypass Bariatric surgery status Screening for heart disease Screening for other and unspecified cardiovascular conditions Encounter for biometric screening- Primary Cigarette nicotine dependence with nicotine-induced disorder Hemorrhoids, unspecified hemorrhoid type At risk for obstructive sleep apnea Fatigue, unspecified type- Primary Snoring Other dyspnea and respiratory abnormality At risk for obstructive sleep apnea Cigarette nicotine dependence with nicotine-induced disorder Lipoma of torso- Primary BMI 24.0-24.9, adult At risk for obstructive sleep apnea Cigarette nicotine dependence with nicotine-induced disorder Encounter for biometric screening Anxiety- Primary Anxiety state, unspecified 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 Skin picking habit Itching- Primary Unspecified pruritic disorder Encounter for biometric screening- Primary 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 Acute swimmer's ear of right side- Primary Encounter for screening mammogram for malignant neoplasm of breast Need for vaccination Need for prophylactic vaccination and inoculation against unspecified single disease Wellness examination Encounter for biometric screening 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 Sleep disorder, shift work Circadian rhythm sleep disorder, shift work type Elevated liver enzymes- Primary Other nonspecific abnormal serum enzyme levels 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 Anxiety Anxiety state, unspecified Elevated liver enzymes Other nonspecific abnormal serum enzyme levels Cigarette nicotine dependence with nicotine-induced disorder Enterocolitis- Primary Other and unspecified noninfectious gastroenteritis and colitis Encounter for screening for malignant neoplasm of breast, unspecified screening modality- Primary Cigarette nicotine dependence with nicotine-induced disorder Elevated liver enzymes Other nonspecific abnormal serum enzyme levels Mild major depression Major depressive disorder, single episode, mild Anxiety Anxiety state, unspecified Insomnia, unspecified type Mild major depression- Primary Major depressive disorder, single episode, mild Anxiety Anxiety state, unspecified Pap smear for cervical cancer screening- Primary Screening for malignant neoplasm of the cervix Anxiety Anxiety state, unspecified Encounter for immunization Mild major depression Major depressive disorder, single episode, mild Healthcare maintenance Conjunctivitis, unspecified conjunctivitis type, unspecified laterality Mild major depression- Primary Major depressive disorder, single episode, mild Anxiety Anxiety state, unspecified Right-sided chest pain Lipoma, unspecified site Lipoma of torso Cigarette nicotine dependence with nicotine-induced disorder Cauda equina compression (HCC)- Primary Foot drop, left Other acquired deformity of ankle and foot Claudication of lower extremity (HCC) Chronic radicular lumbar pain Mild major depression- Primary Major depressive disorder, single episode, mild Cauda equina compression (HCC) Chronic radicular lumbar pain Claudication of lower extremity (HCC) Lumbar foraminal stenosis Cigarette nicotine dependence with nicotine-induced disorder Encounter for immunization- Primary Liver mass Unspecified disorder of liver Elevated liver enzymes Other nonspecific abnormal serum enzyme levels Mild major depression Major depressive disorder, single episode, mild Insomnia, unspecified type Irritable bowel syndrome, unspecified type Epistaxis [facility] Murtaza Kline [facility] January 15, 2023 11:07am Note Date/Time January 15, 2023 11:07 am [facility] Medical Records Department [address] [place] [address] History & Physical Exam 01/15/23 1106 MR#: [id number] Acct: [id number] Name: CAT ACUÑA Rep #:[id number] : 1970 52 From: Murtaza Kline DO PCP: ALEJANDRO BEATTY MD Status:[facility] Location: [place] [address] History and Physical Date of Admission: 01/15/23 Chief Complaint: positive Cologuard Details: CAT ACUÑA, is a 52 F who presents to the office today for positive Cologuard.She had a colonoscopy in her 30s, doesn't recall why. She has frequent bloating.She alternates constipation and diarrhea. Takes Gas-X frequently. Sometimes has tenesmus. Recently has had accidents because of urgent diarrhea. Other times shehas hard stools, or soft stools. Takes OTC laxative prn. No relief with metamucil. No melena or hematochezia. No nausea, vomiting, dysphagia, heartburn.No abd pain but sometimes has cramps related to bowels. No unintentional weight loss. ROS Const Constitutional: Positive for fatigue and weight change ENT ENT: No difficulty swallowing Gastro GI: Positive for abdominal pain, bloating, change in bowel habits, constipation,diarrhea, heartburn, excessive flatus and nausea/dyspepsia; No belching, change in stool character, coffee ground emesis, cramping, difficulty swallowing, feeling full early, incontinent of stools, Vomiting blood/hematemesis, Blood in stool, loose stools, Black,tarry stools, pain with swallowing, vomiting or other Musc Musculoskeletal: Positive for joint pain, joint swelling and stiffness Skin Skin: No yellowing of the eye or itchy eyes Psych Psychiatric: Positive for anxiety, Positive for depression, Positive for Compulsive Behavior and Positive for obsessions/compulsions Endo Endocrine: Positive for fatigue and weight change Aller/Imm Allergy/Immunologic: No itchy eyes Sarabjit/Lymp Hematologic/Lymphatic: Positive for easy bruising; No easy bleeding Exam Const General: cooperative and comfortable Nutritional Appearance: average body habitus Orientation: alert, awake and oriented x3 Eyes Sclera: sclerae normal Resp Effort & Inspection: normal respiratory effort GI Inspection: normal to inspection Assessment and Plan Assessment and Plan (1) Alternating constipation and diarrhea: ?Status:?Chronic ?Plan: 52 yo female with positive cologuard test. Long hx alternating diarrhea and constipation. She declines eval/treatment for GI symptoms at this time, would like to proceed with colonoscopy. F/u 2 wks later in office. (2) Positive colorectal cancer screening using Cologuard test: ?Status:?Acute ?Plan: see above I have examined the patient and the H&P has been reviewed. There are no clinicalchanges since date of exam. 01/15/23 1107 <Electronically signed by Murtaza Kline DO> Cosigner Signature (if applicable): CC: ALEJANDRO BEATTY MD; Murtaza Kline DO~ Signed [facility] Work Phone: Hospital Discharge instructions* Attachments The following attachments cannot be sent through Care Everywhere. * Colitis: General Info ([place]) documented in this encounterOhioHealthReason for referral (narrative)No reason for referral information availableWOhio [facility] Work Phone: Reason for visit Narrative* Auth/Cert Specialty Diagnoses / Procedures Referred By Conthomer t Referred To Contact Diagnoses Enterocolitis Enterocolitis, dehydration, intussusception Referral ID Status Reason Start Date Expiration Date Visits Re quested Visits Authorized [id number] 1 1 [facility] Instructions * Patient Instructions - Tona Deal MD - 12/26/2017 6:12 PM EDT Formatting of this note may be different from the original. Problem List Items Addressed This Visit Digestive GERD (gastroesophageal reflux disease) Bloating persists but no heart burn or sharp pain. The carafate and the Cymbalta have seemed to help with the sleep quality. Other Fatigue - Primary Overall improved. So to a certain extent we can consider that tht ebile might have been playing a role in sleep quality. Relevant Medications DULoxetine (CYMBALTA) 60 MG capsule Myalgia Overall diffuse achiness from a 4-6 down to A 2-3. The ESR was 2 which virtually makes it unlikely that we are dealing with a rheumatalgic condition. Would increase the Cymbalta to 60 to see if we can see some added benefit. Relevant Medications DULoxetine (CYMBALTA) 60 MG capsule in this encounter* Patient Instructions - Tona Deal MD - 10/31/2017 2:35 PM EDT Formatting of this note may be different from the original. Problem List Items Addressed This Visit Digestive GERD (gastroesophageal reflux disease) Can affect th equality of the sleep and decrease in sleep Quality even if not interrupted can result in decrease in mental acuity throughout the day. Does not feel alert and feels like she is drifting off focus. Relevant Medications sucralfate (CARAFATE) 1 gram tablet Other Relevant Orders CBC and Differential Other Fatigue Decrease in quality of sleep from either the myalgia or the GERD can lead to a sense of fatigue. Fatigue can lead to an heightened sense of myofascial pain. The process can be due to anemia, thyroid disease, rheumatologic conditions though you are not describing A pattern of joints and not describing a sensation of gelling. Relevant Orders Comprehensive Metabolic Panel TSH with Reflex Free T4 Myalgia Non specific myalgia can be an expression of depression, sleep deficiency as well as some of the rheumatolgic conditions. Cymbalta and Effexor are antidepressant medications that have indications forchronic shift tissue and joint pain. Relevant Orders SARAH Sedimentation Rate S/P gastric bypass Need to obtain Interval testing to conform no evidence of Vitmin D deficiency as well as B12 or iron deficiency. Will repeat the interval labs necessary to confirm. Relevant Orders Comprehensive Metabolic Panel Vitamin D, Total, 25-OH in this encounter* Patient Instructions - Tona Deal MD - 05/02/2017 8:24 AM EDT Formatting of this note may be different from the original. Problem List Items Addressed This Visit Digestive GERD (gastroesophageal reflux disease) Much improved with the Carafate. This is diagnostic for bile reflux. Other Nicotine dependence You have been extremely successful in becoming no longer chemically addicted to nicotine. You nnow just need to convince yourself that you no longer need cigarettes o aid in calming self. in this encounter* Patient Instructions* Sandi Longo, YURI - 01/24/2019 7:37 PM EDT Problem List Items Addressed This Visit Digestive Hemorrhoids - Primary I am going to send in 10 days of Anusol which is a steroid suppository to help with inflammation. Ialso recommend you get some OTC dermaplast to help with pain. I will send in referral to see if youneed hemorrhoids removed again. Relevant Orders Ambulatory referral to General Surgery Musculoskeletal and Integument Actinic keratoses See attached education. Other S/P gastric bypass Relevant Orders CBC and Differential Vitamin D, Total, 25-OH Comprehensive Metabolic Panel Other Visit Diagnoses Screening for heart disease Relevant Orders Lipid Panel TSH with Reflex Free T4 Actinic Keratosis: Care Instructions Your Care Instructions Actinic keratosis is a skin growth caused by sun damage. It can turn into skin cancer, but this isn't common. Actinic keratoses, also called solar keratoses, are small red, brown, or skin-colored scaly patches. They are most common on the face, neck, hands, and forearms. Your doctor can remove these growths by freezing or scraping them off or by putting medicines on them. Follow-up care is a morales part of your treatment and safety. Be sure to make and go to all appointments, and call your doctor if you are having problems. It's also a good idea to know your test resultsand keep a list of the medicines you take. How can you care for yourself at home? If your doctor told you how to care for the treated area, follow your doctor's instructions. If youdid not get instructions, follow this general advice: ? Wash around the area with clean water 2 times a day. Don't use hydrogen peroxide or alcohol, which can slow healing. ? You may cover the area with a thin layer of petroleum jelly, such as Vaseline, and a nonstick bandage. ? Apply more petroleum jelly and replace the bandage as needed. To prevent actinic keratosis Always wear sunscreen on exposed skin. Make sure to use a broad-spectrum sunscreen that has a sun protection factor (SPF) of 30 or higher. Use it every day, even when it is cloudy. Wear long sleeves, a hat, and pants if you are going to be outdoors for a long time. Avoid the sun between 10 a.m. and 4 p.m., the peak time for UV rays. Do not use tanning booths or sunlamps. When should you call for help? Watch closely for changes in your health, and be sure to contact your doctor if: You have symptoms of infection, such as: ? Increased pain, swelling, warmth, or redness. ? Red streaks leading from the area. ? Pus draining from the area. ? A fever. Where can you learn more? Log into your personal health record on [email or web address]™t.Dymant and enter L364 in the Education box to learn more about Actinic Keratosis: Care Instructions. Current as of: December 02, 2017 Content Version: 12.0 7622-3484 [employer]. Care instructions adapted under license by your healthcare professional. If you have questions about a medical condition or this instruction, always ask your healthcare professional. [employer] disclaims any warranty or liability for your use of this information. documented in this encounter* Patient Instructions* Sandi Longo CNP - 02/12/2019 3:09 PM EDT Problem List Items Addressed This Visit Digestive Hemorrhoids I sent in a new script for generic anusol to see if insurance will cover. Grab a discount drug yancy the desk to see if that helps cover cost. Relevant Medications hydrocortisone (ANUSOL-HC) 25 mg suppository Other Nicotine dependence You did well on the Chantix in the past . I will send in a starter pack x 1 month and then have youfollow up to make sure everything is going well. Most common side effects include nausea and vivid dreams/nightmares. If you develop suicidal ideations you go to the ER immediately. Relevant Medications varenicline (CHANTIX STARTING MONTH BOX) 0.5 mg (11)- 1 mg (42) tablet At risk for obstructive sleep apnea I am going to start you on Chantix and follow up in one month. At that time we will also look into getting you set up with a sleep medicine referral to rule out sleep apnea due to being tired all thetime and states periods of apnea. Will wait for sleep study due to starting Chantix and canaffect sleep. Encounter for biometric screening - Primary Labs looked great. documented in this encounter* Patient Instructions* Sandi Longo CNP - 03/12/2019 2:12 PM EDT Problem List Items Addressed This Visit Other Nicotine dependence You are doing great on the Chantix, keep up the good work with not smoking! This is a huge accomplishment! Fatigue - Primary Relevant Orders Ambulatory referral to Sleep Medicine At risk for obstructive sleep apnea Relevant Orders Ambulatory referral to Sleep Medicine Other Visit Diagnoses Snoring Relevant Orders Ambulatory referral to Sleep Medicine If any referrals were placed at the time of your visit please allow 2 weeks for processing. If you haven't heard from anyone within 2 weeks please contact my office so we can look into the status of your referral. If you were given any labs today please ensure they are completed according to the directions given. Once labs are completed please allow 1-2 weeks for us to receive the results, review them, and letyou know what steps, if any, are needed next. If you haven't heard from us after that please call to inquire. If labs were ordered to be done PRIOR to your next visit we will discuss the results at the time ofyour office visit. If any procedures or imaging studies were ordered that must be prior authorized please give us 2 weeks to get them approved. Once approved someone should call you to schedule them or give you a date and time that they were scheduled for. If you haven't heard anything within 2 weeks of the office visit please call the office so we can look into their status. documented in this encounter* Patient Instructions* Sandi Longo CNP - 09/17/2019 1:06 PM EST Problem List Items Addressed This Visit Other Nicotine dependence Great job with quitting smoking! Keep up the good work. At risk for obstructive sleep apnea Will wait and see how you feel, if you have witnessed periods of apnea we will order a home sleep test. BMI 24.0-24.9, adult Eat meat, vegetables, nuts and seeds, some fruit, very little starch and absolutely no sugar. If you can grow it or kill it, then that's what you should be eating..... Chicken, turkey, fish pork, beef, ALL vegetables and fruit. If it is processed or you can not pronounce the ingredients, do not eat it! Shop the outside perimeter of the grocery store. Listen to your body, if you are hungry all the time you may need to increase your intake of healthyveggies and small healthy snacks. Eat whole, healthy foods and you won't need to count calories. Increase your activity level; the more you move your body the healthier you will be and the better you will feel! Diet and Exercise is not a fad, it really works! Other Visit Diagnoses Lipoma of torso - Primary Relevant Orders Ambulatory referral to General Surgery Encounter for biometric screening Relevant Orders CBC and Differential Comprehensive Metabolic Panel Lipid Panel TSH with Reflex Free T4 If any referrals were placed at the time of your visit please allow 2 weeks for processing. If you haven't heard from anyone within 2 weeks please contact my office so we can look into the status of your referral. If you were given any labs today please ensure they are completed according to the directions given. Once labs are completed please allow 1-2 weeks for us to receive the results, review them, and letyou know what steps, if any, are needed next. If you haven't heard from us after that please call to inquire. If labs were ordered to be done PRIOR to your next visit we will discuss the results at the time ofyour office visit. If any procedures or imaging studies were ordered that must be prior authorized please give us 2 weeks to get them approved. Once approved someone should call you to schedule them or give you a date and time that they were scheduled for. If you haven't heard anything within 2 weeks of the office visit please call the office so we can look into their status. 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 For the next 6 months take 1 mg a day or 1/2 tablet. We will at the next visit decrease you to 0.5 mg for 6 months. Relevant Medications estradioL (ESTRACE) 2 MG tablet DULoxetine (CYMBALTA) 60 MG capsule DULoxetine (CYMBALTA) 30 MG capsule Other Visit Diagnoses Anxiety - Primary Relevant Medications DULoxetine (CYMBALTA) 60 MG capsule DULoxetine (CYMBALTA) 30 MG capsule Skin picking habit Relevant Medications DULoxetine (CYMBALTA) 60 MG capsule DULoxetine (CYMBALTA) 30 MG capsule If any referrals were placed at the time of your visit please allow 2 weeks for processing. If you haven't heard from anyone within 2 weeks please contact my office so we can look into the status of your referral. If you were given any labs today please ensure they are completed according to the directions given. Once labs are completed please allow 1-2 weeks for us to receive the results, review them, and letyou know what steps, if any, are needed next. If you haven't heard from us after that please call to inquire. If labs were ordered to be done PRIOR to your next visit we will discuss the results at the time ofyour office visit. If any procedures or imaging studies were ordered that must be prior authorized please give us 2 weeks to get them approved. Once approved someone should call you to schedule them or give you a date and time that they were scheduled for. If you haven't heard anything within 2 weeks of the office visit please call the office so we can look into their status. Customer Service/Billing Questions: [phone] [facility] Assistance: [phone] or [phone] Financial Assistance: [phone] or [phone] As of August 23, 2019 my schedule will be changing: Friday 7 am to 5 pm Friday 7 am to 5 pm Friday closed 7 am to 5 pm Friday 7 am to 1 pm documented in this encounter Assessments Diagnosis Fatigue, unspecified type - Primary Gastroesophageal reflux dise ase, esophagitis presence not specified Myalgia Unspecified myalgia and myositis Diagnosis Need for Tdap vaccination - Primary Need for prophylactic vaccination with combined zemcdecqdq-mqnynts-ezvyizscq (DTP) vaccine Fatigue, unspecified type S/P gastric bypass Bariatric surgery status Gastroesophageal reflux dise ase, esophagitis presence not specified Myalgia Unspecified myalgia and myositis Diagnosis Cigarette nicotine dependenc e with nicotine-induced disorder Gastroesophageal reflux dise ase, esophagitis presence not specified Diagnosis Hemorrhoids, unspecified hemorrhoid type- Primary Actinic keratoses Actinic keratosis S/P gastric bypass Bariatric surgery status Screening for heart disease Screening for other and unspecified cardiovascular conditions Diagnosis External hemorrhoid- Primary External hemorrhoids without mention of complication Hemorrhoids, unspecified hemorrhoid type Diagnosis Encounter for biometric screening- Primary Cigarette nicotine dependence with nicotine-induced disorder Hemorrhoids, unspecified hemorrhoid type At risk for obstructive sleep apnea Diagnosis Fatigue, unspecified type- Primary Snoring Other dyspnea and respiratory abnormality At risk for obstructive sleep apnea Cigarette nicotine dependence with nicotine-induced disorder Diagnosis BMI 24.0-24.9, adult At risk for obstructive sleep apnea Cigarette nicotine dependence with nicotine-induced disorder Lipoma of torso Encounter for biometric screening Diagnosis Lipoma of torso Diagnosis Lipoma of torso Diagnosis Lipoma of torso Diagnosis Lipoma of torso Diagnosis ERRONEOUS ENCOUNTER--DISREGARD- Primary Diagnosis Anxiety- Primary Anxiety state, unspecified 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 Skin picking habit Diagnosis Itching- Primary Unspecified pruritic disorder Diagnosis Sleep disorder, shift work Circadian rhythm sleep disorder, shift work type Diagnosis ERRONEOUS ENCOUNTER--DISREGARD Summary Purpose Family History No Family History Records Found Relationship Condition Age at Onset Recorded Date/T ericka father Diverticular disease Unknown mother Leukemia Unknown Advance Directives No Advanced Directives Records FoundDocuments on File Type Date Recorded 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 Advance Directives and Living Will Documents on File Type Date Recorded 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 Advance Directives and Living Will Documents on File Type Date Recorded 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 Advance Directives and Livin g Will 10/22/2019 9:12 AM Documents on File Type Date Recorded 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 Advance Directives and Livin g Will 10/22/2019 9:12 AM Documents on File Type Date Recorded 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 Advance Directives and Livin g Will 08/31/2021 7:41 AM Latest Code Status on File Date Activated Date Inactivated Comments 05/17/2022 5:40 PM 05/20/2022 4:44 PM Latest Code Status on File Code Status Date Activated Date Inactivated Comments Full Code - Unverified 05/17/2022 5:40 PM 05/20/2022 4:4 4 PM Latest Code Status on File Code Status Date Activated Date Inactivated Comments Full Code - Unverified 05/17/2022 5:40 PM 05/20/2022 4:4 4 PM Advance Directive Response Recorded Date/ Time Living Will No January 08, 2023 1 2:18pm Power of Aircraft Refueler No January 08, 2023 12:18pm Date Activated Date Inactivated Comments 05/17/2022 5:40 PM 05/20/2022 4:44 PM Date Activated Date Inactivated Comments 05/17/2022 5:40 PM 05/20/2022 4:44 PM Reason for Referral Status Reason Specialty Diagnoses / Procedures Referred By Contact Referred To Contact Authorized General Surgery Diagnoses Hemorrhoids, unspecified hemorrhoid type Sandi Longo CNP [address] [place] [address] Danny Manning MD [address] [place] [id number] Status Reason Specialty Diagnoses / Procedures Referred By Contact Referred To Contact Authorized Sleep Medicine Diagnoses Fatigue, unspecified type Snoring At risk for obstructive sleep apnea Sandi Longo BINDING PRINTER [address] [place] [address] [place] [address] Status Reason Specialty Diagnoses / Procedures Referred By Contact Referred To Contact Authorized General Surgery Diagnoses Lipoma of torso [place], BINDING PRINTER [address] [place] [address] Danny Manning MD [address] [facility] [address] [place] [address] Status Reason Specialty Diagnoses / Procedures Referred By Contact Referred To Contact Closed Diagnoses Sleep disorder, shift work Sandi Longo, BINDING PRINTER [address] [place] [address] Specialty Diagnoses / Procedures Referred By Contac t Referred To Contact Diagnoses Encounter for screening mammogram for malignant neoplasm of breast Procedures Mammography Screening Oren Bilateral Sandi Longo, BINDING PRINTER [facility] [place] [address] [place] [address] Phone: [phone] Referral ID Status Reason Start Date Expiration Date Visits Requested Visits Authorized [id number] Authorized Patient Preference 06/15/2022 1 1 Specialty Diagnoses / Procedures Referred By Contac t Referred To Contact Radiology Diagnoses Elevated liver enzymes Procedures US Abdomen Limited Study Sandi Longo CNP [facility] [place] [address] Referral ID Status Reason Start Date Expiration Date V isits Requested Visits Authorized [id number] Authorized 08/23/2021 08/23/2022 1 1 Specialty Diagnoses / Procedures Referred By Contac t Referred To Contact Internal Medicine Diagnoses Colon cancer screening Alejandro Beatty MD [facility] [place] [address] Ralph Chand, DO [address] [place] [address] Referral ID Status Reason Start Date Expiration Date Visits Requested Visits Authorized [id number] Authorized Specialty Services Required/Pat ient's Best Interest 07/05/2023 1 1 Scheduling Instructions Please fax to Specialty Diagnoses / Procedures Referred By Contac t Referred To Contact Radiology Diagnoses Encounter for screening for malignant neoplasm of breast, unspecified screening modality Procedures Mammography Screening Oren Bilateral Alejandro Beatty MD [address] [place] [phone] Mammography [place] [address] [facility] [address] [place] [address] Referral ID Status Reason Start Date Expiration Date V isits Requested Visits Authorized [id number] Authorized 07/05/2022 07/05/2023 1 1 Specialty Diagnoses / Procedures Referred By Contac t Referred To Contact Gastroenterology Diagnoses Colon cancer screening Alejandro Beatty MD [facility] [place] [phone] Referral ID Status Reason Start Date Expiration Date V isits Requested Visits Authorized [id number] Authorized 10/18/2022 10/18/2023 1 1 Specialty Diagnoses / Procedures Referred By Contac t Referred To Contact General Surgery Diagnoses Right-sided chest pain Lipoma, unspecified site Alejandro Beatty MD [address] [address] [facility] [address] Office Building, 5th [place] [address] Referral ID Status Reason Start Date Expiration Date V isits Requested Visits Authorized [id number] Authorized 08/29/2023 08/28/2024 1 1 Specialty Diagnoses / Procedures Referred By Contac t Referred To Contact Radiology Diagnoses Right-sided chest pain Lipoma, unspecified site Procedures US Chest Alejandro Beatty MD [address] [place] [phone] Referral ID Status Reason Start Date Expiration Date V isits Requested Visits Authorized [id number] Pending Review 08/29/2023 08/28/2024 1 1 Specialty Diagnoses / Procedures Referred By Contac t Referred To Contact Neurological Surgery / Neurosurgery Diagnoses Cauda equina compression (HCC) Claudication of lower extremity (HCC) Alejandro Beatty MD [address] [place] [phone] Jorge Casas MD [address] [place] [phone] Referral ID Status Reason Start Date Expiration Date V isits Requested Visits Authorized [id number] Authorized 09/26/2023 09/25/2024 1 1 Specialty Diagnoses / Procedures Referred By Contac t Referred To Contact Radiology Diagnoses Cauda equina compression (HCC) Claudication of lower extremity (HCC) Procedures MR Lumbar Spine Without Contrast Alejandro Beatty MD [address] [place] [phone] [facility] [address] [facility] [place] [address] Referral ID Status Reason Start Date Expiration Date V isits Requested Visits Authorized [id number] New Request 09/19/2023 09/18/2024 1 1 Specialty Diagnoses / Procedures Referred By Contac t Referred To Contact Pain Medicine Diagnoses Lumbar foraminal stenosis Jorge Casas MD [address] [address] He aHrrington DO [address] [place] [address] Referral ID Status Reason Start Date Expiration Date V isits Requested Visits Authorized [id number] Authorized 10/20/2023 10/19/2024 1 1 Specialty Diagnoses / Procedures Referred By Contac t Referred To Contact Rehabilitation Diagnoses Chronic radicular lumbar pain Claudication of lower extremity (HCC) Alejandro Beatty MD [address] [place] [address] [facility] [place] [address] [place] [phone] Referral ID Status Reason Start Date Expiration Date V isits Requested Visits Authorized [id number] Authorized 11/07/2023 11/06/2024 1 1 Specialty Diagnoses / Procedures Referred By Contac t Referred To Contact Anesthesiology Diagnoses Chronic radicular lumbar pain Alejandro Beatty MD [address] [place] [address] Karine Muhammad MD [address] [place] [id number] Referral ID Status Reason Start Date Expiration Date Visits Requested Visits Authorized [id number] Authorized Specialty Services Required/Pat ient's Best Interest 11/07/2023 11/06/2024 1 1 Scheduling Instructions Please fax to in [place] Specialty Diagnoses / Procedures Referred By Contac t Referred To Contact Radiology Diagnoses Localized swelling of both lower legs Costovertebral angle pain Procedures CT Abdomen Pelvis Without Contrast Alejandro Beatty MD [address] [place], [place] [phone] [facility] [address] [place] [phone] Referral ID Status Reason Start Date Expiration Date V isits Requested Visits Authorized [id number] New Request 05/27/2024 05/27/2025 1 1 History of Present Illness * Sandi Longo CNP - 01/22/2019 2:06 PM EDT Subjective Patient ID: Cat Acuña is a 48 y.o. female. Patient is here today for concerns about a lesion on the left side of her face and hemorrhoids. Lesion on face: Patient has spot on the left side of her face that appeared out of nowhere. It is not painful and it is not itchy. She has been applying lotion and it is not improving. Hemorrhoids: Patient has had an issue with hemorrhoids for the past 25+ years. About 24 years ago she had to have hemorrhoids removed. She states she will have flares occasionally but is able to control with preparation H suppositories. In the past 4 months she has had continual pain and the suppositories do not help at all. The pain is so significant she will lose her appetitie. She is using the suppositories and Tuck's pads all the time and she is getting no relief. She is also taking Ibuprofen for pain and it is not helping. She states she is not having an issue with constipation, hard stools, or straining. The only thing she is lifting on a regular basis is her grandson and she does notfeel like it makes it any worse. The following portions of the patient's history were reviewed and updated as appropriate: allergies, current medications, past family history, past medical history, past social history, past surgicalhistory and problem list. Past Medical History: Diagnosis Date GERD (gastroesophageal reflux disease) History of palpitations 2016 Eval in ER negative for heart with only low potassium Hypoglycemia Nicotine dependence Sleep disorder, shift work Past Surgical History: Procedure Laterality Date ADENOIDECTOMY 08/18/1981 APPENDECTOMY SECTION, CLASSIC 1993 and 94 CHOLECYSTECTOMY 08/18/1997 DILATION AND CURETTAGE OF UTERUS 2 GASTRIC BYPASS 08/18/2001 Bariatric Clinic in [place] HYSTERECTOMY 08/18/2004 MOUTH SURGERY 08/18/2000 TONSILLECTOMY 08/18/1981 Family History Problem Relation Age of Onset Leukemia Mother COPD Father Hypertension Father Social History Tobacco Use Smoking status: Current Every Day Smoker Packs/day: 0.50 Years: 20.00 Pack years: 10.00 Smokeless tobacco: Never Used Tobacco comment: Needs to quit Substance Use Topics Alcohol use: Yes Comment: weekly/wine and whiskey Drug use: No Patient's Medications New Prescriptions HYDROCORTISONE (ANUSOL-HC) 25 MG SUPPOSITORY Insert 1 (one) suppository (25 mg total) into the rectum 2 (two) times a day for 10 days . Previous Medications ASPIRIN 81 MG EC TABLET Take 81 mg by mouth daily. CALCIUM CARBONATE (OS-JOSE) 600 MG (1,500 MG) TABLET Take 600 mg by mouth 2 (two) times a day with meals. CHOLECALCIFEROL, VITAMIN D3, 1,000 UNIT TABLET Take 10,000 Units by mouth daily . CYANOCOBALAMIN (VITAMIN B-12) 1000 MCG TABLET Take 1,000 mcg by mouth daily. DULOXETINE (CYMBALTA) 60 MG CAPSULE take 1 tablet by mouth once daily ESTRADIOL (ESTRACE) 2 MG TABLET Take 1 tablet (2 mg total) by mouth daily. FAMOTIDINE (PEPCID) 40 MG TABLET take 1 tablet by mouth PRIOR TO SLEEP INTERVAL FERROUS FUMARATE (IRON ORAL) Take 27 mg by mouth daily. MAGNESIUM 250 MG TAB Take by mouth. POTASSIUM 99 MG TAB Take 99 mg by mouth daily. VITAMIN WITH CA-IRON-FA 27-1 MG TAB Take 1 tablet by mouth daily. SUCRALFATE (CARAFATE) 1 GRAM TABLET Take 1 (one) tablet (1 g total) by mouth 4 (four) times a day before meals. TRAZODONE (DESYREL) 50 MG TABLET take 1 to 2 tablets 1 HOUR PRIOR TO SLEEP INTERVAL Modified Medications No medications on file Discontinued Medications No medications on file Allergies Allergen Reactions Codeine Hives and Shortness Of Breath Review of Systems Review of Systems Constitutional: Negative for activity change, appetite change, fatigue and unexpected weight change. HENT: Negative for congestion, hearing loss, postnasal drip, rhinorrhea, sinus pressure, sinus painand sneezing. Eyes: Negative for photophobia and visual disturbance. Respiratory: Negative for cough, chest tightness, shortness of breath and wheezing. Cardiovascular: Negative for chest pain and palpitations. Gastrointestinal: Positive for anal bleeding and blood in stool. Negative for constipation, diarrhea, nausea and vomiting. Hemorrhoids Endocrine: Negative for cold intolerance and heat intolerance. Genitourinary: Negative for dysuria, frequency and urgency. Musculoskeletal: Negative for arthralgias, back pain and myalgias. Skin: Negative. Actinic keratosis Neurological: Negative for dizziness, light-headedness and headaches. Hematological: Negative. Psychiatric/Behavioral: Negative for dysphoric mood and sleep disturbance. The patient is not nervous/anxious. Vitals: 01/22/19 1341 BP: 112/71 BP Location: Left arm Patient Position: Sitting BP Cuff Size: Adult Pulse: 79 Resp: 16 Temp: 98 F (36.7 C) TempSrc: Oral SpO2: 95% Weight: 61.2 kg (135 lb) Height: 5' 1 Body mass index is 25.51 kg/m . Physical Exam Physical Exam Constitutional: She is oriented to person, place, and time. She appears well- developed and well-nourished. HENT: Right Ear: External ear normal. Left Ear: External ear normal. Nose: Nose normal. Mouth/Throat: Oropharynx is clear and moist and mucous membranes are normal. Eyes: Conjunctivae, EOM and lids are normal. Neck: Normal range of motion and full passive range of motion without pain. No JVD present. Cardiovascular: Normal rate, regular rhythm and normal heart sounds. No murmur heard. Pulmonary/Chest: Effort normal and breath sounds normal. Genitourinary: Rectal exam shows external hemorrhoid (large amount of external hemorrhoids, very tender). Musculoskeletal: Normal range of motion. Neurological: She is alert and oriented to person, place, and time. Skin: Skin is warm and dry. Psychiatric: She has a normal mood and affect. Her speech is normal and behavior is normal. Assessment/Plan Problem List Items Addressed This Visit Digestive Hemorrhoids - Primary I am going to send in 10 days of Anusol which is a steroid suppository to help with inflammation. Ialso recommend you get some OTC dermaplast to help with pain. I will send in referral to see if youneed hemorrhoids removed again. Relevant Orders Ambulatory referral to General Surgery Musculoskeletal and Integument Actinic keratoses See attached education. Other S/P gastric bypass Relevant Orders CBC and Differential Vitamin D, Total, 25-OH Comprehensive Metabolic Panel Other Visit Diagnoses Screening for heart disease Relevant Orders Lipid Panel TSH with Reflex Free T4 No data recorded Goals Blood Pressure < 130/80 High blood pressure makes your heart work too hard. It can cause heart attack, stroke and kidney disease. HDL-C > 50 HEMOGLOBIN A1C < 7.0 Blood sugar levels outside the normal range may be an indicator of diabetes. LDL CALC < 100 LDL or bad cholesterol can build up and clog your blood vessels. It can cause heart attack or stroke. If any referrals were placed at today's visit the patient was instructed to call the office if theyhavn't heard anything about the referral within 2 weeks of today's visit. For any new medications prescribed today, patient was educated about indications for the medication, how to take the medication and potential side effects of the medications. documented in this encounter* Danny Manning MD - 02/05/2019 1:20 PM EDT HISTORY & PHYSICAL EXAMINATION Patient Name: Cat Acuña MR #: [id number] : 1970 Physicians: Sandi Longo CNP (Family); Sandi Longo C* (Referring) Chief Complaint/Reason for Visit: Hemorrhoid History of Present Illness: Cat Acuña is a 49 y.o. y/o female past medical history of GERD and bariatric Lory-en-Y presenting for referral for external hemorrhoid. Patient states that she has had issues with hemorrhoids for years however over the last 4 months she has had significant difficulty with one in particular. States for the last 4 months external hemorrhoid has been tender painful. Reports attempting a daily stool softener and denies any significant straining. Additionally has been using preparation H topical agents as well as suppositories. Denies any bleeding or blood in the stool. Reports having a screening colonoscopy several years ago after bariatric weight loss surgery and denies having any polyps or other findings. History: I have reviewed the PMHx, PSHx, SHx, FHx in EMR with the patient during this encounter face to faceand patient agrees with the documentation Past Medical History: Diagnosis Date GERD (gastroesophageal reflux disease) History of palpitations 2016 Eval in ER negative for heart with only low potassium Hypoglycemia Nicotine dependence Sleep disorder, shift work Past Surgical History: Procedure Laterality Date ADENOIDECTOMY 08/18/1981 APPENDECTOMY SECTION, CLASSIC 1993 and 94 CHOLECYSTECTOMY 08/18/1997 DILATION AND CURETTAGE OF UTERUS 2 GASTRIC BYPASS 08/18/2001 Bariatric Clinic in [place] HYSTERECTOMY 08/18/2004 MOUTH SURGERY 08/18/2000 TONSILLECTOMY 08/18/1981 Family History Problem Relation Age of Onset Leukemia Mother COPD Father Hypertension Father Social History Socioeconomic History Marital status: Spouse name: Not on file Number of children: Not on file Years of education: Not on file Highest education level: Not on file Occupational History Not on file Social Needs Financial resource strain: Not on file Food insecurity: Worry: Not on file Inability: Not on file Transportation needs: Medical: Not on file Non-medical: Not on file Tobacco Use Smoking status: Current Every Day Smoker Packs/day: 0.50 Years: 20.00 Pack years: 10.00 Smokeless tobacco: Never Used Tobacco comment: Needs to quit Substance and Sexual Activity Alcohol use: Yes Comment: weekly/wine and whiskey Drug use: No Sexual activity: Yes Partners: Male Comment: hysterectomy Lifestyle Physical activity: Days per week: Not on file Minutes per session: Not on file Stress: Not on file Relationships Social connections: Talks on phone: Not on file Gets together: Not on file Attends baptist service: Not on file Active member of club or organization: Not on file Attends meetings of clubs or organizations: Not on file Relationship status: Not on file Other Topics Concern Not on file Social History Narrative Not on file Allergy Information: Codeine Home Medications: Outpatient Medications as of 02/05/2019 Medication Sig aspirin 81 MG EC tablet Take 81 mg by mouth daily. calcium carbonate (OS-JOSE) 600 mg (1,500 mg) tablet Take 600 mg by mouth 2 (two) times a day with meals. cholecalciferol, vitamin D3, 1,000 unit tablet Take 10,000 Units by mouth daily . cyanocobalamin (vitamin B-12) 1000 MCG tablet Take 1,000 mcg by mouth daily. DULoxetine (CYMBALTA) 60 MG capsule take 1 tablet by mouth once daily estradiol (ESTRACE) 2 MG tablet Take 1 tablet (2 mg total) by mouth daily. famotidine (PEPCID) 40 MG tablet take 1 tablet by mouth PRIOR TO SLEEP INTERVAL FERROUS FUMARATE (IRON ORAL) Take 27 mg by mouth daily. magnesium 250 mg Tab Take by mouth. potassium 99 mg Tab Take 99 mg by mouth daily. vitamin with Ca-Iron-FA 27-1 mg Tab Take 1 tablet by mouth daily. traZODone (DESYREL) 50 MG tablet take 1 to 2 tablets 1 HOUR PRIOR TO SLEEP INTERVAL Review of Systems: Review of Systems Constitutional: Negative. HENT: Negative. Eyes: Negative. Respiratory: Negative. Cardiovascular: Negative. Gastrointestinal: Positive for rectal pain. Endocrine: Negative. Genitourinary: Negative. Musculoskeletal: Negative. Skin: Negative. Allergic/Immunologic: Negative. Neurological: Negative. Hematological: Negative. Psychiatric/Behavioral: Positive for dysphoric mood. Physical Examination: Vital Signs: Pulse 69 Temp 97.8 F (36.6 C) (Oral) Ht 5' 1 Wt 60.5 kg (133 lb 4.8 oz) SpO2 97% BMI 25.19 kg/m Physical Exam Constitutional: She appears well-developed. HENT: Head: Normocephalic. Eyes: Pupils are equal, round, and reactive to light. Neck: Normal range of motion. Cardiovascular: Normal rate. Pulmonary/Chest: Effort normal. Abdominal: Soft. She exhibits no distension. There is no tenderness. There is no guarding. Genitourinary: Genitourinary Comments: In prone jackknife: Perianal exam was completed and an external hemorrhoid in the left anterior quadrant was identified. This had both an external and internal component. No evidence of thrombosis was soft mobile no active signs of bleeding. BRAD normal 5+ tone Anoscopy: No evidence of anal canal masses tears or fissures Laboratory and Additional Data Reviewed: Laboratory 02/05/19 1:50 PM Laboratory Lab Results Component Value Date WBC 4.80 11/08/2017 HGB 13.7 11/08/2017 HCT 41.4 11/08/2017 PLT 241 11/08/2017 No results found for: AMYLASE No results found for: LIPASE Assessment and Plan: Cat Acuña is a 49 y.o. y/o female with past medical history of GERD and bariatric Lory-en-Y presenting for referral for external hemorrhoid. Patient Active Problem List Diagnosis GERD (gastroesophageal reflux disease) Sleep disorder, shift work S/P gastric bypass Nicotine dependence Fatigue Myalgia Bilateral hand pain Actinic keratoses Hemorrhoids Plan: Discussed with her the findings of primarily an external hemorrhoid with an internal component. Offered the patient surgical management with hemorrhoidectomy. Described the procedure and discussed recovery that would be needed. When patient was aware that this would require more extensive treatment than just a rubber band patient declined treatment at this time. Structured her to continue her medical management with what she is doing with either topical medications and keeping stool soft with stool softeners and fiber. Patient can return to the office if significant bleeding or thrombosis were to occur. Additionally encouraged her to obtain another colonoscopy at the age of 52 for which shecan speak with her family physician for referral. Screening and Health maintenance Colonoscopy - Last colonoscopy 2003 documented in this encounter* Sandi Longo CNP - 02/21/2019 7:25 PM EDT Subjective Patient ID: Cat Acuña is a 49 y.o. female. Patient is here today to have her biometric screening exam done for her employer and insurance. Sheis also asking about stopping smoking. She states in the past she did well on chantix with no issues. She would like to try this again in hopes she is more successful. Patient states she also has concerns of being tired all of the time and would like to look more into a sleep study. Will address atnext visit. Needs refill on Anusol in generic version so that insurance will cover. The following were updated as appropriate for today's visit: allergies, current medications, past family history, past medical history, past social history, past surgical history and problem list. Patient's Medications New Prescriptions HYDROCORTISONE (ANUSOL-HC) 25 MG SUPPOSITORY Insert 1 (one) suppository (25 mg total) into the rectum 2 (two) times a day . VARENICLINE (CHANTIX STARTING MONTH BOX) 0.5 MG (11)- 1 MG (42) TABLET Take one 0.5mg tab by mouth once daily for 3 days, then increase to one 0.5mg tab twice daily for 4 days, then increase to 1mg twice daily. . Previous Medications ASPIRIN 81 MG EC TABLET Take 81 mg by mouth daily. CALCIUM CARBONATE (OS-JOSE) 600 MG (1,500 MG) TABLET Take 600 mg by mouth 2 (two) times a day with meals. CHOLECALCIFEROL, VITAMIN D3, 1,000 UNIT TABLET Take 10,000 Units by mouth daily . CYANOCOBALAMIN (VITAMIN B-12) 1000 MCG TABLET Take 1,000 mcg by mouth daily. DULOXETINE (CYMBALTA) 60 MG CAPSULE take 1 tablet by mouth once daily ESTRADIOL (ESTRACE) 2 MG TABLET Take 1 tablet (2 mg total) by mouth daily. FAMOTIDINE (PEPCID) 40 MG TABLET take 1 tablet by mouth PRIOR TO SLEEP INTERVAL FERROUS FUMARATE (IRON ORAL) Take 27 mg by mouth daily. MAGNESIUM 250 MG TAB Take by mouth. POTASSIUM 99 MG TAB Take 99 mg by mouth daily. VITAMIN WITH CA-IRON-FA 27-1 MG TAB Take 1 tablet by mouth daily. TRAZODONE (DESYREL) 50 MG TABLET take 1 to 2 tablets 1 HOUR PRIOR TO SLEEP INTERVAL Modified Medications No medications on file Discontinued Medications No medications on file Review of Systems Review of Systems Constitutional: Positive for fatigue. Negative for activity change. HENT: Negative for hearing loss. Eyes: Negative for visual disturbance. Respiratory: Negative for cough, chest tightness and shortness of breath. Cardiovascular: Negative for chest pain and palpitations. Musculoskeletal: Negative for gait problem. Skin: Negative. Psychiatric/Behavioral: Negative for agitation. Vitals: 02/12/19 1414 BP: 103/69 BP Location: Left arm Patient Position: Sitting BP Cuff Size: Adult Pulse: 82 Resp: 18 Temp: 98.4 F (36.9 C) TempSrc: Oral SpO2: 98% Weight: 60.3 kg (133 lb) Height: 5' 1 Body mass index is 25.13 kg/m . Physical Exam Physical Exam Constitutional: She is oriented to person, place, and time. She appears well- developed and well-nourished. HENT: Right Ear: External ear normal. Left Ear: External ear normal. Nose: Nose normal. Mouth/Throat: Oropharynx is clear and moist and mucous membranes are normal. Eyes: Conjunctivae, EOM and lids are normal. Neck: Normal range of motion. Cardiovascular: Normal rate, regular rhythm and normal heart sounds. No murmur heard. Pulmonary/Chest: Effort normal and breath sounds normal. Musculoskeletal: Normal gait Neurological: She is alert and oriented to person, place, and time. GCS eye subscore is 4. GCS verbal subscore is 5. GCS motor subscore is 6. Skin: Skin is warm and dry. Psychiatric: She has a normal mood and affect. Her speech is normal and behavior is normal. No data recorded Assessment/Plan Problem List Items Addressed This Visit Digestive Hemorrhoids I sent in a new script for generic anusol to see if insurance will cover. Grab a discount drug yancy the desk to see if that helps cover cost. Relevant Medications hydrocortisone (ANUSOL-HC) 25 mg suppository Other Nicotine dependence You did well on the Chantix in the past . I will send in a starter pack x 1 month and then have youfollow up to make sure everything is going well. Most common side effects include nausea and vivid dreams/nightmares. If you develop suicidal ideations you go to the ER immediately. Relevant Medications varenicline (CHANTIX STARTING MONTH BOX) 0.5 mg (11)- 1 mg (42) tablet At risk for obstructive sleep apnea I am going to start you on Chantix and follow up in one month. At that time we will also look into getting you set up with a sleep medicine referral to rule out sleep apnea due to being tired all thetime and states periods of apnea. Will wait for sleep study due to starting Chantix and canaffect sleep. Encounter for biometric screening - Primary Goals Blood Pressure < 130/80 High blood pressure makes your heart work too hard. It can cause heart attack, stroke and kidney disease. HDL-C > 50 HEMOGLOBIN A1C < 7.0 Blood sugar levels outside the normal range may be an indicator of diabetes. LDL CALC < 100 LDL or bad cholesterol can build up and clog your blood vessels. It can cause heart attack or stroke. For any new medications prescribed today, patient was educated about indications for the medication, how to take the medication and potential side effects of the medications. documented in this encounter* Sandi Longo CNP - 03/12/2019 2:01 PM EDT Subjective Patient ID: Cat Acuña is a 49 y.o. female. Smoking Cessation: Patient has been on Chantix since 02/15/2019 and her last cigarette was 02/28/2019.She has been tolerating the Chantix without issues. Her only side effect is the vivid dreams but still sleeping well. No cough with quitting smoking. Mammogram: Scheduled for 04/23/2019, PAP test was negative. Snoring/fatigue: At last visit discussed risk factors for sleep apnea. Patient states she has daytime sleepiness and fatigue. Her was at her last visit and stated that she does snore and havewitnessed periods of apnea when sleeping. The following were reviewed and updated as appropriate for today's visit: allergies, current medications, past family history, past medical history, past social history, past surgical history and problem list. Patient's Medications New Prescriptions VARENICLINE (CHANTIX CONTINUING MONTH BOX) 1 MG TABLET Take 1 (one) tablet (1 mg total) by mouth 2 (two) times a day . Previous Medications ASPIRIN 81 MG EC TABLET Take 81 mg by mouth daily. CALCIUM CARBONATE (OS-JOSE) 600 MG (1,500 MG) TABLET Take 600 mg by mouth 2 (two) times a day with meals. CHOLECALCIFEROL, VITAMIN D3, 1,000 UNIT TABLET Take 10,000 Units by mouth daily . CYANOCOBALAMIN (VITAMIN B-12) 1000 MCG TABLET Take 1,000 mcg by mouth daily. DULOXETINE (CYMBALTA) 60 MG CAPSULE take 1 tablet by mouth once daily ESTRADIOL (ESTRACE) 2 MG TABLET Take 1 tablet (2 mg total) by mouth daily. FAMOTIDINE (PEPCID) 40 MG TABLET take 1 tablet by mouth PRIOR TO SLEEP INTERVAL FERROUS FUMARATE (IRON ORAL) Take 27 mg by mouth daily. HYDROCORTISONE (ANUSOL-HC) 25 MG SUPPOSITORY Insert 1 (one) suppository (25 mg total) into the rectum 2 (two) times a day . MAGNESIUM 250 MG TAB Take by mouth. POTASSIUM 99 MG TAB Take 99 mg by mouth daily. VITAMIN WITH CA-IRON-FA 27-1 MG TAB Take 1 tablet by mouth daily. TRAZODONE (DESYREL) 50 MG TABLET take 1 to 2 tablets 1 HOUR PRIOR TO SLEEP INTERVAL Modified Medications No medications on file Discontinued Medications VARENICLINE (CHANTIX STARTING MONTH BOX) 0.5 MG (11)- 1 MG (42) TABLET Take one 0.5mg tab by mouth once daily for 3 days, then increase to one 0.5mg tab twice daily for 4 days, then increase to 1mg twice daily. . Review of Systems Review of Systems Constitutional: Positive for fatigue. Negative for activity change. HENT: Negative for hearing loss. Eyes: Negative for visual disturbance. Respiratory: Negative for cough, chest tightness and shortness of breath. Cardiovascular: Negative for chest pain and palpitations. Musculoskeletal: Negative for gait problem. Skin: Negative. Psychiatric/Behavioral: Positive for sleep disturbance. Negative for agitation. Vitals: 03/12/19 1341 BP: 99/66 BP Location: Left arm Patient Position: Sitting BP Cuff Size: Adult Pulse: 70 Resp: 18 Temp: 98.4 F (36.9 C) TempSrc: Oral SpO2: 98% Weight: 60.8 kg (134 lb) Height: 5' 1 Body mass index is 25.32 kg/m . Physical Exam Physical Exam Constitutional: She is oriented to person, place, and time. She appears well- developed and well-nourished. HENT: Right Ear: External ear normal. Left Ear: External ear normal. Nose: Nose normal. Mouth/Throat: Oropharynx is clear and moist and mucous membranes are normal. Eyes: Conjunctivae, EOM and lids are normal. Neck: Normal range of motion. Cardiovascular: Normal rate, regular rhythm and normal heart sounds. No murmur heard. Pulmonary/Chest: Effort normal and breath sounds normal. Musculoskeletal: Normal gait Neurological: She is alert and oriented to person, place, and time. GCS eye subscore is 4. GCS verbal subscore is 5. GCS motor subscore is 6. Skin: Skin is warm and dry. Psychiatric: She has a normal mood and affect. Her speech is normal and behavior is normal. No data recorded Assessment/Plan Problem List Items Addressed This Visit Other Nicotine dependence You are doing great on the Chantix, keep up the good work with not smoking! This is a huge accomplishment! Fatigue - Primary Relevant Orders Ambulatory referral to Sleep Medicine At risk for obstructive sleep apnea Relevant Orders Ambulatory referral to Sleep Medicine Other Visit Diagnoses Snoring Relevant Orders Ambulatory referral to Sleep Medicine Preventative Goals Goals Blood Pressure < 130/80 High blood pressure makes your heart work too hard. It can cause heart attack, stroke and kidney disease. HDL-C > 50 HEMOGLOBIN A1C < 7.0 Blood sugar levels outside the normal range may be an indicator of diabetes. LDL CALC < 100 LDL or bad cholesterol can build up and clog your blood vessels. It can cause heart attack or stroke. For any new medications prescribed today, patient was educated about indications for the medication, how to take the medication and potential side effects of the medications. Sandi Longo CNP documented in this encounter* Sandi Longo CNP - 09/17/2019 12:48 PM EST Subjective Patient ID: Cat Acuña is a 49 y.o. female. Patient is here today for a routine interval visit. Patient quit smoking in February and has not restarted. At that time we also ordered a sleep medicine referral due to snoring and daytime sleepiness. Her stated she was having periods of apnea. She states that within a month of quitting smoking she started to sleep better, daytime sleepiness resolved for the most part, and her states the snoring has improved and periods of apnea have quit. Offered home sleep test and she states she will wait and see. Patient has been eating keto and has lost 5# since her last visit. She states overall she feels really great. She states cutting out sugars also resolved her hemorrhoid issues. Sex drive: Talked at length with patient about relationship with her and her and dealing with his RA and sexual issues/pain issues. The following were reviewed and updated as appropriate for today's visit: allergies, current medications, past family history, past medical history, past social history, past surgical history and problem list. Patient's Medications New Prescriptions No medications on file Previous Medications ASPIRIN 81 MG EC TABLET Take 81 mg by mouth daily. CALCIUM CARBONATE (OS-JOSE) 600 MG (1,500 MG) TABLET Take 600 mg by mouth 2 (two) times a day with meals. CHOLECALCIFEROL, VITAMIN D3, 1,000 UNIT TABLET Take 10,000 Units by mouth daily . CYANOCOBALAMIN (VITAMIN B-12) 1000 MCG TABLET Take 1,000 mcg by mouth daily. DULOXETINE (CYMBALTA) 60 MG CAPSULE take 1 capsule by mouth once daily ESTRADIOL (ESTRACE) 2 MG TABLET Take 1 tablet (2 mg total) by mouth daily. FAMOTIDINE (PEPCID) 40 MG TABLET take 1 tablet by mouth PRIOR TO SLEEP INTERVAL FERROUS FUMARATE (IRON ORAL) Take 27 mg by mouth daily. MAGNESIUM 250 MG TAB Take by mouth daily . MULTIVITAMIN WITH MINERALS TABLET Take 1 tablet by mouth daily One a day . OMEPRAZOLE (PRILOSEC) 20 MG CAPSULE Take 1 (one) capsule (20 mg total) by mouth daily . POTASSIUM 99 MG TAB Take 99 mg by mouth daily. TRAZODONE (DESYREL) 50 MG TABLET TAKE ONE TO TWO TABLETS ONE HOUR PRIOR TO SLEEP INTERVAL Modified Medications No medications on file Discontinued Medications VITAMIN WITH CA-IRON-FA 27-1 MG TAB Take 1 tablet by mouth daily. Review of Systems Review of Systems Constitutional: Negative for activity change and fatigue. HENT: Negative for hearing loss. Eyes: Negative for visual disturbance. Respiratory: Negative for cough, chest tightness and shortness of breath. Cardiovascular: Negative for chest pain and palpitations. Musculoskeletal: Negative for gait problem. Skin: Negative. Psychiatric/Behavioral: Negative for agitation. Vitals: 09/17/19 1233 BP: 107/74 BP Location: Left arm Patient Position: Sitting BP Cuff Size: Adult Pulse: 78 Resp: 18 Temp: 97.9 F (36.6 C) TempSrc: Oral SpO2: 97% Weight: 58.5 kg (129 lb) Height: 5' 1 Body mass index is 24.37 kg/m . Physical Exam Physical Exam Constitutional: She is oriented to person, place, and time. She appears well- developed and well-nourished. HENT: Right Ear: External ear normal. Left Ear: External ear normal. Nose: Nose normal. Mouth/Throat: Oropharynx is clear and moist and mucous membranes are normal. Eyes: Conjunctivae, EOM and lids are normal. Neck: Normal range of motion. Cardiovascular: Normal rate, regular rhythm and normal heart sounds. No murmur heard. Pulmonary/Chest: Effort normal and breath sounds normal. Musculoskeletal: Comments: Normal gait Neurological: She is alert and oriented to person, place, and time. GCS eye subscore is 4. GCS verbal subscore is 5. GCS motor subscore is 6. Skin: Skin is warm and dry. Psychiatric: She has a normal mood and affect. Her speech is normal and behavior is normal. No data recorded Assessment/Plan Problem List Items Addressed This Visit Other Nicotine dependence Great job with quitting smoking! Keep up the good work. At risk for obstructive sleep apnea Will wait and see how you feel, if you have witnessed periods of apnea we will order a home sleep test. BMI 24.0-24.9, adult Eat meat, vegetables, nuts and seeds, some fruit, very little starch and absolutely no sugar. If you can grow it or kill it, then that's what you should be eating..... Chicken, turkey, fish pork, beef, ALL vegetables and fruit. If it is processed or you can not pronounce the ingredients, do not eat it! Shop the outside perimeter of the grocery store. Listen to your body, if you are hungry all the time you may need to increase your intake of healthyveggies and small healthy snacks. Eat whole, healthy foods and you won't need to count calories. Increase your activity level; the more you move your body the healthier you will be and the better you will feel! Diet and Exercise is not a fad, it really works! Other Visit Diagnoses Lipoma of torso - Primary Relevant Orders Ambulatory referral to General Surgery Encounter for biometric screening Relevant Orders CBC and Differential Comprehensive Metabolic Panel Lipid Panel TSH with Reflex Free T4 Preventative Goals Goals Blood Pressure < 130/80 High blood pressure makes your heart work too hard. It can cause heart attack, stroke and kidney disease. HDL-C > 50 HEMOGLOBIN A1C < 7.0 Blood sugar levels outside the normal range may be an indicator of diabetes. LDL CALC < 100 LDL or bad cholesterol can build up and clog your blood vessels. It can cause heart attack or stroke. For any new medications prescribed today, patient was educated about indications for the medication, how to take the medication and potential side effects of the medications. Sandi Longo CNP documented in this encounter* Danny Manning MD - 10/12/2019 10:43 AM EST [facility] PATIENT: Cat Acuña DATE / TIME: 10/12/19 10:43 AM POS: Office AGE: 49 y.o. : 1970 RACE: [1] SEX: female PCP: Sandi Longo CNP REFERRAL: Sandi Longo C* HISTORY OF PRESENT ILLNESS CC / Reason for Consult: Left flank lipoma HPI: 49-year-old female history of GERD presenting with a left flank soft tissue mass. Reports it is been there for 1 to 2 years however recently has grown in size and becoming more uncomfortable to lay on. She denies any overlying redness or drainage from the mass. Denies any other similar soft tissue masses and has never had any attempted removal. PAST MEDICAL / SURGICAL HISTORY Past Medical History: Diagnosis Date GERD (gastroesophageal reflux disease) History of palpitations 2016 Eval in ER negative for heart with only low potassium Hypoglycemia Nicotine dependence Sleep disorder, shift work Past Surgical History: Procedure Laterality Date ADENOIDECTOMY 08/18/1981 APPENDECTOMY SECTION, CLASSIC 1993 and 94 CHOLECYSTECTOMY 08/18/1997 DILATION AND CURETTAGE OF UTERUS 2 GASTRIC BYPASS 08/18/2001 Bariatric Clinic in [place] HYSTERECTOMY 08/18/2004 MOUTH SURGERY 08/18/2000 TONSILLECTOMY 08/18/1981 FAMILY HISTORY Family History Problem Relation Age of Onset Leukemia Mother COPD Father Hypertension Father SOCIAL HISTORY Data Unavailable Social History Tobacco Use Smoking Status Former Smoker Packs/day: 0.50 Years: 20.00 Pack years: 10.00 Last attempt to quit: 02/28/2019 Years since quittin.6 Smokeless Tobacco Never Used Social History Substance and Sexual Activity Alcohol Use Yes Comment: weekly/wine and whiskey Social History Substance and Sexual Activity Drug Use No MEDICATIONS: Patient has a current medication list which includes the following prescription(s): aspirin, calcium carbonate, cholecalciferol (vitamin d3), cyanocobalamin, duloxetine, estradiol, famotidine, ferrous sulfate, magnesium, multivitamin with minerals, omeprazole, and trazodone. ALLERGIES: Allergies Allergen Reactions Codeine Hives and Shortness Of Breath REVIEW OF SYSTEMS Pertinent positives and negatives are listed in HPI, PMSH, SH, ALL above and in Details below. The following systems were reviewed: [x] Const (fevers, chills, wt. loss, fatigue) [x] CV (HTN, CP, LEBRON, edema, DVT) [x] Resp (SOB, pleurisy, asthma, apnea) [x] GI (N, V, D, C, M, abd pain, appetite) [x] Musc (back pain, joint stiffness, gout) [x] Neuro (seizures, syncope, paralysis) [x] Psych (depression, anxiety) [x] Endo (hot/cold intol, polyuria[DM]) [x] Hem/Lymph (Anemia, LA, bleeding) [x] Allerg/Immun (seasonal, immuniz) [x] Eyes (diplopia, cataracts) [x] ENT/mouth (dysphagia, epistaxis) [x] (dysuria, hematuria) [x] Skin/Breast (moles, rash, lumps, nipple changes) Details: PHYSICAL EXAM BP 118/74 Pulse 80 Temp 97.9 F (36.6 C) Resp 14 Ht 5' 2.5 Wt 59 kg (130 lb) BMI 23.40 kg/m Details: Physical Exam Constitutional: Appearance: Normal appearance. HENT: Head: Normocephalic. Nose: Nose normal. Mouth/Throat: Mouth: Mucous membranes are moist. Eyes: General: No scleral icterus. Pupils: Pupils are equal, round, and reactive to light. Neck: Musculoskeletal: Normal range of motion. Cardiovascular: Rate and Rhythm: Normal rate. Pulses: Normal pulses. Pulmonary: Effort: Pulmonary effort is normal. Abdominal: General: Abdomen is flat. There is no distension. Palpations: Abdomen is soft. Tenderness: There is no abdominal tenderness. Comments: Left flank soft mobile 4 x 4 centimeter soft tissue mass Not fixed to underlying structures or overlying skin Musculoskeletal: Normal range of motion. Skin: General: Skin is warm. Neurological: General: No focal deficit present. Mental Status: She is alert. Psychiatric: Mood and Affect: Mood normal. Thought Content: Thought content normal. Judgment: Judgment normal. LABS / X-RAYS Details: Laboratory Lab Results Component Value Date WBC 5.50 08/28/2019 HGB 14.5 08/28/2019 HCT 42.2 08/28/2019 PLT 266 08/28/2019 No results found for: AMYLASE No results found for: LIPASE ASSESSMENT AND PLAN: Patient Active Problem List Diagnosis GERD (gastroesophageal reflux disease) Sleep disorder, shift work S/P gastric bypass Nicotine dependence Fatigue Myalgia Bilateral hand pain Actinic keratoses Hemorrhoids At risk for obstructive sleep apnea BMI 24.0-24.9, adult 49-year-old female with above history presenting with left flank soft tissue mass Examination consistent with lipoma. Due to discomfort and growth in size would recommend excision. Risk and possible complications were discussed including but not limited to bleeding, infection, seroma formation and possible recurrence. Patient understanding and agreed to proceed. We will scheduleand consent today. Anticip Anesthesia: Follow-up: ICD: No primary diagnosis found. [] Thank you for the privilege of allowing me to participate in the care of Cat Acuña. documented in this encounter* Sandi Longo CNP - 04/13/2020 11:03 AM EDT Provider rescheduled documented in this encounter* Sandi Longo CNP - 04/28/2020 11:05 AM EDT Subjective Patient ID: Cat Acuña is a 50 y.o. female. Patient is here today for a routine interval visit. She also needs her biometric screening done. Insomnia: Patient is currently on Trazodone 100 mg nightly and has been on this for about 4 years with no side effects or issues. HRT: Patient states that she has been on Estrogen of some form since her hysterectomy in 2004. She states she tried to come off of the medication about 5 years ago and had severe mood swings and hot flashes. Talked at length about the risks of continuous churn buttermaker HRT. Patient does get mammograms yearly. She is willing to do a slow wean over the next 1+ years. Anxiety/picking: Patient has noticed that her anxiety has been worse recently due to increased stress. She states with increased stress she starts to pick at her skin and she is worried. She sates when she was a child she picked her eyebrows out after her mothers . She would like to see if an increased dose of Cymbalta would help with her symptoms. The following were reviewed and updated as appropriate for today's visit: allergies, current medications, past family history, past medical history, past social history, past surgical history and problem list. Patient's Medications New Prescriptions DULOXETINE (CYMBALTA) 30 MG CAPSULE Take 1 (one) capsule (30 mg total) by mouth daily . Previous Medications CALCIUM CARBONATE (OS-JOSE) 600 MG (1,500 MG) TABLET Take 600 mg by mouth 2 (two) times a day with meals. CHOLECALCIFEROL, VITAMIN D3, 1,000 UNIT TABLET Take 10,000 Units by mouth daily . CYANOCOBALAMIN (VITAMIN B-12) 1000 MCG TABLET Take 1,000 mcg by mouth daily. FERROUS FUMARATE (IRON ORAL) Take 27 mg by mouth daily. MAGNESIUM 250 MG TAB Take by mouth daily . MULTIVITAMIN WITH MINERALS TABLET Take 1 tablet by mouth daily One a day . TRAZODONE (DESYREL) 50 MG TABLET Take 2 (two) tablets (100 mg total) by mouth nightly . Modified Medications Modified Medication Previous Medication DULOXETINE (CYMBALTA) 60 MG CAPSULE DULoxetine (CYMBALTA) 60 MG capsule Take 1 (one) capsule (60 mg total) by mouth daily . Take 1 (one) capsule (60 mg total) by mouth daily . ESTRADIOL (ESTRACE) 2 MG TABLET estradiol (ESTRACE) 2 MG tablet Take 0.5 (one-half) tablet (1 mg total) by mouth daily . Take 1 tablet (2 mg total) by mouth daily. Discontinued Medications FAMOTIDINE (PEPCID) 40 MG TABLET take 1 tablet by mouth PRIOR TO SLEEP INTERVAL OMEPRAZOLE (PRILOSEC) 20 MG CAPSULE Take 1 (one) capsule (20 mg total) by mouth daily . TRAZODONE (DESYREL) 50 MG TABLET TAKE 2 TABLETS BY MOUTH NIGHTLY Review of Systems Review of Systems Constitutional: Negative for activity change and fatigue. HENT: Negative for hearing loss. Eyes: Negative for visual disturbance. Respiratory: Negative for cough, chest tightness and shortness of breath. Cardiovascular: Negative for chest pain and palpitations. Musculoskeletal: Negative for gait problem. Skin: Negative. Psychiatric/Behavioral: Positive for sleep disturbance. Negative for agitation. The patient is nervous/anxious. Skin picking Vitals: 04/28/20 1033 BP: 102/69 BP Location: Left arm Patient Position: Sitting BP Cuff Size: Adult Pulse: 70 Resp: 16 Temp: 99.1 F (37.3 C) TempSrc: Temporal SpO2: 98% Weight: 54.1 kg (119 lb 4.8 oz) Height: 5' 1 Body mass index is 22.54 kg/m . Physical Exam Physical Exam Constitutional: She is oriented to person, place, and time. She appears well- developed and well-nourished. HENT: Right Ear: External ear normal. Left Ear: External ear normal. Nose: Nose normal. Mouth/Throat: Oropharynx is clear and moist and mucous membranes are normal. Eyes: Conjunctivae, EOM and lids are normal. Neck: Normal range of motion. Cardiovascular: Normal rate, regular rhythm and normal heart sounds. No murmur heard. Pulmonary/Chest: Effort normal and breath sounds normal. Musculoskeletal: Comments: Normal gait Neurological: She is alert and oriented to person, place, and time. GCS eye subscore is 4. GCS verbal subscore is 5. GCS motor subscore is 6. Skin: Skin is warm and dry. Psychiatric: She has a normal mood and affect. Her speech is normal and behavior is normal. 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 For the next 6 months take 1 mg a day or 1/2 tablet. We will at the next visit decrease you to 0.5 mg for 6 months. Relevant Medications estradioL (ESTRACE) 2 MG tablet DULoxetine (CYMBALTA) 60 MG capsule DULoxetine (CYMBALTA) 30 MG capsule Other Visit Diagnoses Anxiety - Primary Relevant Medications DULoxetine (CYMBALTA) 60 MG capsule DULoxetine (CYMBALTA) 30 MG capsule Skin picking habit Relevant Medications DULoxetine (CYMBALTA) 60 MG capsule DULoxetine (CYMBALTA) 30 MG capsule Preventative Goals Goals Blood Pressure < 130/80 High blood pressure makes your heart work too hard. It can cause heart attack, stroke and kidney disease. HDL-C > 50 HEMOGLOBIN A1C < 7.0 Blood sugar levels outside the normal range may be an indicator of diabetes. LDL CALC < 100 LDL or bad cholesterol can build up and clog your blood vessels. It can cause heart attack or stroke. For any new medications prescribed today, patient was educated about indications for the medication, how to take the medication and potential side effects of the medications. Sandi Longo CNP documented in this encounter* Alejandro Beatty MD - 05/25/2020 2:23 PM EDT Chief Complaint Patient presents with Rash ON NAPE OF HER NECK, SEVERE ITCHNG HPI: Cat Acuña is 50 years old female fairly healthy presenting today for concerns of scalp itching. Started 3 weeks ago where she started itching in her whole scalp. Currently getting worse and starting to go down her nape where she started to feel a rash with scattered bumps on her skin. Usually lasts few hours, cannot think of any irritants or anything that makes it worse or better. Has tried some [id number] soothing topical lotion to help with her scalp itching with no relief. Has alsotried to use Selsun Blue to see if it would help with no use. Cannot think of anything irritating her skin. No hair loss at this time, areas of discharge or dandruff that she appreciated, tried the lice comb with no niche or eggs that she can see either. 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 Not exposed to any new chemicals, personal hygiene products or irritants. No one else itching at home or at work. Getting more embarrassing for herin front of others. Past Medical History: Diagnosis Date GERD (gastroesophageal reflux disease) History of palpitations 2016 Eval in ER negative for heart with only low potassium Hypoglycemia Nicotine dependence Sleep disorder, shift work Past Surgical History: Procedure Laterality Date ADENOIDECTOMY 08/18/1981 APPENDECTOMY SECTION, CLASSIC 1992 and CHOLECYSTECTOMY 08/18/1997 DILATION AND CURETTAGE OF UTERUS 2 EXCISION LESION TRUNK Left 10/22/2019 Procedure: EXCISION MASS TRUNK; Surgeon: Danny Manning MD; Location: [facility] [place] [facility] [place]; Service: GeneralSurgery GASTRIC BYPASS 08/18/2001 [facility] Clinic in [place] HYSTERECTOMY 08/18/2004 MOUTH SURGERY 08/18/2000 TONSILLECTOMY 08/18/1981 Family History Problem Relation Age of Onset Leukemia Mother COPD Father Hypertension Father Social History Tobacco Use Smoking status: Current Every Day Smoker Packs/day: 0.50 Years: 20.00 Pack years: 10.00 Types: Cigarettes Smokeless tobacco: Never Used Substance Use Topics Alcohol use: Yes Comment: weekly/wine and whiskey Drug use: No Review of Systems Negative except for pertinent per HPI. Physical Exam Constitutional: General: She is not in acute distress. Appearance: She is not ill-appearing. HENT: Head: Normocephalic and atraumatic. Eyes: Extraocular Movements: Extraocular movements intact. Conjunctiva/sclera: Conjunctivae normal. Pupils: Pupils are equal, round, and reactive to light. Neck: Musculoskeletal: Normal range of motion and neck supple. No neck rigidity or muscular tenderness. Cardiovascular: Rate and Rhythm: Normal rate and regular rhythm. Pulses: Normal pulses. Heart sounds: Normal heart sounds. No murmur. No gallop. Pulmonary: Effort: Pulmonary effort is normal. Breath sounds: Normal breath sounds. No wheezing, rhonchi or rales. Chest: Chest wall: No tenderness. Abdominal: General: Abdomen is flat. Bowel sounds are normal. There is no distension. Palpations: Abdomen is soft. There is no mass. Tenderness: There is no abdominal tenderness. There is no right CVA tenderness, left CVA tenderness, guarding or rebound. Musculoskeletal: Normal range of motion. General: No tenderness. Right lower leg: No edema. Left lower leg: No edema. Lymphadenopathy: Cervical: No cervical adenopathy. Skin: General: Skin is warm. Findings: Erythema and rash present. Comments: Scalp is erythematous and pruritis with no rash appreciated. Nape skin with multiple 1-2 mm papular eruption with erythematous base Pictures in Media tab Neurological: General: No focal deficit present. Mental Status: She is alert and oriented to person, place, and time. Sensory: No sensory deficit. Motor: No weakness. Gait: Gait normal. Psychiatric: Mood and Affect: Mood normal. Behavior: Behavior normal. Thought Content: Thought content normal. Judgment: Judgment normal. OARRS/NARxCHECK Report Received and Assessed: No data found Date controlled substance agreement signed: No data found Date of last drug screen: No data found Functional Assessment: No data found Patient's Medications New Prescriptions DIPHENHYDRAMINE (BENADRYL) 25 MG CAPSULE Take 2 (two) capsules (50 mg total) by mouth every 6 (six)hours as needed for itching . FEXOFENADINE (LINA) 180 MG TABLET Take 1 (one) tablet (180 mg total) by mouth daily . Previous Medications CALCIUM CARBONATE (OS-JOSE) 600 MG (1,500 MG) TABLET Take 600 mg by mouth 2 (two) times a day with meals. CHOLECALCIFEROL, VITAMIN D3, 1,000 UNIT TABLET Take 10,000 Units by mouth daily . CYANOCOBALAMIN (VITAMIN B-12) 1000 MCG TABLET Take 1,000 mcg by mouth daily. DULOXETINE (CYMBALTA) 30 MG CAPSULE Take 1 (one) capsule (30 mg total) by mouth daily . DULOXETINE (CYMBALTA) 60 MG CAPSULE Take 1 (one) capsule (60 mg total) by mouth daily . ESTRADIOL (ESTRACE) 2 MG TABLET Take 0.5 (one-half) tablet (1 mg total) by mouth daily . FERROUS FUMARATE (IRON ORAL) Take 27 mg by mouth daily. MAGNESIUM 250 MG TAB Take by mouth daily . MULTIVITAMIN WITH MINERALS TABLET Take 1 tablet by mouth daily One a day . TRAZODONE (DESYREL) 50 MG TABLET Take 2 (two) tablets (100 mg total) by mouth nightly . Modified Medications No medications on file Discontinued Medications No medications on file Health Maintenance Due Topic Date Due HIV Screening 01/30/1987 Hepatitis C Screening 01/30/1990 Mammogram 04/17/2019 Wellness Visit 02/13/2020 Sequential Influenza Vaccine (1) 04/18/2020 Assessment & Plan Problem List Items Addressed This Visit Other Itching - Primary Scalp itching extending to the nape for the past 3 weeks, currently undetermined as of the etiologyif it is related to any contact dermatitis versus infectious process that seems less likely at thispoint for fungal infection/tinea capitis, viral, folliculitis or lice infestation. Other causes is drug-induced itchiness is unlikely given focal symptoms in the head. No evidence of psoriatic lesions. -We will attempt to treat itching with antihistamines at that time -Got pictures in media tab, patient will follow-up with me if symptoms are not improving to consider a steroid short course -We will consider consulting with dermatology regarding further evaluation. Relevant Medications fexofenadine (LINA) 180 MG tablet diphenhydrAMINE (BENADRYL) 25 mg capsule No follow-ups on file. ALEJANDRO BEATTY MD [address] [facility] [address] [place] [id number] Dept: [phone] documented in this encounter* Sandi Longo CNP - 03/21/2020 9:44 AM EDT No show documented in this encounter Discharge Instructions * Discharge Instr - AVS First Page* Danny Manning MD - 10/22/2019 11:06 AM EST Tylenol and ibuprofen as needed for pain documented in this encounter Chief Complaint and Reason for Visit Chief Complaint Consult Reason for Visit Positive colorectal cancer screening using Cologuard test Alternating constipation and diarrhea Chief Complaint Admit Date LUMBAR SPINE November 19, 2024 8:46 am Room 5 November 19, 2024 9:06 am Reason for Visit Admit Date Degenerative disc disease, lumbar November 19, 2024 8:46am Lumbar radiculopathy November 19, 2024 8:4 6am Additional Source Comments Assessment & Plan Note - Tona Deal MD - 12/26/2017 6:14 PM EDTAssessment & Plan Note - Tona Deal MD - 12/26/2017 6:13 PM EDT Miscellaneous Notes (unrecog nized section and content) Associated Problem(s): Myalgia Overall diffuse achiness from a 4-6 down to A 2-3. The ESR was 2 which virtually makes it unlikely that we are dealing with a rheumatalgic condition. Would increase the Cymbalta to 60 to see if we can see some added benefit. Associated Problem(s): Fatigue Overall improved. So to a certain extent we can consider that tht ebile might have been playing a role in sleep quality. Associated Problem(s): GERD (gastroesophageal reflux disease) Bloating persists but no heart burn or sharp pain. The carafate and the Cymbalta have seemed to help with the sleep quality.in this encounter Associated Problem(s): Fatigue Decrease in quality of sleep from either the myalgia or the GERD can lead to a sense of fatigue. Fatigue can lead to an heightened sense of myofascial pain. The process can be due to anemia, thyroid disease, rheumatologic conditions though you are not describing A pattern of joints and not describing a sensation of gelling. Associated Problem(s): Myalgia Non specific myalgia can be an expression of depression, sleep deficiency as well as some of the rheumatolgic conditions. Cymbalta and Effexor are antidepressant medications that have indications for chronic shift tissue and joint pain. Associated Problem(s): GERD (gastroesophageal reflux disease) Can affect th equality of the sleep and decrease in sleep Quality even if not interrupted can result in decrease in mental acuity throughout the day. Does not feel alert and feels like she is drifting off focus. Associated Problem(s): S/P gastric bypass Need to obtain Interval testing to conform no evidence of Vitmin D deficiency as well as B12 or iron deficiency. Will repeat the interval labs necessary to confirm.in this encounter Associated Problem(s): Hemorrhoids I am going to send in 10 days of Anusol which is a steroid suppository to help with inflammation. I also recommend you get some OTC dermaplast to help with pain. I will send in referral to see if you need hemorrhoids removed again. Associated Problem(s): Actinic keratoses See attached education. documented in this encounter Associated Problem(s): Encounter for biometric screening Labs looked great. Associated Problem(s): At risk for obstructive sleep apnea I am going to start you on Chantix and follow up in one month. At that time we will also look into getting you set up with a sleep medicine referral to rule out sleep apnea due to being tired all the time and states periods of apnea. Will wait for sleep study due to starting Chantix and can affect sleep. Associated Problem(s): Hemorrhoids I sent in a new script for generic anusol to see if insurance will cover. Grab a discount drug card on the desk to see if that helps cover cost. Associated Problem(s): Nicotine dependence You did well on the Chantix in the past . I will send in a starter pack x 1 month and then have you follow up to make sure everything is going well. Most common side effects include nausea and vivid dreams/nightmares. If you develop suicidal ideations you go to the ER immediately. documented in this encounter Associated Problem(s): Nicotine dependence You are doing great on the Chantix, keep up the good work with not smoking! This is a huge accomplishment! documented in this encounter Associated Problem(s): Nicotine dependence Great job with quitting smoking! Keep up the good work. Associated Problem(s): At risk for obstructive sleep apnea Will wait and see how you feel, if you have witnessed periods of apnea we will order a home sleep test. Associated Problem(s): BMI 24.0-24.9, adult Eat meat, vegetables, nuts and seeds, some fruit, very little starch and absolutely no sugar. If you can grow it or kill it, then that's what you should be eating..... Chicken, turkey, fish pork, beef, ALL vegetables and fruit. If it is processed or you can not pronounce the ingredients, do not eat it! Shop the outside perimeter of the grocery store. Listen to your body, if you are hungry all the time you may need to increase your intake of healthy veggies and small healthy snacks. Eat whole, healthy foods and you won't need to count calories. Increase your activity level; the more you move your body the healthier you will be and the better you will feel! Diet and Exercise is not a fad, it really works! documented in this encounter CAT ACUÑA NURIA [id number] 1970 DATE 10/22/2019 OPERATIVE REPORT SURGEON DANNY MANNING MD PREOPERATIVE DIAGNOSIS Left flank subcutaneous mass. POSTOPERATIVE DIAGNOSIS Left flank lipoma. PROCEDURE Excision of left flank lipoma. INDICATIONS The patient is a 49-year-old female who is referred to my office for an enlarging left flank mass. She states that she has had it for several years and it is becoming more uncomfortable to lay on and requests excision. Risks and possible complications including but not limited to bleeding, infection, and recurrence were discussed. The patient agreed to proceed. DESCRIPTION OF PROCEDURE The patient was brought to the operating room and laid in left side positioning. Monitored anesthesia care was provided by our anesthesia staff, as well as perioperative antibiotics. The left flank was prepped with ChloraPrep and draped in the usual standard sterile fashion and a time-out was performed. The overlying skin of the soft tissue mass was anesthetized with 0.25% Marcaine with epinephrine. A small incision was made and using electrocautery, I dissected down to the levels of the subcutaneous tissues. Deep to these layers, fascial layer overlying the latissimus dorsi was opened and deep to the fascia was a soft fatty mass. This was circumferentially dissected and removed. In total, it measured approximately 6 cm x 4.5 cm x 3.5 cm. It was sent for final pathology. The cavity was irrigated, made hemostatic with electrocautery. The fascia was closed with interrupted 3-0 Vicryls. The skin was closed with interrupted deep dermal Vicryls and a running 4- 0 Monocryl and glue. Needle and sponge counts were correct at the end of the case, and patient was taken to recovery in stable condition. MD Fe PRESTON 10/22/2019 12:57 [id number] T 10/22/2019 13:09 DP/MODL Brief Post Operative Note Patient Name: Cat Acuña : 1970 (49 y.o.) Date of Service: 10/22/2019 [facility]: [id number] Procedure(s): EXCISION MASS TRUNK Pre-Operative Diagnoses: * Lipoma of torso [D17.1] Post-Operative Diagnoses: * Lipoma of torso [D17.1] Surgeon(s) and Role: * Danny Manning MD - Primary Anesthesiologist: Tona Paul MD TRAVEL INSURANCE AGENT: Anitra Oden CRNA Trauma Surgeon: Patti Morris RN Scrub Person: Lakesha Gross RN Operative findings: 6cmX4.5cmX4 cm subfascial left flank lipoma Intra and immediate post-operative complications: none Type of anesthesia used: Monitor Anesthesia Care Estimated blood loss: 1 mL Estimated urine output: Refer to surgical log Specimen(s): ID Type Source Tests Collected by Time Destination A : Left Flank Excision/Resection Soft Tissue, Lipoma, Please Specify TISSUE EXAM Danny Manning MD 10/22/2019 [id number] Implant(s): * No implants in log * Drain(s): * No LDAs found * Wound(s): Wound 10/22/19 Surgical Wound Back Left (Active) Danny Manning MD 10/22/2019 11:35 AM documented in this encounter Associated Problem(s): 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 For the next 6 months take 1 mg a day or 1/2 tablet. We will at the next visit decrease you to 0.5 mg for 6 months. documented in this encounter Associated Problem(s): Itching Scalp itching extending to the nape for the past 3 weeks, currently undetermined as of the etiology if it is related to any contact dermatitis versus infectious process that seems less likely at this point for fungal infection/tinea capitis, viral, folliculitis or lice infestation. Other causes is drug-induced itchiness is unlikely given focal symptoms in the head. No evidence of psoriatic lesions. -We will attempt to treat itching with antihistamines at that time -Got pictures in media tab, patient will follow-up with me if symptoms are not improving to consider a steroid short course -We will consider consulting with dermatology regarding further evaluation. documented in this encounter Refill request received on pended medication. Last OV 05/25/20. Next OV 10/27/20. documented in this encounter INFORMATION SOURCE (unrecogn ized section and content) DATE CREATED AUTHOR 02/17/2018 [facility] DATE CREATED AUTHOR AUTHOR'S ORGANIZ ATION 05/23/2019 [facility] DATE CREATED AUTHOR AUTHOR'S ORGANIZ ATION 04/15/2020 [facility] DATE CREATED AUTHOR AUTHOR'S ORGANIZ ATION 04/27/2020 [facility] DATE CREATED AUTHOR AUTHOR'S ORGANIZ ATION 07/01/2021 [facility] DATE CREATED AUTHOR AUTHOR'S ORGANIZ ATION 11/18/2022 [facility] DATE CREATED AUTHOR AUTHOR'S ORGANIZ ATION 06/02/2024 [facility] DATE CREATED AUTHOR AUTHOR'S ORGANIZ ATION 03/05/2025 [facility] DATE CREATED AUTHOR AUTHOR'S ORGANIZ ATION 06/12/2025 [facility] DATE CREATED AUTHOR AUTHOR'S ORGANIZ ATION 06/19/2025 [facility] Reason for Visit (unrecogniz ed section and content) Reason Comments Skin Lesion Hemorrhoids Reason Comments Procedure hemorrhoids Status Reason Specialty Diagnoses / Procedures Referred By Contact Referred To Contact Closed General Surgery Diagnoses Hemorrhoids, unspecified hemorrhoid type Sandi Longo, YURI [address] [place] [address] Danny Manning MD [address] [facility] [place] [address] Reason Comments Follow-up biometric screening, review labs Nicotine Dependence Discuss using Chanti x again to stop smoking Reason Comments Follow-up Pt reports not smoki ng having some vivid dreams denies any nightmares, having some dizziness and headaches Reason Comments Follow-up review medications P t would like to discuss lump to back area Reason Comments Consult lipoma of torso Status Reason Specialty Diagnoses / Procedures Referred By Contact Referred To Contact Closed General Surgery Diagnoses Lipoma of torso Sandi Longo [employer] [address] [place] [address] Danny Manning MD [address] [facility] [place] [address] Status Reason Specialty Diagnoses / Procedures Referre d By Contact Referred To Contact Diagnoses Lipoma of torso Lipoma of torso [D17.1] Procedures excision Danny Manning MD [address] [facility] [place] [address] Reason Comments Follow-up 6 mon fu biometric s creening Reason Comments Annual Exam 6 MONTHS F/U & BIOME TRIC SCREENING Reason Comments Rash ON NAPE OF HER NECK, SEVERE ITCHNG Reason Onset Date Comments Medication Refill 10/11/2020 Reason Comments Follow-up 6 months for biometr ic screening. Reason Onset Date Comments Medication Refill 04/12/2021 Reason Comments Follow-up 6 MONTHS FOR ANXIETY , HRT WEAN, NEEDS LABS Ear Pain RIGHT, PAIN X 1 1/2 MONTHS WITH PROGRESSIVE WORSENING Reason Comments Follow-up Gerd, Nicotine Depen dence Reason Comments Follow-up Reason Comments Medication Refill Reason Comments Gynecologic Exam Reason Comments Other GOUPY, CRUSTY EYES X 5 DAYS Reason Comments Follow-up 6 month f/u-withdra wing from life- lump on right side of chest Reason Comments Back Pain Nerve pain and arthr itis went to ed on on 09/13 still not feeling better Reason Comments Back Pain Ref by PASCALE, jayden G 83.4 (ICD-10-CM) - Cauda equina compression (HCC) I73.9 (ICD-10-CM) - Claudication of lower extremity Specialty Diagnoses / Procedures Referred By Conthomer t Referred To Contact Neurological Surgery / Neurosurgery Diagnoses Cauda equina compression (HCC) Claudication of lower extremity (HCC) Alejandro Beatty MD [address] [address] Jorge Casas MD [address] [place] [id number] Referral ID Status Reason Start Date Expiration Date Visits Re quested Visits Authorized [id number] Closed 09/26/2023 09/25/2024 1 1 Reason Onset Date Comments Medication Refill 10/07/2023 Reason Comments Follow-up Patient presents tod ay to discuss surgery MRI 10/17/23 (concerns for cauda equina). Reason Comments Establish Care Swelling in both leg s hips to toes started Friday. Says it is painful Reason Comments Follow-up Reason Comments Follow-up 6 month f/u-having d ifficulty focusing, Bilateral hand tremor. A lot of stress in life. Reason Comments Follow-up 4 week f/u-Flu shot Araceli Peters RN - 10/22/2019 12:21 PM Araceli Loco RN - 10/22/2019 12:14 PM Zabrina Castro RN - 10/22/2019 12:07 PM Zabrina Castro RN - 10/22/2019 11:48 AM EST Nursing Notes (unrecognized section and content) Discharge instructions reviewed with pt. And family. Pt. Verbalized understanding. Pt. Denies c/o - Lt. Side of back with incisional area closed with exofin. Edges closely approximated - no drainage noted. No change in incision site . Received report from Ana M Aadms RN. Patient denies c/o pain. Incision to left posterior side well approximated. Surgical glue noted to site. No drainage, redness or edema. Emotional support provided. Kd driving patient home. Patient now requesting anesthesia. Dr. Manning made aware. Spoke with DR. Paul who assessed patient. Emotional support provided. documented in this encounter Care Teams (unrecognized sec tion and content) Drug Safety Specialist Relationship Specialty Start Date End Date Sandi Longo CNP PCP - General Nurse Practitioner 12/02/18 Sandi Longo CNP Referring Physician Nurse Practitioner 09/21/19 Drug Safety Specialist Relationship Specialty Start Date End Date Sandi Longo CNP PCP - General Nurse Practitioner 12/02/18spring, Sandi [place], BINDING PRINTER Referring Physician Nurse Practitioner 09/21/19 Drug Safety Specialist Relationship Specialty Start Date End Date Spring, Sandi [place], BINDING PRINTER PCP - General Nurse Practitioner 12/02/18spring, Sandi [place], BINDING PRINTER Referring Physician Nurse Practitioner 09/21/19 Drug Safety Specialist Relationship Specialty Start Date End Date Spring, Sandi [place], BINDING PRINTER PCP - General Nurse Practitioner 12/02/18spring, Sandi [place], BINDING PRINTER Referring Physician Nurse Practitioner 09/21/19 Drug Safety Specialist Relationship Specialty Start Date End Date Spring, Sandi [place], BINDING PRINTER PCP - General Nurse Practitioner 12/02/18spring, Sandi [place], BINDING PRINTER Referring Physician Nurse Practitioner 09/21/19 Drug Safety Specialist Relationship Specialty Start Date End Date Spring, Sandi [place] BINDING PRINTER PCP - General Nurse Practitioner 12/02/18spring, Sandi [place], BINDING PRINTER Referring Physician Nurse Practitioner 09/21/19 Drug Safety Specialist Relationship Specialty Start Date End Date Spring, Sandi [place], BINDING PRINTER PCP - General Nurse Practitioner 12/02/18spring, Sandi [place], BINDING PRINTER Referring Physician Nurse Practitioner 09/21/19 Drug Safety Specialist Relationship Specialty Start Date End Date Alejandro Beatty MD [address] [address] PCP - General Family Medicine 12/21/21 Sandi Longo BINDING PRINTER Referring Physician Nurse Practitioner 09/21/19 Drug Safety Specialist Relationship Specialty Start Date End Date Alejandro Beatty MD [address] [address] PCP - General Family Medicine 12/21/21 Drug Safety Specialist Relationship Specialty Start Date End Date Alejandro Beatty MD [address] [address] PCP - General Family Medicine 12/21/21 Drug Safety Specialist Relationship Specialty Start Date End Date Sandi Longo BINDING PRINTER PCP - General Nurse Practitioner 12/02/18 12/20/21 Tona Deal MD [address] [place] [address] PCP - REYNA Attributed Provider - [employer] 07/17/20 09/16/20 Sandi Longo, BINDING PRINTER [address] [address] PCP - REYNA Attributed Provider - [employer] 11/15/20 01/14/21 Alejandro Beatty MD [address] [address] PCP - General Family Medicine 12/21/21 Sandi Longo CNP Referring Physician Nurse Practitioner 09/21/19 2 Drug Safety Specialist Relationship Specialty Start Date End Date Alejandro Beatty MD [address] [address] PCP - General Family Medicine 12/21/21 Drug Safety Specialist Relationship Specialty Start Date End Date Alejandro Beatty MD [address] [address] PCP - General Family Medicine 12/21/21 Drug Safety Specialist Relationship Specialty Start Date End Date Alejandro Beatty MD [address] [phone] PCP - General Family Medicine 12/21/21 Team Status: Active Member Role Status Dates ALEJANDRO BEATTY MD Primary Care Provider Active Team Status: Inactive Member Role Status Dates Nidhi Alexander FISH BONING MACHINE FEEDER, FISH BONING MACHINE FEEDER-C Attending Provider Active Team Status: Active Member Role Status Dates ALEJANDRO BEATTY MD Primary Care Provider Active Dr. Murtaza Kline DO Attending Provid er, Referring Provider, Other Provider Active Team Status: Inactive Member Role Status Dates ALEJANDRO BEATTY MD Primary Care Provider Active Dr. Murtaza Kline DO Attending Provider, Referring Provider Active Drug Safety Specialist Relationship Specialty Start Date End Date Alejandro Beatty MD [facility] [address] [address] PCP - General Family Medicine 12/21/21 Drug Safety Specialist Relationship Specialty Start Date End Date Alejandro Beatty MD [address] [address] PCP - General Family Medicine 12/21/21 Drug Safety Specialist Relationship Specialty Start Date End Date Alejandro Beatty MD [facility] [address] [address] PCP - General Family Medicine 12/21/21 Drug Safety Specialist Relationship Specialty Start Date End Date Alejandro Beatty MD [address] [place] [id number] PCP - General Family Medicine 12/21/21 Drug Safety Specialist Relationship Specialty Start Date End Date Alejandro Beatty MD [facility] [place] [phone] PCP - General Family Medicine 12/21/21 Drug Safety Specialist Relationship Specialty Start Date End Date Alejandro Beatty MD [facility] [place] [id number] PCP - General Family Medicine 12/21/21 Drug Safety Specialist Relationship Specialty Start Date End Date Alejandro Beatty MD [facility] [place] [phone] PCP - General Family Medicine 12/21/21 Drug Safety Specialist Relationship Specialty Start Date End Date Alejandro Beatty MD [facility] [place] [id number] PCP - General Family Medicine 12/21/21 Drug Safety Specialist Relationship Specialty Start Date End Date Alejandro Beatty MD [facility] [place] [phone] PCP - General Family Medicine 12/21/21 Alejandro Beatty MD [address] [place] [phone] PCP - REYNA Attributed Provider - [employer] 10/17/23 08/17/50 Drug Safety Specialist Relationship Specialty Start Date End Date Alejandro Beatty MD [address] [place] [phone] PCP - General Family Medicine 12/21/21 Alejandro Beatty MD [facility] [place] [phone] PCP - REYNA Attributed Provider - [employer] 10/17/23 08/17/50 Drake Spencer MD [address] [place] [address] Orthopedic Surgery 11/08/24 Drug Safety Specialist Relationship Specialty Start Date End Date Alejandro Beatty MD [address] [place], [place] [phone] PCP - General Family Medicine 12/21/21 Alejandro Beatty MD [facility] [address] [address] PCP - REYNA Attributed Provider - [employer] 10/17/23 08/17/50 Drake Spencer MD [address] [place] [address] Orthopedic Surgery 11/08/24 Drug Safety Specialist Relationship Specialty Start Date End Date Alejandro Beatty MD [facility] [address] [address] PCP - General Family Medicine 12/21/21 Alejandro Beatty MD [address] [address] PCP - [facility] Provider - [employer] 10/17/23 08/17/50 Drake Spencer MD [address] [place] [address] Orthopedic Surgery 11/08/24 Drug Safety Specialist Relationship Specialty Start Date End Date Alejandro Beatty MD [address] [place] [address] PCP - General Family Medicine 12/21/21 Drake Spencer MD [address] [place] [address] Orthopedic Surgery 11/08/24 Karine Muhammad MD [address] [place] [address] Consulting Physician Pain Management 11/15/24 Team Status: Active Member Role/Relationship Status Dates ALEJANDRO BEATTY MD Primary Care Provider Active Team Status: Inactive Member Role/Relationship Status Dates ALEJANDRO BEATTY MD Primary Care Provider Active Start: November 19, 2024 End: November 19, 2024 ALEJANDRO BEATTY MD Referring Provider Active Sta rt: November 19, 2024 End: November 19, 2024 CAL Vazquez Attending Provider Active Star t: November 19, 2024 End: November 19, 2024 Team Status: Inactive Member Role/Relationship Status Dates ALEJANDRO BEATTY MD Primary Care Provider Active Start: November 19, 2024 End: November 19, 2024 Dr. Kamaljit Diego MD Attending Provider Active S tart: November 19, 2024 End: November 19, 2024 Team Status: Inactive Member Role/Relationship Status Dates ALEJANDRO BEATTY MD Primary Care Provider Active Start: February 23, 2025 End: February 23, 2025 Dr. Karine Muhammad MD Attending Provider Active Start: February 23, 2025 End: February 23, 2025 Dr. Karine Muhammad MD Referring Provider Active Start: February 23, 2025 End: February 23, 2025 Drug Safety Specialist Relationship Specialty Start Date End Date Alejandro Beatty MD [facility] [place] [phone] PCP - General Family Medicine 12/21/21 Drake Spencer MD [address] [place] [address] Orthopedic Surgery 11/08/24 Karine Muhammad MD [address] [place] [address] Consulting Physician Pain Management 11/15/24 Drug Safety Specialist Relationship Specialty Start Date End Date Alejandro Beatty MD [address] [place] [address] PCP - General Family Medicine 12/21/21 Drake Spencer MD [address] [place] [address] Orthopedic Surgery 11/08/24 Karine Muhammad MD [address] [place] [address] Consulting Physician Pain Management 11/15/24 Drug Safety Specialist Relationship Specialty Start Date End Date Alejandro Beatty MD [address] [place] [address] PCP - General Family Medicine 12/21/21 Drake Spencer MD [facility] [place] [address] Orthopedic Surgery 11/08/24 Karine Muhammad MD [address] [place] [address] Consulting Physician Pain Management 11/15/24 Drug Safety Specialist Relationship Specialty Start Date End Date Alejandro Beatty MD [facility] [place] [address] PCP - General Family Medicine 12/21/21 Drake Spencer MD [address] [place] [address] Orthopedic Surgery 11/08/24 Karine Muhammad MD [address] [place] [address] Consulting Physician Pain Management 11/15/24 Scheduled Active and Recently Administ ered Medications (unrecognized section and content) Medication Order 05/18/2022 05/19/2022 05/20/2022 azithromycin (ZITHROMAX) 500 mg in sodium chloride (NS) 0.9% 250 mL (vialmate) 500 mg, Intravenous, at 250 mL/hr, Every 24 hours, First dose on 05/18/22 at 1100, Indication: Other (specify), Indication: campylobacter 1149 (New Bag - Provider: Mara Wang RN)1201 (Paused - Provider: Mara Wang RN)1204 (Paused - Provider: Mara Wang RN)1349 (Restarted - Provider: Mara Wang RN)1441 (Rate/Dose Verify - Provider: Mara Wang RN)1449 (Stopped - Provider: Mara Wang RN) 1107 (New Bag - Provider: Jorge Vera, MYRANDA)1829 (Associate Pump - Provider: Jorge Vera RN) 1041 (New Bag - Provider: Janice Howard RN)1141 (Stopped - Provider: Janice Howard RN) DULoxetine (CYMBALTA) DR capsule 90 mg 90 mg, Oral, Daily, First dose on 05/18/22 at 1130, DO NOT CRUSH OR CHEW. 1726 (Given - Provider: Mara Wang RN) 1034 (Given - Provider: Jorge Vera, RN) 0856 (Given - Provider: Janice Howard RN) heparin (porcine) injection 5,000 Units 5,000 Units, Subcutaneous, Every 12 hours scheduled, First dose on Fri05/17/22 at 2200, Notify physician if patient refuses. 0915 (Given - Provider: Kelsie Wen LPN)2040 (Given - Provider: Kike Webster RN)2200 (Canceled Entry - Provider: Kike Webster RN) 1034 (Given - Provider: Jorge Vera, RN)2100 (Given - Provider: Kike Webster RN) 0857 (Given - Provider: Janice Howard RN)1000 (Canceled Entry - Provider: Janice Howard RN) magnesium sulfate 2 g in sterile water (SW) 50 mL IVPB (COMPLETED) 2 g, Intravenous, at 50 mL/hr, Once, On 05/18/22 at 1100, For 1 dose 1019 (New Bag - Provider: Mara Wang RN)1119 (Stopped - Provider: Mara Wang RN) nicotine (NICODERM CQ) 21 mg/24 hr 1 patch 1 patch, Transdermal, Administer over 24 Hours, At bedtime, First dose on Fri05/17/22 at 2130, U/P Listed Hazardous Drug. Waste Must Be Disposed in [employer] Waste Container 2058 (Patch Removed - Provider: Kike Webster RN)2100 (Not Given - Provider: Kike Webster RN - Reason: Patient/family refused) 2100 (Not Given - Provider: Kike Webster RN - Reason: Patient/family refused) potassium phosphate 20 mmol in dextrose (D5W) 5% 250 mL IVPB (COMPLETED) 20 mmol, Intravenous, Administer over 5 Hours, Once, On Fri05/17/22 at 2130, For 1 dose 0423 (Paused - Provider: Mara Wang RN)0430 (Restarted - Provider: Mara Wang RN)0430 (Paused - Provider: Mara Wang RN)0431 (Restarted - Provider: Mara Wang RN)0440 (Rate/Dose Verify - Provider: Mara Wang RN)0452 (Rate/Dose Change - Provider: Mara Wang RN)0457 (Rate/Dose Change - Provider: Mara Wang, RN)0458 (Stopped - Provider: Mara Wang RN) sodium chloride (PF) (NS) flush 5 mL(Linked Group 1) 5 mL, Intravenous, Every 8 hours scheduled, First dose on Fri05/17/22 at 2200, Saline lock 0600 (Canceled Entry - Provider: Kike Webster RN)1400 (Not Given - Provider: Mara Wang RN - Reason: Other - Comment: IV infusing)2040 (Given - Provider: Kike Webster RN)2200 (Canceled Entry - Provider: Kike Webster RN) 0600 (Canceled Entry - Provider: Kike Webster RN)1400 (Canceled Entry - Provider: Jorge Vera RN)2100 (Given - Provider: Kike Webster RN) 0600 (Canceled Entry - Provider: Kike Webster RN)1400 (Due) Continuous Medication Order 05/18/2022 05/19/2022 05/20/2022 lactated Ringers infusion (CANCELED) 100 mL/hr, Intravenous, Continuous, Starting on Fri05/17/22 at 1900 0139 (Paused - Provider: Mara Wang RN)0140 (Restarted - Provider: Mara Wang RN)0439 (Rate/Dose Verify - Provider: Mara Wang RN)0458 (Paused - Provider: Mara Wang RN)0458 (Restarted - Provider: Mara Wang RN)1019 (Paused - Provider: Mara Wang RN)1119 (Restarted - Provider: Mara Wang, RN)1148 (Stopped - Provider: Mara Wang, MYRANDA)1449 (Restarted - Provider: Mara Wang, RN)1501 (Paused - Provider: Mara Wang, MYRANDA)1509 (Restarted - Provider: Mara Wang RN)1814 (Rate/Dose Verify - Provider: Mara Wang RN)1848 (Rate/Dose Change - Provider: Jorge Vera RN)1858 (Rate/Dose Change - Provider: Jorge Vera RN)1908 (Stopped - Provider: Jorge Vera RN)1908 (New Bag - Provider: Mara Wang RN)2225 (Paused - Provider: Jorge Vera RN)2225 (Restarted - Provider: Jorge Vera RN) 0203 (Paused - Provider: Jorge Vera RN)0203 (Restarted - Provider: Jorge Vera RN)0508 (Rate/Dose Change - Provider: Jorge Vera RN)0608 (Rate/Dose Change - Provider: Jorge Vera RN)0610 (Stopped - Provider: Jorge Vera RN)0610 (New Bag - Provider: Eufemia Bourne RN)1053 (Paused - Provider: Jorge Vera RN)1150 (Restarted - Provider: Jorge Vera RN)1150 (Paused - Provider: Jorge Vera RN)1151 (Paused - Provider: Jorge Vera RN)1222 (Restarted - Provider: Jorge Vera RN)1252 (Rate/Dose Change - Provider: Jorge Vera RN)1253 (Stopped - Provider: Jorge Vera RN) PRN Medication Order 05/18/2022 05/19/2022 05/20/2022 gadoterate meglumine (DOTAREM) injection 10 mL (COMPLETED) 10 mL, Intravenous, Once in imaging, contrast, Starting on 05/18/22 at 1211, For 1 dose 1242 (Contrast Administered - Provider: Ger Neely, TECHNOLOGIST - Comment: [id number], exp: 09/2026) morphine injection 2 mg 2 mg, Intravenous, Every 4 hours PRN, moderate to severe pain, Starting on 05/17/22 at 1849 0138 (Given - Provider: Kike Webster RN)0709 (Given - Provider: Kike Webster RN)1157 (Given - Provider: Mara Wang RN)1617 (Given - Provider: Jorge Vera RN)2039 (Given - Provider: Kike Webster RN) 0201 (Given - Provider: Kike Webster RN)0625 (Given - Provider: Kike Webster RN)1035 (Given - Provider: Jorge Vera RN)1642 (Given - Provider: Jorge Vera RN)2100 (Given - Provider: Kike Webster RN) 0627 (Given - Provider: Kike Webster RN)1029 (Given - Provider: Janice Howard RN) naloxone (NARCAN) injection 0.1 mg(Linked Group 2) 0.1 mg, Intravenous, As needed, opioid reversal, For respiratory rate less than or equal to 8 per minute., Starting on Fri05/17/22 at 1849, Mix nalOXone (NARCAN) 0.4 mg (1mL) with 9 mL of Normal Saline to total 10 mL. Administer 0.1 mg (2.5mL) IV Push every 2 minutes until respiratory rate is 10 or greater. naloxone (NARCAN) injection 0.4 mg(Linked Group 2) 0.4 mg, Intravenous, As needed, opioid reversal, patient is pulseless, breathless, and unresponsive, Starting on Fri05/17/22 at 1849, Call a code first, then administer naloxone dose undiluted IV Push over 30 seconds. ondansetron (ZOFRAN) injection 4 mg 4 mg, Intravenous, Every 6 hours PRN, nausea, vomiting, Starting on Fri05/18/22 at 0440 0457 (Given - Provider: Kike Webster RN)1157 (Given - Provider: Mara Wang RN)1634 (Given - Provider: Jorge Vera RN)2225 (Given - Provider: Kike Webster RN) 1050 (Given - Provider: Jorge Vera RN) sodium chloride (PF) (NS) flush 5 mL(Linked Group 1) 5 mL, Intravenous, As needed, line care, Starting on Fri05/17/22 at 1736 sodium chloride 0.9% (NS)(Linked Group 1) 0-150 mL/hr, Intravenous, As needed, To flush line after IV infusions when no maintenance IV ordered or a compatibility issue. Infuse 20ml at the same rate as the secondary infusion, Starting on Fri05/17/22 at 1736, Run as Primary IV. NOT intended for KVO. 1036 (New Bag - Provider: Janice Howard, RN)1200 (Stopped - Provider: Janice Howard RN) Linked Groups Order Group 1: Saline lock IV (CANCELED) Routine, Continuous, Starting on Fri05/17/22 at 1737, Until Specified And sodium chloride (PF) (NS) flush 5 mLJump to med 5 mL, Intravenous, As needed, line care, Starting on Fri05/17/22 at 1736 And sodium chloride (PF) (NS) flush 5 mLJump to med 5 mL, Intravenous, Every 8 hours scheduled, First dose on Fri05/17/22 at 2200
Saline lock
And sodium chloride 0.9% (NS)Jump to med 0-150 mL/hr, Intravenous, As needed, To flush line after IV infusions when no maintenance IV ordered or a compatibility issue. Infuse 20ml at the same rate as the secondary infusion, Starting on Fri05/17/22 at 1736
Run as Primary IV. NOT intended for KVO.
Group 2: naloxone (NARCAN) injection 0.1 mgJump to med 0.1 mg, Intravenous, As needed, opioid reversal, For respiratory rate less than or equal to 8 per minute., Starting on Fri05/17/22 at 1849
Mix nalOXone (NARCAN) 0.4 mg (1mL) with 9 mL of Normal Saline to total 10 mL. Administer 0.1 mg (2.5mL) IV Push every 2 minutes until respiratory rate is 10 or greater.
And Notify physician (CANCELED) STAT, Until discontinued, Starting on Fri05/17/22 at 1850, Until Specified
Respiratory rate less than: 8
For respiratory rate less than or equal to 8, notify physician and/or appropriate staff for additional orders. And naloxone (NARCAN) injection 0.4 mgJump to med 0.4 mg, Intravenous, As needed, opioid reversal, patient is pulseless, breathless, and unresponsive, Starting on Fri05/17/22 at 1849
Call a code first, then administer naloxone dose undiluted IV Push over 30 seconds.
Goals (unrecognized section and content) Goals may be documented in a n alternate section FOR RECORDS PERTAINING TO PATIENTS WHO ARE OR HAVE BEEN ENROLLED IN A CHEMICAL DEPENDENCY/SUBSTANCEABUSE PROGRAM, SOME INFORMATION MAY BE OMITTED. This clinical summary was aggregated from multiple sources. Caution should be exercised in using it in the provision of clinical care. This summary normalizes information from multiple sources, and as a consequence, information in this document may materially change the coding, format and clinical context of patient data. In addition, data may be omitted in some cases. CLINICAL DECISIONS SHOULD BE BASED ON THE PRIMARY CLINICAL RECORDS. [facility] provides no warranty or guarantee of the accuracy or completeness of information in this document.
== END | disposition home or self-care (01) ==
LOC: RAD 14:04
PROVIDERS: PCP Family Medicine; Referring Provider Anesthesiology Pain Medicine; Visit Provider Anesthesiology Pain Medicine
DX: M43.00 Spondylolysis, site unspecified (principal)
CPT/HCPCS: 72040